=== PATIENT | female | born 1960 | race Caucasian/White ===

== ENCOUNTER 2021-04-27 09:30 | Outpatient (REF) | payer OTHER, SELFPAY ==
--- NOTE | ~2021-04-27 | CT_ITS ---
EXAMINATION: CT HEAD WITHOUT CONTRAST CLINICAL INFORMATION: Memory loss and confusion COMPARISON: None TECHNIQUE: Contiguous axial imaging was performed from the skull base to vertex without intravenous administration of contrast. This CT examination was performed using dose optimization techniques as appropriate, variously including the following: *Automated exposure control *Adjustment of mA and/or kV according to patient size (this includes techniques or standardized protocols for targeted exams where dose is matched to indication/reason for exam; i.e. extremities or head) *Use of iterative reconstruction technique DLP: 877 mGy-cm FINDINGS: There is no evidence of an extra-axial collection. There is no evidence of intra-axial or extra-axial hemorrhage. The ventricles and extra-axial CSF spaces are appropriate. There is mild nonspecific periventricular white matter disease. There is a left basal ganglia lacunar infarct. No mass or mass effect is seen. Review of bone windows is normal. Visualized paranasal sinuses, mastoid air cells and middle ears are clear. CT/CT head/brain wo con IMPRESSION: Mild periventricular white matter disease and left basal ganglia lacunar infarct.
== END 2021-04-27 09:31 | disposition home or self-care (01) ==
LOC: HO.CT 09:30
PROVIDERS: Visit Provider Psychiatry & Neurology Neurology
DX: G31.84 Mild cognitive impairment of uncertain or unknown etiology (principal)
CPT/HCPCS: 70450

== ENCOUNTER → 2021-05-06 08:14 | Outpatient (BNVA) | payer OTHER, SELFPAY | PROVIDERS: Visit Provider Physician Assistant | DX: Z01.818 Encounter for other preprocedural examination (principal); E66.01 Morbid (severe) obesity due to excess calories; E11.69 Type 2 diabetes mellitus with other specified complication; G47.30 Sleep apnea, unspecified; E78.5 Hyperlipidemia, unspecified; K21.9 Gastro-esophageal reflux disease without esophagitis; I10 Essential (primary) hypertension; Z98.890 Other specified postprocedural states | CPT/HCPCS: 99202 ==

== ENCOUNTER 2021-05-26 08:35 | Outpatient (REF) | payer OTHER, SELFPAY ==
--- NOTE | ~2021-05-26 | FL_ITS ---
EXAMINATION: XR FLUOROSCOPY UPPER GI WITH AIR CLINICAL INFORMATION: Morbid/severe obesity due to excess calories. COMPARISON: None. TECHNIQUE: Routine upper GI air-contrast study was performed. FINDINGS: Following oral administration of thick barium and effervescent granules, there is normal propagation of bolus from the oral cavity through the pharynx and esophagus and into the stomach without any evidence of obstruction, narrowing or stricture. On placing patient supine, the caliber of the stomach appears small, suspicious from previous gastric intervention. Otherwise, the rest the course, caliber and peristalsis of the stomach and the duodenal bulb and the sweep are normal. There is a small hiatal hernia with mild gastroesophageal reflux. FLUOROSCOPY TIME: 1.5 minutes DOSE AREA PRODUCT: 37.778 Gy-cm2 FL/FL upper GI w air IMPRESSION: Small paraesophageal hiatal hernia with moderate gastroesophageal reflux. Slightly small caliber stomach than usual, suspicious from previous intervention even though no ford are visualized. Correlate with clinical history.
== END 2021-05-26 08:36 | disposition home or self-care (01) ==
LOC: HO.XRAY 08:35
PROVIDERS: Visit Provider Physician Assistant
DX: Z01.818 Encounter for other preprocedural examination (principal); K21.9 Gastro-esophageal reflux disease without esophagitis; E66.01 Morbid (severe) obesity due to excess calories; Z98.890 Other specified postprocedural states
CPT/HCPCS: 74246

== ENCOUNTER → 2021-05-27 08:12 | Outpatient (BNVA) | payer OTHER, SELFPAY | PROVIDERS: Visit Provider Physician Assistant | DX: Z13.89 Encounter for screening for other disorder (principal) ==

== ENCOUNTER → 2021-05-29 08:11 | Outpatient (BNVA) | payer OTHER, SELFPAY | PROVIDERS: Visit Provider Physician Assistant | DX: E66.01 Morbid (severe) obesity due to excess calories (principal); Z98.890 Other specified postprocedural states | CPT/HCPCS: Q3014 ==

== ENCOUNTER → 2021-08-13 07:58 | Outpatient (BNVA) | payer OTHER, SELFPAY | PROVIDERS: Visit Provider Psychiatry & Neurology Neurology | DX: G24.01 Drug induced subacute dyskinesia (principal); G47.00 Insomnia, unspecified; H53.8 Other visual disturbances | CPT/HCPCS: 99212 ==

== ENCOUNTER 2021-09-02 15:45 | Outpatient (REF) | payer OTHER, SELFPAY ==
--- NOTE | ~2021-09-02 | MR_ITS ---
EXAMINATION: MR BRAIN WITHOUT CONTRAST CLINICAL INFORMATION: 61-year-old with drug-induced subacute dyskinesia. COMPARISON: None TECHNIQUE: Multiplanar multisequence MR imaging of the brain was done. The study was very limited due to excessive gross patient motion artifact throughout the exam due to involuntary movements. LIMITED FINDINGS: Brain Volume: Grossly within normal limits within the limitations of the exam. Structural: Suboptimally assessed due to motion. Brain and Meninges: DWI sequence was limited due to motion. Within these limitations, no definite restricted diffusion is identified to suggest acute or subacute cerebral ischemia. Scattered small patchy and punctate zones of FLAIR/T2 hyperintensity in the white matter of both cerebral hemispheres which are nonspecific findings but likely reflect foci of chronic ischemic microangiopathy. Mildly prominent perivascular space noted in the inferolateral basal ganglia on the left. No extra-axial fluid collections, significant space-occupying process or mass effect. Gradient refocused imaging is very limited but there is no gross evidence for hemorrhage. Ventricles and Subarachnoid Spaces: The ventricular system and subarachnoid spaces are within normal limits without hydrocephalus. Orbital Structures: Grossly unremarkable. Vascular: Signal voids are noted in the visualized major intracranial vessels. Limited assessment. Osseous Structures, Sinuses/Mastoids, Extracranial Soft Tissues: Mild mucosal thickening in the ethmoid complex bilaterally with nasal septal deviation to the left. Bone marrow signal intensity appears grossly within normal limits. Visualized extracranial soft tissue structures appear within normal limits. MR/MR head/brain wo con IMPRESSION: 1. Limited exam due to excessive motion artifact throughout the entire study. 2. No definite acute intracranial process. No acute infarct, hemorrhage, space-occupying process, mass effect or hydrocephalus. 3. Scattered chronic ischemic microangiopathy in the white matter of both cerebral hemispheres.
== END 2021-09-02 15:46 | disposition home or self-care (01) ==
LOC: HO.MRI 15:45
PROVIDERS: Visit Provider Psychiatry & Neurology Neurology
DX: G24.01 Drug induced subacute dyskinesia (principal); H53.8 Other visual disturbances
CPT/HCPCS: 70551

== ENCOUNTER → 2021-09-23 09:52 | Outpatient (BNVA) | payer OTHER, SELFPAY | PROVIDERS: Visit Provider Nurse Practitioner Family | DX: H53.8 Other visual disturbances (principal); G47.00 Insomnia, unspecified; G24.01 Drug induced subacute dyskinesia; T50.905A Adverse effect of unspecified drugs, medicaments and biological substances, initial encounter | CPT/HCPCS: 99212 ==

== ENCOUNTER 2023-09-28 19:35 | Inpatient (IN) | payer OTHER, SELFPAY ==
--- NOTE | ~2023-09-28 | XR_ITS ---
EXAMINATION: XR ABDOMEN COMPLETE CLINICAL INDICATION: Reason for Exam abdominal discomfort, upper, upper right COMPARISON: Upper GI 05/26/2021 TECHNIQUE: AP view of the abdomen. FINDINGS: Lines or devices: Upper abdominal surgical clips. Suture chain material in the region of the cecum. Nonobstructive bowel gas pattern. Moderate colonic stool burden. No extraluminal subdiaphragmatic air. Calcified phleboliths in the pelvis. XR/XR abdomen min 2V IMPRESSION: 1. Nonobstructive bowel gas pattern. Moderate colonic stool burden.
--- OUTSIDE RECORDS SUMMARY | 2023-09-28 19:40 | XMS_ITS | Continuity of Care Document ---
Author Organization [facility] ter Address [address] [place] [id number]- Care Team Providers Care Cleaning Custodian Name Role Phone Kat Sofia DO Primary Care Physician Encounter [facility] Date(s): 04/04/19 - 04/06/[address] [address]- [facility] Encounter Diagnosis Chest pain(Final) - 04/06/19 Discharge Disposition: A-D/C Home Attending Physician: Sarmad Garcia MD Admitting Physician: Cyndy Guevara DO Referring Physician: Not on Staff, Referring MD Allergies, Adverse Reactions, Alerts Substance Reaction Severity Status penicillin O/E - allergic rash Active fentanyl 1 Rash Itch Active Latex Active 1erythematous swollen itchy skin in area where patch was applied Immunizations Given and Recorded Vaccine Date Status Refusal Reason influenza virus vaccine, inactivated 12/23/17 Give n influenza virus vaccine, inactivated 03/01/16 Give n influenza virus vaccine, inactivated 1 02/03/15 Gi sean influenza virus vaccine, inactivated 2 03/04/14 Gi sean influenza virus vaccine, inactivated 01/17/13 Give n influenza virus vaccine, inactivated 3 12/29/11 Gi sean influenza virus vaccine, inactivated 02/03/07 Give n pneumococcal 23-valent vaccine 03/01/16 Given pneumococcal 23-valent vaccine 4 01/27/11 Given pneumococcal 13-valent vaccine 5 12/11/14 Given pneumococcal 13-valent vaccine 12/09/14 Given hepatitis B adult vaccine 6 01/17/13 Given hepatitis B adult vaccine 7 09/15/09 Given hepatitis B adult vaccine 8 02/03/07 Given Hepatitis A Adult Vaccine 9 09/15/09 Given Hepatitis A Adult Vaccine 10 02/03/07 Given tetanus/diphtheria/pertussis, acel(Tdap) 11 09/15/09 Given 1Result Comment: [02/03/2015] ORDERED BY DR. CAMACHO 2Result Comment: [03/04/2014] Ordered by Nikita 3Atico Note: VIS 10/20/10 GIVEN 4Admin Note: VIS 12/31/08 GIVEN 5Result Comment: [12/11/2014 Uncharted] Error 6Result Comment: [01/17/2013] ORDERED BY DR. CAMACHO 7Admin Note: VIS 10/12/06 GIVEN 8Admin Note: VIS 10/05/00 9Admin Note: VIS 06/15/05 GIVEN 10Admin Note: VIS 06/15/05 11Admin Note: ADACEL PT BROUGHT VIS 02/13/08 GIVEN Medications albuterol 0.083% inhalation solution 3 mL = 2.5 mg, Inhalation, Every 6 hours, PRN for wheezing, # 60 each, 5 Refills, Maintenance, 05/31/16 14:19:21, Solution Start Date: 05/31/16 Status: Ordered albuterol-ipratropium 3 mg-0.5 mg/3 ml inhalation solution 3 mL, Neb, Every 6 hours, PRN Wheezing/Shortness of Breath, Maintenance, 12/21/18 13:38:18 EDT Start Date: 12/21/18 Status: Ordered amLODIPine 5 mg oral tablet 5 mg, 1, tablet, By Mouth, Daily, # 30 tablet, Refills 0, Maintenance, 02/25/17 21:50:34 Start Date: 02/25/17 Status: Ordered atorvastatin 40 mg oral tablet = 40 mg, By Mouth, Daily at bedtime, # 30 tablet, 11 Refills, Maintenance, Tablet, Route to Pharmacy Electronically, [id number], [facility]/pharmacy #[id number] Start Date: 03/10/16 Status: Ordered benztropine 1 mg oral tablet 1 mg, 1, tablet, By Mouth, 2 times a day, Maintenance, 12/21/18 13:18:14 EDT Start Date: 12/21/18 Status: Ordered Breo Ellipta 200 mcg-25 mcg/inh inhalation powder 1 puffs, Inhalation, Daily, 0 Refills, Maintenance, 12/21/17 19:14:01 EDT, Powder Start Date: 12/21/17 Status: Ordered bumetanide 0.5 mg oral tablet 0.5 mg, 1, tablet, By Mouth, 2 times a day, # 30 tablet, Refills 0, Maintenance, 12/21/18 13:19:13 EDT Start Date: 12/21/18 Status: Ordered D3 SUPER STR CAP 2000UNIT D3 SUPER STR CAP 2000UNIT, 0 Refills, Maintenance, 04/04/19 20:38:00 EST Start Date: 04/04/19 Status: Ordered diazepam 5 mg oral tablet TAKE 1/2 TABLET IN THE MORNING, 1 TABLET IN THE afternoon, AND 1 1/ 2 TABLETS AT BEDTIME Start Date: 04/04/19 Status: Ordered Doculase By Mouth, 2 times a day, 0 Refills, Maintenance, 02/25/17 21:51:25 Start Date: 02/25/17 Status: Ordered duloxetine 60 mg oral enteric coated capsule 1 capsule = 60 mg, By Mouth, 2 times a day, # 30 tablet, 0 Refills, Maintenance, 05/31/17 14:18:08 EST, Capsule Start Date: 05/31/17 Status: Ordered esomeprazole 40 mg oral enteric coated capsule 1 capsule = 40 mg, By Mouth, 2 times a day, Maintenance, 12/21/18 13:25:23 EDT, EC Capsule Start Date: 12/21/18 Status: Ordered gabapentin 300 mg oral capsule 300 mg, 1, capsule, By Mouth, Daily in AM, Refills 0, Maintenance, 09/03/16 11:16:58 Start Date: 09/03/16 Status: Ordered gabapentin 600 mg oral tablet 1 tablet = 600 mg, By Mouth, Daily at bedtime, # 90 tablet, 0 Refills, Maintenance, 02/26/17 15:08:46, Tablet Start Date: 02/26/17 Status: Ordered Lantus 100 u/ml subcutaneous solution = 64 units, Subcutaneous Injection, Daily at bedtime, Maintenance, 12/21/18 13:26:49 EDT, Solution Start Date: 12/21/18 Status: Ordered lidocaine 4% topical cream 1 application, Topically, 4 times a day, Maintenance, 12/21/18 13:27:50 EDT, Cream Start Date: 12/21/18 Status: Ordered lisinopril 40 mg oral tablet 1 tablet = 40 mg, By Mouth, Daily, # 30 tablet, 0 Refills, Maintenance, 12/21/17 19:12:03 EDT, Tablet Start Date: 12/21/17 Status: Ordered loperamide 2 mg oral capsule 2 mg, 1, capsule, By Mouth, Daily, PRN, Maintenance, for loose stool, 12/21/18 13:39:23 EDT Start Date: 12/21/18 Status: Ordered loratadine 10 mg oral tablet 10 mg, 1, tablet, By Mouth, Daily, PRN, For allergies, Refills 0, Maintenance, Other, 02/26/17 15:22:04 Start Date: 02/26/17 Status: Ordered metFORMIN 1000 mg oral tablet 1 tablet = 1,000 mg, By Mouth, 2 times a day, 0 Refills, Maintenance, 12/21/18 13:29:09 EDT Start Date: 12/21/18 Status: Ordered metoprolol succinate 50 mg oral capsule, extended release 1 capsule = 50 mg, By Mouth, Daily, 0 Refills, Maintenance, 12/21/18 13:30:07 EDT Start Date: 12/21/18 Status: Ordered NovoLOG 100 units/mL subcutaneous solution See Instructions, 8-24 3x daily per sliding scale, # 30 mL, 11 Refills, Maintenance, 07/25/15 17:42:00 Start Date: 07/25/15 Status: Ordered olanzapine 10 mg oral tablet 10 mg, By Mouth, Daily at bedtime, Refills 0, Maintenance, 12/29/17 12:32:06 EDT Start Date: 12/29/17 Status: Ordered olanzapine 5 mg oral tablet 5 mg, By Mouth, Daily, Refills 0, Maintenance, 12/29/17 12:32:12 EDT Start Date: 12/29/17 Status: Ordered senna - oral tablet 2 tablet, By Mouth, Daily at bedtime, PRN for constipation, Maintenance, 12/21/18 13:40:06 EDT, Tablet Start Date: 12/21/18 Status: Ordered Tylenol Extra Strength 500 mg oral tablet 2 tablet = 1,000 mg, By Mouth, Every 6 hours, PRN for pain, Maintenance, 12/21/18 13:37:16 EDT, Tablet Start Date: 12/21/18 Status: Ordered Ventolin 90 mcg Inhaler 2, puffs, Inhalation, Every 6 hours, PRN, Maintenance, 12/21/18 13:40:53 EDT, Inhaler Start Date: 12/21/18 Status: Ordered Voltaren 1% topical gel = 2 Gm, Topically, 3 times a day, PRN Pain , Mild, Maintenance, 12/21/18 13:41:32 EDT Start Date: 12/21/18 Status: Ordered Problem List Condition Effective Dates Status Health Status Inform ant Allergic rhinitis(Confirmed) Active Dry mouth(Confirmed) Active Atrophic vaginitis(Confirmed) 12/06/12 Active Bipolar disorder(Confirmed) Active Dilated cbd, acquired(Confirmed) 2008 Active Chronic respiratory failure with hypoxia(Confirmed) Active Closed fracture of tibial pl [place] with routine healing(Confirmed) 11/07/14 Active Oxygen dependent(Confirmed) Active Diabetes mellitus type 2(Confirmed) Active Diabetic neuropathy(Confirmed) Active Diabetic nephropathy(Confirmed) 11/10/03 Active Diastolic dysfunction(Confirmed) 2 12/25/15 Active GERD (gastroesophageal reflu x disease)(Confirmed) Active History of resection of smal l bowel(Confirmed) 3 Active Hypercholesterolemia(Confirmed) Active Hyperlipidemia(Confirmed) Active Hypertension(Confirmed) Active Iron deficiency anemia(Confirmed) Active Irritable bowel syndrome wit h constipation and diarrhea(Confirmed) Active Memory impairment(Confirmed) Active Morbid obesity(Confirmed) 4, 5, 6 Active DON on CPAP(Confirmed) 7 05/21/11 Active Osteoarthritis(Confirmed) Active Osteoarthritis of knee(Confirmed) 8, 9 Active Left leg pain(Confirmed) Active *[facility] [phone] CARE MANAG ER SUN [place](Confirmed) Active Peripheral venous insufficiency(Confirmed) Active Abdominal adhesions(Confirmed) 10 Active Physiological tremor(Confirmed) 11 06/17/10 Active Reflux esophagitis(Confirmed ) 12, 13, 14, 15 11/17/04 Active Urinary incontinence(Confirmed) Active 1dilatation of CBD since 2008 per GI letter- diagnosed by US 2Per ECHO Dec 25, 2015 Grade I, mild diastolic dysfunction 3confirmed by small bowel series done by GI jan 2014- partial small bowel resection 4PROCEDURE DATE: 01/04/2012 ATTENDING SURGEON: Woo Maxwell M.D. TALENT REP: Laz Schulz M.D. SECOND INVESTMENT BROKER: Monica Betancourt M.D. Procedure: partial resection of implanted Marlex gastric band. 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 PROCEDURE PERFORMED: Exploratory laparoscopy with extensive laparoscopic lysis of adhesions, neuro evaluation, Dr Ramandeep Diop: exaggerated physiological tremor with a probable contribution from the medications 12PROCEDURE DATE: 01/04/2012 ATTENDING SURGEON: Woo Maxwell M.D. ASSISTANTS: Laz Schulz M.D.; Monica Betancourt M.D. DIAGNOSES: Gastroesophageal reflux and dysphagia. PROCEDURE: Exploratory laparoscopy with extensive laparoscopic lysis of adhesions, repair of sliding hiatal hernia, esophagogastroduodenoscopy, and resection of implanted Marlex gastric band. EGD by Guzman Hernandez MD: Grade 1 esophagitis in the lower third of the esophagus compatible with reflux esophagitis. Short segment Ellington's esophagus. Small hiatal hernia. No H pylori. 14esophagitis was confirmed by endoscopy on 11/17/2004 15with GERD Results Radiology Reports * Exam Date Time Procedure Performing Provider Status 04/04/19 2:47 PM Chest 2 Views Frontal and Lat Merary Vargas; Auth (Verified) Notes: (Chest 2 Views Frontal and Lat) Reason For Exam: Shortness of Breath RESULT: Chest 2 Views Frontal and Lat Chest 2 Views Frontal and Lat Reason: Shortness of Breath; Clinical Question(s): Pneumonia; Hx of Present Illness: Pt reports shewent to PCP for appointment today and was dizzy and started to have jaw pain that radiated down to the midsternal chest. COMPARISON: 07/31/2018 FINDINGS: LINES AND TUBES: None. LUNGS AND PLEURA: Clear lungs. Normal pulmonary vascularity. No pleural effusion. No pneumothorax. HEART, MEDIASTINUM AND TRACE: Heart is normal in size. Aorta is mildly calcified. BONES AND SOFT TISSUES: No acute abnormality. Chronic posterior left rib fractures. IMPRESSION: No acute abnormality. WSN: [id number] Dictated By: Castro Riggs DO Dictated Date/Time: 04/04/19 2:49 pm Reviewed By: Castro Riggs DO Signed By: Castro Riggs DO Signed Date/Time: 04/04/19 2:49 pm Transcribed By: NICCI Transcribed Date/Time: 04/04/19 2:47 pm Vital Signs Most recent to oldest [Reference Range]: 1 2 3 Height 177 cm (04/06/19 11:47 AM) 177 cm (04/06/19 8:01 AM) 177 cm (04/06/19 3:42 AM) Weight 133.5 kg (04/04/19 9:00 PM) Oxygen Saturation [94-100 %] 97 % (04/06/19 11:47 AM) 95 % (04/06/19 8:01 AM) 99 % (04/06/19 3:42 AM) Pulse Rate [55-90 bpm] 75 bpm (04/06/19 11:47 AM) 74 bpm (04/06/19 9:13 AM) 73 bpm (04/06/19 8:01 AM) Body Mass Index [18.5-24.99] 42.61 *>HHI* (04/04/19 9:00 PM) Blood Pressure [90-138/55-84 mm Hg] 127/89mm Hg (04/06/19 11:47 AM) 152/92mm Hg *H* (04/06/19 9:13 AM) 152/92mm Hg *H* (04/06/19 9:13 AM) Respiratory Rate [16-30 br/min] 18 br/min (04/06/19 11:47 AM) 16 br/min (04/06/19 10:13 AM) 16 br/min (04/06/19 10:13 AM) Temperature [96.8-100.4 DegF] 97.2 DegF (04/06/19 11:47 AM) 97.4 DegF (04/06/19 8:01 AM) 97.7 DegF (04/06/19 3:42 AM) Mode of Delivery (Oxygen) Room air (04/06/19 11:47 AM) Room air (04/06/19 8:01 AM) Room air (04/06/19 3:42 AM) Blood pressure sites Arm, left (04/06/19 11:47 AM) Arm, left (04/06/19 8:01 AM) Arm, right (04/06/19 3:42 AM) Temperature Route Oral (04/06/19 11:47 AM) Oral (04/06/19 8:01 AM) Oral (04/06/19 3:42 AM) Dry Weight 133.5 kg (04/04/19 9:00 PM) Social History Social History Type Response Smoking Status Never smoker; Tobacc o user in household: No entered on: 09/03/16 Sex
--- OUTSIDE RECORDS SUMMARY | 2023-09-28 19:40 | XMS_ITS | Continuity of Care Document ---
Author Organization [facility] As [facility] Address [address] [place] [address] [address] [place] [address]- Care Team Providers Care Company Manager Name Role Phone Evangelist LAO, Tamara Primary Care Physician [phone] Encounter [facility] Date(s): 11/27/21 - 12/04/[address] [place] [address]- Attending Physician: Woo Maxwlel MD Referring Physician: Tamara Blanca NP Allergies, Adverse Reactions, Alerts Substance Reaction Severity Status penicillin O/E - allergic rash Active fentanyl 1 Rash Itch Active Latex Skin Peels Active 1erythematous swollen itchy skin in area [...] CAMACHO 2Result Comment: [03/04/2014] Ordered by Nikita 3Admin Note: VIS 10/20/10 GIVEN 4Admin Note: VIS [...] albuterol-ipratropium 3 mg-0.5 mg/3 ml inhalation solution 0 Refills, Maintenance, 12/01/21 16:28:00 EDT, Partial fill upon patient request if the prescription is for a schedule II opioid drug. Start Date: 12/01/21 Status: Ordered aspirin 81 mg oral tablet 1 tablet = 81 mg, By Mouth, Daily, PRN Chest Pain, 0 Refills, Maintenance, 09/09/19 0:01:00 EDT Start Date: 09/09/19 Status: Ordered atorvastatin 40 mg oral tablet = 40 mg, By Mouth, Daily at bedtime, # 30 tablet, 11 Refills, Maintenance, Tablet, Route to Pharmacy Electronically, [id number], [facility]/pharmacy #[id number] Start Date: 03/10/16 Status: Ordered atorvastatin 40 mg oral tablet 1 tablet = 40 mg, By Mouth, Daily, # 90 tablet, 0 Refills, Maintenance, 12/01/21 16:29:00 EDT, Tablet, Partial fill upon patient request if the prescription is for a schedule II opioid drug. Start Date: 12/01/21 Status: Ordered benztropine 1 mg oral tablet [...] 13:19:13 EDT Start Date: 12/21/18 Status: Ordered clotrimazole 1% topical cream 0 Refills, Maintenance, 12/01/21 16:27:00 EDT, Partial fill upon patient request if the prescription is for a schedule II opioid drug. Start Date: 12/01/21 Status: Ordered CPAP Machine See Instructions, # 1 each, Maintenance, AutoCPAP 9-12 cm H20, use Daily when sleeping, 10/22/21 14:55:00 EDT, Supply Start Date: 10/22/21 Status: Ordered D3 SUPER STR CAP 2000UNIT D3 SUPER STR CAP 2000UNIT, 0 Refills, Maintenance, 04/04/19 20:38:00 EST Start Date: 04/04/19 Status: Ordered diazepam 2 mg oral tablet TAKE 2 TABLETS BY MOUTH ONCE DAILY NEEDED Start Date: 02/09/20 Status: Ordered diazepam 2 mg oral tablet Refills 0, Maintenance, 12/01/21 16:29:00 EDT, Partial fill upon patient request if the prescription is for a schedule II opioid drug. Start Date: 12/01/21 Status: Ordered Doculase By Mouth, 2 times a day, 0 Refills, Maintenance, 02/25/17 21:51:25 EST Start Date: 02/25/17 Status: Ordered duloxetine 60 [...] EC Capsule Start Date: 12/21/18 Status: Ordered esomeprazole 40 mg oral enteric coated capsule 1 capsule = 40 mg, By Mouth, 2 times a day, # 30 capsule, 0 Refills, Maintenance, 12/01/21 16:29:00EDT, EC Capsule, Partial fill upon patient request if the prescription is for a schedule II opioid drug. Start Date: 12/01/21 Status: Ordered gabapentin 400 mg oral capsule 400 mg, 1, capsule, By Mouth, 3 times a day, # 15 capsule, Refills 0, Maintenance, 12/01/21 16:59:00 EDT, Partial fill upon patient request if the prescription is for a schedule II opioid drug. Start Date: 12/01/21 Status: Ordered gabapentin 600 mg oral tablet 1 tablet = 600 mg, By Mouth, Daily at bedtime, # 90 tablet, 0 Refills, Maintenance, 02/26/17 15:08:46 EST, Tablet Start Date: 02/26/17 Status: Ordered Lantus 100 u/ml subcutaneous solution = 64 units, Subcutaneous Injection, Daily at bedtime, Maintenance, 12/21/18 13:26:49 EDT, Solution Start Date: 12/21/18 Status: Ordered Lantus Solostar Pen 100 units/mL subcutaneous solution 0 Refills, Maintenance, 12/01/21 16:29:00 EDT, Partial fill upon patient request if the prescription is for a schedule II opioid drug. Start Date: 12/01/21 Status: Ordered lidocaine 4% topical cream 1 application, Topically, 4 times a day, Maintenance, 12/21/18 13:27:50 EDT, Cream Start Date: 12/21/18 Status: Ordered lisinopril 10 mg oral tablet 10 mg, 1, tablet, By Mouth, Daily, # 30 tablet, Refills 0, Maintenance, 12/01/21 16:28:00 EDT, Partial fill upon patient request if the prescription is for a schedule II opioid drug. Start Date: 12/01/21 Status: Ordered lisinopril 40 mg oral tablet [...] 15:22:04 Start Date: 02/26/17 Status: Ordered metFORMIN 500 mg oral tablet 2 tablet = 1,000 mg, By Mouth, 2 times a day, with meals, # 30 tablet, 0 Refills, Maintenance, 05/06/20 10:14:00 EST, Tablet, Partial fill upon patient request if the prescription is for a schedule II opioid drug. Start Date: 05/06/20 Status: Ordered Metoprolol Succinate ER 25 mg oral tablet, extended release 1 tablet = 25 mg, By Mouth, Daily, # 30 tablet, 0 Refills, Maintenance, 02/09/20 11:00:00 EST, ER Tablet, Partial fill upon patient request Start Date: 02/09/20 Status: Ordered mirtazapine 30 mg oral tablet TAKE ONE TABLET BY MOUTH ONCE A DAY AT BEDTIME Start Date: 08/14/21 Status: Ordered mirtazapine 30 mg oral tablet 1 tablet = 30 mg, By Mouth, Daily at bedtime, # 30 tablet, 0 Refills, Maintenance, 12/01/21 16:29:00 EDT, Tablet, Partial fill upon patient request if the prescription is for a schedule II opioid drug. Start Date: 12/01/21 Status: Ordered NovoLOG 100 units/mL subcutaneous solution See Instructions, 8-24 3x daily per sliding scale, # 30 mL, 11 Refills, Maintenance, 07/25/15 17:42:00 Start Date: 07/25/15 Status: Ordered Nystop 956020 u/gm powder 0 Refills, Maintenance, 08/14/21 16:07:00 EDT, Partial fill upon patient request if the prescription is for a schedule II opioid drug. Start Date: 08/14/21 Status: Ordered Nystop 419668 u/gm powder 0 Refills, Maintenance, 12/01/21 16:27:00 EDT, Partial fill upon patient request if the prescription is for a schedule II opioid drug. Start Date: 12/01/21 Status: Ordered olanzapine 20 mg oral tablet 1 tablet = 20 mg, By Mouth, Daily at bedtime, # 30 tablet, 0 Refills, Maintenance, 02/09/20 11:02:00 EST, Tablet, Partial fill upon patient request Start Date: 02/09/20 Status: Ordered olanzapine 20 mg oral tablet 1 tablet = 20 mg, By Mouth, Daily, # 90 tablet, 0 Refills, Maintenance, 12/01/21 16:27:00 EDT, Tablet, Partial fill upon patient request if the prescription is for a schedule II opioid drug. Start Date: 12/01/21 Status: Ordered Ozempic (0.25 mg or 0.5 mg dose) 2 mg/1.5 mL subcutaneous solution = 0.5 mg, Subcutaneous Injection, Every week, # 1.5 mL, 0 Refills, Maintenance, 05/06/20 10:16:00 EST, Solution, Partial fill upon patient request if the prescription is for a schedule II opioid drug. Start Date: 05/06/20 Status: Ordered Ozempic (1 mg dose) 4 mg/3 mL subcutaneous solution 0 Refills, Maintenance, 12/01/21 16:28:00 EDT, Partial fill upon patient request if the prescription is for a schedule II opioid drug. Start Date: 12/01/21 Status: Ordered senna - oral tablet 2 tablet, By Mouth, Daily at bedtime, PRN for constipation, Maintenance, 12/21/18 13:40:06 EDT, Tablet Start Date: 12/21/18 Status: Ordered traMADol 50 mg oral tablet 1 tablet = 50 mg, By Mouth, Every 4 hours, PRN for pain, # 60 tablet, 0 Refills, Maintenance, 05/06/20 10:19:00 EST, Tablet, Partial fill upon patient request if the prescription is for a schedule IIopioid drug. Start Date: 05/06/20 Status: Ordered Tylenol Extra Strength 500 mg oral tablet 2 tablet = 1,000 mg, By Mouth, Every 6 hours, PRN for pain, Maintenance, 12/21/18 13:37:16 EDT, Tablet Start Date: 12/21/18 Status: Ordered Vitamin D3 1000 intl units oral capsule 1 capsule = 25 mcg, By Mouth, Daily, # 100 capsule, 0 Refills, Maintenance, 12/01/21 16:29:00 EDT, Capsule, Partial fill upon patient request if the prescription is for a schedule II opioid drug. Start Date: 12/01/21 Status: Ordered Vitamin D3 1000 intl units oral tablet 1 tablet = 25 mcg, By Mouth, Daily, 0 Refills, Maintenance, 08/14/21 16:07:00 EDT, Partial fill upon patient request if the prescription is for a schedule II opioid drug. Start Date: 08/14/21 Status: Ordered Voltaren 1% topical gel = [...] resection of smal l bowel(Confirmed) 3 Active Hyperlipidemia(Confirmed) Active Hypertension(Confirmed) Active Iron deficiency anemia(Confirmed) Active Irritable bowel syndrome wit h constipation and diarrhea(Confirmed) Active Memory impairment(Confirmed) Active Morbid obesity(Confirmed) 4, 5, 6 Active DON on CPAP(Confirmed) 7 05/21/11 Active Osteoarthritis(Confirmed) Active Osteoarthritis of knee(Confirmed) 8, 9 Active Left leg pain(Confirmed) Active *[facility] [phone] CARE MANAG ER SUN CEDILLO(Confirmed) Active Peripheral venous insufficiency(Confirmed) Active Abdominal adhesions(Confirmed) 10 Active Physiological tremor(Confirmed) 11 06/17/10 Active Reflux esophagitis(Confirmed ) 12, 13, 14, 15 11/17/04 Active Severe obesity(Confirmed) Active Syncope(Confirmed) Active Urinary incontinence(Confirmed) Active 1dilatation of CBD since 2008 per GI letter- diagnosed by US 2Per ECHO Dec 25, 2015 Grade I, mild diastolic dysfunction 3confirmed by small bowel series done by GI jan 2014- partial small bowel resection 4PROCEDURE DATE: 01/04/2012 ATTENDING SURGEON: Woo Maxwell M.D. TORQUE TESTER: Laz Schulz M.D. SECOND EMPLOYMENT APPEALS EXAMINER: Monica Betancourt M.D. Procedure: partial resection of implanted Marlex gastric band. 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 on 02/22/[address] Laz Katz At [address] [facility], [id number] [address]Right TKP by Dr Laz Katz 10PROCEDURE [...] confirmed by endoscopy on 11/17/2004 15with GERD Vital Signs Most recent to oldest [Reference Range]: 1 Height 170 cm (11/27/21 10:14 AM) Weight 121.7 kg (11/27/21 10:14 AM) Pulse Rate [55-90 bpm] 98 bpm *H* (11/27/21 10:14 AM) Body Mass Index [18.5-24.99] 42.11 *>HHI* (11/27/21 10:14 AM) Blood Pressure [90-138/55-84 mm Hg] 114/ 77mm Hg (11/27/21 10:14 AM) Respiratory Rate [16-30 br/min] 18 br/mi n (11/27/21 10:14 AM) Temperature [96.8-100.4 DegF] 97.5 DegF (11/27/21 10:14 AM) Blood pressure sites Arm, right (11/27/21 10:14 AM) Temperature Route Temporal (11/27/21 10:14 AM) Weight Obtained Via Standing scale (11/27/21 10:14 AM) Social History Social History Type Response Smoking Status Never smoker; Tobacc o user in household: No entered on: 09/03/16 Sex Female Care Team Personnel Name: Evangelist LAO, Tamara
--- OUTSIDE RECORDS SUMMARY | 2023-09-28 19:40 | XMS_ITS | Continuity of Care Document ---
Author Organization [facility] Address Unknown Care Team Providers Care Laboratory Animal Caretaker Name Role Phone Kat Sofia DO Primary Care Physician [place] [facility] [place]): 12/25/20 - 01/24/21 [facility] Allergies, Adverse Reactions, Alerts Substance Reaction Severity [...] 13:38:18 EDT Start Date: 12/21/18 Status: Ordered aspirin 81 mg oral tablet 1 tablet = 81 mg, By Mouth, Daily, PRN Chest Pain, 0 Refills, Maintenance, 09/09/19 0:01:00 EDT Start Date: 09/09/19 Status: Ordered atorvastatin 40 mg oral tablet = 40 mg, By Mouth, Daily at bedtime, # 30 tablet, 11 Refills, Maintenance, Tablet, Route to Pharmacy Electronically, [id number], [facility]/pharmacy #[id number] Start Date: 03/10/16 Status: Ordered benztropine [...] DAILY NEEDED Start Date: 02/09/20 Status: Ordered Doculase By Mouth, 2 times [...] Capsule Start Date: 12/21/18 Status: Ordered gabapentin 600 mg oral tablet [...] Status: Ordered metFORMIN 500 mg oral tablet 1 tablet = 500 mg, By Mouth, Daily, with meals, # 30 tablet, 0 Refills, [...] patient request Start Date: 02/09/20 Status: Ordered NovoLOG 100 units/mL subcutaneous solution See Instructions, 8-24 3x daily per sliding scale, # 30 mL, 11 Refills, Maintenance, 07/25/15 17:42:00 Start Date: 07/25/15 Status: Ordered olanzapine 20 mg oral tablet 1 tablet = 20 mg, By Mouth, Daily, # 30 tablet, 0 Refills, Maintenance, 02/09/20 11:02:00 EST, Tablet, Partial fill upon patient request Start Date: 02/09/20 Status: Ordered Ozempic (0.25 mg or 0.5 mg dose) 2 mg/1.5 mL subcutaneous solution = 0.5 mg, Subcutaneous Injection, Every week, # 1.5 mL, 0 Refills, Maintenance, 05/06/20 10:16:00 EST, Solution, Partial fill upon patient request if the prescription is for a schedule II opioid drug. Start Date: 05/06/20 Status: Ordered senna - oral tablet 2 [...] 8, 9 Active Left leg pain(Confirmed) Active *[facility] [phone] CARE MANAG ER SUN CEDILLO(Confirmed) Active Peripheral [...] DATE: 01/04/2012 ATTENDING SURGEON: Woo Maxwell M.D. CREDIT OFFICE MANAGER: Laz Schulz M.D. SECOND PC NETWORK TECHNICIAN: Monica Betancourt M.D. Procedure: partial resection of implanted Marlex gastric band. 5Gastric bypass by Dr Knott 03/29/03 6S/p gastric bypass 7by sleep s tudy 05/21/11- mild 8Left TKR after failed patellofemoral knee replacement on 02/22/[address] Laz Katz At [address] [facility], [address] [address]Right [address]KP by Dr Laz Katz 10PROCEDURE [...] confirmed by endoscopy on 11/17/2004 15with GERD Social History Social History Type Response Smoking Status Never smoker; Tobacc o user in household: No entered on: 09/03/16 Sex Female
--- OUTSIDE RECORDS SUMMARY | 2023-09-28 19:40 | XMS_ITS | Continuity of Care Document ---
Author Organization [facility] Address [address] [place] [address] [address] [place] [address]- Care Team Providers Care New Business Clerk Name Role Phone Kat Sofia DO Primary Care Physician Encounter [facility] Date(s): 02/29/20 - 03/07/[address] [place] [address]- Encounter Diagnosis Abdominal pain in female(Discharge Diagnosis) - 02/29/20 Attending Physician: Woo Maxwell MD Referring Physician: Kat Sofia DO Allergies, Adverse Reactions, Alerts Substance Reaction Severity [...] CAMACHO 2Result Comment: [03/04/2014] Ordered by Nikita 3Admjohnna Note: VIS 10/20/10 GIVEN 4Admin Note: VIS [...] Refills, Maintenance, Tablet, Route to Pharmacy Electronically, [id number], [facility]/pharmacy #[id number] Start Date: 03/10/16 Status: Ordered benztropine [...] 21:51:25 EST Start Date: 02/25/17 Status: Ordered docusate sodium 100 mg oral capsule 100 mg, 1, capsule, By Mouth, 2 times a day, # 28 capsule, Refills 0, Tot. Refills 0, Maintenance, 09/09/19 11:05:00 EDT, Route to Pharmacy Electronically, [facility], 170, cm, 09/08/2009:46:00 EDT, Height, 127.2, kg, 09/08/19 23:46:00... Start Date: 09/09/19 Stop Date: 09/23/19 Status: Ordered duloxetine 60 mg oral enteric [...] 13:29:09 EDT Start Date: 12/21/18 Status: Ordered Metoprolol Succinate ER 25 mg [...] patient request Start Date: 02/09/20 Status: Ordered Readi-Cat 2 oral suspension See Instructions, Dispense : 2 Bottles 450 ml each Dx: Hernia, # 900 mL, 0 Refills, Maintenance, 02/29/20 14:58:00 EST, [facility]/pharmacy #[id number], Partial fill upon patient request if the prescription is for a schedule II opioid drug., Dispense : 2 Bottles... Start Date: 02/29/20 Status: Ordered senna - oral tablet 2 [...] 8, 9 Active Left leg pain(Confirmed) Active *[facility] [phone] CARE MANAG ER SUN CEDILLO(Confirmed) Active Peripheral [...] DATE: 01/04/2012 ATTENDING SURGEON: Woo Maxwell M.D. DISABILITY SERVICES COORDINATOR: Laz Schulz M.D. SECOND JAVA ORACLE DEVELOPER: Monica Betancourt M.D. Procedure: partial resection of implanted Marlex gastric band. 5Gastric bypass by Dr Knott 03/29/03 6S/p gastric bypass 7by sleep s tudy 05/21/11- mild 8Left TKR after failed patellofemoral knee replacement on 02/22/[address] Laz Katz At [address] [place] [address], [id number] [address]Right TKP by Dr Laz Katz 10PROCEDURE [...] confirmed by endoscopy on 11/17/2004 15with GERD Diagnosis Diagnosis Type Effective Dates Health Status Cl inical Service Informant Abdominal pain in female Discharge Diagnosis 02/29/20 Vital Signs Most recent to oldest [Reference Range]: 1 Height 177.8 cm (02/29/20 2:39 PM) Weight 124 kg (02/29/20 2:39 PM) Pulse Rate [55-90 bpm] 91 bpm *H* (02/29/20 2:39 PM) Body Mass Index [18.5-24.99] 39.22 *>HHI* (02/29/20 2:39 PM) Blood Pressure [90-138/55-84 mm Hg] 121/ 88mm Hg (02/29/20 2:39 PM) Respiratory Rate [16-30 br/min] 16 br/mi n (02/29/20 2:39 PM) Temperature [96.8-100.4 DegF] 96.9 DegF (02/29/20 2:39 PM) Blood pressure sites Arm, right (02/29/20 2:39 PM) Temperature Route Temporal (02/29/20 2:39 PM) Weight Obtained Via Standing scale (02/29/20 2:39 PM) Social History Social History Type Response Smoking Status Never smoker; Tobacc o user in household: No entered on: 09/03/16 Sex Female
--- OUTSIDE RECORDS SUMMARY | 2023-09-28 19:40 | XMS_ITS | Continuity of Care Document ---
Author Organization [facility] Address [address] [place] [address]- Care Team Providers Care Rayon Coner Name Role Phone Evangelist LAO, Tamara Primary Care Physician [phone] Encounter [facility] [place] Date(s): 12/01/21 - 12/02/[address] [address] Encounter Diagnosis Unstable angina(Final) - 12/01/21 Discharge Disposition: A-D/C Home Attending Physician: Katlyn Rutledge MD Admitting Physician: Samantha Armendariz MD Referring Physician: Not on Staff, Referring MD [...] Refills, Maintenance, Tablet, Route to Pharmacy Electronically, [id number], [facility]/pharmacy #[id number] Start Date: 03/10/16 Status: Ordered atorvastatin [...] gabapentin 400 mg oral capsule 400 mg, Capsule, By Mouth, 12/02/21 9:00:00 EDT Start Date: 12/02/21 Stop Date: 12/02/21 Status: Completed gabapentin 600 mg oral tablet 1 tablet [...] drug. Start Date: 12/01/21 Status: Ordered lisinopril 10 mg oral tablet 10 mg, Tablet, By Mouth, 12/02/21 9:00:00 EDT Start Date: 12/02/21 Stop Date: 12/02/21 Status: Completed lisinopril 40 mg oral tablet 1 tablet [...] opioid drug. Start Date: 05/06/20 Status: Ordered metoprolol 25 mg oral tablet, extended release 25 mg, XL Tablet, By Mouth, 12/02/21 9:00:00 EDT Start Date: 12/02/21 Stop Date: 12/02/21 Status: Completed Metoprolol Succinate ER 25 mg oral tablet, [...] 17:42:00 Start Date: 07/25/15 Status: Ordered Nystop 409990 u/gm powder 0 Refills, Maintenance, 08/14/21 16:07:00 EDT, Partial fill upon patient request if the prescription is for a schedule II opioid drug. Start Date: 08/14/21 Status: Ordered Nystop 736704 u/gm powder 0 Refills, Maintenance, 12/01/21 16:27:00 [...] 8, 9 Active Left leg pain(Confirmed) Active *[facility] [phone] CARE MANAG ER SUN CEDILLO(Confirmed) Active Peripheral [...] DATE: 01/04/2012 ATTENDING SURGEON: Woo Maxwell M.D. JIRA ADMINISTRATOR: Laz Schulz M.D. SECOND ROLL CONTOUR GRINDER: Monica Betancourt M.D. Procedure: partial resection of implanted Marlex gastric band. 5Gastric bypass by Dr Knott 03/29/03 6S/p gastric bypass 7by sleep s tudy 05/21/11- mild 8Left TKR after failed patellofemoral knee replacement on 02/22/[address] Laz Katz At [address] [place] [address], [id number] [address]Right TKP by Dr Laz Katz 10PROCEDURE [...] Exam Date Time Procedure Performing Provider Status 12/01/21 10:52 AM Chest 2 Views Frontal and Lat Richard , Lay; Auth (Verified) Notes: (Chest 2 Views Frontal and Lat) Reason For Exam: Chest Pain;Other: RESULT: Chest 2 Views Frontal and Lat PA and lateral chest dated December 01, 2021. Comparison films are from February 08, 2020. HISTORY: Chest pain. FINDINGS: The cardiac silhouette is within normal limits for size. Mural calcifications are presentin the aorta and Airways. Some mild pulmonary vascular congestion is noted. No interstitial edema is appreciated. No airspace consolidation or pleural effusion is noted. Degenerative changes are noted in the spine. IMPRESSION: Findings are consistent with a volume overload/mild or early congestive heart failure pattern. Examination 06751. Thank you for allowing me to participate in the care of this patient. WSN: [id number] Ordering Physician: Kaitlynn Ryder Dictated By: Rogelio Ziegler MD Dictated Date/Time: 12/01/21 10:57 a Reviewed By: Rogelio Ziegler MD Signed By: Rogelio Ziegler MD Signed Date/Time: 12/01/21 10:57 am Transcribed By: NICCI Transcribed Date/Time: 12/01/21 10:57 am Vital Signs Most recent to oldest [Reference Range]: 1 2 3 Height 170 cm (12/02/21 12:50 PM) 170 cm (12/02/21 7:17 AM) 170 cm (12/02/21 4:39 AM) Weight 124 kg (12/01/21 4:42 PM) 120 kg (12/01/21 10:08 AM) Oxygen Saturation [94-100 %] 97 % (12/02/21 12:50 PM) 98 % (12/02/21 7:17 AM) 100 % (12/02/21 4:39 AM) Pulse Rate [55-90 bpm] 81 bpm (12/02/21 12:50 PM) 76 bpm (12/02/21 7:51 AM) 76 bpm (12/02/21 7:17 AM) Body Mass Index [18.5-24.99] 42.91 *>HHI* (12/01/21 4:42 PM) Blood Pressure [90-138/55-84 mm Hg] 118/75mm Hg (12/02/21 12:50 PM) 143/85mm Hg *H* (12/02/21 7:51 AM) 143/85mm Hg *H* (12/02/21 7:51 AM) Respiratory Rate [16-30 br/min] 16 br/min (12/02/21 12:50 PM) 18 br/min (12/02/21 7:51 AM) 20 br/min (12/02/21 7:17 AM) Temperature [96.8-100.4 DegF] 98 DegF (12/02/21 12:50 PM) 97.3 DegF (12/02/21 7:17 AM) 97.7 DegF (12/02/21 4:39 AM) Mode of Delivery (Oxygen) Room air (12/02/21 12:50 PM) Room air (12/02/21 7:17 AM) Room air (12/02/21 4:39 AM) Blood pressure sites Arm, right (12/02/21 7:17 AM) Arm, right (12/02/21 4:39 AM) Arm, right (12/01/21 11:49 PM) Temperature Route Oral (12/02/21 12:50 PM) Oral (12/02/21 7:17 AM) Oral (12/02/21 4:39 AM) Dry Weight 124 kg (12/01/21 4:42 PM) 120 kg (12/01/21 10:08 AM) Social History Social History Type Response Smoking Status Never smoker; Tobacc o user in household: No entered on: 09/03/16 Sex Female Note * [facility] , CIS S: TRANSCRIBE Rogelio Ziegler MD: VERIFY Event Display: Result: Authored Date: [id number] PA and lateral chest dated December 01, 2021. Comparison films are from February 08, 2020. HISTORY: Chest pain. FINDINGS: The cardiac silhouette is within normal limits for size. Mural calcifications are presentin the aorta and Airways. Some mild pulmonary vascular congestion is noted. No interstitial edema is appreciated. No airspace consolidation or pleural effusion is noted. Degenerative changes are noted in the spine. IMPRESSION: Findings are consistent with a volume overload/mild or early congestive heart failure pattern. Examination 18543. Thank you for allowing me to participate in the care of this patient. WSN: [id number] Ordering Physician: Kaitlynn Ryder Dictated By: Rogelio Ziegler MD Dictated Date/Time: 12/01/21 10:57 a Reviewed By: Rogelio Ziegler MD Signed By: Rogelio Ziegler MD Signed Date/Time: 12/01/21 10:57 am Transcribed By: NICCI Transcribed Date/Time: 12/01/21 10:57 am Care Team Personnel Name: Evangelist LAO, Tamara
--- OUTSIDE RECORDS SUMMARY | 2023-09-28 19:40 | XMS_ITS | Continuity of Care Document ---
Author Organization [facility] ter Address [address] [place] [address]- Care Team Providers Care Auto Electrician Name Role Phone OscartessaKat weaver DO Primary Care Physician Encounter [facility] Date(s): 10/01/19 - 10/02/[address] [address]- [facility] Encounter Diagnosis Chest pain(Final) - 10/01/19 Hypotension(Final) - 10/01/19 Discharge Disposition: A-D/C Home Attending Physician: Mary Horne MD Admitting Physician: Yovani Jose MD Referring Physician: Not on Staff, Referring [...] 30 tablet, Refills 0, Maintenance, 02/25/17 21:50:34 EST Start Date: 02/25/17 Status: Ordered aspirin 81 mg oral tablet 1 tablet = 81 mg, By Mouth, Daily, PRN Chest Pain, 0 Refills, Maintenance, 09/09/19 0:01:00 EDT Start Date: 09/09/19 Status: Ordered atorvastatin 40 mg oral tablet = 40 mg, By Mouth, Daily at bedtime, # 30 tablet, 11 Refills, Maintenance, Tablet, Route to Pharmacy Electronically, [id number], [facility]/pharmacy #[id number] Start Date: 03/10/16 Status: [...] 09/09/19 11:05:00 EDT, Route to Pharmacy Electronically, [facility], 170, cm, 09/08/2009:46:00 EDT, Height, 127.2, [...] in AM, Refills 0, Maintenance, 09/03/16 11:16:58 EDT Start Date: 09/03/16 Status: Ordered gabapentin 600 [...] 8, 9 Active Left leg pain(Confirmed) Active *[facility] [phone] CARE MANAG ER SUN CEDILLO(Confirmed) Active Peripheral [...] DATE: 01/04/2012 ATTENDING SURGEON: Woo Maxwell M.D. TECHNICAL SERVICE REP: Laz Schulz M.D. SECOND MARKETING AREA MANAGER: Monica Betancourt M.D. Procedure: partial resection of implanted Marlex gastric band. 5Gastric bypass by Dr Knott 03/29/03 6S/p gastric bypass 7by sleep s tudy 05/21/11- mild 8Left TKR after failed patellofemoral knee replacement on 02/22/[address] Laz Katz At [address] [place] [address], [id number] [address]Right TKP by Dr Laz Katz 10PROCEDURE [...] Exam Date Time Procedure Performing Provider Status 10/01/19 3:47 PM Chest Portable Merary Vargas; Auth (V erified) Notes: (Chest Portable) Reason For Exam: Angina RESULT: Chest Portable AP upright portable chest dated October 01, 2019 at 1520 hours. Comparison films are from April 04, 2019. HISTORY: Angina. FINDINGS: The cardiac silhouette is within normal limits for size. Mural calcifications are noted in the aorta and Airways. Some mild pulmonary vascular congestion and interstitial thickening are noted. No airspace consolidation or pleural effusion is seen. IMPRESSION: Mild interstitial edema pattern. This could be on the cardiac bases is also may be the result of a viral or atypical pneumonia. Examination 41380. Thank you for allowing me to participate in the care of this patient. WSN: [id number] Ordering Physician: Deanna Medina Dictated By: Rogelio Ziegler MD Dictated Date/Time: 10/01/19 3:49 pm Reviewed By: Rogelio Ziegler MD Signed By: Rogelio Ziegler MD Signed Date/Time: 10/01/19 3:49 pm Transcribed By: NICCI Transcribed Date/Time: 10/01/19 3:49 pm Vital Signs Most recent to oldest [Reference Range]: 1 2 3 Height 177.8 cm (10/02/19 10:45 AM) 177.8 cm (10/02/19 7:26 AM) 177.8 cm (10/02/19 5:23 AM) Weight 127.27 kg (10/01/19 11:59 PM) Oxygen Saturation [94-100 %] 98 % (10/02/19 10:45 AM) 96 % (10/02/19 7:26 AM) 97 % (10/02/19 5:23 AM) Pulse Rate [55-90 bpm] 92 bpm *H* (10/02/19 10:45 AM) 84 bpm (10/02/19 7:26 AM) 92 bpm *H* (10/02/19 5:23 AM) Body Mass Index [18.5-24.99] 40.26 *>HHI* (10/01/19 11:59 PM) Blood Pressure [90-138/55-84 mm Hg] 149/89mm Hg *H* (10/02/19 10:45 AM) 98/57mm Hg (10/02/19 7:26 AM) 125/40mm Hg (10/02/19 5:23 AM) Respiratory Rate [16-30 br/min] 18 br/min (10/02/19 12:33 PM) 20 br/min (10/02/19 10:45 AM) 18 br/min (10/02/19 9:17 AM) Temperature [96.8-100.4 DegF] 97.2 DegF (10/02/19 10:45 AM) 98.0 DegF (10/02/19 7:26 AM) 97.4 DegF (10/02/19 5:23 AM) Mode of Delivery (Oxygen) Room air (10/02/19 10:45 AM) Room air (10/02/19 7:26 AM) CPAP (10/02/19 5:23 AM) Blood pressure sites Arm, right (10/02/19 10:45 AM) Arm, left (10/02/19 7:26 AM) Arm, left (10/02/19 5:23 AM) Temperature Route Oral (10/02/19 10:45 AM) Oral (10/02/19 7:26 AM) Oral (10/02/19 5:23 AM) Dry Weight 127.27 kg (10/01/19 11:59 PM) 126.2 kg (10/01/19 6:52 PM) 126.2 kg (10/01/19 4:17 PM) Social History Social History Type Response Smoking Status Never smoker; Tobacc o user in household: No entered on: 09/03/16 Sex
--- OUTSIDE RECORDS SUMMARY | 2023-09-28 19:40 | XMS_ITS | Continuity of Care Document ---
Author Organization [facility] ter Address [address] [place] [address]- Care Team Providers Care Curb Worker Name Role Phone Kat Sofia DO Primary Care Physician Encounter [facility] Date(s): 11/27/19 - 11/27/[address] [address]- [facility] Encounter Diagnosis Acute right flank pain(Final) - 11/27/19 Discharge Disposition: A-D/C Home Attending Physician: Sadie Aguirre DO Admitting Physician: Sadie Aguirre DO Referring Physician: Not on Staff, Referring [...] Refills, Maintenance, Tablet, Route to Pharmacy Electronically, [id number], [facility]/pharmacy #[id number] Start Date: 03/10/16 Status: Ordered [...] 09/09/19 11:05:00 EDT, Route to Pharmacy Electronically, [facility] 3, 170, cm, 09/08/2009:46:00 EDT, Height, 127.2, [...] 9 Active Left leg pain(Confirmed) Active *[facility] [phone] CARE MANAG ER SUN CEDILLO(Confirmed) Active Peripheral [...] DATE: 01/04/2012 ATTENDING SURGEON: Woo Maxwell M.D. SUPERVISOR ELECTRIC MOTOR TESTING: Laz Schulz M.D. SECOND CLOTH TESTER QUALITY: Monica Betancourt M.D. Procedure: partial resection of implanted Marlex gastric band. 5Gastric bypass by Dr Knott 03/29/03 6S/p gastric bypass 7by sleep s tudy 05/21/11- mild 8Left TKR after failed patellofemoral knee replacement on 02/22/[address] Laz Katz At [address] [place] [address], [id number] 9Right TKP by Dr Laz Katz 10PROCEDURE [...] Exam Date Time Procedure Performing Provider Status 11/27/19 8:08 PM Chest 2 Views Frontal and Lat Reba Briones; Rinku (Verified) Notes: (Chest 2 Views Frontal and Lat) Reason For Exam: Shortness of Breath, Fever;Other: RESULT: Chest 2 Views Frontal and Lat Chest 2 Views Frontal and Lat Hx of Present Illness: Pt to ED with c o R flank lateral rib pain with inspiration, also c o cough x 2 days; Reason: Other:; Shortness of Breath, Fever; Clinical Question(s): Pneumonia COMPARISON: 10/01/2019 and 04/04/2019 FINDINGS: LINES AND TUBES: None. LUNGS AND PLEURA: Right lung is clear. Minimal opacity left lower lobe. No pleural effusion. No pneumothorax. HEART, MEDIASTINUM AND TRACE: Heart is normal in size. Aorta is mildly calcified. BONES AND SOFT TISSUES: No acute abnormality. IMPRESSION: Minimal left lower lobe opacity may represent atelectasis, however recommend correlation for possibility of developing infection. WSN: [id number] Ordering Physician: Sadie Aguirre Dictated By: Castro Riggs DO Dictated Date/Time: 11/27/19 8:21 pm Reviewed By: Castro Riggs DO Signed By: Castro Riggs DO Signed Date/Time: 11/27/19 8:21 pm Transcribed By: NICCI Transcribed Date/Time: 11/27/19 8:15 pm Vital Signs Most recent to oldest [Reference Range]: 1 2 Oxygen Saturation [94-100 %] 96 % (11/27/19 10:07 PM) 95 % (11/27/19 3:46 PM) Pulse Rate [55-90 bpm] 99 bpm *H* (11/27/19 10:07 PM) 91 bpm *H* (11/27/19 3:46 PM) Blood Pressure [90-138/55-84 mm Hg] 126/ 106mm Hg (11/27/19 10:07 PM) 112/62mm Hg (11/27/19 3:46 PM) Respiratory Rate [16-30 br/min] 16 br/mi n (11/27/19 10:07 PM) 20 br/min (11/27/19 3:46 PM) Temperature [96.8-100.4 DegF] 98.6 DegF (11/27/19 10:07 PM) 98.1 DegF (11/27/19 3:46 PM) Mode of Delivery (Oxygen) Room air (11/27/19 10:07 PM) Room air (11/27/19 3:46 PM) Blood pressure sites Arm, left (11/27/19 10:07 PM) Arm, right (11/27/19 3:46 PM) Temperature Route Oral (11/27/19 10:07 PM) Oral (11/27/19 3:46 PM) Social History Social History Type Response Smoking Status Never smoker; Tobacc o user in household: No entered on: 09/03/16 Sex
--- OUTSIDE RECORDS SUMMARY | 2023-09-28 19:40 | XMS_ITS | Continuity of Care Document ---
Author Organization [facility] Address [address] [place] [address] [address] [place] [address]- Care Team Providers Care Ball Warper Tender Name Role Phone Kat Sofia DO Primary Care Physician Encounter [facility] Date(s): 03/14/20 - 04/13/[address] [place], [place] [address] Attending Physician: Pia Newton Admitting Physician: AdmPia medel Referring Physician: Admtr ArTalha Allergies, Adverse Reactions, Alerts Substance Reaction Severity [...] Refills, Maintenance, Tablet, Route to Pharmacy Electronically, [id number], [facility]/pharmacy #[id number] Start Date: 03/10/16 Status: [...] 09/09/19 11:05:00 EDT, Route to Pharmacy Electronically, [facility], 170, cm, 09/08/2009:46:00 EDT, [...] mL, 0 Refills, Maintenance, 02/29/20 14:58:00 EST, [facility]/pharmacy #[id number], Partial fill upon patient request if the [...] 8, 9 Active Left leg pain(Confirmed) Active *[facility] [phone] CARE MANAG ER SUN CEDILLO(Confirmed) Active Peripheral [...] DATE: 01/04/2012 ATTENDING SURGEON: Woo Maxwell M.D. BEHAVIORAL HEALTH PROFESSIONAL: Laz Schulz M.D. SECOND HEALTH OCCUPATIONS TEACHER: Monica Betancourt M.D. Procedure: partial resection of implanted Marlex gastric band. 5Gastric bypass by Dr Knott 03/29/03 6S/p gastric bypass 7by sleep s tudy 05/21/11- mild 8Left TKR after failed patellofemoral knee replacement on 02/22/[address] Laz Katz At [address] [place] [address], [id number] 9Right TKP by Dr Laz Katz 10PROCEDURE [...]
--- OUTSIDE RECORDS SUMMARY | 2023-09-28 19:40 | XMS_ITS | Continuity of Care Document ---
Author Organization [facility] Address Unknown Care Team Providers Care Radiographer Angiogram Name Role Phone Tamara Blanca NP Primary Care Physician [phone] [place] [facility] Date(s): 08/28/21 - 09/04/21 [facility] Attending Physician: Woo Maxwell MD Referring Physician: Tamara Blanca NP Allergies, [...] Refills, Maintenance, Tablet, Route to Pharmacy Electronically, [id number], [facility]/pharmacy #[id number] Start Date: 03/10/16 Status: [...] AT BEDTIME Start Date: 08/14/21 Status: Ordered NovoLOG 100 units/mL subcutaneous solution See Instructions, 8-24 3x daily per sliding scale, # 30 mL, 11 Refills, Maintenance, 07/25/15 17:42:00 Start Date: 07/25/15 Status: Ordered Nystop 884730 u/gm powder 0 Refills, Maintenance, 08/14/21 16:07:00 EDT, Partial fill upon patient request if the prescription is for a schedule II opioid drug. Start Date: 08/14/21 Status: Ordered olanzapine 20 mg oral tablet [...] EDT, Inhaler Start Date: 12/21/18 Status: Ordered Vitamin D3 [...] 8, 9 Active Left leg pain(Confirmed) Active *[facility] [phone] CARE MANAG ER SUN CEDILLO(Confirmed) Active Peripheral [...] DATE: 01/04/2012 ATTENDING SURGEON: Woo Maxwell M.D. FIBREGLASS LAY UP WORKER: Laz Schulz M.D. SECOND ANIMAL PARK CODE ENFORCEMENT OFFICER: Monica Betancourt M.D. Procedure: partial resection of implanted Marlex gastric band. 5Gastric bypass by Dr Knott 03/29/03 6S/p gastric bypass 7by sleep s tudy 05/21/11- mild 8Left TKR after failed patellofemoral knee replacement on 02/22/[address] Laz Katz At [address] [facility], [address] [address]KP by Dr Laz Katz 10PROCEDURE [...] recent to oldest [Reference Range]: 1 Height 152.4 cm (08/28/21 8:40 AM) Weight 122.1 kg (08/28/21 8:40 AM) Pulse Rate [55-90 bpm] 85 bpm (08/28/21 8:40 AM) Body Mass Index [18.5-24.99] 52.57 *>HHI* (08/28/21 8:40 AM) Blood Pressure [90-138/55-84 mm Hg] 142/ 99mm Hg *H* (08/28/21 8:40 AM) Respiratory Rate [16-30 br/min] 16 br/mi n (08/28/21 8:40 AM) Temperature [96.8-100.4 DegF] 98.9 DegF (08/28/21 8:40 AM) Blood pressure sites Arm, right (08/28/21 8:40 AM) Temperature Route Temporal (08/28/21 8:40 AM) Weight Obtained Via Standing scale (08/28/21 8:40 AM) Social History Social History Type Response Smoking Status Never smoker; Tobacc o user in household: No entered on: 09/03/16 Sex Female
--- OUTSIDE RECORDS SUMMARY | 2023-09-28 19:40 | XMS_ITS | Continuity of Care Document ---
Author Organization [facility] Address [address] [place] [address] [address] [place] [address]- Care Team Providers Care Data Migration Consultant Name Role Phone Kat Sofia DO Primary Care Physician Encounter [facility] Date(s): 03/20/20 - 04/19/[address] [place] [address]- Allergies, Adverse Reactions, Alerts Substance Reaction Severity [...] Refills, Maintenance, Tablet, Route to Pharmacy Electronically, [id number], [facility]/pharmacy #[id number] Start Date: 03/10/16 Status: [...] 09/09/19 11:05:00 EDT, Route to Pharmacy Electronically, [facility], 170, cm, 09/08/2009:46:00 EDT, [...] mL, 0 Refills, Maintenance, 02/29/20 14:58:00 EST, [facility]/pharmacy #[id number], Partial fill upon patient request if [...] 8, 9 Active Left leg pain(Confirmed) Active *[facility] [phone] CARE MANAG ER SUN CEDILLO(Confirmed) Active Peripheral [...] DATE: 01/04/2012 ATTENDING SURGEON: Woo Maxwell M.D. QUALITY INSPECTOR: Laz Schulz M.D. SECOND RADARMAN: Monica Betancourt M.D. Procedure: partial resection of implanted Marlex gastric band. 5Gastric bypass by Dr Knott 03/29/03 6S/p gastric bypass 7by sleep s tudy 05/21/11- mild 8Left TKR after failed patellofemoral knee replacement on 02/22/[address] Laz Katz At [address] [facility], [address] [address]Right TKP by Dr Laz Katz 10PROCEDURE [...]
--- OUTSIDE RECORDS SUMMARY | 2023-09-28 19:40 | XMS_ITS | Continuity of Care Document ---
Author Organization [facility] Address [address] [place] [address]- Care Team Providers Care Bus Company Manager Name Role Phone Evangelist LAO, Tamara Primary Care Physician [phone] [place] [facility] [place] 07/23/21 [facility] [address] [place] [address]- [place] Allergies, Adverse Reactions, Alerts Substance Reaction Severity [...] Refills, Maintenance, Tablet, Route to Pharmacy Electronically, [id number], [facility]/pharmacy #[id number] Start Date: 03/10/16 Status: Ordered benztropine [...] Active Left leg pain(Confirmed) Active *[facility] [phone] CARE MANAG ER SUN CEDILLO(Confirmed) Active Peripheral venous insufficiency(Confirmed) Active Abdominal adhesions(Confirmed) 10 Active Physiological tremor(Confirmed) 11 06/17/10 Active Reflux esophagitis(Confirmed ) 12, 13, 14, 15 11/17/04 Active Severe obesity(Confirmed) Active Urinary incontinence(Confirmed) Active 1dilatation of CBD since 2008 per GI letter- diagnosed by US 2Per ECHO Dec 25, 2015 Grade I, mild diastolic dysfunction 3confirmed by small bowel series done by GI jan 2014- partial small bowel resection 4PROCEDURE DATE: 01/04/2012 ATTENDING SURGEON: Woo Maxwell M.D. INSIDE SALES ADVERTISING EXECUTIVE: Laz Schulz M.D. SECOND TELEGRAPH INSTALLER: Monica Betancourt M.D. Procedure: partial resection of implanted Marlex gastric band. 5Gastric bypass by Dr Knott 03/29/03 6S/p gastric bypass 7by sleep s tudy 05/21/11- mild 8Left TKR after failed patellofemoral knee replacement on 02/22/[address] Laz Katz At [address] [facility], [address] [address]Right TKP by Dr Laz Katz 10PROCEDURE [...]
--- OUTSIDE RECORDS SUMMARY | 2023-09-28 19:41 | XMS_ITS | Continuity of Care Document ---
Author Organization [facility] Address [address] [place] [address] [address] [place] [address]- Care Team Providers Care Galley Worker Name Role Phone Evangelist LAO, Tamara Primary Care Physician Encounter [facility] Date(s): 11/27/21 - 12/27/[address] [place] [address]- Attending Physician: Pia Newton Admitting Physician: AdmtrPia Referring Physician: Admtr Ar8 Allergies, Adverse Reactions, Alerts Substance Reaction Severity [...] Error 6Result Comment: [01/17/2013] ORDERED BY DR. CAMAHCO 7Admin Note: VIS 10/12/06 GIVEN 8Admin Note: [...] Refills, Maintenance, Tablet, Route to Pharmacy Electronically, [id number], [facility]/pharmacy #[id number] Start Date: 03/10/16 Status: Ordered atorvastatin [...] opioid drug. Start Date: 12/01/21 Status: Ordered Lantus 100 u/ml subcutaneous solution [...] EDT, Tablet Start Date: 12/21/17 Status: Ordered metFORMIN 500 mg oral tablet [...] 17:42:00 Start Date: 07/25/15 Status: Ordered Nystop 697614 u/gm powder 0 Refills, Maintenance, 08/14/21 16:07:00 EDT, Partial fill upon patient request if the prescription is for a schedule II opioid drug. Start Date: 08/14/21 Status: Ordered Nystop 692187 u/gm powder 0 Refills, Maintenance, 12/01/21 16:27:00 [...] opioid drug. Start Date: 12/01/21 Status: Ordered Tylenol Extra Strength 500 mg [...] Date: 12/21/18 Status: Ordered Problem List Condition Confirmation Course Effective Dates Status H ealth Status Informant Allergic rhinitis Confirmed Active Dry mouth Confirmed Active Atrophic vaginitis Confirmed 12/06/12 Active Bipolar disorder Confirmed Active Dilated cbd, acquired 1 Confirmed 2008 Active Chronic respiratory failure with hypoxia Confirmed Active Closed fracture of tibial plateau with routine healing Confirmed 11/07/14 Active Oxygen dependent Confirmed Active Diabetes mellitus type 2 Confirmed Active Diabetic neuropathy Confirmed Active Diabetic nephropathy Confirmed 11/10/03 Active Diastolic dysfunction 2 Confirmed 12/25/15 Active GERD (gastroesophageal reflux disease) Confirmed Active History of resection of small bowel 3 Confirmed Active Hyperlipidemia Confirmed Active Hypertension Confirmed Active Iron deficiency anemia Confirmed Active Irritable bowel syndrome with constipation and diarrhea Confirmed Active Memory impairment Confirmed Active Morbid obesity 4, 5, 6 Confirmed Active DON on CPAP 7 Confirmed 05/21/11 Active Osteoarthritis Confirmed Active Osteoarthritis of knee 8, 9 Confirmed Active Left leg pain Confirmed Active *[facility] [phone] DRAFTER STRUCTURAL SUN CEDILLO Confirmed Active Peripheral venous insufficiency Confirmed Active Abdominal adhesions 10 Confirmed Active Physiological tremor 11 Confirmed 06/17/10 Active Reflux esophagitis 12, 13, 14, 15 Confirmed 11/17/04 Active Severe obesity Confirmed Active Syncope Confirmed Active Urinary incontinence Confirmed Active 1dilatation of CBD since 2008 per GI letter- diagnosed by US 2Per ECHO Dec 25, 2015 Grade I, mild diastolic dysfunction 3confirmed by small bowel series done by GI jan 2014- partial small bowel resection 4PROCEDURE DATE: 01/04/2012 ATTENDING SURGEON: Woo Maxwell M.D. CASE MANAGER: Laz Schulz M.D. SECOND PURIFICATION SUPERVISOR: Monica Betancourt M.D. Procedure: partial resection of implanted Marlex gastric band. 5Gastric bypass by Dr Knott 03/29/03 6S/p gastric bypass 7by sleep s tudy 05/21/11- mild 8Left TKR after failed patellofemoral knee replacement on 02/22/[address] Laz Katz At [address] [place] [address], [address] 9Right TKP by Dr Laz Katz 10PROCEDURE DATE: 01/04/2012 ATTENDING SURGEON: Woo Maxwell M.D. PROCEDURE PERFORMED: Exploratory laparoscopy with extensive laparoscopic lysis of adhesions, neuro evaluation, Dr Ramandeep Diop: exaggerated physiological tremor with a probable contribution from the medications 12PROCEDURE DATE: 01/04/2012 ATTENDING SURGEON: Woo Maxwell M.D. ASSISTANTS: aLz Schulz M.D.; Monica Betancourt M.D. DIAGNOSES: Gastroesophageal [...] household: No entered on: 09/03/16 Sex Female Patient Care team information Personnel Name: Evangelist LAO, Tamara
--- OUTSIDE RECORDS SUMMARY | 2023-09-28 19:41 | XMS_ITS | Continuity of Care Document ---
Author Organization [facility] Address Unknown Care Team Providers Care Admin Dir Name Role Phone Evangelist LAO, Tamara Primary Care Physician Encounter [facility] Date(s): 06/26/21 - 07/03/21 [facility] Attending Physician: Woo Maxwell MD [...] Refills, Maintenance, Tablet, Route to Pharmacy Electronically, [id number], [facility]/pharmacy #[id number] Start Date: 03/10/16 Status: Ordered benztropine [...] 8, 9 Active Left leg pain(Confirmed) Active *[facility] [phone] CARE MANAG ER SUN CEDILLO(Confirmed) Active Peripheral [...] DATE: 01/04/2012 ATTENDING SURGEON: Woo Maxwell M.D. CLOTH SPONGER: Laz Schulz M.D. SECOND CHILD DAY CARE PROVIDER: Monica Betancourt M.D. Procedure: partial resection of implanted Marlex gastric band. 5Gastric bypass by Dr Knott 03/29/03 6S/p gastric bypass 7by sleep s sandra 05/21/11- mild 8Left TKR after failed patellofemoral knee replacement on 02/22/[address] Laz Katz At [address] [place] [address], [address] 9Right TKP by Dr Laz Katz 10PROCEDURE [...] oldest [Reference Range]: 1 Height 152.4 cm (06/26/21 8:42 AM) Weight 123.3 kg (06/26/21 8:42 AM) Pulse Rate [55-90 bpm] 94 bpm *H* (06/26/21 8:42 AM) Body Mass Index [18.5-24.99] 53.09 *>HHI* (06/26/21 8:42 AM) Blood Pressure [90-138/55-84 mm Hg] 142/ 82mm Hg *H* (06/26/21 8:42 AM) Respiratory Rate [16-30 br/min] 16 br/mi n (06/26/21 8:42 AM) Temperature [96.8-100.4 DegF] 97.0 DegF (06/26/21 8:42 AM) Temperature Route Temporal (06/26/21 8:42 AM) Weight Obtained Via Standing scale (06/26/21 8:42 AM) Social History Social History Type Response Smoking Status Never smoker; Tobacc o user in household: No entered on: 09/03/16 Sex Female
--- OUTSIDE RECORDS SUMMARY | 2023-09-28 19:41 | XMS_ITS | Continuity of Care Document ---
Author Organization [facility] ter Address [address] [place] [address]- Care Team Providers Care Meat Specialist Name Role Phone Evangelist LAO, Tamara Primary Care Physician [place] [facility] [place] 10/26/21 - 12/05/[address] [address] Attending Physician: Blanca Hernández MD Admitting Physician: Blanca Hernández MD Referring Physician: Blanca Hernández MD Allergies, Adverse Reactions, Alerts Substance Reaction [...] Refills, Maintenance, Tablet, Route to Pharmacy Electronically, [id number], [facility]/pharmacy #[id number] Start Date: 03/10/16 Status: Ordered atorvastatin [...] 17:42:00 Start Date: 07/25/15 Status: Ordered Nystop 204878 u/gm powder 0 Refills, Maintenance, 08/14/21 16:07:00 EDT, Partial fill upon patient request if the prescription is for a schedule II opioid drug. Start Date: 08/14/21 Status: Ordered Nystop 092737 u/gm powder 0 Refills, Maintenance, 12/01/21 16:27:00 [...] a schedule II opioid drug. Start Date: 9/6/22 Status: Ordered Vitamin D3 1000 intl units [...] 8, 9 Active Left leg pain(Confirmed) Active *[facility] [phone] CARE MANAG ER SUN CEDILLO(Confirmed) Active Peripheral [...] DATE: 01/04/2012 ATTENDING SURGEON: Woo Maxwell M.D. MASTER OCEAN YACHT: Laz Schulz M.D. SECOND LIVESTOCK HAULIER: Monica Betancourt M.D. Procedure: partial resection of implanted Marlex gastric band. 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 on 02/22/[address] Laz Katz At [address] [facility], [address] [address]Right TKP by Dr Laz Katz 10PROCEDURE [...]
--- OUTSIDE RECORDS SUMMARY | 2023-09-28 19:41 | XMS_ITS | Continuity of Care Document ---
Author Organization [facility] Address [address] [place] [address] [address] [place] [address]- Care Team Providers Care Apron Trimmer Name Role Phone Kat Sofia DO Primary Care Physician Encounter [facility] Date(s): 03/14/20 - 03/21/[address] [place], [place] [address] Encounter Diagnosis GERD (gastroesophageal reflux disease)(Discharge Diagnosis) - 03/14/20 Attending Physician: Woo Maxwell MD Referring Physician: [...] Refills, Maintenance, Tablet, Route to Pharmacy Electronically, [id number], [facility]/pharmacy #[id number] Start Date: 03/10/16 Status: Ordered [...] 09/09/19 11:05:00 EDT, Route to Pharmacy Electronically, [facility] 3, 170, cm, 09/08/2009:46:00 EDT, Height, 127.2, [...] mL, 0 Refills, Maintenance, 02/29/20 14:58:00 EST, [facility]/pharmacy #[id number], Partial fill upon patient request [...] Active Left leg pain(Confirmed) Active *[facility] [phone] CARE MANAG ER SUN CEDILLO(Confirmed) Active Peripheral [...] 01/04/2012 ATTENDING SURGEON: Woo Maxwell M.D. SUPERVISOR ASSEMBLING: Laz Schulz M.D. SECOND BALANCE AND HAIRSPRING ASSEMBLER: Monica Betancourt M.D. Procedure: partial resection of implanted Marlex gastric band. 5Gastric bypass by Dr Knott 03/29/03 6S/p gastric bypass 7by sleep s tudy 05/21/11- mild 8Left TKR after failed patellofemoral knee replacement on 02/22/[address] Laz Katz At [address] [place] [address], [id number] 9Right TKP by Dr Laz Katz 10PROCEDURE [...] Dates Health Status Cl inical Service Informant GERD (gastroesophagea l reflux disease) Discharge Diagnosis 03/14/20 Vital Signs Most recent to oldest [Reference Range]: 1 Height 177.8 cm (03/14/20 9:17 AM) Weight 124 kg (03/14/20 9:17 AM) Pulse Rate [55-90 bpm] 125 bpm *H* (03/14/20 9:17 AM) Body Mass Index [18.5-24.99] 39.22 *>HHI* (03/14/20 9:17 AM) Blood Pressure [90-138/55-84 mm Hg] 179/ 140mm Hg *H* (03/14/20 9:17 AM) Respiratory Rate [16-30 br/min] 16 br/mi n (03/14/20 9:17 AM) Temperature [96.8-100.4 DegF] 97.2 DegF (03/14/20 9:17 AM) Blood pressure sites Arm, right (03/14/20 9:17 AM) Temperature Route Temporal (03/14/20 9:17 AM) Weight Obtained Via Standing scale (03/14/20 9:17 AM) Social History Social History Type Response Smoking Status Never smoker; Tobacc o user in household: No entered on: 09/03/16 Sex Female
--- OUTSIDE RECORDS SUMMARY | 2023-09-28 19:41 | XMS_ITS | Continuity of Care Document ---
Author Organization [facility] Address Unknown Care Team Providers Care Cath Lab Radiological Technologist Name Role Phone Evangelist LAO, Tamara Primary Care Physician [phone] Encounter [facility] Date(s): 08/28/21 - 09/27/21 [facility] Attending Physician: Pia Newton Admitting Physician: Pia Newton Referring Physician: Pia Newton Allergies, Adverse Reactions, Alerts Substance Reaction Severity [...] Refills, Maintenance, Tablet, Route to Pharmacy Electronically, [id number], [facility]/pharmacy #[id number] Start Date: 03/10/16 Status: Ordered [...] 17:42:00 Start Date: 07/25/15 Status: Ordered Nystop [id number] u/gm powder 0 Refills, Maintenance, 08/14/21 16:07:00 [...] 8, 9 Active Left leg pain(Confirmed) Active *[facility] [phone] CARE MANAG ER SUN CEDILLO(Confirmed) Active Peripheral [...] DATE: 01/04/2012 ATTENDING SURGEON: Woo Maxwell M.D. FLIGHT CONTROL MANAGER: Laz Schulz M.D. SECOND MILK ROUTE DELIVERER: Monica Betancourt M.D. Procedure: partial resection of implanted Marlex gastric band. 5Gastric bypass by Dr Knott 03/29/03 6S/p gastric bypass 7by sleep s tudy 05/21/11- mild 8Left TKR after failed patellofemoral knee replacement on 02/22/[address] Laz Katz At [address] [facility], [id number] [address] Dr Laz Katz 10PROCEDURE [...]
--- OUTSIDE RECORDS SUMMARY | 2023-09-28 19:41 | XMS_ITS | Continuity of Care Document ---
Author Organization [facility] ter Address [address] [place] [address]- Care Team Providers Care Academic Assistant Name Role Phone Kat Sofia DO Primary Care Physician Encounter [facility] Date(s): 09/08/19 - 09/10/[address] [address]- [facility] Encounter Diagnosis AP (abdominal pain)(Final) - 09/08/19 Discharge Disposition: A-D/C Home Attending Physician: Keith Peterson MD Admitting Physician: Keith Peterson MD Referring Physician: Not on Staff, Referring [...] Refills, Maintenance, Tablet, Route to Pharmacy Electronically, [id number], [facility]/pharmacy #[id number] Start Date: 03/10/16 Status: Ordered benztropine [...] 09/09/19 11:05:00 EDT, Route to Pharmacy Electronically, [facility] 3, 170, cm, 09/08/2009:46:00 EDT, [...] leg pain(Confirmed) Active *[facility] [phone] CARE MANAG ER SUN CEDILLO(Confirmed) Active Peripheral [...] DATE: 01/04/2012 ATTENDING SURGEON: Woo Maxwell M.D. TITLE DEPARTMENT MANAGER: Laz Schulz M.D. SECOND ELECTRO MECHANIC: Monica Betancourt M.D. Procedure: partial resection of implanted Marlex gastric band. 5Gastric bypass by Dr Knott 03/29/03 6S/p gastric bypass 7by sleep s tudy 05/21/11- mild 8Left TKR after failed patellofemoral knee replacement on 02/22/[address] Laz Katz At [address] [place] [address], [id number] [address]Right TKP by Dr Laz Katz 10PROCEDURE [...] by endoscopy on 11/17/2004 15with GERD Results Orders for Microbiology Reports Name Date Urine Culture (URINE CULTURE) 09/08/19 Microbiology Reports TEST:Urine Culture STATUS:Auth (Verified) BODY SITE: SOURCE:URINE COLLECTED DATE/TIME:09/08/19 2:00 PM Urine Culture SPECIMEN DESCRIPTION : URINE SPECIAL REQUESTS : NONE CULTURE : NO GROWTH REPORT STATUS : FINAL 09/09/2019 Vital Signs Most recent to oldest [Reference Range]: 1 2 3 4 Height 170 cm (09/10/19 11:44 AM) 170 cm (09/10/19 8:08 AM) 170 cm (09/10/19 5:26 AM) Weight 129.6 kg (09/08/19 11:43 PM) Oxygen Saturation [94-100 %] 96 % (09/10/19 11:44 AM) 94 % (09/10/19 8:08 AM) 100 % (09/10/19 5:26 AM) Pulse Rate [55-90 bpm] 82 bpm (09/10/19 11:44 AM) 82 bpm (09/10/19 9:31 AM) 84 bpm (09/10/19 8:08 AM) Body Mass Index [18.5-24.99] 44.84 *>HHI* (09/08/19 11:43 PM) Blood Pressure [90-138/55-84 mm Hg] 106/75mm Hg (09/10/19 11:44 AM) 120/63mm Hg (09/10/19 9:31 AM) 120/63mm Hg (09/10/19 9:31 AM) 120/63mm Hg (09/10/19 9:31 AM) Respiratory Rate [16-30 br/min] 18 br/min (09/10/19 11:44 AM) 19 br/min (09/10/19 11:22 AM) 18 br/min (09/10/19 10:07 AM) Temperature [96.8-100.4 DegF] 97.8 DegF (09/10/19 11:44 AM) 97.7 DegF (09/10/19 8:08 AM) 97.7 DegF (09/10/19 5:26 AM) Mode of Delivery (Oxygen) Room air (09/10/19 11:44 AM) Room air (09/10/19 8:08 AM) Room air (09/10/19 5:26 AM) Blood pressure sites Arm, right (09/10/19 11:44 AM) Arm, right (09/10/19 8:08 AM) Arm, left (09/10/19 5:26 AM) Temperature Route Oral (09/10/19 11:44 AM) Oral (09/10/19 8:08 AM) Oral (09/10/19 5:26 AM) Dry Weight 127.2 kg (09/08/19 11:43 PM) Weight Obtained Via Bed scale (09/08/19 11:43 PM) Dry Weight Obtained Via Patient/family stated (09/08/19 11:43 PM) Social History Social History Type Response Smoking Status Never smoker; Tobacc o user in household: No entered on: 09/03/16 Sex
[2023-09-28 20:00] VITALS: BP 170/99; PULSE 126; RESP 18; TEMP 36.4; O2SAT 96
[2023-09-28 22:22] LABS: Glucose, Whole Blood 117 mg/dL (60-115)
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
[2023-09-29 03:55] VITALS: BMI 36.0
[2023-09-29 08:00] VITALS: BP 125/64; PULSE 86; RESP 18; TEMP 36.4; O2SAT 98
[2023-09-29 09:18] LABS: Glucose, Whole Blood 130 mg/dL (60-115)
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
[2023-09-29 11:50] LABS: Estimated Average Glucose 134 mg/dL; Hemoglobin A1c % 6.3 % (<6.0)
[2023-09-29 12:09] LABS: Cholesterol 122 mg/dL (<200); HDL Cholesterol 43 mg/dL (>40); LDL Cholesterol Calculated 61 mg/dL (<100); Magnesium 2.5 mg/dL (1.6-2.6); Triglycerides 93 mg/dL (<150)
[2023-09-29 12:23] LABS: Free T4 (Free Thyroxine) 0.99 ng/dL (0.71-1.85); Thyroid Stimulating Hormone 0.75 uIU/mL (0.32-4.0)
[2023-09-29 12:38] LABS: Folate 14.2 ng/mL (> or = 4.0); Vitamin B12 504 pg/mL (200-900)
[2023-09-29 17:55] VITALS: BP 166/60; PULSE 90
[2023-09-29] MEDS: Acetaminophen 325 MG TABLET 650 MG PO (18:05)
[2023-09-29] MEDS: DULoxetine HCl 20 MG CAPSULE.DR 40 MG PO (18:05)
[2023-09-29] MEDS: Metoprolol Succinate ER 50 MG TAB.ER.24H PO (18:05)
[2023-09-29] MEDS: Omeprazole 20 MG CAPSULE.DR PO (18:06)
[2023-09-29] MEDS: Bumetanide 1 MG TABLET 0.5 MG PO (18:06)
[2023-09-29 20:00] VITALS: PULSE 102; TEMP 36.4; O2SAT 93
[2023-09-29] MEDS: Benztropine Mesylate 1 MG TABLET PO (21:33)
[2023-09-29] MEDS: Gabapentin 400 MG CAPSULE PO (21:33)
[2023-09-29] MEDS: Atorvastatin Calcium 40 MG TABLET PO (21:33)
[2023-09-29] MEDS: Mirtazapine 30 MG TABLET PO (21:33)
[2023-09-29] MEDS: traZODone HCL 50 MG TABLET PO (21:42)
[2023-09-29 21:46] LABS: Glucose, Whole Blood 106 mg/dL (60-115)
[2023-09-30] MEDS: Omeprazole 20 MG CAPSULE.DR PO ×2 (06:27→15:37)
[2023-09-30 07:57] VITALS: BP 125/60; PULSE 70; RESP 18; TEMP 36.5; O2SAT 97
[2023-09-30 08:26] LABS: Glucose, Whole Blood 134 mg/dL (60-115)
[2023-09-30 08:42] LABS: Creatinine Clr Calc Pharmacy 71.2; Estimated Glomerular Filt Rate > 60
[2023-09-30] MEDS: Benztropine Mesylate 1 MG TABLET PO ×2 (08:55→21:32)
[2023-09-30] MEDS: Multivitamin TABLET 1 TAB PO (08:55)
[2023-09-30] MEDS: Gabapentin 400 MG CAPSULE PO ×3 (08:55→21:32)
[2023-09-30] MEDS: DULoxetine HCl 20 MG CAPSULE.DR 40 MG PO (08:55)
[2023-09-30] MEDS: Bumetanide 1 MG TABLET 0.5 MG PO ×2 (08:55→18:27)
[2023-09-30] MEDS: Aspirin 81 MG TAB.CHEW PO (08:55)
[2023-09-30] MEDS: lisinopriL 40 MG TABLET PO (08:55)
[2023-09-30] MEDS: Cholecalciferol (Vitamin D3) 25 MCG TABLET PO (08:55)
[2023-09-30] MEDS: Metoprolol Succinate ER 50 MG TAB.ER.24H PO (08:55)
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
[2023-09-30 18:34] VITALS: BP 108/58; PULSE 76; RESP 18
[2023-09-30 20:00] VITALS: BP 110/58; PULSE 76; RESP 18; TEMP 36.3; O2SAT 96
[2023-09-30 20:45] LABS: Glucose, Whole Blood 133 mg/dL (60-115)
[2023-09-30] MEDS: Mirtazapine 30 MG TABLET PO (21:32)
[2023-09-30] MEDS: traZODone HCL 50 MG TABLET PO ×2 (21:32→22:49)
[2023-09-30] MEDS: Atorvastatin Calcium 40 MG TABLET PO (21:32)
[2023-09-30] MEDS: Acetaminophen 325 MG TABLET 650 MG PO (21:32)
[2023-10-01] MEDS: Omeprazole 20 MG CAPSULE.DR PO ×2 (06:29→15:58)
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
[2023-10-01 08:24] VITALS: BP 134/74; PULSE 74; RESP 17; TEMP 36.4; O2SAT 97
[2023-10-01] MEDS: DULoxetine HCl 20 MG CAPSULE.DR 40 MG PO (08:26)
[2023-10-01] MEDS: Benztropine Mesylate 1 MG TABLET PO ×2 (08:26→21:47)
[2023-10-01] MEDS: Metoprolol Succinate ER 50 MG TAB.ER.24H PO (08:27)
[2023-10-01] MEDS: Gabapentin 400 MG CAPSULE PO ×3 (08:28→21:47)
[2023-10-01] MEDS: Cholecalciferol (Vitamin D3) 25 MCG TABLET PO (08:28)
[2023-10-01] MEDS: Multivitamin TABLET 1 TAB PO (08:28)
[2023-10-01] MEDS: Bumetanide 1 MG TABLET 0.5 MG PO (08:29)
[2023-10-01] MEDS: Aspirin 81 MG TAB.CHEW PO (08:29)
[2023-10-01] MEDS: lisinopriL 40 MG TABLET PO (08:32)
[2023-10-01 10:12] LABS: Glucose, Whole Blood 140 mg/dL (60-115)
[2023-10-01 12:28] LABS: Glucose, Whole Blood 117 mg/dL (60-115)
--- NOTE | 2023-10-01 15:19 | PC.NURSE ---
Pt showered this afternoon and attended to ADL's. Required minimal assistance with gatherings toilegrace hospitale
[2023-10-01 16:40] VITALS: BP 80/60
[2023-10-01 16:42] VITALS: BP 80/50; PULSE 76; O2SAT 97
--- NOTE | 2023-10-01 16:54 | PC.NURSE ---
1700 dose of Bumex held as BP manually was 80/50. Pt had been sitting up in chair and let TW know she felt dizzy and was seeing black and white all over . She was able to walk to bed. Once in supine position, stated she started to feel better. BP taken and unable to obtain with automatic so manually taken. HR 78 and o2 saturation 97%. Mucous membranes dry and pt given pitcher of water to drink and reinforced importance of adequate fluid intake while on diuretics. Dr Pringle notified.
[2023-10-01 20:00] VITALS: BP 128/72; PULSE 83; RESP 18; TEMP 36.9; O2SAT 93
[2023-10-01 21:07] LABS: Glucose, Whole Blood 116 mg/dL (60-115)
[2023-10-01] MEDS: Mirtazapine 30 MG TABLET PO (21:47)
[2023-10-01] MEDS: QUEtiapine Fumarate 50 MG TABLET PO (21:47)
[2023-10-01] MEDS: Atorvastatin Calcium 40 MG TABLET PO (21:47)
[2023-10-02] MEDS: Omeprazole 20 MG CAPSULE.DR PO ×2 (06:13→17:11)
[2023-10-02 08:39] LABS: Glucose, Whole Blood 125 mg/dL (60-115)
[2023-10-02 09:01] VITALS: BP 106/58; PULSE 78; RESP 20; TEMP 36.8; O2SAT 98
[2023-10-02] MEDS: DULoxetine HCl 20 MG CAPSULE.DR 40 MG PO (09:01)
[2023-10-02] MEDS: Aspirin 81 MG TAB.CHEW PO (09:02)
[2023-10-02] MEDS: Cholecalciferol (Vitamin D3) 25 MCG TABLET PO (09:02)
[2023-10-02] MEDS: Multivitamin TABLET 1 TAB PO (09:02)
[2023-10-02] MEDS: Gabapentin 400 MG CAPSULE PO ×3 (09:03→20:16)
[2023-10-02] MEDS: Benztropine Mesylate 1 MG TABLET PO ×2 (09:03→20:16)
[2023-10-02 09:16] VITALS: BP 88/50
[2023-10-02 09:17] VITALS: BP 88/50; PULSE 78
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
[2023-10-02] MEDS: Milk of Magnesia 30 ML ORAL.SUSP PO (12:41)
[2023-10-02] MEDS: Ibuprofen 600 MG TABLET PO (12:58)
--- NOTE | 2023-10-02 13:07 | PC.NURSE ---
Dr. Pringle informed of Pt C/O pain to RUQ and epigastric area. XR ordered and medicated with Motrin per MAR for discomfort. Also given MOM for reported constipation and will monitor for effectiveness.
[2023-10-02] MEDS: Docusate Sodium 100 MG CAPSULE PO ×2 (14:22→20:15)
[2023-10-02 18:10] VITALS: BP 86/50
--- NOTE | 2023-10-02 18:18 | PC.NURSE ---
Blood pressure medications held this evening due to BP 86/50 (manual cuff). Pt encouraged to drink more water and mucous membranes less dry. No complaints of dizziness this shift. Will continue to monitor.
[2023-10-02 20:00] VITALS: BP 96/54; PULSE 103; RESP 17; TEMP 36.1; O2SAT 98
[2023-10-02] MEDS: Bumetanide 1 MG TABLET 0.5 MG PO (20:14)
[2023-10-02] MEDS: Mirtazapine 30 MG TABLET PO (20:15)
[2023-10-02] MEDS: QUEtiapine Fumarate 50 MG TABLET PO (20:15)
[2023-10-02] MEDS: Atorvastatin Calcium 40 MG TABLET PO (20:16)
[2023-10-02] MEDS: traZODone HCL 50 MG TABLET PO (20:35)
[2023-10-02 23:20] LABS: Glucose, Whole Blood 112 mg/dL (60-115)
--- NOTE | 2023-10-03 | ECG_ITS ---
Test Reason : Chest pain Blood Pressure : / mmHG Vent. Rate : 132 BPM Atrial Rate : 131 BPM P-R Int : 134 ms QRS Dur : 098 ms QT Int : 354 ms P-R-T Axes : 073 032 099 degrees QTc Int : 524 ms Poor data quality Undetermined rhythm When compared with ECG of 20-JAN-2017 15:23, Poor data quality in current ECG precludes serial comparison Please repeat the ECG Referred By: Akbar Shelton Electronically Signed By:Zack Dunn
[2023-10-03] MEDS: Omeprazole 20 MG CAPSULE.DR PO ×2 (06:07→17:38)
[2023-10-03 08:00] VITALS: BP 100/62; PULSE 88; RESP 16; TEMP 36.4; O2SAT 92
[2023-10-03] MEDS: Gabapentin 400 MG CAPSULE PO ×2 (08:15→14:06)
[2023-10-03] MEDS: Cholecalciferol (Vitamin D3) 25 MCG TABLET PO (08:15)
[2023-10-03] MEDS: Docusate Sodium 100 MG CAPSULE PO ×2 (08:16→14:06)
[2023-10-03] MEDS: Aspirin 81 MG TAB.CHEW PO (08:16)
[2023-10-03] MEDS: Benztropine Mesylate 1 MG TABLET PO (08:17)
[2023-10-03] MEDS: Multivitamin TABLET 1 TAB PO (08:17)
[2023-10-03 08:18] VITALS: BP 100/62
[2023-10-03] MEDS: Bumetanide 1 MG TABLET 0.5 MG PO ×2 (08:18→17:39)
[2023-10-03 08:34] LABS: Glucose, Whole Blood 120 mg/dL (60-115)
[2023-10-03] MEDS: DULoxetine HCl 20 MG CAPSULE.DR 40 MG PO (11:16)
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
[2023-10-03 17:28] LABS: Glucose, Whole Blood 147 mg/dL (60-115)
[2023-10-03 17:33] VITALS: BP 134/64
[2023-10-03 18:37] VITALS: BP 120/70; PULSE 100
[2023-10-03] MEDS: LORazepam 0.5 MG TABLET PO (18:41)
--- NOTE | 2023-10-03 20:01 | PM.EVENT ---
Event Note Date of Service: 10/03/23 Event Note: pt developed sudden onset chest pain, diaphoretic; Rapid Response called and pt transferred to medical floor Time Spent With Patient Time: Total time managing care of this patient today ____ minutes.
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
[2023-10-03] MEDS: LORazepam 2 MG/ML VIAL IM (20:23)
[2023-10-03 20:30] VITALS: BP 128/78; PULSE 136
[2023-10-03] MEDS: Nitroglycerin 0.4 MG TAB.SUBL SUBLINGUAL (20:30)
[2023-10-03 21:35] LABS: Glucose, Whole Blood 131 mg/dL (60-115)
--- NOTE | 2023-10-03 21:35 | PC.NURSE ---
At approximately 20:00 patient was in the kitchen where she had been for the previous several hours. Pt had been reporting high levels of anxiety and was displaying pronounced spastic movements which she said that she has on a regular basis do to Parkinsons DX, however she stated that movements were not usually this pronounced or extreme. Patient began to report discomfort in her upper L quadrant over her L breast. Rapid response was called. Patient was brought to group room A on a stretcher where she was evaluated by response team. Pulse was elevated and she was diaphoretic. 2mg ativan IM was ordered and given along with 0.4mg Nitro while on floor. IV line was started on L shoulder. Patient was transferred to [facility].
== END 2023-10-03 20:06 | disposition other institution (70) | DRG 885 ==
PROVIDERS: Admitting Provider Psychiatry & Neurology Psychiatry; Visit Provider Clinical Nurse Specialist Psychiatric/Mental Health, Adult
DX: F33.3 Major depressive disorder, recurrent, severe with psychotic symptoms (principal); R45.851 Suicidal ideations; I50.32 Chronic diastolic (congestive) heart failure; F43.10 Post-traumatic stress disorder, unspecified; E11.42 Type 2 diabetes mellitus with diabetic polyneuropathy; G20.A1 Parkinson's disease without dyskinesia, without mention of fluctuations; E78.5 Hyperlipidemia, unspecified; E11.9 Type 2 diabetes mellitus without complications; I11.0 Hypertensive heart disease with heart failure; G47.33 Obstructive sleep apnea (adult) (pediatric); E11.69 Type 2 diabetes mellitus with other specified complication; R07.9 Chest pain, unspecified; E66.9 Obesity, unspecified; Z68.36 Body mass index [BMI] 36.0-36.9, adult; Z91.199 Patient's noncompliance with other medical treatment and regimen due to unspecified reason; Z98.84 Bariatric surgery status; Z91.040 Latex allergy status; Z88.0 Allergy status to penicillin; Z79.82 Long term (current) use of aspirin; Z79.84 Long term (current) use of oral hypoglycemic drugs; Z79.899 Other long term (current) drug therapy
CPT/HCPCS: 36415; 74019; 80061; 82565; 82607; 82746; 82947; 83036; 83735; 84439; 84443; 92950; 93005; J2060

== ENCOUNTER → 2023-09-28 19:35 | Outpatient (BNV) | payer OTHER, SELFPAY | PROVIDERS: Admitting Provider Psychiatry & Neurology Psychiatry; Visit Provider Student in an Organized Health Care Education/Training Program | DX: Z02.2 Encounter for examination for admission to residential institution (principal) | CPT/HCPCS: 99429 ==

== ENCOUNTER → 2023-09-28 19:35 | Outpatient (BNV) | payer OTHER, SELFPAY | PROVIDERS: Admitting Provider Psychiatry & Neurology Psychiatry; Visit Provider Psychiatry & Neurology Psychiatry | DX: F33.3 Major depressive disorder, recurrent, severe with psychotic symptoms (principal); F43.10 Post-traumatic stress disorder, unspecified; G20.A1 Parkinson's disease without dyskinesia, without mention of fluctuations; G24.9 Dystonia, unspecified; E11.69 Type 2 diabetes mellitus with other specified complication; E66.9 Obesity, unspecified; I10 Essential (primary) hypertension; G47.30 Sleep apnea, unspecified | CPT/HCPCS: 90792; 99231; 99232; 99238 ==

== ENCOUNTER 2023-10-03 20:33 | Inpatient (IN) | payer OTHER, SELFPAY ==
--- NOTE | 2023-10-03 | ECG_ITS ---
Test Reason : Chest pain Blood Pressure : / mmHG Vent. Rate : 103 BPM Atrial Rate : 103 BPM P-R Int : 160 ms QRS Dur : 104 ms QT Int : 370 ms P-R-T Axes : 037 024 056 degrees QTc Int : 484 ms Sinus tachycardia Nonspecific T wave abnormality Abnormal ECG When compared with ECG of 03-OCT-2023 20:26, Poor data quality in previous ECG Referred By: Akbar Shelton Electronically Signed By:Zack Dunn
--- NOTE | ~2023-10-03 | XR_ITS ---
EXAMINATION: XR CHEST CLINICAL INFORMATION: Chest pain COMPARISON: Chest x-ray on 01/20/2017 TECHNIQUE: Frontal view of the chest was obtained. FINDINGS: The cardiac silhouette is normal. There is mild diffuse bronchial wall thickening. There are no areas of consolidation. There are no pleural effusions or pneumothoraces. The bones and soft tissues are unremarkable for the patient's age. XR/XR chest 1V IMPRESSION: Bronchial wall thickening may be infectious and/or inflammatory in etiology.
--- OUTSIDE RECORDS SUMMARY | 2023-10-03 20:37 | XMS_ITS | Continuity of Care Document ---
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 Name Role Phone Tamara Blanca NP Primary Care Physician [place] [facility] [place]): [place] 09/28/[address] [id number]- Encounter Diagnosis Abdominal pain(Final) - 09/27/23 Suicidal ideation(Final) - 09/27/23 Discharge Disposition: Transfer to [facility] Facility Attending Physician: Ever Liu MD Admitting Physician: Ever Liu MD Referring Physician: Not on Staff, Referring MD Allergies, Adverse Reactions, Alerts Substance Reaction Severity Status penicillin O/E - allergic rash Active fentanyl 1 Rash Itch Active Latex Skin Peels Active 1erythematous swollen itchy skin in area where patch was applied Immunizations Given and Recorded Vaccine Date Status Refusal Reason influenza virus vaccine, inactivated 12/29/22 Give n influenza virus vaccine, inactivated 12/23/17 Give n [...] vaccine 4 01/27/11 Given pneumococcal 13-valent vaccine 12/09/14 Given hepatitis B adult vaccine 5 01/17/13 Given hepatitis B adult vaccine 6 09/15/09 Given hepatitis B adult vaccine 7 02/03/07 Given Hepatitis A Adult Vaccine 8 09/15/09 Given Hepatitis A Adult Vaccine 9 02/03/07 Given tetanus/diphtheria/pertussis, acel(Tdap) 10 09/15/09 Given 1Result Comment: [02/03/2015] ORDERED BY DR. CAMACHO 2Result Comment: [03/04/2014] Ordered by Nikita 3Atico Note: VIS 10/20/10 GIVEN 4Admin Note: VIS 12/31/08 GIVEN 5Result Comment: [01/17/2013] ORDERED BY DR. CAMACHO 6Admin Note: VIS 10/12/06 GIVEN 7Admin Note: VIS 10/05/00 8Admin Note: VIS 06/15/05 GIVEN 9Admin Note: VIS 06/15/05 10Admin Note: ADACEL PT BROUGHT VIS 02/13/08 GIVEN [...] Refills, Maintenance, Tablet, Route to Pharmacy Electronically, [id number], [facility]/pharmacy #[id number] Start Date: 03/10/16 Status: Ordered benztropine 1 mg oral tablet 1 mg, 1, tablet, By Mouth, 2 times a day, Maintenance, 12/21/18 13:18:14 EDT Start Date: 12/21/18 Status: Ordered bumetanide 0.5 mg oral tablet 0.5 mg, 1, tablet, By Mouth, 2 times a day, # 30 tablet, Refills 0, Maintenance, 12/21/18 13:19:13 EDT Start Date: 12/21/18 Status: Ordered clonazePAM 1 mg oral tablet 1 tablet = 1 mg, By Mouth, 2 times a day, # 60 tablet, 0 Refills, Maintenance, 12/30/22 11:18:00 EDT, Tablet, [facility], Partial fill upon patient request if the prescription is for a schedule II opioid drug., 178, cm, 12/30/22 7:53:00... Start Date: 12/30/22 Stop Date: 01/29/23 Status: Ordered CPAP Machine See Instructions, # 1 each, Maintenance, AutoCPAP 9-12 cm H20, use Daily when sleeping, 10/22/21 14:55:00 EDT, Supply Start Date: 10/22/21 Status: Ordered duloxetine 30 mg oral enteric coated capsule 1 capsule = 30 mg, By Mouth, Daily, do not crush or chew, 0 Refills, Maintenance, 11/09/22 23:56:00EDT, CR Capsule, Partial fill upon patient request if the prescription is for a schedule II opioid drug. Start Date: 11/09/22 Status: Ordered esomeprazole 40 mg oral enteric coated capsule 1 capsule = 40 mg, By Mouth, 2 times a day, # 30 capsule, 0 Refills, Maintenance, 11/09/22 23:56:00EDT, CR Capsule, Partial fill upon patient request if the prescription is for a schedule II opioid drug. Start Date: 11/09/22 Status: Ordered gabapentin 400 mg oral capsule 400 mg, Capsule, By Mouth, 09/28/23 15:00:00 EDT Start Date: 09/28/23 Stop Date: 09/28/23 Status: Completed gabapentin 400 mg oral capsule 400 mg, 1, capsule, By Mouth, 3 times a day, # 15 capsule, Refills 0, Maintenance, 12/01/21 16:59:00 EDT, Partial fill upon patient request if the prescription is for a schedule II opioid drug. Start Date: 12/01/21 Status: Ordered lisinopril 20 mg oral tablet 20 mg, 1, tablet, By Mouth, Daily, # 30 tablet, Refills 0, Maintenance, 11/09/22 23:58:00 EDT, Partial fill upon patient request if the prescription is for a schedule II opioid drug. Start Date: 11/09/22 Status: Ordered metFORMIN 500 mg oral tablet [...] Daily, # 30 tablet, 0 Refills, Maintenance, 11/09/22 23:59:00 EDT, ER Tablet, Partial fill upon patient request if the prescription is for a schedule II opioid drug. Start Date: 11/09/22 Status: Ordered mirtazapine 30 mg oral tablet 1 tablet = 30 mg, By Mouth, Daily at bedtime, # 30 tablet, 0 Refills, Maintenance, 12/01/21 16:29:00 EDT, Tablet, Partial fill upon patient request if the prescription is for a schedule II opioid drug. Start Date: 12/01/21 Status: Ordered pantoprazole 40 mg oral delayed release tablet 1 tablet = 40 mg, By Mouth, Daily, # 90 tablet, 10 Refills, Maintenance, 05/17/23 14:10:00 EST, EC Tablet, 169, cm, 05/17/23 13:56:00 EST, Height, 100, kg, 02/15/23 11:29:00 EST, Dry Weight Start Date: 05/17/23 Status: Ordered Tylenol Extra Strength 500 mg [...] opioid drug. Start Date: 08/14/21 Status: Ordered Problem List Condition Confirmation Course [...] Morbid obesity 4, 5, 6 Confirmed Active Obese class I Confirmed Active DON on CPAP 7 Confirmed 05/21/11 Active Osteoarthritis Confirmed Active Osteoarthritis of knee 8, 9 Confirmed Active Left leg pain Confirmed Active *[facility] [phone] INCIDENT RESPONSE ANALYST SUN CEDILLO Confirmed Active Peripheral venous insufficiency Confirmed Active Abdominal adhesions 10 Confirmed Active Physiological tremor 11 Confirmed 06/17/10 Active Reflux esophagitis 12, 13, 14, 15 Confirmed 11/17/04 Active Syncope Confirmed Active Urinary incontinence Confirmed Active 1dilatation of CBD since 2008 per GI letter- diagnosed by US 2Per ECHO Dec 25, 2015 Grade I, mild diastolic dysfunction 3confirmed by small bowel series done by GI jan 2014- partial small bowel resection 4PROCEDURE DATE: 01/04/2012 ATTENDING SURGEON: Woo Maxwell M.D. SEAFOOD PROCESSOR: Laz Schulz M.D. SECOND BANK VAULT CLERK: Monica Betancourt M.D. Procedure: partial resection of implanted Marlex gastric band. 5Gastric bypass by Dr Knott 03/29/03 6S/p gastric bypass 7by sleep s sandra 05/21/11- mild 8Left TKR after failed patellofemoral knee replacement on 02/22/[address] Laz Katz At [address] [place] [address], [id number] 9Right TKP by Dr Laz Katz 10PROCEDURE [...] Exam Date Time Procedure Performing Provider Status 09/26/23 6:[address] Abd/Pelvis W/ IV Contrast Only Heidy Lema; Rinku (Verified) Notes: (CT Abd/Pelvis W/ IV Contrast Only) Reason For Exam: LLQ abdominal pain;Other: RESULT: CT Abd/Pelvis W/ IV Contrast Only CT Abd/Pelvis W/ IV Contrast Only Hx of Present Illness: Pt having upper abdominal pain that radiates into chest unable to to eat or drink since Tuesday, took ozempic on Tuesday. Pt restless, pale, dry mucosa. Pt has hx dm. Pt deniesfever. Pt admits to increased sob; Reason: Other:; LLQ abdominal pain; Clinical Question(s): Other:; Order Comment: TECHNIQUE: Spiral CT through the abdomen and pelvis with IV contrast formatted in 3 planes. 100 cc of Omnipaque 300 was administered intravenously. This study was performed without oral contrast. Weight-based protocol using automatic tube modulation was used to optimize exposure parameters. CTDIvol Body: 17.75 mGy, DLP Body: 1432 mGy*cm. COMPARISON: None. FINDINGS: This examination is limited due to significant respiratory motion. Delivery Recruiter View Findings, Lines and Tubes: None. Visualized Chest: Lung bases are clear. No pleural effusion. The heart is normal in size. No pericardial effusion. There is a small hiatal hernia with fluid within the distal esophagus indicative of gastroesophageal reflux or dysmotility. Diaphragm: Normal. Liver: Normal. Gallbladder: Absent consistent with prior cholecystectomy. Bile ducts: No biliary ductal dilation. Spleen: Normal. Pancreas: Normal. Adrenal glands: Normal. Kidneys and ureters: No hydronephrosis, stones, or suspicious masses. Bladder: Normal. Reproductive organs: Uterus is surgically absent. Stomach, small bowel, and large bowel: There is fluid filled loops of small or large bowel extending into the descending colon. Appendix: Normal. Peritoneum and retroperitoneum: No ascites or pneumoperitoneum. No omental or mesenteric lesions. Lymph nodes: No enlarged lymph nodes. Blood vessels: Normal. No aneurysm. No evidence of venous thrombosis. Abdominal and pelvic wall: Unremarkable. Bones: No acute abnormality. IMPRESSION: Small hiatal hernia with gastroesophageal reflux and dysmotility Diarrheal disease in the right clinical setting. WSN: [id number] Ordering Physician: Nika Bellamy Dictated By: Filomena Mcleod MD Dictated Date/Time: 09/26/23 7:05 pm Reviewed By: Filomena Mcleod MD Signed By: Filomena Mcleod MD Signed Date/Time: 09/26/23 7:05 pm Transcribed By: NICCI Transcribed Date/Time: 09/26/23 6:49 pm * Exam Date Time Procedure Performing Provider Status 09/26/23 3:51 PM Chest 2 Views Frontal and Lat Tiarra Gallagher; Rinku (Verified) Notes: (Chest 2 Views Frontal and Lat) Reason For Exam: ? hiatal hernia;Other: RESULT: Chest 2 Views Frontal and Lat Chest 2 Views Frontal and Lat Hx of Present Illness: Pt having upper abdominal pain that radiates into chest unable to to eat or drink since tuesday, took ozempic on tuesday. Pt restless, pale, dry mucosa. Pt has hx dm. Pt deniesfever. Pt admits to increased sob; Reason: Other:; ? hiatal hernia; Clinical Question(s): Other: COMPARISON: Multiple prior chest radiographs with the most recent dated 12/28/2022. FINDINGS: LINES AND TUBES: None. LUNGS AND PLEURA: Clear lungs. Normal pulmonary vascularity. No pleural effusion. No pneumothorax. HEART, MEDIASTINUM AND TRACE: Heart is normal in size. Normal mediastinal and hilar contour. BONES AND SOFT TISSUES: No acute abnormality. Known small hiatal hernia. IMPRESSION: No acute abnormality. WSN: [id number] Ordering Physician: Nika Bellamy Dictated By: Tye De Santiago MD, V Dictated Date/Time: 09/26/23 4:07 pm Reviewed By: Tye De Santiago MD, V Signed By: Tye De Santiago MD, V Signed Date/Time: 09/26/23 4:07 pm Transcribed By: NICCI Transcribed Date/Time: 09/26/23 4:04 pm Vital Signs Most recent to oldest [Reference Range]: 1 2 3 Height 178 cm (09/27/23 8:59 AM) 178 cm (09/27/23 4:52 AM) 178 cm (09/26/23 1:56 PM) Oxygen Saturation [94-100 %] 98 % (09/28/23 6:22 PM) 98 % (09/28/23 3:38 PM) 95 % (09/28/23 8:00 AM) Pulse Rate [55-90 bpm] 80 bpm (09/28/23 6:22 PM) 79 bpm (09/28/23 3:38 PM) 76 bpm (09/28/23 8:00 AM) Blood Pressure [90-138/55-84 mm Hg] 124/80mm Hg (09/28/23 6:22 PM) 124/86mm Hg (09/28/23 3:38 PM) 106/84mm Hg (09/28/23 8:00 AM) Respiratory Rate [16-30 br/min] 18 br/min (09/28/23 6:22 PM) 18 br/min (09/28/23 4:33 PM) 18 br/min (09/28/23 3:38 PM) Temperature [96.8-100.4 DegF] 97.9 DegF (09/28/23 6:22 PM) 97.8 DegF (09/28/23 3:38 PM) 97.7 DegF (09/28/23 8:00 AM) Mode of Delivery (Oxygen) Room air (09/28/23 6:22 PM) Room air (09/28/23 3:38 PM) Room air (09/28/23 8:00 AM) Blood pressure sites Arm, right (09/27/23 9:09 AM) Arm, right (09/27/23 8:59 AM) Arm, left (09/26/23 11:58 PM) Temperature Route Oral (09/28/23 6:22 PM) Oral (09/28/23 3:38 PM) Oral (09/28/23 8:00 AM) Dry Weight 91 kg (09/27/23 8:59 AM) 91 kg (09/27/23 4:52 AM) 91 kg (09/26/23 1:56 PM) Dry Weight Obtained Via Patient/family s tated (09/26/23 1:36 PM) Social History Social History Type Response Smoking Status Never smoker; Tobacc o user in household: No entered on: 09/03/16 Sex Female EKG study * Event Display: ECG 12-Lead Authored Date: Please click on pdf link to open report * Event Display: ECG 12-Lead Authored Date: Ventricular Rate: 97 BPM Atrial Rate: 97 BPM P-R Interval: 132 ms QRS Duration: 84 ms Q-T Interval: 364 ms QTC Calculation(Bazett): 462 ms P [place]: 33 degrees R [place]: 12 degrees T [place]: 47 degrees Normal sinus rhythm Anterior infarct (cited on or before 18-DEC-2018) Abnormal ECG When compared with ECG of 09-NOV-2022 13:14, No significant change was found Confirmed by BUZZ ROSAS MD ([id number]) on 09/26/2023 2:49:13 PM [place]: BUZZ ROSAS MD Patient Care team information Care Team Personnel Name: Catherine Lamb RN Position: [facility] RN Member Role: Primary Care Nurse Name: Troy Cruz RN Position: [facility] ED RN W/OE and Tasks Member Role: Primary Care Nurse Name: Reba Alcantar RN Position: [facility] RN Member Role: Primary Care Nurse Name: Soraida Avitia Position: [facility] RN Member Role: Primary Care Nurse Name: Leeann Bryan RN Position: [facility] RN Member Role: Primary Care Nurse Name: Dipak Wilson LPN Position: [facility] RN Member Role: Primary Care Nurse Name: Mallory Adhikari RN Position: [facility] SN RN Member Role: Primary Care Nurse Name: Tamara Blanca NP Position: [facility] PCO w/OE and EZ Script Member Role: PCP Name: Daxa Lee LPN Position: [facility] RN Member Role: Primary Care Nurse Name: Mauro Baptiste RN Position: [facility] RN Member Role: Primary Care Nurse Name: Fred Xavier III, RN Position: [facility] RN Member Role: Primary Care Nurse Name: Roseann Cortés RN Position: [facility] RN Member Role: Primary Care Nurse Name: Luara Farrar RN Position: [facility] RN Member Role: Primary Care Nurse Name: Reba Ontiveros RN Position: [facility] RN Member Role: Primary Care Nurse Name: Omari Norton RN Position: S RN Member Role: Primary Care Nurse Name: Jolene Muniz RN Position: S RN Member Role: Primary Care Nurse Care Team Related Persons Name: ERICA DHILLON Address: home [address] [place] [address] Name: DHILLONSTEVEN MATTHEWS Address: home [address] [place] [address] Name: WILIAN CHE Address: home [address] [id number] Name: OLGA CHE Address: home [address] [place] [id number] Name: LAITH SOLIMAN Address: [place] [address] Name: SOPHIA NOVA Address: home [address] [place] [address]
[2023-10-03] MEDS: Morphine Sulfate 2 MG/ML CARTRIDGE IVPUSH (20:40)
[2023-10-03 20:45] VITALS: BP 128/70; PULSE 128; RESP 20; TEMP 35.9; O2SAT 95
[2023-10-03] MEDS: Nitroglycerin 0.4 MG TAB.SUBL SUBLINGUAL ×2 (21:05→21:22)
[2023-10-03] MEDS: Aspirin 325 MG TABLET PO (21:05)
[2023-10-03 21:12] LABS: MANUAL DIFF FLAG NO
[2023-10-03 21:20] LABS: Eosinophils Percent Auto 0.3 % (0-4); Hemoglobin 13.4 g/dl (12.0-16.0); Imm Gran Abs Auto 0.02 X10*3/uL (0.00-0.03); Imm Gran Pct Auto 0.3 % (0.0-0.4); Lymphocytes Absolute Auto 2.6 X10*3/uL (1.2-4.9); Lymphocytes Percent Auto 34.1 % (20-40); Mean Corpuscular HGB Conc 32.7 g/dl (31.0-35.0); Mean Corpuscular Hemoglobin 25.9 pg (27.0-33.0); Mean Corpuscular Volume 79.3 fL (80.0-98.0); Mean Platelet Volume 11.3 fL (9.4-12.3); Monocytes Absolute Auto 0.6 X10*3/uL (0.1-1.2); Monocytes Percent Auto 7.9 % (2-11); Neutrophils Absolute Auto 4.3 x10*3/uL (2.0-8.3); Neutrophils Percent Auto 57.4 % (45-73); Platelet Count 210 X10*3/uL (160-400); Red Blood Count 5.17 X10*6/uL (4.20-5.50); Red Cell Distribution Width 13.5 % (11.0-16.0); White Blood Count 7.5 X10*3/uL (4.8-10.8)
[2023-10-03 21:22] VITALS: BP 100/70
[2023-10-03 21:47] VITALS: BP 100/64
[2023-10-03 21:48] VITALS: BP 100/64; O2SAT 96
[2023-10-03 21:50] LABS: Alanine Aminotransferase 20 U/L (0-31); Albumin Level 4.3 g/dL (3.5-5.0); Alkaline Phosphatase 138 U/L (39-117); Anion Gap 17 (12-20); Aspartate Amino Transferase 23 U/L (5-31); Bilirubin Total 1.2 mg/dL (0.0-1.0); Blood Urea Nitrogen 20 mg/dL (9-16); Calcium 9.7 mg/dL (8.4-10.2); Carbon Dioxide 25 mmol/L (22-29); Chloride 101 mmol/L (96-108); Estimated Glomerular Filt Rate 56; Glucose Random 121 mg/dL (60-115); Potassium 4.7 mmol/L (3.3-5.1); Sodium 138 mmol/L (135-145); Total Protein 7.5 g/dL (6.5-8.0)
[2023-10-03 21:56] LABS: Troponin-I High Sensitivity < 2.7 ng/L (<3.5-17.0)
--- NOTE | 2023-10-03 22:12 | PHA.MEDREC ---
Addendum entered by Liyah Sanchez [facility] 10/04/23 10:11: I believe med rec was completed incorrect on M5. Med Rec was completed based on pharmacy claims. Patient states she does not take Ozempic or Austedo anymore. Original Note: Pharmacy Consult ? Medication Reconciliation Pharmacy has completed the medication reconciliation. Utilized claims and discharge packet to confirm med list. Patient was discharged from to the ER today 10-03-23
[2023-10-03] MEDS: LORazepam 2 MG/ML VIAL 1 MG IVPUSH (22:16)
[2023-10-03 22:31] VITALS: BP 104/66
[2023-10-04] VITALS (8 sets, daily range): BP systolic 108–145; BP diastolic 55–82; PULSE 74–115; RESP 18–20; TEMP 36.1–36.8; O2SAT 92–100
--- NOTE | 2023-10-04 01:26 | P.HPHOSP_ITS ---
History of Present Illness Date of Service: 10/03/23 Attending physician on admission: Akbar Shelton Chief Complaint: Chest pain Evaluation was conducted in Gabonese which is patient's nikolai language. Vale Nieto is a 63 years old woman with past medical history significant for major depressive disorder, PTSD, Parkinson's disease, DON (noncompliant with CPAP), bariatric surgery, type 2 diabetes on metformin, HFpEF, hypertension and GERD was transferred from psychiatric unit after a rapid response was activated because the patient started to complain of 10/10 left-sided chest pain associated with sweating. Evaluation was quite difficult as the patient will not stop moving as she has been experiencing dyskinesia over the last month. Psychiatric on-call confirmed that this moment are not new. Patient did not report any other symptoms such as shortness on breath or palpitations. She was admitted to the psychiatric unit the for of September due to suicide attempt. Stat vital signs were difficult to obtain accurately due to her marked dyskinesia. Review of Systems 2 Review of Systems: Yes Unobtainable due to mental condition and Unobtainable due to mental status [facility] [place] Medical History (Updated 10/04/23 @ 01:54 by Akbar Shelton MD) Parkinsons disease PTSD (post-traumatic stress disorder) MDD (major depressive disorder), recurrent, severe, with psychosis Insomnia Dyskinesia, drug-induced Dissociative identity disorder Bipolar 1 disorder Anxiety Depression Colon cancer Family History Mother Diabetes Hypertension Father No problems noted. Sister No problems noted. Brother No problems noted. Surgical History History of carpal tunnel surgery Hx of bariatric surgery Hx of hysterectomy History of partial colectomy Hx of cholecystectomy Hx of appendectomy Hx of knee surgery Social History Household Members: Spouse Housing: Apartment Do you presently have visiting nurse or other home services: Yes (Visiting RN and CALL OR CONTACT CENTRE MANAGER) Alcohol intake: never Patient Tobacco Use Status: Never used Tobacco Substance Use Type: Marijuana Advance Directives: No Advance Directives Information Provided: No service: No Sexual orientation: Straight/Heterosexual Meds Allergies Allergy/AdvReac Type Severity Reaction Status Date / Time adhesive tape [TAPE,ADHESIVE] Allergy Severe ANAPHYLAXIS Verified 09/23/21 09:54 latex [LATEX] Allergy Severe ANAPHYLAXIS Verified 09/23/21 09:54 Penicillins [PCN] Allergy Severe ANAPHYLAXIS Verified 09/23/21 09:54 Active Medications: Current Medications Acetaminophen (Acetaminophen 325 Mg Tablet) 650 mg PO Q6H PRN PRN Reason: Pain, Mild (Pain Scale 1-3), fever or headache Calcium Carbonate (Calcium Carbonate 750 Mg Tab.Chew) 750 mg PO Q4H PRN PRN Reason: Heartburn Glucose (Glucose Gel 15 Gm Gel..Gram.) 15 gm PO Q15M PRN; Protocol PRN Reason: per Hypoglycemia Standing Ord. Dextrose (D10) 250 mls @ 750 mls/hr IV Q15M PRN; Protocol PRN Reason: per Hypoglycemia Standing Ord. Insulin Human Lispro (Insulin Lispro 100 Unit/Ml 3 Ml Vial) [facility] Last Admin: 10/03/23 22:33 Dose: Not Given Magnesium Hydroxide (Milk Of Magnesia 30 Ml Oral.Susp) 30 ml PO DAILY PRN PRN Reason: Constipation Melatonin (Melatonin 3 Mg Tablet) 6 mg PO BEDTIME PRN PRN Reason: Insomnia Nitroglycerin (Nitroglycerin 0.4 Mg Tab.Subl) 0.4 mg SUBLINGUAL Q5MX3 PRN PRN Reason: Chest Pain Last Admin: 10/03/23 21:22 Dose: 0.4 tab Sodium Chloride (0.9 % Sodium Chloride Flush 3 Ml Syringe) 3 ml IVFLUSH [facility] Home Medications ?Medication ?Instructions ?Recorded ?Confirmed ?Last Taken ?Type benztropine 1 mg tablet 1 mg PO BID 05/06/21 10/03/23 Unknown History blood sugar diagnostic (FreeStyle #10 ea 05/06/21 09/23/21 Unknown History Lite Strips) bumetanide 0.5 mg tablet 0.5 mg PO 2XD 05/06/21 10/03/23 Unknown History cholecalciferol (vitamin D3) 25 25 mcg PO DAILY 05/06/21 10/03/23 Unknown History mcg (1,000 unit) capsule esomeprazole magnesium 40 mg 40 mg PO BID 05/06/21 10/03/23 Unknown History capsule,delayed release metformin 1,000 mg tablet 1,000 mg PO BID 05/06/21 10/03/23 Unknown History albuterol sulfate 90 mcg/actuation 2 puff inhalation Q4H 09/29/23 10/03/23 Unknown History aerosol inhaler (Ventolin HFA) aspirin 81 mg chewable tablet 1 tab PO DAILY 09/29/23 10/03/23 Unknown History clonazepam 1 mg tablet 1 mg PO BID 09/29/23 10/03/23 Unknown History duloxetine 20 mg capsule,delayed 40 mg PO DAILY 09/29/23 10/03/23 Unknown History release gabapentin 400 mg capsule 400 mg PO TID 09/29/23 10/03/23 Unknown History ipratropium 0.5 mg-albuterol 3 mg 3 ml inhalation Q4H PRN Shortness 09/29/23 10/03/23 Unknown History (2.5 mg base)/3 mL nebulization Of Breath soln metoprolol succinate 50 mg 50 mg PO DAILY 09/29/23 10/03/23 Unknown History tablet,extended release 24 hr mirtazapine 30 mg tablet 30 mg PO BEDTIME 09/29/23 10/03/23 Unknown History multivitamin with folic acid 400 1 tab PO DAILY 09/29/23 10/03/23 Unknown History mcg tablet (Tab-A-Alanis) semaglutide 2 mg/dose (8 mg/3 mL) mg subcut 09/29/23 Unknown History subcutaneous pen injector (Ozempic) diclofenac sodium 1 % topical gel 1 ea topical QID PRN Pain (Scale 10/03/23 10/03/23 Unknown History Score 1-3) lisinopril 20 mg tablet 20 mg PO DAILY 10/03/23 10/03/23 Unknown History quetiapine 50 mg tablet 50 mg PO BEDTIME 10/03/23 10/03/23 Unknown History rosuvastatin 40 mg tablet 40 mg PO DAILY 10/03/23 10/03/23 Unknown History Physical Exam 2 Vital Signs and Narrative: Vital Signs: Last Vital Signs Temp 97.6 F 10/04/23 00:00 Pulse 115 H 10/04/23 00:00 Resp 20 10/04/23 00:00 BP 114/68 10/04/23 00:41 Pulse Ox 93 10/04/23 00:00 O2 Del Method Nasal Cannula 10/04/23 00:00 O2 Flow Rate 2 10/03/23 21:48 Constitutional - Awake and Alert. In acute distress due to chest pain. Restless. Sweating. HEENT - PERRLA, EOMI Heart - Tachycardic. Lungs - Normal lung expansion, Normal respiratory effort, No respiratory distress, CTA bilaterally Abdomen - NT / ND; +BS; No rebound or guarding Extremities - no calf tenderness bilaterally, no swelling Musculoskeletal - Normal inspection, normal ROM Skin - Warm/Dry Neurological - Alert & oriented x3. Repetitive movements of all extremities and facial muscles noted. Normal speech. Psychological - Depressed affect Results Labs 10/03/23 21:06 10/03/23 21:06 Labs: Laboratory Results - last 24 hr 10/03/23 21:06 MCV 79.3 L MCH 25.9 L MCHC 32.7 RDW 13.5 Plt Count 210 MPV 11.3 Immature Gran % (Auto) 0.3 Neut % (Auto) 57.4 Lymph % (Auto) 34.1 [place] % (Auto) 7.9 Eos % (Auto) 0.3 Baso % (Auto) 0.0 Lymph # (Auto) 2.6 [place] # (Auto) 0.6 Eos # (Auto) 0.0 Baso # (Auto) 0.0 Abs Immat Gran (auto) 0.02 Absolute Neuts (auto) 4.3 Absolute Nucleated RBC 0.000 Nucleated RBC % (auto) 0.0 Anion Gap 17 Estim Creat Clear Calc TNP Estimated GFR 56 Random Glucose 121 H Calcium 9.7 Total Bilirubin 1.2 H AST 23 ALT 20 Alkaline Phosphatase 138 H Total Creatine Kinase 174 H Troponin I High Sens < 2.7 Total Protein 7.5 Albumin 4.3 Assessment and Plan (1) Dyskinesia: Status: Acute (2) Chest pain: Qualifiers: Chest pain type: unspecified Qualified Code(s): R07.9 - Chest pain, unspecified Status: Acute Plan Vale Nieto is a 63 y/o woman admitted with: * Chest pain. Old LBBB noted on previous ECGs. Admit to telemetry. Check troponin. Aspirin 325 mg p.o. now then 81 mg p.o. daily. Nitroglycerin 0.4 mg sublingual Q 5 minutes x3. Morphine IV. Continue statin and beta blockers. Check CXR. Check TTE. Cardiology consult. * Acute anxiety. Ativan IM and IV given. * ? Parkinson disease. Patient does not seem to be of medications for this. * Dyskinesia. To avoid medications that could exacerbate this. Neurology consult. * HFpEF. Stable. Continue Bumex. Check TTE. * Type 2 diabetes mellitus. Blood glucose monitoring before meals at bedtime. Insulin sliding scale. We will hold metformin for now. * Essential hypertension. Continue metoprolol and lisinopril. * Hyperlipidemia. Continue statin. * GERD. Continue PPI. * Obstructive sleep apnea. Noncompliant with CPAP. * Mood disorder/PTSD/depression. Treatment per Psychiatry. DVT prophylaxis: Heparin Code status: Full Patient will need hospitalization for at least 2 midnight for chest pain and dyskinesia evaluation and treatment; continue cardiac monitoring, serial troponin and further imaging. Quality Stroke Does the patient have a stroke diagnosis?: No VTE Prior VTE?: No VTE Risk Level:: Medical - moderate - high VTE Device Contraindication: Treatment Not Indicated VTE Drug Contraindication: Treatment Not Indicated
[2023-10-04 02:00] LABS: Troponin-I High Sensitivity 4.3 ng/L (<3.5-17.0)
[2023-10-04] MEDS: 0.9 % Sodium Chloride 1,000 ML 999 ML IV (04:06)
[2023-10-04] MEDS: 0.9 % Sodium Chloride 1,000 ML 100 ML IVCONT ×2 (05:22→16:21)
[2023-10-04] MEDS: Omeprazole 20 MG CAPSULE.DR PO ×2 (05:25→16:16)
[2023-10-04] MEDS: Heparin Sodium,Porcine 5,000 UNIT/ML VIAL 5000 UNIT SUBCUT ×3 (05:25→21:01)
[2023-10-04 06:11] LABS: Glucose, Whole Blood 113 mg/dL (60-115)
[2023-10-04 06:13] LABS: Glucose, Whole Blood 131 mg/dL (60-115)
--- NOTE | 2023-10-04 07:00 | CA_ITS ---
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 There is normal left ventricular wall thickness. The left ventricular systolic function is low normal. The visually estimated ejection fraction is between 50-55%. There is no evidence of regional wall motion abnormalities. Diastolic function is normal for age. - Normal right ventricular cavity size. There is low normal right ventricular systolic function. Findings Left Ventricle Normal left ventricular cavity size. There is normal left ventricular wall thickness. The left ventricular systolic function is low normal. The visually estimated ejection fraction is between 50-55%. There is no evidence of regional wall motion abnormalities. Diastolic function is normal for age. Right Ventricle Normal right ventricular cavity size. There is low normal right ventricular systolic function. Atria The left atrium is normal in size. Aortic Valve Normal aortic valve structure and function. There is no aortic valve stenosis. There is no aortic valve regurgitation. Mitral Valve The mitral valve appears normal. There is no mitral valve regurgitation. There is no mitral valve stenosis. Pulmonic Valve The pulmonic valve is likely normal. Tricuspid Valve Normal tricuspid valve structure. There is no tricuspid valve regurgitation. Normal right atrial pressure. There is no evidence of pulmonary hypertension. Great Vessels All visible segments of the aorta are normal in size. The visualized portions of the pulmonary artery and branches are normal. Venous The inferior vena cava is normal in size and collapses greater than 50% with inspiration. Pericardium/Pleural There is no evidence of pericardial effusion. Measurements 2D Linear Measurements IVSd: 0.71 0.6-0.9/0.6-1.0 cm LVIDd: 3.60 3.9-5.3/4.2-5.9 cm LVIDd Index: 1.73 2.4-3.2/2.2-3.1 cm/m2 LVIDs: 2.87 2.0-3.6 cm LVPWd: 0.73 0.7-1.1 cm Ao Root: 3.10 2.1-3.5 cm LA Diam: 3.00 2.7-3.8/3.0-4.0 cm LAIDs Index: 1.44 1.5-2.3 cm/m2 LV Mass: 84.07 67-162/88-224 g LV Mass Index: 40.42 43-95/49-115 g/m2 LVOT Diam: 2.00 3.0+(-)1.3 cm 2D Systolic Function EF 4C: 46.10 >55% EF 2C: 56.10 >55% EF BiP: 51.90 >55% Mitral Valve MV Pk E: 0.58 MV PK A: 0.67 MV Decel Time: 167.00 E/A: 0.90 E'Lateral: 9.90 E'Medial: 6.20 E/E' Med: 9.40 E/E' Lat: 5.90 PHT: 49.00 MVA PHT: 4.49 Decel Dooly: 3.50 Aortic Valve AoV Pk Jonathan: 1.65 AoV Mn Jonathan: 1.10 AoV VTI: 0.34 AoV Pk Grad: 11.00 Aov Mn Grad: 6.00 CHIDI Cont.VTI: 2.54 LVOT LVOT Pk Jonathan: 1.44 LVOT Mn Jonathan: 0.97 LVOT VTI: 0.28 LVOT Pk Grad: 8.00 LVOT Mn Grad: 4.00 LVOT Diam: 2.00 LVOT Area: 3.14 Diastolic Function MV Pk E: 0.58 MV Pk A: 0.67 E/A: 0.90 E'Medial: 6.20 E/E' Med: 9.40 E' Laterial: 9.90 E/E' Lat: 5.90 Right Ventricle TAPSE (mm): 15.00 TVS' Jonathan: 10.00 Tricuspid Valve TR Pk Jonathan: 2.52 TR Pk Grad: 25.00 RA Press: 3.00 RVSP: 28.00 Great Vessels Aorta Ao Root-2D: 3.10 2.0-3.7 cm Ao Asc: 2.80 2.1-3.4 cm Ao Arch: 3.00 Pulmonary Valve PV Pk Jonathan: 0.95 Peak PV Grad: 4.00 Updated in Other Vendor System with Status of Final Zack Dunn MD electronically signed on 10/04/2023 12:18:14 PM with status of Final
[2023-10-04 07:21] LABS: Glucose, Whole Blood 106 mg/dL (60-115)
[2023-10-04] MEDS: 0.9 % Sodium Chloride Flush 3 ML SYRINGE IVFLUSH ×2 (08:46→21:01)
[2023-10-04] MEDS: Atorvastatin Calcium 80 MG TABLET PO (08:47)
[2023-10-04] MEDS: Bumetanide 1 MG TABLET 0.5 MG PO ×2 (08:47→16:16)
[2023-10-04] MEDS: lisinopriL 20 MG TABLET PO (08:47)
[2023-10-04] MEDS: Metoprolol Succinate ER 50 MG TAB.ER.24H PO (08:48)
[2023-10-04] MEDS: Aspirin 81 MG TAB.CHEW PO (08:48)
[2023-10-04] MEDS: Acetaminophen 325 MG TABLET 650 MG PO (08:54)
--- NOTE | 2023-10-04 10:36 | PM.NEUROCN ---
History of Present Illness Data of Consult Service Date: 10/04/23 Primary Care Provider: Unknown Physician HPI Reason for consult: Abnormal movement 63 years old woman with complex psychiatric history who was admitted in hospital after a suicidal attempt. While on psychiatric floor she had acute chest pain and she was brought to medical floor. I was asked to see her for abnormal movements. Apparently, dyskinetic? type of movements have been noted before. Review of Systems Review of Systems: Recent suicidal attempt PMFSH Past Medical History Medical History (Updated 10/04/23 @ 10:38 by Sarmad Bran MD) Parkinsons disease PTSD (post-traumatic stress disorder) MDD (major depressive disorder), recurrent, severe, with psychosis Insomnia Dyskinesia, drug-induced Dissociative identity disorder Bipolar 1 disorder Anxiety Depression Colon cancer Family History Family History Mother Diabetes Hypertension Father No problems noted. Sister No problems noted. Brother No problems noted. 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) Alcohol intake: never Patient Tobacco Use Status: Never used Tobacco Substance Use Type: Marijuana Advance Directives: No Advance Directives Information Provided: No service: No Sexual orientation: Straight/Heterosexual Meds Allergies Allergy/AdvReac Type Severity Reaction Status Date / Time adhesive tape [TAPE,ADHESIVE] Allergy Severe ANAPHYLAXIS Verified 09/23/21 09:54 latex [LATEX] Allergy Severe ANAPHYLAXIS Verified 09/23/21 09:54 Penicillins [PCN] Allergy Severe ANAPHYLAXIS Verified 09/23/21 09:54 Active Medications: Current Medications Acetaminophen (Acetaminophen 325 Mg Tablet) 650 mg PO Q6H PRN PRN Reason: Pain, Mild (Pain Scale 1-3), fever or headache Last Admin: 10/04/23 08:54 Dose: 650 mg Aspirin (Aspirin 81 Mg Tab.Chew) 81 mg PO DAILY [facility] Last Admin: 10/04/23 08:48 Dose: 81 mg Atorvastatin Calcium (Atorvastatin Calcium 80 Mg Tablet) 80 mg PO DAILY [facility] Last Admin: 10/04/23 08:47 Dose: 80 mg Bumetanide (Bumetanide 1 Mg Tablet) 0.5 mg PO BID@0800,1700 [facility]; Protocol Last Admin: 10/04/23 08:47 Dose: 0.5 mg Calcium Carbonate (Calcium Carbonate 750 Mg Tab.Chew) 750 mg PO Q4H PRN PRN Reason: Heartburn Glucose (Glucose Gel 15 Gm Gel..Gram.) 15 gm PO Q15M PRN; Protocol PRN Reason: per Hypoglycemia Standing Ord. Heparin Sodium (Porcine) (Heparin Sodium,Porcine 5,000 Unit/Ml Vial) 5,000 unit SUBCUT Q8H [facility] Last Admin: 10/04/23 05:25 Dose: 5,000 unit Dextrose (D10) 250 mls @ 750 mls/hr IV Q15M PRN; Protocol PRN Reason: per Hypoglycemia Standing Ord. Sodium Chloride (Ns) 1,000 mls @ 100 mls/hr IVCONT .Q10H [facility] Last Admin: 10/04/23 05:22 Dose: 100 mls/hr Insulin Human Lispro (Insulin Lispro 100 Unit/Ml 3 Ml Vial) 0 unit SUBCUT QIDACHS [facility]; Protocol Last Admin: 10/04/23 07:34 Dose: Not Given Lisinopril (Lisinopril 20 Mg Tablet) 20 mg PO DAILY [facility]; Protocol Last Admin: 10/04/23 08:47 Dose: 20 mg Magnesium Hydroxide (Milk Of Magnesia 30 Ml Oral.Susp) 30 ml PO DAILY PRN PRN Reason: Constipation Melatonin (Melatonin 3 Mg Tablet) 6 mg PO BEDTIME PRN PRN Reason: Insomnia Metoprolol Succinate (Metoprolol Succinate Er 50 Mg Tab.Er.24h) 50 mg PO DAILY [facility]; Protocol Last Admin: 10/04/23 08:48 Dose: 50 mg Nitroglycerin (Nitroglycerin 0.4 Mg Tab.Subl) 0.4 mg SUBLINGUAL Q5MX3 PRN PRN Reason: Chest Pain Last Admin: 10/03/23 21:22 Dose: 0.4 tab Omeprazole (Omeprazole 20 Mg Capsule.Dr) 20 mg PO BID@0630,1630 [facility] Last Admin: 10/04/23 05:25 Dose: 20 mg Sodium Chloride (0.9 % Sodium Chloride Flush 3 Ml Syringe) 3 ml IVFLUSH QSHIFT [facility] Last Admin: 10/04/23 08:46 Dose: 3 ml Home Medications ?Medication ?Instructions ?Recorded ?Confirmed ?Last Taken ?Type benztropine 1 mg tablet 1 mg PO DAILY 05/06/21 10/04/23 Unknown History blood sugar diagnostic (FreeStyle #10 ea 05/06/21 09/23/21 Unknown History Lite Strips) bumetanide 0.5 mg tablet 0.5 mg PO 2XD 05/06/21 10/03/23 Unknown History cholecalciferol (vitamin D3) 25 25 mcg PO DAILY 05/06/21 10/03/23 Unknown History mcg (1,000 unit) capsule esomeprazole magnesium 40 mg 40 mg PO BID 05/06/21 10/03/23 Unknown History capsule,delayed release metformin 1,000 mg tablet 1,000 mg PO BID 05/06/21 10/03/23 Unknown History albuterol sulfate 90 mcg/actuation 2 puff inhalation Q4H 09/29/23 10/03/23 Unknown History aerosol inhaler (Ventolin HFA) aspirin 81 mg chewable tablet 1 tab PO DAILY 09/29/23 10/03/23 Unknown History clonazepam 1 mg tablet 1 mg PO BID 09/29/23 10/03/23 Unknown History duloxetine 20 mg capsule,delayed 40 mg PO DAILY 09/29/23 10/03/23 Unknown History release gabapentin 400 mg capsule 400 mg PO BID 09/29/23 10/04/23 Unknown History ipratropium 0.5 mg-albuterol 3 mg 3 ml inhalation Q4H PRN Shortness 09/29/23 10/03/23 Unknown History (2.5 mg base)/3 mL nebulization Of Breath soln metoprolol succinate 50 mg 50 mg PO DAILY 09/29/23 10/03/23 Unknown History tablet,extended release 24 hr mirtazapine 30 mg tablet 30 mg PO BEDTIME 09/29/23 10/03/23 Unknown History multivitamin with folic acid 400 1 tab PO DAILY 09/29/23 10/03/23 Unknown History mcg tablet (Tab-A-Alanis) diclofenac sodium 1 % topical gel 1 ea topical QID PRN Pain (Scale 10/03/23 10/03/23 Unknown History Score 1-3) lisinopril 20 mg tablet 20 mg PO DAILY 10/03/23 10/03/23 Unknown History quetiapine 50 mg tablet 50 mg PO BEDTIME 10/03/23 10/03/23 Unknown History rosuvastatin 40 mg tablet 40 mg PO DAILY 10/03/23 10/03/23 Unknown History Physical Exam Vital Signs: Vital Signs: Last Vital Signs Temp 97.5 F 10/04/23 07:24 Pulse 82 10/04/23 07:24 Resp 19 10/04/23 07:24 BP 134/77 10/04/23 07:24 Pulse Ox 100 10/04/23 07:24 O2 Del Method Room Air 10/04/23 07:24 O2 Flow Rate 2 10/03/23 21:48 BMI result Body Mass Index 30.0 Neuro: Other: She is alert and awake with normal spontaneity of speech fluency comprehension and affect. I did not notice any facial arm or leg abnormal movements or significant tremor. There was no speech tremor. Deep tendon reflexes were trace to 1+ with flexor plantars. Face was symmetrical. Visual mosley are full. Results Labs 10/03/23 21:06 10/03/23 21:06 Labs: Short CBC 10/03/23 Range/Units 21:06 WBC 7.5 (4.8-10.8) X10*3/uL Hgb 13.4 (12.0-16.0) g/dl Hct 41.0 (37.0-47.0) % Plt Count 210 (160-400) X10*3/uL BMP 10/03/23 21:06 Sodium 138 Potassium 4.7 Chloride 101 Carbon Dioxide 25 BUN 20 H Creatinine 1.00 Calcium 9.7 Cardiac Enzymes 10/03/23 Range/Units 21:06 Total Creatine Kinase 174 H (26-140) U/L Liver Function 10/03/23 Range/Units 21:06 Total Bilirubin 1.2 H (0.0-1.0) mg/dL AST 23 (5-31) U/L ALT 20 (0-31) U/L Alkaline Phosphatase 138 H (39-117) U/L Albumin 4.3 (3.5-5.0) g/dL Noncontrast head CT did not reveal any significant abnormality. MRI of brain revealed minor nonspecific white matter signal abnormalities. Assessment and Plan (1) Dyskinesia: Status: Acute (2) Movement disorder: Status: Acute 63 years old woman admitted in hospital after a suicidal attempt. I was asked to see for abnormal movements but on my examination I did not notice any significant problem. In any case, issue of movement disorder his better address when she is better and as an outpatient. Procedures Date of Service Date of Service: 10/04/23
--- NOTE | 2023-10-04 11:07 | PM.CNCAR ---
History of Present Illness History of Present Illness Date of Service: 10/04/23 Requesting physician: Analia Garcia Chief complaint: Chest pain Narrative: [age] year female who we have been asked to see for chest pain. She has background of Parkinson disease, PTSD, major depression and suicidal ideation and was currently in inpatient psych unit where she complained of chest pain. She is saying that she was watching television when she suddenly developed severe left-sided chest pain which felt like as if lightening has struck her. This lasted for few minutes and improved. She has not had any further chest pain since then. Currently comfortable and denying any symptoms. EKGs and labs reviewed. Echocardiography has shown low normal left ventricular ejection fraction. Right ventricular function also low normal. No wall motion abnormalities noticed. No pericardial effusion. [facility] Past Medical History Medical History (Updated 10/04/23 @ 10:38 by Sarmad Bran MD) Parkinsons disease PTSD (post-traumatic stress disorder) MDD (major depressive disorder), recurrent, severe, with psychosis Insomnia Dyskinesia, drug-induced Dissociative identity disorder Bipolar 1 disorder Anxiety Depression Colon cancer Family History Family History Mother Diabetes Hypertension Father No problems noted. Sister No problems noted. Brother No problems noted. 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) Alcohol intake: never Patient Tobacco Use Status: Never used Tobacco Substance Use Type: Marijuana Advance Directives: No Advance Directives Information Provided: No service: No Sexual orientation: Straight/Heterosexual Meds Allergies Allergy/AdvReac Type Severity Reaction Status Date / Time adhesive tape [TAPE,ADHESIVE] Allergy Severe ANAPHYLAXIS Verified 09/23/21 09:54 latex [LATEX] Allergy Severe ANAPHYLAXIS Verified 09/23/21 09:54 Penicillins [PCN] Allergy Severe ANAPHYLAXIS Verified 09/23/21 09:54 Active Medications: Current Medications Acetaminophen (Acetaminophen 325 Mg Tablet) 650 mg PO Q6H PRN PRN Reason: Pain, Mild (Pain Scale 1-3), fever or headache Last Admin: 10/04/23 08:54 Dose: 650 mg Aspirin (Aspirin 81 Mg Tab.Chew) 81 mg PO DAILY [facility] Last Admin: 10/04/23 08:48 Dose: 81 mg Atorvastatin Calcium (Atorvastatin Calcium 80 Mg Tablet) 80 mg PO DAILY [facility] Last Admin: 10/04/23 08:47 Dose: 80 mg Bumetanide (Bumetanide 1 Mg Tablet) 0.5 mg PO BID@0800,1700 [facility]; Protocol Last Admin: 10/04/23 08:47 Dose: 0.5 mg Calcium Carbonate (Calcium Carbonate 750 Mg Tab.Chew) 750 mg PO Q4H PRN PRN Reason: Heartburn Glucose (Glucose Gel 15 Gm Gel..Gram.) 15 gm PO Q15M PRN; Protocol PRN Reason: per Hypoglycemia Standing Ord. Heparin Sodium (Porcine) (Heparin Sodium,Porcine 5,000 Unit/Ml Vial) 5,000 unit SUBCUT Q8H [facility] Last Admin: 10/04/23 05:25 Dose: 5,000 unit Dextrose (D10) 250 mls @ 750 mls/hr IV Q15M PRN; Protocol PRN Reason: per Hypoglycemia Standing Ord. Sodium Chloride (Ns) 1,000 mls @ 100 mls/hr IVCONT .Q10H [facility] Last Admin: 10/04/23 05:22 Dose: 100 mls/hr Insulin Human Lispro (Insulin Lispro 100 Unit/Ml 3 Ml Vial) 0 unit SUBCUT QIDACHS [facility]; Protocol Last Admin: 10/04/23 07:34 Dose: Not Given Lisinopril (Lisinopril 20 Mg Tablet) 20 mg PO DAILY [facility]; Protocol Last Admin: 10/04/23 08:47 Dose: 20 mg Magnesium Hydroxide (Milk Of Magnesia 30 Ml Oral.Susp) 30 ml PO DAILY PRN PRN Reason: Constipation Melatonin (Melatonin 3 Mg Tablet) 6 mg PO BEDTIME PRN PRN Reason: Insomnia Metoprolol Succinate (Metoprolol Succinate Er 50 Mg Tab.Er.24h) 50 mg PO DAILY [facility]; Protocol Last Admin: 10/04/23 08:48 Dose: 50 mg Nitroglycerin (Nitroglycerin 0.4 Mg Tab.Subl) 0.4 mg SUBLINGUAL Q5MX3 PRN PRN Reason: Chest Pain Last Admin: 10/03/23 21:22 Dose: 0.4 tab Omeprazole (Omeprazole 20 Mg Capsule.) 20 mg PO BID@0630,1630 [facility] Last Admin: 10/04/23 05:25 Dose: 20 mg Sodium Chloride (0.9 % Sodium Chloride Flush 3 Ml Syringe) 3 ml IVFLUSH QSHIFT [facility] Last Admin: 10/04/23 08:46 Dose: 3 ml Home Medications ?Medication ?Instructions ?Recorded ?Confirmed ?Last Taken ?Type benztropine 1 mg tablet 1 mg PO DAILY 05/06/21 10/04/23 Unknown History blood sugar diagnostic (FreeStyle #10 ea 05/06/21 09/23/21 Unknown History Lite Strips) bumetanide 0.5 mg tablet 0.5 mg PO 2XD 05/06/21 10/03/23 Unknown History cholecalciferol (vitamin D3) 25 25 mcg PO DAILY 05/06/21 10/03/23 Unknown History mcg (1,000 unit) capsule esomeprazole magnesium 40 mg 40 mg PO BID 05/06/21 10/03/23 Unknown History capsule,delayed release metformin 1,000 mg tablet 1,000 mg PO BID 05/06/21 10/03/23 Unknown History albuterol sulfate 90 mcg/actuation 2 puff inhalation Q4H 09/29/23 10/03/23 Unknown History aerosol inhaler (Ventolin HFA) aspirin 81 mg chewable tablet 1 tab PO DAILY 09/29/23 10/03/23 Unknown History clonazepam 1 mg tablet 1 mg PO BID 09/29/23 10/03/23 Unknown History duloxetine 20 mg capsule,delayed 40 mg PO DAILY 09/29/23 10/03/23 Unknown History release gabapentin 400 mg capsule 400 mg PO BID 09/29/23 10/04/23 Unknown History ipratropium 0.5 mg-albuterol 3 mg 3 ml inhalation Q4H PRN Shortness 09/29/23 10/03/23 Unknown History (2.5 mg base)/3 mL nebulization Of Breath soln metoprolol succinate 50 mg 50 mg PO DAILY 09/29/23 10/03/23 Unknown History tablet,extended release 24 hr mirtazapine 30 mg tablet 30 mg PO BEDTIME 09/29/23 10/03/23 Unknown History multivitamin with folic acid 400 1 tab PO DAILY 09/29/23 10/03/23 Unknown History mcg tablet (Tab-A-Alanis) diclofenac sodium 1 % topical gel 1 ea topical QID PRN Pain (Scale 10/03/23 10/03/23 Unknown History Score 1-3) lisinopril 20 mg tablet 20 mg PO DAILY 10/03/23 10/03/23 Unknown History quetiapine 50 mg tablet 50 mg PO BEDTIME 10/03/23 10/03/23 Unknown History rosuvastatin 40 mg tablet 40 mg PO DAILY 10/03/23 10/03/23 Unknown History Physical Exam Vital Signs: Vital Signs: Last Vital Signs Temp 97.5 F 10/04/23 07:24 Pulse 82 10/04/23 07:24 Resp 19 10/04/23 07:24 BP 134/77 10/04/23 07:24 Pulse Ox 100 10/04/23 07:24 O2 Del Method Room Air 10/04/23 07:24 O2 Flow Rate 2 10/03/23 21:48 BMI result Body Mass Index 30.0 GENERAL APPEARANCE: in no acute distress, pleasant. NECK: no carotid bruit, no jugular venous distention. SKIN: no suspicious lesions, warm and dry. HEART: no murmurs, regular rate and rhythm. LUNGS: clear to auscultation bilaterally. ABDOMEN: soft, nontender. EXTREMITIES: no edema. PERIPHERAL PULSES: equal. NEUROLOGIC: No gross deficits, AAO X 3 Objective Labs and Meds 10/03/23 21:06 10/03/23 21:06 Lab results: Laboratory Results - last 24 hr 10/03/23 10/03/23 10/03/23 20:41 21:06 22:23 WBC 7.5 RBC 5.17 Hgb 13.4 Hct 41.0 MCV 79.3 L MCH 25.9 L MCHC 32.7 RDW 13.5 Plt Count 210 MPV 11.3 Immature Gran % (Auto) 0.3 Neut % (Auto) 57.4 Lymph % (Auto) 34.1 Morrill % (Auto) 7.9 Eos % (Auto) 0.3 Baso % (Auto) 0.0 Lymph # (Auto) 2.6 Morrill # (Auto) 0.6 Eos # (Auto) 0.0 Baso # (Auto) 0.0 Abs Immat Gran (auto) 0.02 Absolute Neuts (auto) 4.3 Absolute Nucleated RBC 0.000 Nucleated RBC % (auto) 0.0 Sodium 138 Potassium 4.7 Chloride 101 Carbon Dioxide 25 Anion Gap 17 BUN 20 H Creatinine 1.00 Estim Creat Clear Calc TNP Estimated GFR 56 POC Glucose 131 H 113 Random Glucose 121 H Calcium 9.7 Total Bilirubin 1.2 H AST 23 ALT 20 Alkaline Phosphatase 138 H Total Creatine Kinase 174 H Troponin I High Sens < 2.7 Total Protein 7.5 Albumin 4.3 10/04/23 10/04/23 01:12 07:18 WBC RBC Hgb Hct MCV MCH MCHC RDW Plt Count MPV Immature Gran % (Auto) Neut % (Auto) Lymph % (Auto) Morrill % (Auto) Eos % (Auto) Baso % (Auto) Lymph # (Auto) Morrill # (Auto) Eos # (Auto) Baso # (Auto) Abs Immat Gran (auto) Absolute Neuts (auto) Absolute Nucleated RBC Nucleated RBC % (auto) Sodium Potassium Chloride Carbon Dioxide Anion Gap BUN Creatinine Estim Creat Clear Calc Estimated GFR POC Glucose 106 Random Glucose Calcium Total Bilirubin AST ALT Alkaline Phosphatase Total Creatine Kinase Troponin I High Sens 4.3 D Total Protein Albumin Assessment and Plan (1) Chest pain: Qualifiers: Chest pain type: unspecified Qualified Code(s): R07.9 - Chest pain, unspecified Status: Acute Plan [age] year female who has major depression and suicidal ideation and was currently inpatient in the psych unit where she developed chest pain. Character of chest pain is unusual for acute coronary syndrome. She has no dynamic EKG changes or biomarker rise. She has not had any further chest pains. ECHO has shown low normal biventricular function and no wall motion abnormalities. No pericardial effusion is noted. I would favor supportive treatment of chest pain currently. As she recovers from her psychiatric issues-we can arrange stress testing for her as outpatient. Thank you for allowing me to participate in the care of your patient. Please feel free to contact me if you have any questions. Procedures Date of Service Date of Service: 10/04/23
[2023-10-04 11:16] LABS: Glucose, Whole Blood 101 mg/dL (60-115)
--- NOTE | 2023-10-04 13:27 | HO.PM.IMPN ---
Subjective Subjective Date of Service: 10/04/23 Review of Systems Follow up chest pain feeling better Physical Exam Vital Signs: Vital Signs: Last Vital Signs Temp 96.9 F 10/04/23 11:18 Pulse 74 10/04/23 11:18 Resp 18 10/04/23 11:18 BP 119/66 10/04/23 11:18 Pulse Ox 94 10/04/23 11:18 O2 Del Method Room Air 10/04/23 11:18 O2 Flow Rate 2 10/03/23 21:48 BMI result Body Mass Index 30.0 Appearing in no acute distress lung sounds are clear to auscultation heart regular rate rhythm, clear S1, S2 positive bowel sounds, abdomen is soft, nontender neuro patient is alert x3, no focal deficits Objective Data Active Medications Acetaminophen (Acetaminophen 325 Mg Tablet) 650 mg PO Q6H PRN PRN Reason: Pain, Mild (Pain Scale 1-3), fever or headache Last Admin: 10/04/23 08:54 Dose: 650 mg Documented By: CITLALY Aspirin (Aspirin 81 Mg Tab.Chew) 81 mg PO DAILY [facility] Last Admin: 10/04/23 08:48 Dose: 81 mg Documented By: CITLALY Atorvastatin Calcium (Atorvastatin Calcium 80 Mg Tablet) 80 mg PO DAILY [facility] Last Admin: 10/04/23 08:47 Dose: 80 mg Documented By: CITLALY Bumetanide (Bumetanide 1 Mg Tablet) 0.5 mg PO BID@0800,1700 [facility]; Protocol Last Admin: 10/04/23 08:47 Dose: 0.5 mg Documented By: CITLALY Calcium Carbonate (Calcium Carbonate 750 Mg Tab.Chew) 750 mg PO Q4H PRN PRN Reason: Heartburn Glucose (Glucose Gel 15 Gm Gel..Gram.) 15 gm PO Q15M PRN; Protocol PRN Reason: per Hypoglycemia Standing Ord. Heparin Sodium (Porcine) (Heparin Sodium,Porcine 5,000 Unit/Ml Vial) 5,000 unit SUBCUT Q8H [facility] Last Admin: 10/04/23 05:25 Dose: 5,000 unit Documented By: NICOLAS Dextrose (D10) 250 mls @ 750 mls/hr IV Q15M PRN; Protocol PRN Reason: per Hypoglycemia Standing Ord. Sodium Chloride (Ns) 1,000 mls @ 100 mls/hr IVCONT .Q10H [facility] Last Admin: 10/04/23 05:22 Dose: 100 mls/hr Documented By: NICOLAS Insulin Human Lispro (Insulin Lispro 100 Unit/Ml 3 Ml Vial) 0 unit SUBCUT QIDACHS [facility]; Protocol Last Admin: 10/04/23 11:53 Dose: Not Given Documented By: CITLALY Non-Admin Reason: No Insulin Coverage Lisinopril (Lisinopril 20 Mg Tablet) 20 mg PO DAILY [facility]; Protocol Last Admin: 10/04/23 08:47 Dose: 20 mg Documented By: CITLALY Magnesium Hydroxide (Milk Of Magnesia 30 Ml Oral.Susp) 30 ml PO DAILY PRN PRN Reason: Constipation Melatonin (Melatonin 3 Mg Tablet) 6 mg PO BEDTIME PRN PRN Reason: Insomnia Metoprolol Succinate (Metoprolol Succinate Er 50 Mg Tab.Er.24h) 50 mg PO DAILY [facility]; Protocol Last Admin: 10/04/23 08:48 Dose: 50 mg Documented By: CITLALY Nitroglycerin (Nitroglycerin 0.4 Mg Tab.Subl) 0.4 mg SUBLINGUAL Q5MX3 PRN PRN Reason: Chest Pain Last Admin: 10/03/23 21:22 Dose: 0.4 tab Documented By: NICOLAS Omeprazole (Omeprazole 20 Mg Capsule.Dr) 20 mg PO BID@0630,1630 [facility] Last Admin: 10/04/23 05:25 Dose: 20 mg Documented By: NICOLAS Sodium Chloride (0.9 % Sodium Chloride Flush 3 Ml Syringe) 3 ml IVFLUSH QSHIFT [facility] Last Admin: 10/04/23 08:46 Dose: 3 ml Documented By: CITLALY Labs 10/03/23 21:06 10/03/23 21:06 Labs: Laboratory Results - last 24 hr 10/03/23 10/03/23 10/03/23 20:41 21:06 22:23 MCV 79.3 L MCH 25.9 L MCHC 32.7 RDW 13.5 Plt Count 210 MPV 11.3 Immature Gran % (Auto) 0.3 Neut % (Auto) 57.4 Lymph % (Auto) 34.1 Wright % (Auto) 7.9 Eos % (Auto) 0.3 Baso % (Auto) 0.0 Lymph # (Auto) 2.6 Wright # (Auto) 0.6 Eos # (Auto) 0.0 Baso # (Auto) 0.0 Abs Immat Gran (auto) 0.02 Absolute Neuts (auto) 4.3 Absolute Nucleated RBC 0.000 Nucleated RBC % (auto) 0.0 Anion Gap 17 Estim Creat Clear Calc TNP Estimated GFR 56 POC Glucose 131 H 113 Random Glucose 121 H Calcium 9.7 Total Bilirubin 1.2 H AST 23 ALT 20 Alkaline Phosphatase 138 H Total Creatine Kinase 174 H Troponin I High Sens < 2.7 Total Protein 7.5 Albumin 4.3 10/04/23 10/04/23 10/04/23 01:12 07:18 11:12 MCV MCH MCHC RDW Plt Count MPV Immature Gran % (Auto) Neut % (Auto) Lymph % (Auto) Wright % (Auto) Eos % (Auto) Baso % (Auto) Lymph # (Auto) Wright # (Auto) Eos # (Auto) Baso # (Auto) Abs Immat Gran (auto) Absolute Neuts (auto) Absolute Nucleated RBC Nucleated RBC % (auto) Anion Gap Estim Creat Clear Calc Estimated GFR POC Glucose 106 101 Random Glucose Calcium Total Bilirubin AST ALT Alkaline Phosphatase Total Creatine Kinase Troponin I High Sens 4.3 D Total Protein Albumin Assessment and Plan (1) Chest pain: Status: Acute Plan Vale Nieto is a 63 y/o woman admitted with: Chest pain. Old LBBB noted on previous ECGs. asa 81 mg p.o. daily, statin and bb Nitroglycerin 0.4 mg sublingual Q 5 minutes x3. Morphine IV. Continue statin and beta blockers. Echo normal EF Cardiology consult>no CAD noted, can arrange o/p stress test if warranted after tx for psychiatric issues Mood disorder/PTSD/depression. continue home medications Plan for tx back to psych as per care team, bed search in progress constipation miralax daily colace BID ? Parkinson disease. Patient does not seem to be of medications for this. Dyskinesia. avoid medications that could exacerbate this. Neurology consult> nothing noted during examination, can follow o/p if symptoms develop HFpEF. Stable. no exacerbation Continue Bumex. Type 2 diabetes mellitus. Blood glucose monitoring before meals at bedtime. Insulin sliding scale. Essential hypertension. Continue metoprolol and lisinopril. Hyperlipidemia. Continue statin. GERD. Continue PPI. Obstructive sleep apnea. Noncompliant with CPAP. DVT prophylaxis: Heparin attending Dr. Price Code status: Full continue hospital stay for chest pain and dyskinesia evaluation and treatment; continue cardiac monitoring, serial troponin and further imaging. Quality Stroke Does the patient have a stroke diagnosis?: No VTE Prior VTE?: No VTE Risk Level:: Medical - moderate - high VTE Device Contraindication: Treatment Not Indicated VTE Drug Contraindication: Treatment Not Indicated
--- NOTE | 2023-10-04 14:23 | MHC.CM.PN ---
Addendum entered by Jesi Gagnon 10/04/23 16:13: Per CARE Team assessment, pt remains appropriate for inpatient psych LOC, bed search in progress. Original Note: IMM 10/03. This CM met with pt with the assistance of a continuous miner operator helper. Per pt she lives at home with her . Pt [facility], SN [facility], and uses a cane, walker, and a wheelchair. Pt will need assistance with transportation home at discharge. Pt states she has a HCP, copy requested. PCP: Dr. Flory Rizzo
[2023-10-04 16:12] LABS: Glucose, Whole Blood 78 mg/dL (60-115)
[2023-10-04] MEDS: polyethylene glycoL 3350 17 GM POWD.PACK PO (16:16)
[2023-10-04] MEDS: Benztropine Mesylate 1 MG TABLET PO (16:17)
[2023-10-04] MEDS: DULoxetine HCl 20 MG CAPSULE.DR 40 MG PO (16:17)
[2023-10-04] MEDS: Albuterol Sulfate 90 MCG 8 GM INHALER 2 PUFF INHALE (19:37)
[2023-10-04 20:52] LABS: Glucose, Whole Blood 100 mg/dL (60-115)
[2023-10-04] MEDS: Mirtazapine 30 MG TABLET PO (21:01)
[2023-10-04] MEDS: QUEtiapine Fumarate 50 MG TABLET PO (21:01)
[2023-10-04] MEDS: clonazePAM 1 MG TABLET PO (21:01)
[2023-10-04] MEDS: Docusate Sodium 100 MG CAPSULE PO (21:01)
[2023-10-04] MEDS: Gabapentin 400 MG CAPSULE PO (21:01)
[2023-10-05] VITALS: BP 108/57; PULSE 79; RESP 20; TEMP 36.3; O2SAT 93
[2023-10-05 04:00] VITALS: BP 113/69; PULSE 71; RESP 16; TEMP 36.2; O2SAT 97
[2023-10-05] MEDS: Omeprazole 20 MG CAPSULE.DR PO (06:34)
[2023-10-05] MEDS: Heparin Sodium,Porcine 5,000 UNIT/ML VIAL 5000 UNIT SUBCUT (06:34)
[2023-10-05] MEDS: 0.9 % Sodium Chloride 1,000 ML 100 ML IVCONT (07:18)
[2023-10-05 07:27] LABS: Glucose, Whole Blood 77 mg/dL (60-115)
[2023-10-05 07:33] VITALS: BP 113/71; PULSE 69; RESP 20; TEMP 36.3; O2SAT 97
[2023-10-05] MEDS: Albuterol Sulfate 90 MCG 8 GM INHALER 2 PUFF INHALE ×2 (07:55→11:20)
[2023-10-05 07:58] VITALS: PULSE 70; RESP 18; O2SAT 96
[2023-10-05 08:40] LABS: Glucose, Whole Blood 110 mg/dL (60-115)
[2023-10-05] MEDS: 0.9 % Sodium Chloride Flush 3 ML SYRINGE IVFLUSH (08:42)
[2023-10-05] MEDS: Cholecalciferol (Vitamin D3) 25 MCG TABLET PO (08:43)
[2023-10-05] MEDS: Multivitamin TABLET 1 TAB PO (08:43)
[2023-10-05] MEDS: Gabapentin 400 MG CAPSULE PO (08:43)
[2023-10-05] MEDS: Bumetanide 1 MG TABLET 0.5 MG PO (08:44)
[2023-10-05] MEDS: clonazePAM 1 MG TABLET PO (08:45)
[2023-10-05] MEDS: lisinopriL 20 MG TABLET PO (08:45)
[2023-10-05] MEDS: Metoprolol Succinate ER 50 MG TAB.ER.24H PO (08:45)
[2023-10-05] MEDS: Aspirin 81 MG TAB.CHEW PO (08:46)
[2023-10-05] MEDS: Benztropine Mesylate 1 MG TABLET PO (08:46)
[2023-10-05] MEDS: Atorvastatin Calcium 80 MG TABLET PO (08:46)
[2023-10-05] MEDS: DULoxetine HCl 20 MG CAPSULE.DR 40 MG PO (08:46)
[2023-10-05] MEDS: Acetaminophen 325 MG TABLET 650 MG PO (08:57)
--- NOTE | 2023-10-05 10:59 | P.DS_ITS ---
DS: Providers Provider Date of Service: 10/05/23 Date of admission: 10/03/23 20:33 Primary care physician: Unknown Physician Consults: 10/04/23 01:38 Consult to Neurology Routine Consulting Provider: [facility] Reason for consultation: Repetitive movements of all extremities and facial muscles Has provider been notified: No 10/04/23 01:41 Consult to Cardiology Routine Consulting Provider: [facility] Reason for consultation: Chest pain Has provider been notified: Yes 10/04/23 12:40 Consult to Care Team Routine Comment: Reason for consultation: medically clear DS: Diagnosis Discharge Diagnosis (1) Chest pain: Status: Acute DS: Summary Hospital Course Hospital Course: Vale Nieto is a 63 years old woman with past medical history significant for major depressive disorder, PTSD, Parkinson's disease, DON (noncompliant with CPAP), bariatric surgery, type 2 diabetes on metformin, HFpEF, hypertension and GERD was transferred from psychiatric unit after a rapid response was activated because the patient started to complain of 10/10 left-sided chest pain associated with sweating. Evaluation was quite difficult as the patient will not stop moving as she has been experiencing dyskinesia over the last month. Psychiatric on-call confirmed that this moment are not new. Patient did not report any other symptoms such as shortness on breath or palpitations. She was admitted to the psychiatric unit the for of September due to suicide attempt. Stat vital signs were difficult to obtain accurately due to her marked dyskinesia. 63-year-old woman transferred to the medical floor from psychiatric floor for complaints of chest pain. Initial EKG showed sinus tachycardia with nonspecific T-wave abnormalities, flat troponin, echocardiogram with normal left ventricular wall thickness, systolic function low normal, EF of 50-55% with no evidence of regional wall motion abnormalities. Chest x-ray negative for consolidation or effusion. Seen and evaluated by Cardiology who did not feel like symptoms were related to ACS. Patient was monitored on telemetry and which showed no evidence of arrhythmia or abnormal heart rhythm. Plan is to transfer patient back to [facility] for continuation of psychiatric care. Mood disorder/PTSD/depression. Plan as per psychiatric team Parkinson's disease. Outpatient follow-up with Neurology Heart failure with preserved ejection fraction. No exacerbation. Continue Bumex Diabetes mellitus type 2 sliding scale Hypertension. Continue metoprolol and lisinopril Hyperlipidemia. Continue statin GERD. Continue PPI History of obstructive sleep apnea but noncompliant with CPAP Obese. BMI 30.1. Discussed importance of weight management as this may be contributing to worsening of other comorbidities Time Attestation Discharge Coordination Time (in mins): 30 Quality: Safe Use of Opioids Does Pt have an Active Cancer Diagnosis on the Problem List?: No Quality: Stroke Does the patient have a stroke diagnosis?: No Physical Exam Vital Signs: Vital Signs: Last Vital Signs Temp 97.3 F 10/05/23 07:33 Pulse 70 10/05/23 07:58 Resp 18 10/05/23 07:58 BP 113/71 10/05/23 07:33 Pulse Ox 97 10/05/23 07:33 O2 Del Method Room Air 10/05/23 07:33 O2 Flow Rate 2 10/03/23 21:48 BMI result Body Mass Index 30.0 Appearing in no acute distress head is normocephalic atraumatic eyes pupils are PERRLA sclera is anicteric mouth throat mucous membranes are intact and moist neck is supple no lymphadenopathy, no JVD noted lung sounds are clear to auscultation heart regular rate rhythm, clear S1, S2 positive bowel sounds, abdomen is soft, nontender neuro patient is alert x3, no focal deficits mild dyskinetic movements DS: Data Data Completed and Pending Labs on day of discharge: Laboratory Results - last 24 hr 10/04/23 10/04/23 10/04/23 11:12 16:05 20:47 POC Glucose 101 78 100 10/05/23 10/05/23 07:23 08:36 POC Glucose 77 110 Discharge Plan Discharge Anticipated Discharge Date/Time: 10/05/23 10:55 Patient Disposition: Xfer Psychiatric Hosp Discharge Diagnosis: Chest pain, ACS ruled out Dyskinesia Discharge Medications: Continued aspirin 81 mg tablet,chewable 1 tab PO DAILY mirtazapine 30 mg tablet 30 mg PO BEDTIME ipratropium-albuterol 0.5 mg-3 mg(2.5 mg base)/3 mL solution for nebulization 3 ml inhalation Q4H PRN (Reason: Shortness Of Breath) gabapentin 400 mg capsule 400 mg PO BID clonazepam 1 mg tablet 1 mg PO BID duloxetine 20 mg capsule,delayed release(DR/EC) 40 mg PO DAILY metoprolol succinate 50 mg tablet extended release 24 hr 50 mg PO DAILY albuterol sulfate [Ventolin HFA] 90 mcg/actuation HFA aerosol inhaler 2 puff inhalation Q4H multivitamin with folic acid [Tab-A-Alanis] 400 mcg tablet 1 tab PO DAILY lisinopril 20 mg tablet 20 mg PO DAILY rosuvastatin 40 mg tablet 40 mg PO DAILY diclofenac sodium 1 % gel 1 ea topical QID PRN (Reason: Pain (Scale Score 1-3)) quetiapine 50 mg Tablet 50 mg PO BEDTIME benztropine 1 mg tablet 1 mg PO DAILY bumetanide 0.5 mg tablet 0.5 mg PO 2XD esomeprazole magnesium 40 mg capsule,delayed release(DR/EC) 40 mg PO BID metformin 1,000 mg tablet 1,000 mg PO BID cholecalciferol (vitamin D3) 25 mcg (1,000 unit) capsule 25 mcg PO DAILY (DME) FreeStyle Lite Strips Strip See Rx Instructions Not Applicable .MEDSUPPLY Qty: 10 Rx Instructions: As directed Discharge Orders: Discharge Order (Routine); Ordered 10/05/23 Ordered By: Analia Garcia Diet: Advance to usual diet Activity on Discharge: As tolerated Stand Alone Forms: Patient Portal Discharge page Print Language: Latvian Health Concerns: Chest pain, ACS ruled out Dyskinesia Plan of Treatment: Plan to transfer patient back to [facility] for continuation of psychiatric care Assessment: Discharge summary
--- NOTE | 2023-10-05 11:16 | PM.PNCARD ---
Subjective Subjective Date of Service: 10/05/23 Interval history: Seen and examined at bedside. Pain free. Physical Exam Vital Signs: Last Vital Signs Temp 97.3 F 10/05/23 07:33 Pulse 70 10/05/23 07:58 Resp 18 10/05/23 07:58 BP 113/71 10/05/23 07:33 Pulse Ox 97 10/05/23 07:33 O2 Del Method Room Air 10/05/23 07:33 O2 Flow Rate 2 10/03/23 21:48 BMI result Body Mass Index 30.0 GENERAL APPEARANCE: in no acute distress, pleasant. NECK: no carotid bruit, no jugular venous distention. SKIN: no suspicious lesions, warm and dry. HEART: no murmurs, regular rate and rhythm. LUNGS: clear to auscultation bilaterally. ABDOMEN: soft, nontender. EXTREMITIES: no edema. PERIPHERAL PULSES: equal. NEUROLOGIC: No gross deficits, AAO X 3 Objective Labs and Meds 10/03/23 21:06 10/03/23 21:06 Lab results: Laboratory Results - last 24 hr 10/04/23 10/04/23 10/04/23 11:12 16:05 20:47 POC Glucose 101 78 100 10/05/23 10/05/23 07:23 08:36 POC Glucose 77 110 Imaging Radiologist's impression: Impressions Chest X-Ray 10/04/23 07:50 IMPRESSION: Bronchial wall thickening may be infectious and/or inflammatory in etiology. Progress Note: A&P Assessment and plan (1) Chest pain: Status: Acute Plan 63-year-old female with noncardiac chest pain. No dynamic ECG changes. Troponin normal. Echo did not show any RWMA. No further work up required inpatient. Time Spent With Patient Time: Total time managing care of this patient today ____ minutes. Progress Note: Quality Stroke Does the patient have a stroke diagnosis?: No Procedures Date of Service Date of Service: 10/05/23
[2023-10-05 11:22] VITALS: PULSE 75; RESP 20; O2SAT 95
[2023-10-05 11:22] LABS: Glucose, Whole Blood 82 mg/dL (60-115)
[2023-10-05 11:49] VITALS: BP 137/76; PULSE 84; RESP 20; TEMP 36.2; O2SAT 95
--- NOTE | 2023-10-05 12:28 | MHC.CM.PN ---
Pt is medically cleared for discharge and will transfer to for inpatient psych LOC.
== END 2023-10-05 13:49 | DRG 313 ==
PROVIDERS: Admitting Provider Internal Medicine; PCP Internal Medicine; Visit Provider Nurse Practitioner Acute Care
DX: R07.9 Chest pain, unspecified (principal); I50.32 Chronic diastolic (congestive) heart failure; G20.A1 Parkinson's disease without dyskinesia, without mention of fluctuations; I11.0 Hypertensive heart disease with heart failure; E78.5 Hyperlipidemia, unspecified; K21.9 Gastro-esophageal reflux disease without esophagitis; G24.9 Dystonia, unspecified; G47.33 Obstructive sleep apnea (adult) (pediatric); F43.10 Post-traumatic stress disorder, unspecified; K59.00 Constipation, unspecified; E66.9 Obesity, unspecified; Z68.30 Body mass index [BMI] 30.0-30.9, adult; Z98.84 Bariatric surgery status; Z79.82 Long term (current) use of aspirin; Z79.84 Long term (current) use of oral hypoglycemic drugs; Z79.899 Other long term (current) drug therapy
CPT/HCPCS: 36415; 71045; 80053; 82550; 82947; 84484; 85025; 93005; 93306; 94640; 94799; 99222; J1644; J2060; J2270; Q9957; S9485

== ENCOUNTER 2023-10-03 20:33 | Outpatient (BNV) | payer OTHER, SELFPAY | END 2023-10-04 07:00 | PROVIDERS: Admitting Provider Internal Medicine; Visit Provider Internal Medicine Cardiovascular Disease | DX: R07.9 Chest pain, unspecified (principal) | CPT/HCPCS: 93306 ==

== ENCOUNTER → 2023-10-03 20:33 | Outpatient (BNV) | payer OTHER, SELFPAY | PROVIDERS: Admitting Provider Internal Medicine; Visit Provider Psychiatry & Neurology Neurology | DX: G25.9 Extrapyramidal and movement disorder, unspecified (principal) | CPT/HCPCS: 99222 ==

== ENCOUNTER → 2023-10-03 20:33 | Outpatient (BNV) | payer OTHER, SELFPAY | PROVIDERS: Admitting Provider Internal Medicine; Visit Provider Internal Medicine Cardiovascular Disease | DX: R07.9 Chest pain, unspecified (principal) | CPT/HCPCS: 93010; 99223; 99232 ==

== ENCOUNTER → 2023-10-03 20:33 | Outpatient (BNV) | payer OTHER, SELFPAY | PROVIDERS: Admitting Provider Internal Medicine; Visit Provider Internal Medicine | DX: R07.9 Chest pain, unspecified (principal) | CPT/HCPCS: 99222; 99238; 99499 ==

== ENCOUNTER 2023-10-05 13:56 | Inpatient (IN) | payer OTHER, SELFPAY ==
--- NOTE | ~2023-10-05 | XR_ITS ---
EXAMINATION: XR ANKLE, LEFT CLINICAL INFORMATION: Edema, pain, question injury. COMPARISON: None available. TECHNIQUE: AP, lateral, and mortise views of the left ankle. FINDINGS: Diffuse soft tissue swelling joint effusion ankle. Small plantar and dorsal calcaneal spurs. Mild asymmetric widening along the medial aspect of the tibiotalar joint with mild medial hypertrophic change. Bony irregularity along the inferior aspect of the malleoli. XR/XR ankle LT min 3V IMPRESSION: Mild asymmetric widening along the medial aspect of the tibiotalar space suggestive of ligamentous/soft tissue injury, although subtle underlying fracture cannot be excluded. This study was presented to me October 12, 2023 for interpretation. PSA staff will provide results to referring provider at this time.
--- NOTE | ~2023-10-05 | US_ITS ---
EXAMINATION: US ABDOMEN LIMITED CLINICAL INFORMATION: Right upper quadrant pain Question cholecystitis. COMPARISON: None available. TECHNIQUE: Real-time imaging of the gallbladder fossa and common bile duct was performed. FINDINGS: GALLBLADDER: The gallbladder is surgically absent. COMMON BILE DUCT: Normal in caliber measuring 0.6 cm in diameter. US/US abdomen limited IMPRESSION: The gallbladder is surgically absent. The common bile duct is normal in caliber.
--- NOTE | ~2023-10-05 | CT_ITS ---
EXAMINATION: CT ABDOMEN AND PELVIS WITHOUT CONTRAST CLINICAL INFORMATION: abd pain, n/v. COMPARISON: No pertinent prior studies are available for comparison. TECHNIQUE: Multidetector volumetric imaging was performed from the superior aspect of the liver through the pubic symphysis without contrast per renal stone protocol. Sagittal and coronal reformatted images were obtained on the technologist workstation. This CT examination was performed using dose optimization techniques as appropriate, variously including the following: *Automated exposure control *Adjustment of mA and/or kV according to patient size (this includes techniques or standardized protocols for targeted exams where dose is matched to indication/reason for exam; i.e. extremities or head) *Use of iterative reconstruction technique DLP: 214 mGy-cm. FINDINGS: LUNG BASES: The visualized lung bases are unremarkable. Prominent coronary artery calcification. Small hiatal hernia. LIVER, GALLBLADDER, BILIARY TREE: The non-contrast liver is normal in size, shape, and attenuation. No focal hepatic lesion or biliary ductal dilatation is present. Gallbladder surgically absent PANCREAS: Unremarkable. SPLEEN: Unremarkable. ADRENAL GLANDS: Unremarkable. KIDNEYS AND URETERS: The kidneys are normal in size, shape, and attenuation. No hydronephrosis, hydroureter, or perinephric stranding. Tiny nonobstructing 4 mm calcification in the lower pole collecting system of the left kidney. BLADDER: Unremarkable. GASTROINTESTINAL TRACT: Scattered colonic diverticula but no colonic wall thickening or pericolonic inflammatory change. Appendix is not visualized and possibly surgically absent. Small bowel anastomotic staple line in the right lower quadrant. Surgical staple line seen within the stomach which is difficult to assess further without oral contrast. Clinical correlation with patient's surgical history recommended. ABDOMINAL WALL: No significant hernia is appreciated. LYMPHOVASCULAR STRUCTURES: Vascular calculation within the aorta iliac system. No bulky adenopathy. PELVIC VISCERA: Presumably surgically absent OSSEUS STRUCTURES: Unremarkable. CT/CT abdomen pelvis wo IV con IMPRESSION: Chronic appearing and postoperative changes as described.
[2023-10-05 16:20] VITALS: BMI 29.9
[2023-10-05 16:21] VITALS: BP 124/82; PULSE 67; RESP 18; TEMP 36.3; O2SAT 97
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
[2023-10-05 17:48] VITALS: BP 120/80
[2023-10-05] MEDS: Omeprazole 20 MG CAPSULE.DR PO (18:06)
[2023-10-05] MEDS: Bumetanide 1 MG TABLET 0.5 MG PO (18:07)
[2023-10-05] MEDS: QUEtiapine Fumarate 50 MG TABLET PO (19:56)
[2023-10-05] MEDS: Mirtazapine 30 MG TABLET PO (19:57)
[2023-10-05] MEDS: hydrOXYzine HCL 25 MG TABLET PO (19:57)
[2023-10-05] MEDS: clonazePAM 1 MG TABLET PO (19:57)
[2023-10-05] MEDS: Gabapentin 400 MG CAPSULE PO (19:57)
[2023-10-05 20:00] VITALS: BP 128/79; PULSE 86; RESP 16; TEMP 36.4; O2SAT 96
[2023-10-06 07:00] VITALS: BMI 29.9
[2023-10-06] MEDS: Omeprazole 20 MG CAPSULE.DR PO ×2 (07:05→17:45)
[2023-10-06 08:00] VITALS: BP 119/73; PULSE 70; RESP 16; TEMP 36.6; O2SAT 100
[2023-10-06] MEDS: Atorvastatin Calcium 80 MG TABLET PO (10:09)
[2023-10-06 10:10] VITALS: BP 119/75; PULSE 70
[2023-10-06] MEDS: Benztropine Mesylate 1 MG TABLET PO (10:10)
[2023-10-06] MEDS: Gabapentin 400 MG CAPSULE PO ×2 (10:10→20:55)
[2023-10-06] MEDS: Metoprolol Succinate ER 50 MG TAB.ER.24H PO (10:10)
[2023-10-06] MEDS: DULoxetine HCl 20 MG CAPSULE.DR 40 MG PO (10:10)
[2023-10-06] MEDS: Folic Acid 1 MG TABLET PO (10:10)
[2023-10-06 10:11] VITALS: BP 119/73
[2023-10-06] MEDS: Cholecalciferol (Vitamin D3) 25 MCG TABLET PO (10:11)
[2023-10-06] MEDS: clonazePAM 1 MG TABLET PO ×2 (10:11→20:55)
[2023-10-06] MEDS: Bumetanide 1 MG TABLET 0.5 MG PO ×2 (10:11→17:45)
[2023-10-06 10:12] VITALS: BP 119/73
[2023-10-06] MEDS: Aspirin 81 MG TAB.CHEW PO (10:12)
[2023-10-06] MEDS: lisinopriL 20 MG TABLET PO (10:12)
[2023-10-06 10:13] LABS: Cholesterol 133 mg/dL (<200); HDL Cholesterol 58 mg/dL (>40); LDL Cholesterol Calculated 54 mg/dL (<100); Triglycerides 108 mg/dL (<150)
[2023-10-06] MEDS: hydrOXYzine HCL 25 MG TABLET PO (15:13)
[2023-10-06 17:45] VITALS: BP 122/78
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
[2023-10-06 20:00] VITALS: PULSE 78; RESP 16; TEMP 36.4; O2SAT 99
[2023-10-06] MEDS: Mirtazapine 30 MG TABLET PO (20:56)
[2023-10-06] MEDS: QUEtiapine Fumarate 50 MG TABLET PO (20:56)
[2023-10-07] MEDS: Omeprazole 20 MG CAPSULE.DR PO ×2 (06:47→15:38)
[2023-10-07 08:40] VITALS: BP 118/65; PULSE 65; RESP 20; TEMP 36.6; O2SAT 97
[2023-10-07] MEDS: DULoxetine HCl 20 MG CAPSULE.DR 40 MG PO (09:04)
[2023-10-07] MEDS: Aspirin 81 MG TAB.CHEW PO (09:05)
[2023-10-07] MEDS: Cholecalciferol (Vitamin D3) 25 MCG TABLET PO (09:05)
[2023-10-07] MEDS: Gabapentin 400 MG CAPSULE PO ×2 (09:05→22:09)
[2023-10-07 09:06] VITALS: BP 118/65
[2023-10-07] MEDS: Atorvastatin Calcium 80 MG TABLET PO (09:06)
[2023-10-07] MEDS: Multivitamin TABLET 1 TAB PO (09:06)
[2023-10-07] MEDS: Benztropine Mesylate 1 MG TABLET PO (09:06)
[2023-10-07] MEDS: clonazePAM 1 MG TABLET PO ×2 (09:06→22:08)
[2023-10-07] MEDS: lisinopriL 20 MG TABLET PO (09:06)
[2023-10-07 09:07] VITALS: BP 118/65; PULSE 65
[2023-10-07] MEDS: Metoprolol Succinate ER 50 MG TAB.ER.24H PO (09:07)
[2023-10-07 09:08] VITALS: BP 118/65
[2023-10-07] MEDS: Bumetanide 1 MG TABLET 0.5 MG PO (09:08)
[2023-10-07] MEDS: Folic Acid 1 MG TABLET PO (09:08)
[2023-10-07] MEDS: hydrOXYzine HCL 25 MG TABLET PO ×2 (15:41→22:08)
[2023-10-07 16:57] VITALS: BP 89/50; PULSE 72; RESP 17; TEMP 36.5; O2SAT 95
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
[2023-10-07] MEDS: QUEtiapine Fumarate 50 MG TABLET PO (22:09)
[2023-10-07] MEDS: Mirtazapine 30 MG TABLET PO (22:09)
[2023-10-08] VITALS (7 sets, daily range): BP systolic 96–129; BP diastolic 53–73; PULSE 70–80; RESP 16–18; TEMP 36.3–36.8; O2SAT 95–99
[2023-10-08] MEDS: Omeprazole 20 MG CAPSULE.DR PO ×2 (06:39→17:54)
[2023-10-08] MEDS: DULoxetine HCl 20 MG CAPSULE.DR 40 MG PO (08:54)
[2023-10-08] MEDS: Benztropine Mesylate 1 MG TABLET PO (08:55)
[2023-10-08] MEDS: Folic Acid 1 MG TABLET PO (08:55)
[2023-10-08] MEDS: QUEtiapine Fumarate 25 MG TABLET PO ×2 (08:56→14:58)
[2023-10-08] MEDS: Multivitamin TABLET 1 TAB PO (08:56)
[2023-10-08] MEDS: Gabapentin 400 MG CAPSULE PO (08:56)
[2023-10-08] MEDS: Atorvastatin Calcium 80 MG TABLET PO (08:57)
[2023-10-08] MEDS: clonazePAM 1 MG TABLET PO (08:57)
[2023-10-08] MEDS: Cholecalciferol (Vitamin D3) 25 MCG TABLET PO (08:57)
[2023-10-08 09:39] LABS: Creatinine Clr Calc Pharmacy 85.2; Estimated Glomerular Filt Rate > 60
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
[2023-10-08] MEDS: Aspirin 81 MG TAB.CHEW PO (10:08)
[2023-10-08] MEDS: Albuterol Sulfate 90 MCG 8 GM INHALER 2 PUFF INHALE (13:17)
[2023-10-08] MEDS: hydrOXYzine HCL 25 MG TABLET PO (13:32)
[2023-10-08 18:11] LABS: Glucose, Whole Blood 101 mg/dL (60-115)
[2023-10-08] MEDS: Bumetanide 1 MG TABLET 0.5 MG PO (18:20)
[2023-10-09] MEDS: clonazePAM 1 MG TABLET PO ×3 (01:27→21:30)
[2023-10-09] MEDS: Gabapentin 400 MG CAPSULE PO ×3 (01:27→21:31)
[2023-10-09] MEDS: Mirtazapine 30 MG TABLET PO ×2 (01:27→21:30)
[2023-10-09 01:35] LABS: Glucose, Whole Blood 91 mg/dL (60-115)
[2023-10-09] MEDS: Omeprazole 20 MG CAPSULE.DR PO ×2 (06:27→16:18)
[2023-10-09 08:10] LABS: Glucose, Whole Blood 86 mg/dL (60-115)
[2023-10-09 08:19] VITALS: BP 95/56; PULSE 66; RESP 18; TEMP 36.8; O2SAT 100
[2023-10-09] MEDS: Bumetanide 1 MG TABLET 0.5 MG PO ×2 (08:30→18:04)
[2023-10-09] MEDS: QUEtiapine Fumarate 50 MG TABLET PO ×2 (09:05→15:41)
[2023-10-09] MEDS: Cholecalciferol (Vitamin D3) 25 MCG TABLET PO (09:05)
[2023-10-09] MEDS: Atorvastatin Calcium 80 MG TABLET PO (09:05)
[2023-10-09] MEDS: Multivitamin TABLET 1 TAB PO (09:05)
[2023-10-09] MEDS: Aspirin 81 MG TAB.CHEW PO (09:05)
[2023-10-09] MEDS: DULoxetine HCl 20 MG CAPSULE.DR 40 MG PO (09:07)
[2023-10-09] MEDS: Folic Acid 1 MG TABLET PO (09:07)
[2023-10-09] MEDS: Benztropine Mesylate 1 MG TABLET PO (09:07)
--- NOTE | 2023-10-09 09:07 | P.PNPSI_ITS ---
Subjective Subjective Date of Service: 10/09/23 Reason For Visit: Recurrent major depression Interim History: Patient reports she is feeling better today. Tolerating the increase in Seroquel. Not sedated. She is pleasant. Not as anxious as yesterday. Less preoccupied with hallucinations. No SI. Spends time in the TV room. Pleasant and polite. Review of Systems Review of Systems Difficulty with ambulation, stiffness, concentration she reports Yes all other systems are reviewed and are negative Mental Status Exam Mental Status Exam Patient Appearance: Fatigued and Appropriate Patient Orientation: Person, Place and Situation Level of Consciousness: Alert Patient Behavior: Talkative and Good Eye Contact Mood Description: Depressed, Fearful and Apprehensive Affect Description: Apprehensive Patient Cognition Impaired: No Ability to Follow Directions: Good Speech Pattern: Spontaneous Speech Memory Description: Intact Diagnostics Vital Signs (24Hr): Vital Signs - 24 hr 10/08/23 09:13 10/08/23 13:15 10/08/23 13:25 Temperature 97.4 F Pulse Rate 80 74 Respiratory Rate 16 Blood Pressure 100/53 L 129/73 Pulse Oximetry 98 98 Oxygen Delivery Method Room Air Room Air 10/08/23 18:20 10/08/23 20:00 10/09/23 08:19 Temperature 97.3 F 98.2 F Pulse Rate 70 66 Respiratory Rate 18 18 Blood Pressure 129/72 96/57 L 95/56 L Pulse Oximetry 95 100 Oxygen Delivery Method Room Air Room Air BMI result Body Mass Index 29.9 Labs 10/08/23 08:44 Labs: Laboratory Results - last 48 hr 10/08/23 10/08/23 10/09/23 08:44 18:07 01:31 Creatinine 0.83 Estim Creat Clear Calc 85.2 Estimated GFR > 60 POC Glucose 101 91 10/09/23 08:04 Creatinine Estim Creat Clear Calc Estimated GFR POC Glucose 86 Medications Medications Current Medications Al Hydroxide/Mg Hydroxide (Magnesium Hydrox/Alum Hydrox 30 Ml Oral.Susp) 30 ml PO Q6H PRN PRN Reason: Heartburn/Nausea Albuterol Sulfate (Albuterol Sulfate 90 Mcg 8 Gm Inhaler) 2 puff INHALE RQ4H PRN PRN Reason: Wheezing Last Admin: 10/08/23 13:17 Dose: 2 puff Aspirin (Aspirin 81 Mg Tab.Chew) 81 mg PO DAILY [facility] Last Admin: 10/08/23 10:08 Dose: 81 mg Atorvastatin Calcium (Atorvastatin Calcium 80 Mg Tablet) 80 mg PO DAILY [facility] Last Admin: 10/08/23 08:57 Dose: 80 mg Benztropine Mesylate (Benztropine Mesylate 1 Mg Tablet) 1 mg PO DAILY [facility] Last Admin: 10/08/23 08:55 Dose: 1 mg Bumetanide (Bumetanide 1 Mg Tablet) 0.5 mg PO BID@0800,1700 [facility]; Protocol Last Admin: 10/08/23 18:20 Dose: 0.5 mg Clonazepam (Clonazepam 1 Mg Tablet) 1 mg PO BID [facility] Last Admin: 10/09/23 01:27 Dose: 1 mg Duloxetine HCl (Duloxetine Hcl 20 Mg Capsule.Dr) 40 mg PO DAILY [facility] Last Admin: 10/08/23 08:54 Dose: 40 mg Folic Acid (Folic Acid 1 Mg Tablet) 1 mg PO DAILY [facility] Last Admin: 10/08/23 08:55 Dose: 1 mg Gabapentin (Gabapentin 400 Mg Capsule) 400 mg PO BID [facility] Last Admin: 10/09/23 01:27 Dose: 400 mg Hydroxyzine HCl (Hydroxyzine Hcl 25 Mg Tablet) 25 mg PO Q6H PRN PRN Reason: Anxiety Last Admin: 10/08/23 13:32 Dose: 25 mg Lidocaine (Lidocaine 5 % Ointment 35 Gm) 1 appl TOPICAL Q6H PRN; Protocol PRN Reason: back pain Lisinopril (Lisinopril 20 Mg Tablet) 20 mg PO DAILY [facility]; Protocol Last Admin: 10/08/23 09:13 Dose: Not Given Magnesium Hydroxide (Milk Of Magnesia 30 Ml Oral.Susp) 30 ml PO DAILY PRN PRN Reason: Constipation Metformin HCl (Metformin Hcl Er 500 Mg Tab.Er.24h) 1,000 mg PO BID [facility] Last Admin: 10/09/23 01:33 Dose: Not Given Metoprolol Succinate (Metoprolol Succinate Er 50 Mg Tab.Er.24h) 50 mg PO DAILY [facility]; Protocol Last Admin: 10/08/23 08:35 Dose: Not Given Mirtazapine (Mirtazapine 30 Mg Tablet) 30 mg PO BEDTIME [facility] Last Admin: 10/09/23 01:27 Dose: 30 mg Multivitamins/Vitamin C (Multivitamin Tablet) 1 tab PO DAILY [facility] Last Admin: 07/13/24 08:56 Dose: 1 tab Omeprazole (Omeprazole 20 Mg Capsule.Dr) 20 mg PO BID@0630,1630 [facility] Last Admin: 10/09/23 06:27 Dose: 20 mg Quetiapine Fumarate (Quetiapine Fumarate 50 Mg Tablet) 50 mg PO BID@0900,1500 [facility] Quetiapine Fumarate (Quetiapine Fumarate 100 Mg Tablet) 100 mg PO BEDTIME [facility] Trazodone HCl (Trazodone Hcl 50 Mg Tablet) 50 mg PO BEDTIME MRX1 PRN PRN Reason: Insomnia Vitamin D (Cholecalciferol (Vitamin D3) 25 Mcg Tablet) 25 mcg PO DAILY [facility] Last Admin: 10/08/23 08:57 Dose: 25 mcg Allergies Allergies Allergy/AdvReac Type Severity Reaction Status Date / Time adhesive tape [TAPE,ADHESIVE] Allergy Severe ANAPHYLAXIS Verified 09/23/21 09:54 latex [LATEX] Allergy Severe ANAPHYLAXIS Verified 09/23/21 09:54 Penicillins [PCN] Allergy Severe ANAPHYLAXIS Verified 09/23/21 09:54 Assessment & Plan Assessment & Plan (1) Movement disorder: Status: Acute Code(s): G25.9 - Extrapyramidal and movement disorder, unspecified (2) Dyskinesia: Status: Acute Code(s): G24.9 - Dystonia, unspecified (3) Parkinsons disease: Status: Acute Code(s): G20.A1 - Parkinson's disease without dyskinesia, without mention of fluctuations (4) PTSD (post-traumatic stress disorder): Status: Acute Code(s): F43.10 - Post-traumatic stress disorder, unspecified (5) MDD (major depressive disorder), recurrent, severe, with psychosis: Status: Acute Code(s): F33.3 - Major depressive disorder, recurrent, severe with psychotic symptoms Plan 63 yo female, returns to psychiatry from medicine to address depression, PTSD, Parkinsonian sx. Today, pt is reporting anxiety due to milieu stress occurring last evening with peer conflict. Plan: Collateral contact to OP neurology. Encouarge milieu Ongoing medication review. Aftercare planning. 10/06: Seroquel 25 mg 0900, 1500. Continue HS Seroquel 10/07: Increase Seroquel. 50 mg BID and HS Seroquel to 100 mg. Otherwise continue current management and treatment plan. 10/08: continue current management and treatment plan. Reason for continued inpatient stay Substantial Risk for: harm to self, inability to function, rapid decompensation and med/psych decompensation Time Spent With Patient Time: Total time managing care of this patient today ____ minutes.
[2023-10-09] MEDS: Acetaminophen 325 MG TABLET 650 MG PO (16:18)
[2023-10-09 16:59] LABS: Glucose, Whole Blood 94 mg/dL (60-115)
[2023-10-09 18:04] VITALS: BP 108/61
[2023-10-09] MEDS: QUEtiapine Fumarate 100 MG TABLET PO (21:30)
[2023-10-10] MEDS: Omeprazole 20 MG CAPSULE.DR PO ×2 (06:36→17:12)
[2023-10-10 08:39] LABS: Glucose, Whole Blood 94 mg/dL (60-115)
[2023-10-10 09:10] VITALS: BP 112/67; PULSE 73; RESP 18; TEMP 36.3; O2SAT 95
[2023-10-10] MEDS: Gabapentin 400 MG CAPSULE PO ×2 (09:10→21:17)
[2023-10-10] MEDS: lisinopriL 20 MG TABLET PO (09:10)
[2023-10-10] MEDS: Folic Acid 1 MG TABLET PO (09:10)
[2023-10-10] MEDS: Atorvastatin Calcium 80 MG TABLET PO (09:10)
[2023-10-10] MEDS: Benztropine Mesylate 1 MG TABLET PO (09:10)
[2023-10-10 09:11] VITALS: BP 112/67; PULSE 73
[2023-10-10] MEDS: Metoprolol Succinate ER 50 MG TAB.ER.24H PO (09:11)
[2023-10-10] MEDS: DULoxetine HCl 20 MG CAPSULE.DR 40 MG PO (09:11)
[2023-10-10] MEDS: Aspirin 81 MG TAB.CHEW PO (09:11)
[2023-10-10 09:12] VITALS: BP 112/67
[2023-10-10] MEDS: Cholecalciferol (Vitamin D3) 25 MCG TABLET PO (09:12)
[2023-10-10] MEDS: Bumetanide 1 MG TABLET 0.5 MG PO (09:12)
[2023-10-10] MEDS: QUEtiapine Fumarate 50 MG TABLET PO ×2 (09:12→14:33)
[2023-10-10] MEDS: Multivitamin TABLET 1 TAB PO (09:12)
[2023-10-10] MEDS: clonazePAM 1 MG TABLET PO ×2 (09:12→21:16)
--- NOTE | 2023-10-10 10:39 | P.PNPSI_ITS ---
Subjective Subjective Date of Service: 10/10/23 Reason For Visit: Recurrent major depression Subjective Notes: Conditional Voluntary Healthcare Proxy: No Guardianship: No Medical Problems Affecting Mental Status: No Interim History: Reports pain, edema L ankle. Radiology results are pending. Reports she hurt this last week. Also reports pain RUQ side under breast area. Hospitalist met with pt. Abdominal US negative. Tolerating Seroquel increases. Reports she is finding that effective. Discussed missing her and home. Medication Compliance: Yes Side effects from medications: No Attending Groups: Intermittent Review of Systems Acute medical concerns: No Medical Review of Systems: unchanged Review of Systems Review of Systems R ankle pain RUQ abd pain Mental Status Exam Mental Status Exam Patient Appearance: Appropriate Patient Orientation: Person, Place and Situation Level of Consciousness: Alert Patient Behavior: Talkative and Good Eye Contact Mood Description: Depressed Affect Description: Flat Patient Cognition Impaired: No Ability to Follow Directions: Good Speech Pattern: Spontaneous Speech Memory Description: Intact Hallucinations: Auditory and Visual Delusions: Paranoid Ideation and Present Thought Process: Distracted Thought Content: positive for Intact and positive for Suicidal Ideation (denies) Depressive Symptoms: Increased Anxiety Judgement: Fair Diagnostics Vital Signs (24Hr): Vital Signs - 24 hr 10/09/23 18:04 10/10/23 09:10 10/10/23 09:10 Temperature 97.4 F Pulse Rate 73 Respiratory Rate 18 Blood Pressure 108/61 112/67 112/67 Pulse Oximetry 95 Oxygen Delivery Method Room Air 10/10/23 09:11 10/10/23 09:12 Temperature Pulse Rate 73 Respiratory Rate Blood Pressure 112/67 112/67 Pulse Oximetry Oxygen Delivery Method BMI result Body Mass Index 29.9 Labs 10/10/23 15:54 Labs: Laboratory Results - last 48 hr 10/08/23 10/09/23 10/09/23 18:07 01:31 08:04 POC Glucose 101 91 86 10/09/23 10/10/23 16:54 08:33 POC Glucose 94 94 Medications Medications Current Medications Acetaminophen (Acetaminophen 325 Mg Tablet) 650 mg PO Q6H PRN PRN Reason: Pain, Mild (Pain Scale 1-3) Last Admin: 10/09/23 16:18 Dose: 650 mg Al Hydroxide/Mg Hydroxide (Magnesium Hydrox/Alum Hydrox 30 Ml Oral.Susp) 30 ml PO Q6H PRN PRN Reason: Heartburn/Nausea Albuterol Sulfate (Albuterol Sulfate 90 Mcg 8 Gm Inhaler) 2 puff INHALE RQ4H PRN PRN Reason: Wheezing Last Admin: 10/08/23 13:17 Dose: 2 puff Aspirin (Aspirin 81 Mg Tab.Chew) 81 mg PO DAILY [facility] Last Admin: 10/10/23 09:11 Dose: 81 mg Atorvastatin Calcium (Atorvastatin Calcium 80 Mg Tablet) 80 mg PO DAILY [facility] Last Admin: 10/10/23 09:10 Dose: 80 mg Benztropine Mesylate (Benztropine Mesylate 1 Mg Tablet) 1 mg PO DAILY [facility] Last Admin: 10/10/23 09:10 Dose: 1 mg Bumetanide (Bumetanide 1 Mg Tablet) 0.5 mg PO BID@0800,1700 [facility]; Protocol Last Admin: 10/10/23 09:12 Dose: 0.5 mg Clonazepam (Clonazepam 1 Mg Tablet) 1 mg PO BID [facility] Last Admin: 10/10/23 09:12 Dose: 1 mg Duloxetine HCl (Duloxetine Hcl 20 Mg Capsule.Dr) 40 mg PO DAILY [facility] Last Admin: 10/10/23 09:11 Dose: 40 mg Folic Acid (Folic Acid 1 Mg Tablet) 1 mg PO DAILY [facility] Last Admin: 10/10/23 09:10 Dose: 1 mg Gabapentin (Gabapentin 400 Mg Capsule) 400 mg PO BID [facility] Last Admin: 10/10/23 09:10 Dose: 400 mg Hydroxyzine HCl (Hydroxyzine Hcl 25 Mg Tablet) 25 mg PO Q6H PRN PRN Reason: Anxiety Last Admin: 10/08/23 13:32 Dose: 25 mg Lidocaine (Lidocaine 5 % Ointment 35 Gm) 1 appl TOPICAL Q6H PRN; Protocol PRN Reason: back pain Lisinopril (Lisinopril 20 Mg Tablet) 20 mg PO DAILY [facility]; Protocol Last Admin: 10/10/23 09:10 Dose: 20 mg Magnesium Hydroxide (Milk Of Magnesia 30 Ml Oral.Susp) 30 ml PO DAILY PRN PRN Reason: Constipation Metoprolol Succinate (Metoprolol Succinate Er 50 Mg Tab.Er.24h) 50 mg PO DAILY [facility]; Protocol Last Admin: 10/10/23 09:11 Dose: 50 mg Mirtazapine (Mirtazapine 30 Mg Tablet) 30 mg PO BEDTIME [facility] Last Admin: 10/09/23 21:30 Dose: 30 mg Multivitamins/Vitamin C (Multivitamin Tablet) 1 tab PO DAILY [facility] Last Admin: 10/10/23 09:12 Dose: 1 tab Omeprazole (Omeprazole 20 Mg Capsule.Dr) 20 mg PO BID@0630,1630 [facility] Last Admin: 10/10/23 06:36 Dose: 20 mg Quetiapine Fumarate (Quetiapine Fumarate 50 Mg Tablet) 50 mg PO BID@0900,1500 [facility] Last Admin: 10/10/23 09:12 Dose: 50 mg Quetiapine Fumarate (Quetiapine Fumarate 100 Mg Tablet) 100 mg PO BEDTIME [facility] Last Admin: 10/09/23 21:30 Dose: 100 mg Trazodone HCl (Trazodone Hcl 50 Mg Tablet) 50 mg PO BEDTIME MRX1 PRN PRN Reason: Insomnia Vitamin D (Cholecalciferol (Vitamin D3) 25 Mcg Tablet) 25 mcg PO DAILY [facility] Last Admin: 10/10/23 09:12 Dose: 25 mcg Allergies Allergies Allergy/AdvReac Type Severity Reaction Status Date / Time adhesive tape [TAPE,ADHESIVE] Allergy Severe ANAPHYLAXIS Verified 09/23/21 09:54 latex [LATEX] Allergy Severe ANAPHYLAXIS Verified 09/23/21 09:54 Penicillins [PCN] Allergy Severe ANAPHYLAXIS Verified 09/23/21 09:54 Assessment & Plan Assessment & Plan (1) Movement disorder: Status: Acute Code(s): G25.9 - Extrapyramidal and movement disorder, unspecified (2) Dyskinesia: Status: Acute Code(s): G24.9 - Dystonia, unspecified (3) Parkinsons disease: Status: Acute Code(s): G20.A1 - Parkinson's disease without dyskinesia, without mention of fluctuations (4) PTSD (post-traumatic stress disorder): Status: Acute Code(s): F43.10 - Post-traumatic stress disorder, unspecified (5) MDD (major depressive disorder), recurrent, severe, with psychosis: Status: Acute Code(s): F33.3 - Major depressive disorder, recurrent, severe with psychotic symptoms Plan 63 yo female, returns to psychiatry from medicine to address depression, PTSD, Parkinsonian sx. Today, pt is reporting anxiety due to milieu stress occurring last evening with peer conflict. Plan: Collateral contact to OP neurology. Encouarge milieu Ongoing medication review. Aftercare planning. 10/06: Seroquel 25 mg 0900, 1500. Continue HS Seroquel 10/07: Increase Seroquel. 50 mg BID and HS Seroquel to 100 mg. Otherwise continue current management and treatment plan. 10/08: continue current management and treatment plan. 10/09: Continue tx Reason for continued inpatient stay Substantial Risk for: rapid decompensation and med/psych decompensation Time Spent With Patient Time: Total time managing care of this patient today ____ minutes.
[2023-10-10 16:22] LABS: Creatinine Clr Calc Pharmacy 82.2; Estimated Glomerular Filt Rate > 60
--- NOTE | 2023-10-10 16:31 | PM.EVENT ---
Event Note Date of Service: 10/10/23 Event Note: Patient is a 63-year-old female with a PMH significant for HTN, HLD, asthma, [id number] type 2 diabetes, chronic respiratory failure, DON noncompliant with CPAP, HFpEF, fibromyalgia, chronic drug-induced subacute dyskinesia, anxiety/depression, panic disorder with agoraphobia, bipolar disorder, and multiple previous psychiatric hospitalizations who was admitted to [facility] psychiatric unit worsening depression with SI. Medical consult for RUQ pain. Patient is seen and evaluated in her room where she is noted to be resting comfortably in bed. Pt reports has been experiencing upper abdominal pain for many months now, worsening the past few weeks. It is unclear if pain is currently acutely worse than it was a few weeks ago. States has a history of Crohn's disease and has chronic diarrhea which is currently at baseline. No nausea, vomiting. No melena or hematochezia. No fever or chills. Denies lightheadedness or dizziness. No chest pain/pressure, palpitations. Of note, patient was previously brought to the medical floor on 10/03-10/04 for acute onset chest pain where workup was negative. Upon physical examination patient was diffusely tender on right abdomen, more pronounced in RUQ. Question of positive Reese's sign. Will get ultrasound of RUQ to evaluate for possible cholecystitis. Patient's vital signs have been stable with no fever, tachycardia, or tachypnea. Time Spent With Patient Time: Total time managing care of this patient today ____ minutes.
[2023-10-10 17:01] LABS: Glucose, Whole Blood 92 mg/dL (60-115)
[2023-10-10] MEDS: Lidocaine 5 % Ointment 35 GM 1 APPL TOPICAL (17:16)
[2023-10-10 17:25] VITALS: BP 91/55
[2023-10-10 20:00] VITALS: BP 118/64; PULSE 85; RESP 18; TEMP 36; O2SAT 97
[2023-10-10 20:32] LABS: Glucose, Whole Blood 124 mg/dL (60-115)
[2023-10-10] MEDS: Mirtazapine 30 MG TABLET PO (21:16)
[2023-10-10] MEDS: QUEtiapine Fumarate 100 MG TABLET PO (21:17)
[2023-10-10] MEDS: hydrOXYzine HCL 25 MG TABLET PO (21:17)
[2023-10-11] MEDS: Omeprazole 20 MG CAPSULE.DR PO ×2 (06:44→16:21)
[2023-10-11 08:21] LABS: Glucose, Whole Blood 98 mg/dL (60-115)
[2023-10-11 09:00] VITALS: BP 106/60; PULSE 69; RESP 16; TEMP 36.4; O2SAT 97
[2023-10-11] MEDS: Bumetanide 1 MG TABLET 0.5 MG PO ×2 (09:27→16:40)
[2023-10-11] MEDS: Cholecalciferol (Vitamin D3) 25 MCG TABLET PO (09:27)
[2023-10-11] MEDS: Atorvastatin Calcium 80 MG TABLET PO (09:27)
[2023-10-11] MEDS: Benztropine Mesylate 1 MG TABLET PO (09:28)
[2023-10-11] MEDS: clonazePAM 1 MG TABLET PO ×2 (09:28→21:21)
[2023-10-11] MEDS: DULoxetine HCl 20 MG CAPSULE.DR 40 MG PO (09:28)
[2023-10-11] MEDS: Metoprolol Succinate ER 50 MG TAB.ER.24H PO (09:28)
[2023-10-11] MEDS: Gabapentin 400 MG CAPSULE PO ×2 (09:28→21:21)
[2023-10-11] MEDS: Multivitamin TABLET 1 TAB PO (09:29)
[2023-10-11] MEDS: Folic Acid 1 MG TABLET PO (09:29)
[2023-10-11] MEDS: Aspirin 81 MG TAB.CHEW PO (09:29)
[2023-10-11] MEDS: lisinopriL 20 MG TABLET PO (09:29)
[2023-10-11] MEDS: QUEtiapine Fumarate 50 MG TABLET PO ×2 (09:29→15:10)
--- NOTE | 2023-10-11 10:16 | PC.NURSE ---
Vale signed a 3 day notice, which will be up Friday 10/13
--- NOTE | 2023-10-11 15:58 | P.PNPSI_ITS ---
Subjective Subjective Date of Service: 10/11/23 Reason For Visit: Recurrent major depression Subjective Notes: Conditional Voluntary Healthcare Proxy: No Guardianship: No Medical Problems Affecting Mental Status: No Interim History: Pt continues to report abdominal discomfort, reports her legs feel heavy. Possibly some UTI sx. Will obtain culture. States she is ready to increase Seroquel, will begin with HS dosing. Plans to sign a three day notice as I miss my and he is unable to visit me-I wish we could live here. Medication Compliance: Yes Side effects from medications: No Attending Groups: Yes Review of Systems Acute medical concerns: No Medical Review of Systems: unchanged Review of Systems Review of Systems R ankle pain RMQ pain-will obtain urine culture as pt reports UTI sx. Mental Status Exam Mental Status Exam Patient Appearance: Appropriate Patient Orientation: Person, Place and Situation Level of Consciousness: Alert Patient Behavior: Talkative and Good Eye Contact Mood Description: Depressed Affect Description: Flat Patient Cognition Impaired: No Ability to Follow Directions: Good Speech Pattern: Spontaneous Speech Memory Description: Intact Hallucinations: Auditory and Visual Delusions: Paranoid Ideation and Present Thought Process: Distracted Thought Content: positive for Intact and positive for Suicidal Ideation (denies) Depressive Symptoms: Increased Anxiety Judgement: Fair Diagnostics Vital Signs (24Hr): Vital Signs - 24 hr 10/10/23 17:25 10/10/23 20:00 10/11/23 09:00 Temperature 96.8 F 97.5 F Pulse Rate 85 69 Respiratory Rate 18 16 Blood Pressure 91/55 L 118/64 106/60 Pulse Oximetry 97 97 Oxygen Delivery Method Room Air Room Air BMI result Body Mass Index 29.9 Labs 10/10/23 15:54 Labs: Laboratory Results - last 48 hr 10/09/23 10/10/23 10/10/23 16:54 08:33 15:54 Creatinine 0.86 Estim Creat Clear Calc 82.2 Estimated GFR > 60 POC Glucose 94 94 10/10/23 10/10/23 10/11/23 16:49 20:23 08:14 Creatinine Estim Creat Clear Calc Estimated GFR POC Glucose 92 124 H 98 Imaging Radiology Impressions: ITS Impressions Abdomen Ultrasound 10/10/23 17:47 IMPRESSION: The gallbladder is surgically absent. The common bile duct is normal in caliber. Medications Medications Current Medications Acetaminophen (Acetaminophen 325 Mg Tablet) 650 mg PO Q6H PRN PRN Reason: Pain, Mild (Pain Scale 1-3) Last Admin: 10/09/23 16:18 Dose: 650 mg Al Hydroxide/Mg Hydroxide (Magnesium Hydrox/Alum Hydrox 30 Ml Oral.Susp) 30 ml PO Q6H PRN PRN Reason: Heartburn/Nausea Albuterol Sulfate (Albuterol Sulfate 90 Mcg 8 Gm Inhaler) 2 puff INHALE RQ4H PRN PRN Reason: Wheezing Last Admin: 10/08/23 13:17 Dose: 2 puff Aspirin (Aspirin 81 Mg Tab.Chew) 81 mg PO DAILY [facility] Last Admin: 10/11/23 09:29 Dose: 81 mg Atorvastatin Calcium (Atorvastatin Calcium 80 Mg Tablet) 80 mg PO DAILY [facility] Last Admin: 10/11/23 09:27 Dose: 80 mg Benztropine Mesylate (Benztropine Mesylate 1 Mg Tablet) 1 mg PO DAILY [facility] Last Admin: 10/11/23 09:28 Dose: 1 mg Bumetanide (Bumetanide 1 Mg Tablet) 0.5 mg PO BID@0800,1700 [facility]; Protocol Last Admin: 10/11/23 09:27 Dose: 0.5 mg Clonazepam (Clonazepam 1 Mg Tablet) 1 mg PO BID [facility] Last Admin: 10/11/23 09:28 Dose: 1 mg Duloxetine HCl (Duloxetine Hcl 20 Mg Capsule.Dr) 40 mg PO DAILY [facility] Last Admin: 10/11/23 09:28 Dose: 40 mg Folic Acid (Folic Acid 1 Mg Tablet) 1 mg PO DAILY [facility] Last Admin: 10/11/23 09:29 Dose: 1 mg Gabapentin (Gabapentin 400 Mg Capsule) 400 mg PO BID [facility] Last Admin: 10/11/23 09:28 Dose: 400 mg Hydroxyzine HCl (Hydroxyzine Hcl 25 Mg Tablet) 25 mg PO Q6H PRN PRN Reason: Anxiety Last Admin: 10/10/23 21:17 Dose: 25 mg Lidocaine (Lidocaine 5 % Ointment 35 Gm) 1 appl TOPICAL Q6H PRN; Protocol PRN Reason: back pain Last Admin: 10/10/23 17:16 Dose: 1 appl Lisinopril (Lisinopril 20 Mg Tablet) 20 mg PO DAILY [facility]; Protocol Last Admin: 10/11/23 09:29 Dose: 20 mg Magnesium Hydroxide (Milk Of Magnesia 30 Ml Oral.Susp) 30 ml PO DAILY PRN PRN Reason: Constipation Metoprolol Succinate (Metoprolol Succinate Er 50 Mg Tab.Er.24h) 50 mg PO DAILY [facility]; Protocol Last Admin: 10/11/23 09:28 Dose: 50 mg Mirtazapine (Mirtazapine 30 Mg Tablet) 30 mg PO BEDTIME [facility] Last Admin: 10/10/23 21:16 Dose: 30 mg Multivitamins/Vitamin C (Multivitamin Tablet) 1 tab PO DAILY [facility] Last Admin: 10/11/23 09:29 Dose: 1 tab Omeprazole (Omeprazole 20 Mg Capsule.Dr) 20 mg PO BID@0630,1630 [facility] Last Admin: 10/11/23 06:44 Dose: 20 mg Ondansetron HCl (Ondansetron Odt 4 Mg Tab.Rapdis) 4 mg TRANSLINGU Q8H PRN PRN Reason: Nausea and Vomiting Quetiapine Fumarate (Quetiapine Fumarate 50 Mg Tablet) 50 mg PO BID@0900,1500 [facility] Last Admin: 10/11/23 15:10 Dose: 50 mg Quetiapine Fumarate (Quetiapine Fumarate 100 Mg Tablet) 100 mg PO BEDTIME [facility] Last Admin: 10/10/23 21:17 Dose: 100 mg Simethicone (Simethicone 80 Mg Tab.Chew) 80 mg PO QIDWMHS PRN PRN Reason: Gas Trazodone HCl (Trazodone Hcl 50 Mg Tablet) 50 mg PO BEDTIME MRX1 PRN PRN Reason: Insomnia Vitamin D (Cholecalciferol (Vitamin D3) 25 Mcg Tablet) 25 mcg PO DAILY [facility] Last Admin: 10/11/23 09:27 Dose: 25 mcg Allergies Allergies Allergy/AdvReac Type Severity Reaction Status Date / Time adhesive tape [TAPE,ADHESIVE] Allergy Severe ANAPHYLAXIS Verified 09/23/21 09:54 latex [LATEX] Allergy Severe ANAPHYLAXIS Verified 09/23/21 09:54 Penicillins [PCN] Allergy Severe ANAPHYLAXIS Verified 09/23/21 09:54 Assessment & Plan Assessment & Plan (1) Movement disorder: Status: Acute Code(s): G25.9 - Extrapyramidal and movement disorder, unspecified (2) Dyskinesia: Status: Acute Code(s): G24.9 - Dystonia, unspecified (3) Parkinsons disease: Status: Acute Code(s): G20.A1 - Parkinson's disease without dyskinesia, without mention of fluctuations (4) PTSD (post-traumatic stress disorder): Status: Acute Code(s): F43.10 - Post-traumatic stress disorder, unspecified (5) MDD (major depressive disorder), recurrent, severe, with psychosis: Status: Acute Code(s): F33.3 - Major depressive disorder, recurrent, severe with psychotic symptoms Plan 63 yo female, returns to psychiatry from medicine to address depression, PTSD, Parkinsonian sx. Today, pt is reporting anxiety due to milieu stress occurring last evening with peer conflict. Plan: Collateral contact to OP neurology. Encouarge milieu Ongoing medication review. Aftercare planning. 10/06: Seroquel 25 mg 0900, 1500. Continue HS Seroquel 10/07: Increase Seroquel. 50 mg BID and HS Seroquel to 100 mg. Otherwise continue current management and treatment plan. 10/08: continue current management and treatment plan. 10/10: Message left again for [facility] to review care [phone]. Urine culture Increase HS Seroquel to 150 mg Reason for continued inpatient stay Substantial Risk for: rapid decompensation Time Spent With Patient Time: Total time managing care of this patient today ____ minutes.
[2023-10-11 16:40] VITALS: BP 109/62
[2023-10-11 17:19] LABS: Glucose, Whole Blood 106 mg/dL (60-115)
[2023-10-11 20:00] VITALS: BP 110/64; PULSE 74; RESP 16; TEMP 36.4; O2SAT 97
[2023-10-11] MEDS: Mirtazapine 30 MG TABLET PO (21:21)
[2023-10-11] MEDS: QUEtiapine Fumarate 50 MG TABLET 150 MG PO (21:21)
[2023-10-11 21:30] LABS: Glucose, Whole Blood 118 mg/dL (60-115)
--- NOTE | 2023-10-12 02:02 | PC.NURSE ---
During change of shift, it was reported that immediately prior to the beginning of report, this patient had a blood pressure of 179/132 on her left arm whilst seated and 162/120 on the right arm whilst seated. Approximately 15 minutes later, the blood pressure was down to 110/64 on her left arm whilst seated. The patient had a slight headache at the time. No other s/sx were noted.
[2023-10-12] MEDS: Omeprazole 20 MG CAPSULE.DR PO ×2 (06:53→16:05)
[2023-10-12 08:42] VITALS: BP 117/63; PULSE 72; TEMP 36.3; O2SAT 100
[2023-10-12] MEDS: DULoxetine HCl 20 MG CAPSULE.DR 40 MG PO (08:48)
[2023-10-12] MEDS: Multivitamin TABLET 1 TAB PO (08:49)
[2023-10-12] MEDS: Bumetanide 1 MG TABLET 0.5 MG PO ×2 (08:49→21:23)
[2023-10-12] MEDS: Gabapentin 400 MG CAPSULE PO ×2 (08:50→21:23)
[2023-10-12] MEDS: Benztropine Mesylate 1 MG TABLET PO (08:50)
[2023-10-12] MEDS: Aspirin 81 MG TAB.CHEW PO (08:50)
[2023-10-12] MEDS: lisinopriL 20 MG TABLET PO (08:50)
[2023-10-12] MEDS: clonazePAM 1 MG TABLET PO ×2 (08:51→21:23)
[2023-10-12] MEDS: Folic Acid 1 MG TABLET PO (08:51)
[2023-10-12] MEDS: Atorvastatin Calcium 80 MG TABLET PO (08:51)
[2023-10-12] MEDS: Cholecalciferol (Vitamin D3) 25 MCG TABLET PO (08:51)
[2023-10-12] MEDS: Metoprolol Succinate ER 50 MG TAB.ER.24H PO (08:52)
[2023-10-12] MEDS: QUEtiapine Fumarate 50 MG TABLET PO ×2 (08:52→16:05)
[2023-10-12 09:26] LABS: Glucose, Whole Blood 102 mg/dL (60-115)
--- NOTE | 2023-10-12 13:18 | HO.PSYCHPN ---
Subjective Subjective Date of Service: 10/12/23 Reason For Visit: Recurrent major depression Subjective Notes: Conditional Voluntary and 3 Day Healthcare Proxy: No Guardianship: No Medical Problems Affecting Mental Status: No Interim History: Reports increase in RMQ pain with sudden onset vomiting this afternoon. Hospitalist consult ordered. XRay L Ankle results returned with ligamentous/soft tissue injury and question of underlying fracture. Ortho consult ordered. Pt resting in bed, reporting nausea. Slept well last night she reports. TDN to 10/13. Medication Compliance: Yes Side effects from medications: No Attending Groups: Intermittent Review of Systems Acute medical concerns: No Medical Review of Systems: unchanged Review of Systems Review of Systems L ankle pain-?soft tissue,?ligament, ?fx RMQ pain with new onset vomiting this afternoon. Mental Status Exam Mental Status Exam Patient Appearance: Appropriate Patient Orientation: Person, Place and Situation Level of Consciousness: Alert Patient Behavior: Talkative and Good Eye Contact Mood Description: Depressed Affect Description: Flat Patient Cognition Impaired: No Ability to Follow Directions: Good Speech Pattern: Spontaneous Speech Memory Description: Intact Hallucinations: Auditory and Visual Delusions: Paranoid Ideation and Present Thought Process: Distracted Thought Content: positive for Intact and positive for Suicidal Ideation (denies) Depressive Symptoms: Increased Anxiety Judgement: Fair Diagnostics Vital Signs (24Hr): Vital Signs - 24 hr 10/11/23 16:40 10/11/23 20:00 10/12/23 08:42 Temperature 97.5 F 97.4 F Pulse Rate 74 72 Respiratory Rate 16 Blood Pressure 109/62 110/64 117/63 Pulse Oximetry 97 100 Oxygen Delivery Method Room Air Room Air BMI result Body Mass Index 29.9 Labs 10/12/23 17:38 10/12/23 17:38 Labs: Laboratory Results - last 48 hr 10/10/23 10/10/23 10/10/23 15:54 16:49 20:23 Creatinine 0.86 Estim Creat Clear Calc 82.2 Estimated GFR > 60 POC Glucose 92 124 H 10/11/23 10/11/23 10/11/23 08:14 17:11 21:19 Creatinine Estim Creat Clear Calc Estimated GFR POC Glucose 98 106 118 H 10/12/23 09:22 Creatinine Estim Creat Clear Calc Estimated GFR POC Glucose 102 Imaging Radiology Impressions: ITS Impressions Abdomen Ultrasound 10/10/23 17:47 IMPRESSION: The gallbladder is surgically absent. The common bile duct is normal in caliber. Medications Medications Current Medications Acetaminophen (Acetaminophen 325 Mg Tablet) 650 mg PO Q6H PRN PRN Reason: Pain, Mild (Pain Scale 1-3) Last Admin: 10/09/23 16:18 Dose: 650 mg Al Hydroxide/Mg Hydroxide (Magnesium Hydrox/Alum Hydrox 30 Ml Oral.Susp) 30 ml PO Q6H PRN PRN Reason: Heartburn/Nausea Albuterol Sulfate (Albuterol Sulfate 90 Mcg 8 Gm Inhaler) 2 puff INHALE RQ4H PRN PRN Reason: Wheezing Last Admin: 10/08/23 13:17 Dose: 2 puff Aspirin (Aspirin 81 Mg Tab.Chew) 81 mg PO DAILY [facility] Last Admin: 10/12/23 08:50 Dose: 81 mg Atorvastatin Calcium (Atorvastatin Calcium 80 Mg Tablet) 80 mg PO DAILY [facility] Last Admin: 10/12/23 08:51 Dose: 80 mg Benztropine Mesylate (Benztropine Mesylate 1 Mg Tablet) 1 mg PO DAILY [facility] Last Admin: 10/12/23 08:50 Dose: 1 mg Bumetanide (Bumetanide 1 Mg Tablet) 0.5 mg PO BID@0800,1700 [facility]; Protocol Last Admin: 10/12/23 08:49 Dose: 0.5 mg Clonazepam (Clonazepam 1 Mg Tablet) 1 mg PO BID [facility] Last Admin: 10/12/23 08:51 Dose: 1 mg Duloxetine HCl (Duloxetine Hcl 20 Mg Capsule.Dr) 40 mg PO DAILY [facility] Last Admin: 10/12/23 08:48 Dose: 40 mg Folic Acid (Folic Acid 1 Mg Tablet) 1 mg PO DAILY [facility] Last Admin: 10/12/23 08:51 Dose: 1 mg Gabapentin (Gabapentin 400 Mg Capsule) 400 mg PO BID [facility] Last Admin: 10/12/23 08:50 Dose: 400 mg Hydroxyzine HCl (Hydroxyzine Hcl 25 Mg Tablet) 25 mg PO Q6H PRN PRN Reason: Anxiety Last Admin: 10/10/23 21:17 Dose: 25 mg Lidocaine (Lidocaine 5 % Ointment 35 Gm) 1 appl TOPICAL Q6H PRN; Protocol PRN Reason: back pain Last Admin: 10/10/23 17:16 Dose: 1 appl Lisinopril (Lisinopril 20 Mg Tablet) 20 mg PO DAILY [facility]; Protocol Last Admin: 10/12/23 08:50 Dose: 20 mg Magnesium Hydroxide (Milk Of Magnesia 30 Ml Oral.Susp) 30 ml PO DAILY PRN PRN Reason: Constipation Metoprolol Succinate (Metoprolol Succinate Er 50 Mg Tab.Er.24h) 50 mg PO DAILY [facility]; Protocol Last Admin: 10/12/23 08:52 Dose: 50 mg Mirtazapine (Mirtazapine 30 Mg Tablet) 30 mg PO BEDTIME [facility] Last Admin: 10/11/23 21:21 Dose: 30 mg Multivitamins/Vitamin C (Multivitamin Tablet) 1 tab PO DAILY [facility] Last Admin: 10/12/23 08:49 Dose: 1 tab Omeprazole (Omeprazole 20 Mg Capsule.Dr) 20 mg PO BID@0630,1630 [facility] Last Admin: 10/12/23 06:53 Dose: 20 mg Ondansetron HCl (Ondansetron Odt 4 Mg Tab.Rapdis) 4 mg TRANSLINGU Q8H PRN PRN Reason: Nausea and Vomiting Quetiapine Fumarate (Quetiapine Fumarate 50 Mg Tablet) 50 mg PO BID@0900,1500 [facility] Last Admin: 10/12/23 08:52 Dose: 50 mg Quetiapine Fumarate (Quetiapine Fumarate 50 Mg Tablet) 150 mg PO BEDTIME [facility] Last Admin: 10/11/23 21:21 Dose: 150 mg Simethicone (Simethicone 80 Mg Tab.Chew) 80 mg PO QIDWMHS PRN PRN Reason: Gas Trazodone HCl (Trazodone Hcl 50 Mg Tablet) 50 mg PO BEDTIME MRX1 PRN PRN Reason: Insomnia Vitamin D (Cholecalciferol (Vitamin D3) 25 Mcg Tablet) 25 mcg PO DAILY [facility] Last Admin: 10/12/23 08:51 Dose: 25 mcg Allergies Allergies Allergy/AdvReac Type Severity Reaction Status Date / Time adhesive tape [TAPE,ADHESIVE] Allergy Severe ANAPHYLAXIS Verified 09/23/21 09:54 latex [LATEX] Allergy Severe ANAPHYLAXIS Verified 09/23/21 09:54 Penicillins [PCN] Allergy Severe ANAPHYLAXIS Verified 09/23/21 09:54 Assessment & Plan Assessment & Plan (1) Movement disorder: Status: Acute Code(s): G25.9 - Extrapyramidal and movement disorder, unspecified (2) Dyskinesia: Status: Acute Code(s): G24.9 - Dystonia, unspecified (3) Parkinsons disease: Status: Acute Code(s): G20.A1 - Parkinson's disease without dyskinesia, without mention of fluctuations (4) PTSD (post-traumatic stress disorder): Status: Acute Code(s): F43.10 - Post-traumatic stress disorder, unspecified (5) MDD (major depressive disorder), recurrent, severe, with psychosis: Status: Acute Code(s): F33.3 - Major depressive disorder, recurrent, severe with psychotic symptoms Plan 63 yo female, returns to psychiatry from medicine to address depression, PTSD, Parkinsonian sx. Today, pt is reporting anxiety due to milieu stress occurring last evening with peer conflict. Plan: Collateral contact to OP neurology. Encouarge milieu Ongoing medication review. Aftercare planning. 10/06: Seroquel 25 mg 0900, 1500. Continue HS Seroquel 10/07: Increase Seroquel. 50 mg BID and HS Seroquel to 100 mg. Otherwise continue current management and treatment plan. 10/08: continue current management and treatment plan. 10/10: Message left again for [facility] to review care [phone]. Urine culture Increase HS Seroquel to 150 mg 10/11: Hospitalist consult RMQ pain with vomiting Orthopedic consult, L Ankle via xray results Reason for continued inpatient stay Substantial Risk for: rapid decompensation and med/psych decompensation Time Spent With Patient Time: Total time managing care of this patient today ____ minutes.
--- NOTE | 2023-10-12 17:08 | PM.EVENT ---
Event Note Date of Service: 10/12/23 Event Note: ongoing right sided abd pain, now with n/v. will order labs, ct abd Time Spent With Patient Time: Total time managing care of this patient today ____ minutes.
[2023-10-12 17:47] LABS: Hematocrit 40.1 % (37.0-47.0); Hemoglobin 13.1 g/dl (12.0-16.0); Mean Corpuscular HGB Conc 32.7 g/dl (31.0-35.0); Mean Corpuscular Hemoglobin 26.6 pg (27.0-33.0); Mean Corpuscular Volume 81.3 fL (80.0-98.0); Mean Platelet Volume 11.3 fL (9.4-12.3); Platelet Count 183 X10*3/uL (160-400); Red Blood Count 4.93 X10*6/uL (4.20-5.50); Red Cell Distribution Width 14.1 % (11.0-16.0); White Blood Count 6.5 X10*3/uL (4.8-10.8)
[2023-10-12 18:03] LABS: Lactic Acid 0.8 mmol/L (0.5-2.0)
[2023-10-12 18:08] LABS: Alanine Aminotransferase 17 U/L (0-31); Albumin Level 4.1 g/dL (3.5-5.0); Alkaline Phosphatase 141 U/L (39-117); Anion Gap 13 (12-20); Aspartate Amino Transferase 17 U/L (5-31); Bilirubin Direct 0.3 mg/dL (0.0-0.5); Bilirubin Total 0.9 mg/dL (0.0-1.0); Blood Urea Nitrogen 14 mg/dL (9-16); Calcium 9.9 mg/dL (8.4-10.2); Carbon Dioxide 29 mmol/L (22-29); Chloride 102 mmol/L (96-108); Creatinine Clr Calc Pharmacy 84.2; Estimated Glomerular Filt Rate > 60; Glucose Random 95 mg/dL (60-115); Potassium 4.3 mmol/L (3.3-5.1); Sodium 140 mmol/L (135-145); Total Protein 6.9 g/dL (6.5-8.0)
--- NOTE | 2023-10-12 19:00 | PC.NURSE ---
Late entry At 1600 pt was complaining of RLQ pain, nausea and a headache. BP: 79/40, rechecked: 104/54, T 98.7 O2 96% HR 70. Pt then began vomiting several times which was witnessed by staff. [place] Notified. Hospitalist Dr. Patiño notified. Abdominal CT scan ordered.
[2023-10-12 20:00] VITALS: BP 114/57; PULSE 75; RESP 18; TEMP 36.6; O2SAT 96
[2023-10-12] MEDS: Mirtazapine 30 MG TABLET PO (21:23)
[2023-10-12] MEDS: QUEtiapine Fumarate 50 MG TABLET 150 MG PO (21:24)
[2023-10-12] MEDS: traZODone HCL 50 MG TABLET PO (21:25)
[2023-10-12] MEDS: Ondansetron ODT 4 MG TAB.RAPDIS TRANSLINGU (21:26)
[2023-10-12] MEDS: Sucralfate 1 GM TABLET PO (21:26)
[2023-10-12 22:08] LABS: Glucose, Whole Blood 126 mg/dL (60-115)
[2023-10-13] MEDS: Omeprazole 20 MG CAPSULE.DR PO ×2 (06:30→16:33)
[2023-10-13 07:34] LABS: Glucose, Whole Blood 105 mg/dL (60-115)
[2023-10-13 08:16] VITALS: BP 126/72; PULSE 78; RESP 18; TEMP 36.5; O2SAT 95
[2023-10-13] MEDS: Metoprolol Succinate ER 50 MG TAB.ER.24H PO (08:52)
[2023-10-13] MEDS: QUEtiapine Fumarate 50 MG TABLET PO ×2 (08:52→15:26)
[2023-10-13] MEDS: Atorvastatin Calcium 80 MG TABLET PO (08:53)
[2023-10-13] MEDS: Cholecalciferol (Vitamin D3) 25 MCG TABLET PO (08:53)
[2023-10-13] MEDS: Folic Acid 1 MG TABLET PO (08:53)
[2023-10-13] MEDS: Multivitamin TABLET 1 TAB PO (08:53)
[2023-10-13] MEDS: lisinopriL 20 MG TABLET PO (08:53)
[2023-10-13] MEDS: Gabapentin 400 MG CAPSULE PO ×2 (08:53→21:26)
[2023-10-13] MEDS: Aspirin 81 MG TAB.CHEW PO (08:53)
[2023-10-13] MEDS: Benztropine Mesylate 1 MG TABLET PO (08:53)
[2023-10-13] MEDS: clonazePAM 1 MG TABLET PO ×2 (08:53→21:26)
[2023-10-13] MEDS: Bumetanide 1 MG TABLET 0.5 MG PO ×2 (08:55→18:06)
[2023-10-13] MEDS: DULoxetine HCl 20 MG CAPSULE.DR 40 MG PO (08:56)
[2023-10-13] MEDS: Simethicone 80 MG TAB.CHEW PO (13:12)
[2023-10-13] MEDS: traMADoL HCL 50 MG TABLET 25 MG PO ×2 (13:17→21:26)
[2023-10-13 15:12] VITALS: BMI 29.2
--- NOTE | 2023-10-13 15:15 | P.PNPSI_ITS ---
Subjective Subjective Date of Service: 10/13/23 Reason For Visit: Recurrent major depression Subjective Notes: 3 Day Healthcare Proxy: No Guardianship: No Medical Problems Affecting Mental Status: No Interim History: Planning discharge for 10/14/23 on a three day notice. Continues with RMQ pain-seen by hospitalist team who encouraged carafate. R Ankle edema evaluated by ortho team along with xray. They encourage rest, elevation, NSAIDS. They report no further ortho follow up or further scans are required. Pt reports she is pleased to leave on 10/13 as she misses her and dog. She reports improved sx. Denies SI/HI/AH/VH. Tolerating Seroquel increase well. No response from [facility] regarding pt's care as yet. Medication Compliance: Yes Side effects from medications: No Attending Groups: Yes Review of Systems Acute medical concerns: No Medical Review of Systems: unchanged Review of Systems Review of Systems ankle pain RMQ pain Mental Status Exam Mental Status Exam Patient Appearance: Appropriate Patient Orientation: Person, Place and Situation Level of Consciousness: Alert Patient Behavior: Talkative and Good Eye Contact Mood Description: Anxious and Apprehensive Affect Description: Apprehensive Patient Cognition Impaired: No Ability to Follow Directions: Good Speech Pattern: Spontaneous Speech Memory Description: Intact Hallucinations: None (denies) Thought Process: Distracted Thought Content: positive for Intact and positive for Suicidal Ideation (denies) Depressive Symptoms: Increased Anxiety Judgement: Fair Diagnostics Vital Signs (24Hr): Vital Signs - 24 hr 10/12/23 20:00 10/13/23 08:16 Temperature 97.8 F 97.7 F Pulse Rate 75 78 Respiratory Rate 18 18 Blood Pressure 114/57 L 126/72 Pulse Oximetry 96 95 Oxygen Delivery Method Room Air Room Air BMI result Body Mass Index 29.2 Labs 10/12/23 17:38 10/12/23 17:38 Labs: Laboratory Results - last 48 hr 10/11/23 10/11/23 10/12/23 17:11 21:19 09:22 WBC RBC Hgb Hct MCV MCH MCHC RDW Plt Count MPV Absolute Nucleated RBC Nucleated RBC % (auto) Sodium Potassium Chloride Carbon Dioxide Anion Gap BUN Creatinine Estim Creat Clear Calc Estimated GFR POC Glucose 106 118 H 102 Random Glucose Lactic Acid Calcium Total Bilirubin Direct Bilirubin AST ALT Alkaline Phosphatase Total Protein Albumin 10/12/23 10/12/23 10/13/23 17:38 21:35 07:26 WBC 6.5 RBC 4.93 Hgb 13.1 Hct 40.1 MCV 81.3 MCH 26.6 L MCHC 32.7 RDW 14.1 Plt Count 183 MPV 11.3 Absolute Nucleated RBC 0.000 Nucleated RBC % (auto) 0.0 Sodium 140 Potassium 4.3 Chloride 102 Carbon Dioxide 29 Anion Gap 13 BUN 14 Creatinine 0.84 Estim Creat Clear Calc 84.2 Estimated GFR > 60 POC Glucose 126 H 105 Random Glucose 95 Lactic Acid 0.8 Calcium 9.9 Total Bilirubin 0.9 Direct Bilirubin 0.3 AST 17 ALT 17 Alkaline Phosphatase 141 H Total Protein 6.9 Albumin 4.1 Imaging Radiology Impressions: ITS Impressions Ankle X-Ray 10/10/23 14:09 IMPRESSION: Mild asymmetric widening along the medial aspect of the tibiotalar space suggestive of ligamentous/soft tissue injury, although subtle underlying fracture cannot be excluded. This study was presented to md October 12, 2023 for interpretation. PSA staff will provide results to referring provider at this time. Abdomen Ultrasound 10/10/23 17:47 IMPRESSION: The gallbladder is surgically absent. The common bile duct is normal in caliber. Abdomen/Pelvis CT 10/12/23 19:02 IMPRESSION: Chronic appearing and postoperative changes as described. Medications Medications Current Medications Acetaminophen (Acetaminophen 325 Mg Tablet) 650 mg PO Q6H PRN PRN Reason: Pain, Mild (Pain Scale 1-3) Last Admin: 10/09/23 16:18 Dose: 650 mg Al Hydroxide/Mg Hydroxide (Magnesium Hydrox/Alum Hydrox 30 Ml Oral.Susp) 30 ml PO Q6H PRN PRN Reason: Heartburn/Nausea Albuterol Sulfate (Albuterol Sulfate 90 Mcg 8 Gm Inhaler) 2 puff INHALE RQ4H PRN PRN Reason: Wheezing Last Admin: 10/08/23 13:17 Dose: 2 puff Aspirin (Aspirin 81 Mg Tab.Chew) 81 mg PO DAILY [facility] Last Admin: 10/13/23 08:53 Dose: 81 mg Atorvastatin Calcium (Atorvastatin Calcium 80 Mg Tablet) 80 mg PO DAILY [facility] Last Admin: 10/13/23 08:53 Dose: 80 mg Benztropine Mesylate (Benztropine Mesylate 1 Mg Tablet) 1 mg PO DAILY [facility] Last Admin: 10/13/23 08:53 Dose: 1 mg Bumetanide (Bumetanide 1 Mg Tablet) 0.5 mg PO BID@0800,1700 [facility]; Protocol Last Admin: 10/13/23 08:55 Dose: 0.5 mg Clonazepam (Clonazepam 1 Mg Tablet) 1 mg PO BID [facility] Last Admin: 10/13/23 08:53 Dose: 1 mg Duloxetine HCl (Duloxetine Hcl 20 Mg Capsule.Dr) 40 mg PO DAILY [facility] Last Admin: 10/13/23 08:56 Dose: 40 mg Folic Acid (Folic Acid 1 Mg Tablet) 1 mg PO DAILY [facility] Last Admin: 10/13/23 08:53 Dose: 1 mg Gabapentin (Gabapentin 400 Mg Capsule) 400 mg PO BID [facility] Last Admin: 10/13/23 08:53 Dose: 400 mg Hydroxyzine HCl (Hydroxyzine Hcl 25 Mg Tablet) 25 mg PO Q6H PRN PRN Reason: Anxiety Last Admin: 10/10/23 21:17 Dose: 25 mg Lidocaine (Lidocaine 5 % Ointment 35 Gm) 1 appl TOPICAL Q6H PRN; Protocol PRN Reason: back pain Last Admin: 10/10/23 17:16 Dose: 1 appl Lisinopril (Lisinopril 20 Mg Tablet) 20 mg PO DAILY [facility]; Protocol Last Admin: 10/13/23 08:53 Dose: 20 mg Magnesium Hydroxide (Milk Of Magnesia 30 Ml Oral.Susp) 30 ml PO DAILY PRN PRN Reason: Constipation Metoprolol Succinate (Metoprolol Succinate Er 50 Mg Tab.Er.24h) 50 mg PO DAILY [facility]; Protocol Last Admin: 10/13/23 08:52 Dose: 50 mg Mirtazapine (Mirtazapine 30 Mg Tablet) 30 mg PO BEDTIME [facility] Last Admin: 10/12/23 21:23 Dose: 30 mg Multivitamins/Vitamin C (Multivitamin Tablet) 1 tab PO DAILY [facility] Last Admin: 10/13/23 08:53 Dose: 1 tab Omeprazole (Omeprazole 20 Mg Capsule.) 20 mg PO BID@0630,1630 [facility] Last Admin: 10/13/23 06:30 Dose: 20 mg Ondansetron HCl (Ondansetron Odt 4 Mg Tab.Rapdis) 4 mg TRANSLINGU Q8H PRN PRN Reason: Nausea and Vomiting Last Admin: 10/12/23 21:26 Dose: 4 mg Quetiapine Fumarate (Quetiapine Fumarate 50 Mg Tablet) 50 mg PO BID@0900,1500 [facility] Last Admin: 10/13/23 08:52 Dose: 50 mg Quetiapine Fumarate (Quetiapine Fumarate 50 Mg Tablet) 150 mg PO BEDTIME [facility] Last Admin: 10/12/23 21:24 Dose: 150 mg Simethicone (Simethicone 80 Mg Tab.Chew) 80 mg PO QIDWMHS PRN PRN Reason: Gas Last Admin: 10/13/23 13:12 Dose: 80 mg Sucralfate (Sucralfate 1 Gm Tablet) 1 gm PO QIDACHS PRN PRN Reason: Dyspepsia Last Admin: 10/12/23 21:26 Dose: 1 gm Tramadol HCl (Tramadol Hcl 50 Mg Tablet) 25 mg PO Q6H PRN PRN Reason: ankle pain Last Admin: 10/13/23 13:17 Dose: 25 mg Trazodone HCl (Trazodone Hcl 50 Mg Tablet) 50 mg PO BEDTIME MRX1 PRN PRN Reason: Insomnia Last Admin: 10/12/23 21:25 Dose: 50 mg Vitamin D (Cholecalciferol (Vitamin D3) 25 Mcg Tablet) 25 mcg PO DAILY [facility] Last Admin: 10/13/23 08:53 Dose: 25 mcg Allergies Allergies Allergy/AdvReac Type Severity Reaction Status Date / Time adhesive tape [TAPE,ADHESIVE] Allergy Severe ANAPHYLAXIS Verified 09/23/21 09:54 latex [LATEX] Allergy Severe ANAPHYLAXIS Verified 09/23/21 09:54 Penicillins [PCN] Allergy Severe ANAPHYLAXIS Verified 09/23/21 09:54 Assessment & Plan Assessment & Plan (1) Movement disorder: Status: Acute Code(s): G25.9 - Extrapyramidal and movement disorder, unspecified (2) Dyskinesia: Status: Acute Code(s): G24.9 - Dystonia, unspecified (3) Parkinsons disease: Status: Acute Code(s): G20.A1 - Parkinson's disease without dyskinesia, without mention of fluctuations (4) PTSD (post-traumatic stress disorder): Status: Acute Code(s): F43.10 - Post-traumatic stress disorder, unspecified (5) MDD (major depressive disorder), recurrent, severe, with psychosis: Status: Acute Code(s): F33.3 - Major depressive disorder, recurrent, severe with psychotic symptoms Plan 63 yo female, returns to psychiatry from medicine to address depression, PTSD, Parkinsonian sx. Today, pt is reporting anxiety due to milieu stress occurring last evening with peer conflict. Plan: Collateral contact to OP neurology. Encouarge milieu Ongoing medication review. Aftercare planning. 10/06: Seroquel 25 mg 0900, 1500. Continue HS Seroquel 10/07: Increase Seroquel. 50 mg BID and HS Seroquel to 100 mg. Otherwise continue current management and treatment plan. 10/08: continue current management and treatment plan. 10/10: Message left again for [facility] to review care [phone]. Urine culture Increase HS Seroquel to 150 mg 10/11: Hospitalist consult RMQ pain with vomiting Orthopedic consult, L Ankle via xray results 10/12: Discharge 10/13 Ortho consult indicates rest, elevation, NSAIDS will resolve issue Hospitalist consult for RMQ pain indicates Carafate will assist pt with sx mgt. Pt feeling prepared to discharge-misses her and dog. Reason for continued inpatient stay Substantial Risk for: rapid decompensation Time Spent With Patient Time: Total time managing care of this patient today ____ minutes.
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
[2023-10-13 18:06] VITALS: BP 113/61
[2023-10-13 20:42] LABS: Glucose, Whole Blood 116 mg/dL (60-115)
[2023-10-13 20:45] VITALS: BP 93/60; PULSE 70; RESP 16; TEMP 36.3; O2SAT 100
[2023-10-13] MEDS: traZODone HCL 50 MG TABLET PO (21:26)
[2023-10-13] MEDS: QUEtiapine Fumarate 50 MG TABLET 150 MG PO (21:27)
[2023-10-13] MEDS: Mirtazapine 30 MG TABLET PO (21:27)
[2023-10-14] MEDS: Omeprazole 20 MG CAPSULE.DR PO (06:59)
[2023-10-14 07:59] LABS: Glucose, Whole Blood 85 mg/dL (60-115)
[2023-10-14] MEDS: DULoxetine HCl 20 MG CAPSULE.DR 40 MG PO (08:57)
[2023-10-14] MEDS: Benztropine Mesylate 1 MG TABLET PO (08:57)
[2023-10-14] MEDS: Multivitamin TABLET 1 TAB PO (08:57)
[2023-10-14] MEDS: Aspirin 81 MG TAB.CHEW PO (08:58)
[2023-10-14] MEDS: Gabapentin 400 MG CAPSULE PO (08:59)
[2023-10-14] MEDS: QUEtiapine Fumarate 50 MG TABLET PO (08:59)
[2023-10-14] MEDS: clonazePAM 1 MG TABLET PO (08:59)
[2023-10-14] MEDS: Cholecalciferol (Vitamin D3) 25 MCG TABLET PO (08:59)
[2023-10-14 09:00] VITALS: BP 116/64; PULSE 75; RESP 16; TEMP 36.3; O2SAT 99
[2023-10-14] MEDS: Atorvastatin Calcium 80 MG TABLET PO (09:00)
[2023-10-14] MEDS: Folic Acid 1 MG TABLET PO (09:00)
[2023-10-14 09:01] VITALS: BP 116/64
[2023-10-14] MEDS: Bumetanide 1 MG TABLET 0.5 MG PO (09:01)
[2023-10-14 09:02] VITALS: BP 116/64; PULSE 75
[2023-10-14] MEDS: Metoprolol Succinate ER 50 MG TAB.ER.24H PO (09:02)
[2023-10-14] MEDS: lisinopriL 20 MG TABLET PO (09:02)
--- NOTE | 2023-10-14 10:14 | PM.PSYDC ---
DS: Providers Provider Date of Service: 10/14/23 Date of admission: 10/05/23 13:56 Date of discharge: 10/14/23 Primary care physician: Unknown Physician Admitting clinician: Maranda Martínez Attending physician on admission: Arvin Hooper Consults: 10/10/23 13:54 Consult to Hospitalist Routine Comment: Consulting Provider: Hospitalist Reason For Exam: RUQ pain 10/12/23 14:01 Consult to Hospitalist Routine Comment: Consulting Provider: Hospitalist Reason For Exam: ankle injury- xray ? fracture vs ligament injury 10/12/23 15:49 Consult to Orthopedics Routine Consulting Provider: [facility] Reason for consultation: L ankle, edema, pain, xray ?fracture Has provider been notified: No 10/12/23 16:35 Consult to Hospitalist Routine Comment: pt reports increased pain Consulting Provider: Hospitalist Reason For Exam: RMQ abdominal pain, sudden onset vomiting Attending physician on discharge: Arvin Hooper Discharging clinician: Maranda Martínez DS: Diagnosis Discharge Diagnosis (1) Contusion of left foot: Status: Acute DS: Medications Discharge Medications Home Medications: Home Medications ?Medication ?Instructions ?Recorded ?Confirmed blood sugar diagnostic (FreeStyle #10 ea 05/06/21 09/23/21 Lite Strips) bumetanide 0.5 mg tablet 0.5 mg PO 2XD 05/06/21 10/03/23 cholecalciferol (vitamin D3) 25 25 mcg PO DAILY 05/06/21 10/03/23 mcg (1,000 unit) capsule esomeprazole magnesium 40 mg 40 mg PO BID 05/06/21 10/03/23 capsule,delayed release metformin 1,000 mg tablet 1,000 mg PO BID 05/06/21 10/03/23 albuterol sulfate 90 mcg/actuation 2 puff inhalation Q4H 09/29/23 10/03/23 aerosol inhaler (Ventolin HFA) aspirin 81 mg chewable tablet 1 tab PO DAILY 09/29/23 10/03/23 ipratropium 0.5 mg-albuterol 3 mg 3 ml inhalation Q4H PRN Shortness 09/29/23 10/03/23 (2.5 mg base)/3 mL nebulization Of Breath soln metoprolol succinate 50 mg 50 mg PO DAILY 09/29/23 10/03/23 tablet,extended release 24 hr multivitamin with folic acid 400 1 tab PO DAILY 09/29/23 10/03/23 mcg tablet (Tab-A-Alanis) diclofenac sodium 1 % topical gel 1 ea topical QID PRN Pain (Scale 10/03/23 10/03/23 Score 1-3) lisinopril 20 mg tablet 20 mg PO DAILY 10/03/23 10/03/23 rosuvastatin 40 mg tablet 40 mg PO DAILY 10/03/23 10/03/23 Previous Rx's ?Medication ?Instructions ?Recorded benztropine 1 mg tablet 1 mg PO DAILY #30 tabs 10/13/23 clonazepam 1 mg tablet 1 mg PO BID #60 tabs 10/13/23 duloxetine 20 mg capsule,delayed 40 mg (2 x 20 mg) PO DAILY #60 caps 10/13/23 release gabapentin 400 mg capsule 400 mg PO BID #60 caps 10/13/23 mirtazapine 30 mg tablet 30 mg PO BEDTIME #30 tabs 10/13/23 quetiapine 50 mg tablet 50 mg PO BID@0900,1500 #60 tabs 10/13/23 quetiapine 50 mg tablet 150 mg (3 x 50 mg) PO BEDTIME #90 10/13/23 tabs simethicone 80 mg chewable tablet 80 mg PO QIDWMHS PRN Gas #120 tabs 10/13/23 (Gas Relief (simethicone)) sucralfate 1 gram tablet 1 g PO QIDACHS PRN Dyspepsia #120 10/13/23 tabs Mental Status Exam Mental Status Exam Patient Appearance: Appropriate Patient Orientation: Person, Place and Situation Level of Consciousness: Alert Patient Behavior: Talkative and Good Eye Contact Mood Description: Anxious and Apprehensive Affect Description: Apprehensive Patient Cognition Impaired: No Ability to Follow Directions: Good Speech Pattern: Spontaneous Speech Memory Description: Intact Hallucinations: None (denies) Thought Process: Distracted Thought Content: positive for Intact and positive for Suicidal Ideation (denies) Depressive Symptoms: Increased Anxiety Judgement: Fair Data Data Completed and Pending Completed studies during hospitalization [Text1]: 10/08/23 10/08/23 10/09/23 08:44 18:07 01:31 WBC RBC Hgb Hct MCV MCH MCHC RDW Plt Count MPV Absolute Nucleated RBC Nucleated RBC % (auto) Sodium Potassium Chloride Carbon Dioxide Anion Gap BUN Creatinine 0.83 Estim Creat Clear Calc 85.2 Estimated GFR > 60 POC Glucose 101 91 Random Glucose Lactic Acid Calcium Total Bilirubin Direct Bilirubin AST ALT Alkaline Phosphatase Total Protein Albumin 10/09/23 10/09/23 10/10/23 08:04 16:54 08:33 WBC RBC Hgb Hct MCV MCH MCHC RDW Plt Count MPV Absolute Nucleated RBC Nucleated RBC % (auto) Sodium Potassium Chloride Carbon Dioxide Anion Gap BUN Creatinine Estim Creat Clear Calc Estimated GFR POC Glucose 86 94 94 Random Glucose Lactic Acid Calcium Total Bilirubin Direct Bilirubin AST ALT Alkaline Phosphatase Total Protein Albumin 10/10/23 10/10/23 10/10/23 15:54 16:49 20:23 WBC RBC Hgb Hct MCV MCH MCHC RDW Plt Count MPV Absolute Nucleated RBC Nucleated RBC % (auto) Sodium Potassium Chloride Carbon Dioxide Anion Gap BUN Creatinine 0.86 Estim Creat Clear Calc 82.2 Estimated GFR > 60 POC Glucose 92 124 H Random Glucose Lactic Acid Calcium Total Bilirubin Direct Bilirubin AST ALT Alkaline Phosphatase Total Protein Albumin 10/11/23 10/11/23 10/11/23 08:14 17:11 21:19 WBC RBC Hgb Hct MCV MCH MCHC RDW Plt Count MPV Absolute Nucleated RBC Nucleated RBC % (auto) Sodium Potassium Chloride Carbon Dioxide Anion Gap BUN Creatinine Estim Creat Clear Calc Estimated GFR POC Glucose 98 106 118 H Random Glucose Lactic Acid Calcium Total Bilirubin Direct Bilirubin AST ALT Alkaline Phosphatase Total Protein Albumin 10/12/23 10/12/23 10/12/23 09:22 17:38 21:35 WBC 6.5 RBC 4.93 Hgb 13.1 Hct 40.1 MCV 81.3 MCH 26.6 L MCHC 32.7 RDW 14.1 Plt Count 183 MPV 11.3 Absolute Nucleated RBC 0.000 Nucleated RBC % (auto) 0.0 Sodium 140 Potassium 4.3 Chloride 102 Carbon Dioxide 29 Anion Gap 13 BUN 14 Creatinine 0.84 Estim Creat Clear Calc 84.2 Estimated GFR > 60 POC Glucose 102 126 H Random Glucose 95 Lactic Acid 0.8 Calcium 9.9 Total Bilirubin 0.9 Direct Bilirubin 0.3 AST 17 ALT 17 Alkaline Phosphatase 141 H Total Protein 6.9 Albumin 4.1 10/13/23 10/13/23 10/14/23 07:26 20:39 07:52 WBC RBC Hgb Hct MCV MCH MCHC RDW Plt Count MPV Absolute Nucleated RBC Nucleated RBC % (auto) Sodium Potassium Chloride Carbon Dioxide Anion Gap BUN Creatinine Estim Creat Clear Calc Estimated GFR POC Glucose 105 116 H 85 Random Glucose Lactic Acid Calcium Total Bilirubin Direct Bilirubin AST ALT Alkaline Phosphatase Total Protein Albumin 10/11/23 Unknown Urine clean catch Urine Culture - Final No growth. Imaging Diagnostic Imaging Impressions Ankle X-Ray 10/10/23 14:09 IMPRESSION: Mild asymmetric widening along the medial aspect of the tibiotalar space suggestive of ligamentous/soft tissue injury, although subtle underlying fracture cannot be excluded. This study was presented to [facility] October 12, 2023 for interpretation. PSA staff will provide results to referring provider at this time. Abdomen Ultrasound 10/10/23 17:47 IMPRESSION: The gallbladder is surgically absent. The common bile duct is normal in caliber. Abdomen/Pelvis CT 10/12/23 19:02 IMPRESSION: Chronic appearing and postoperative changes as described. DS: Summary Hospital Course Hospital Course: Admission to adult psychiatry for exacerbation of PTSD, Major Depression, Dyskinesia, most likely due to Parkinsons. Pt with multiple medical comorbidities including HTN, HLD, DON-declines CPAP, chronic respiratory failure, Asthma, GERD, Fibromyalgia, HFpEF NIDDM Pt admitted 09/28/23-10/03/23. On 10/03/23 she transferred to medicine due to chest pain, was medically cleared and returned on 10/05/23. Pt continued with medical consultation for abdominal pain and L ankle pain. Vale worked with the team with medications and engaged in milieu. She signed a three day notice of intent, citing missing her who is alone at home and her dog who is. She denies SI/HI/AH/VH. She has no current symptoms of psychosis/luis. She plans to follow up with PCP Troy who works with both medical and psychiatric medications. She has been referred to adult day care for ongoing regular follow up and [facility] will continue with her care at home. She is aware she may call or return at any time if needed. Status at Discharge Functional status at discharge: uses cane/walker Overall status at discharge: patient is progressing back to baseline Time Spent with Patient Time attestation: Total time managing care of this patient today ____ minutes. Time spent: Less than 30 minutes Discharge Plan Discharge Anticipated Discharge Date/Time: 10/14/23 12:00 Patient Disposition: Home, Self-Care Discharge Diagnosis: PTSD Recurrent Major Depression Dyskinesia, Movement Disorder ?Parkinson's Disease Referrals: Primary Care/Psyche Provider Appt clay Simmons NP [Other] - 11/02/23 3:00 pm Sasha CHAUDHRY [Other] (Will call you today) [facility] [Other] - 1 Week (Cada d?a en los [facility] est? lleno de actividades individuales y grupales adaptadas a las necesidades, intereses y habilidades de los participantes, seg?n lo determinado en catracho planes de atenci?n.) Physician,Unknown J [Primary Care Provider] - 1 Week Discharge Medications: New sucralfate 1 gram Tablet 1 g PO QIDACHS PRN (Reason: Dyspepsia) Qty: 120 0RF simethicone [Gas Relief (simethicone)] 80 mg Tablet,Chewable 80 mg PO QIDWMHS PRN (Reason: Gas) Qty: 120 0RF quetiapine 50 mg Tablet 50 mg PO BID@0900,1500 Qty: 60 0RF quetiapine 150 mg tablet 150 mg PO BEDTIME Qty: 30 0RF Continued aspirin 81 mg tablet,chewable 1 tab PO DAILY ipratropium-albuterol 0.5 mg-3 mg(2.5 mg base)/3 mL solution for nebulization 3 ml inhalation Q4H PRN (Reason: Shortness Of Breath) metoprolol succinate 50 mg tablet extended release 24 hr 50 mg PO DAILY albuterol sulfate [Ventolin HFA] 90 mcg/actuation HFA aerosol inhaler 2 puff inhalation Q4H multivitamin with folic acid [Tab-A-Alanis] 400 mcg tablet 1 tab PO DAILY lisinopril 20 mg tablet 20 mg PO DAILY rosuvastatin 40 mg tablet 40 mg PO DAILY diclofenac sodium 1 % gel 1 ea topical QID PRN (Reason: Pain (Scale Score 1-3)) gabapentin 400 mg capsule 400 mg PO BID Qty: 60 0RF clonazepam 1 mg tablet 1 mg PO BID Qty: 60 0RF mirtazapine 30 mg tablet 30 mg PO BEDTIME Qty: 30 0RF benztropine 1 mg tablet 1 mg PO DAILY Qty: 30 0RF duloxetine 20 mg capsule,delayed release(DR/EC) 40 mg PO DAILY Qty: 60 0RF bumetanide 0.5 mg tablet 0.5 mg PO 2XD esomeprazole magnesium 40 mg capsule,delayed release(DR/EC) 40 mg PO BID metformin 1,000 mg tablet 1,000 mg PO BID cholecalciferol (vitamin D3) 25 mcg (1,000 unit) capsule 25 mcg PO DAILY (DME) FreeStyle Lite Strips Strip See Rx Instructions Not Applicable .MEDSUPPLY Qty: 10 Rx Instructions: As directed Discontinued quetiapine 50 mg Tablet 50 mg PO BEDTIME Discharge Orders: Discharge Order (Routine); Ordered 10/14/23 Ordered By: Maranda Martínez Diet: Advance to usual diet Activity on Discharge: As tolerated Stand Alone Forms: Patient Portal Discharge page, Community Support Print Language: [place] Care Plan Goals: Mood and Behavioral Stabilization Health Concerns: Mood and Behavioral Stabilization Neurological Follow up Medical Follow up Plan of Treatment: Attend scheduled appointments Take medications as directed Call and or return as needed Assessment: Pt discharges on a three day notice of intent. Discharge Date/Time: 10/14/23 11:45
== END 2023-10-14 11:45 | disposition home or self-care (01) | DRG 885 ==
PROVIDERS: Internal Medicine; Admitting Provider Clinical Nurse Specialist Psychiatric/Mental Health, Adult; Visit Provider Clinical Nurse Specialist Psychiatric/Mental Health, Adult
DX: F33.3 Major depressive disorder, recurrent, severe with psychotic symptoms (principal); J96.10 Chronic respiratory failure, unspecified whether with hypoxia or hypercapnia; I50.32 Chronic diastolic (congestive) heart failure; I11.0 Hypertensive heart disease with heart failure; F43.10 Post-traumatic stress disorder, unspecified; J45.909 Unspecified asthma, uncomplicated; S90.32XA Contusion of left foot, initial encounter; W22.8XXA Striking against or struck by other objects, initial encounter; E78.5 Hyperlipidemia, unspecified; G24.9 Dystonia, unspecified; Z91.51 Personal history of suicidal behavior; G20.A1 Parkinson's disease without dyskinesia, without mention of fluctuations; Z98.84 Bariatric surgery status; Z79.82 Long term (current) use of aspirin; Z79.84 Long term (current) use of oral hypoglycemic drugs; Z79.899 Other long term (current) drug therapy
CPT/HCPCS: 36415; 73610; 74176; 76705; 80048; 80061; 80076; 82565; 82947; 83605; 85027; 87086

== ENCOUNTER → 2023-10-05 13:56 | Outpatient (BNV) | payer OTHER, SELFPAY | PROVIDERS: Admitting Provider Clinical Nurse Specialist Psychiatric/Mental Health, Adult | DX: S90.32XA Contusion of left foot, initial encounter (principal) | CPT/HCPCS: 99221 ==

== ENCOUNTER → 2023-10-05 13:56 | Outpatient (BNV) | payer OTHER, SELFPAY | PROVIDERS: Admitting Provider Clinical Nurse Specialist Psychiatric/Mental Health, Adult; Visit Provider Clinical Nurse Specialist Psychiatric/Mental Health, Adult | DX: F33.3 Major depressive disorder, recurrent, severe with psychotic symptoms (principal); F43.11 Post-traumatic stress disorder, acute; G20.A1 Parkinson's disease without dyskinesia, without mention of fluctuations; S90.32XA Contusion of left foot, initial encounter | CPT/HCPCS: 90792; 99231; 99232; 99238 ==

== ENCOUNTER 2023-11-24 13:52 | Inpatient (IN) | payer OTHER, SELFPAY ==
[2023-11-24 14:07] VITALS: PULSE 83; RESP 16; TEMP 36.4; O2SAT 96; BMI 31.6
[2023-11-24 14:11] VITALS: RESP 16
--- NOTE | 2023-11-24 14:13 | ED.GENADULT ---
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 Patient states that she has been having auditory and visual hallucinations of someone telling her to kill herself. Patient denies any dizziness, lightheadedness, abdominal pain, nausea, vomiting, fever, chills, blurry vision, double vision, loss of vision, chest pain, difficulty breathing, shortness of breath, back pain, night sweats, pain with urination, increased urinary frequency, increased urinary urgency, blood in her urine or stool, syncope or a near syncopal episode, recent trauma or falls, bowel incontinence, bladder incontinence, or any other complaints at this time. Relieving factors: none Exacerbating factors: none Associated symptoms: denies other symptoms Treatments prior to arrival: none Related Data Home Medications ?Medication ?Instructions ?Recorded ?Confirmed bumetanide 0.5 mg tablet 0.5 mg PO 2XD 05/06/21 11/24/23 esomeprazole magnesium 40 mg 40 mg PO BID 05/06/21 11/24/23 capsule,delayed release metformin 1,000 mg tablet 1,000 mg PO BID 05/06/21 11/24/23 albuterol sulfate 90 mcg/actuation 2 puff inhalation Q4H 09/29/23 11/24/23 aerosol inhaler (Ventolin HFA) aspirin 81 mg chewable tablet 1 tab PO DAILY 09/29/23 11/24/23 ipratropium 0.5 mg-albuterol 3 mg 3 ml inhalation Q4H PRN Shortness 09/29/23 11/24/23 (2.5 mg base)/3 mL nebulization Of Breath soln metoprolol succinate 50 mg 50 mg PO DAILY 09/29/23 11/24/23 tablet,extended release 24 hr multivitamin with folic acid 400 1 tab PO DAILY 09/29/23 11/24/23 mcg tablet (Tab-A-Alanis) diclofenac sodium 1 % topical gel 1 ea topical QID PRN Pain (Scale 10/03/23 11/24/23 Score 1-3) lisinopril 20 mg tablet 20 mg PO DAILY 10/03/23 11/24/23 rosuvastatin 40 mg tablet 40 mg PO DAILY 10/03/23 11/24/23 Previous Rx's ?Medication ?Instructions ?Recorded clonazepam 1 mg tablet 1 mg PO BID #60 tabs 10/13/23 duloxetine 20 mg capsule,delayed 40 mg (2 x 20 mg) PO DAILY #60 caps 10/13/23 release gabapentin 400 mg capsule 400 mg PO BID #60 caps 10/13/23 mirtazapine 30 mg tablet 30 mg PO BEDTIME #30 tabs 10/13/23 Allergies Allergy/AdvReac Type Severity Reaction Status Date / Time adhesive tape [TAPE,ADHESIVE] Allergy Severe ANAPHYLAXIS Verified 11/24/23 14:09 latex [LATEX] Allergy Severe ANAPHYLAXIS Verified 11/24/23 14:09 Penicillins [PCN] Allergy Severe ANAPHYLAXIS Verified 11/24/23 14:09 Review of Systems Constitutional: Constitutional: Reports no additional constitutional complaints, Denies chills, Denies fever(s) and Denies night sweats Eyes: Eyes: Reports no additional eye complaints, Denies blurry vision, Denies change in vision, Denies diplopia, Denies eye discharge, Denies loss of vision and Denies eye pain ENT: Denies dizziness Cardiovascular: Cardiovascular: Reports no additional cardiovascular complaints, Denies chest pain, Denies lightheadedness, Denies Loss of Consciousness and Denies dyspnea Respiratory: Respiratory: Reports no additional respiratory complaints and Denies dyspnea Gastrointestinal: Gastrointestinal: Reports no additional gastrointestinal complaints, Denies abdominal pain, Denies melena, Denies hematochezia, Denies change in bowel habits and Denies change in stool character Genitourinary: Genitourinary: Denies hematuria, Denies urinary frequency, Denies dysuria, Denies urinary incontinence, Denies urinary hesitancy and Denies urinary urgency Musculoskeletal: Musculoskeletal: Reports no additional musculoskeletal complaints, Denies numbness and Denies tingling Neurologic: Denies dizziness, Denies loss of vision, Denies numbness and Denies tingling Psychiatric: Psychiatric: Denies homicidal ideation and Reports suicidal ideation Endocrine: Endocrine: Reports no additional endocrine complaints Hematologic/Lymphatic: Hematologic/Lymphatic: Reports no additional hematologic/lymphatic complaints Allergic/Immunologic: Allergic/Immunologic: Reports no additional allergic/immunologic complaints PMFSH Past Medical History Attestation statement: The following information was validated with the patient. Source: old records reviewed and nursing notes reviewed Medical History Medical clearance for psychiatric admission Parkinsons disease PTSD (post-traumatic stress disorder) MDD (major depressive disorder), recurrent, severe, with psychosis Insomnia Dyskinesia, drug-induced Dissociative identity disorder Bipolar 1 disorder Anxiety Depression Colon cancer Surgical History History of carpal tunnel surgery Hx of bariatric surgery Hx of hysterectomy History of partial colectomy Hx of cholecystectomy Hx of appendectomy Hx of knee surgery Family History Family History Mother Diabetes Hypertension Father No problems noted. Sister No problems noted. Brother No problems noted. Social History Social History Household Members: Spouse Housing: Apartment Do you presently have visiting nurse or other home services: No Alcohol intake: never Patient Tobacco Use Status: Never used Tobacco Smoked in Last 30 Days: No e-Cigarette/Vaping Use: Never Used Second Hand Smoke Exposure: No Use of substances other than those prescribed or required for medical reasons: Yes Substance Use Type: Marijuana Substance Use Frequency: Daily Last Used Substance: Hours (ago) Any prior treatment program specific to substance use: No Advance Directives: No Advance Directives Information Provided: Yes Patient : No service: No Sexual orientation: Straight/Heterosexual Physical Exam ED Vital Signs: Vital Signs - 24 hr 11/24/23 14:07 11/24/23 14:11 Temperature 97.5 F Pulse Rate 83 Respiratory Rate 16 16 Pulse Oximetry 96 Oxygen Delivery Method Room Air BMI result Body Mass Index 31.6 Const General: cooperative, no acute distress, alert and awake Nutritional Appearance: well nourished Orientation/consciousness: patient oriented x3 Limitations: no limitations HENMT Head: Yes normal to inspection and Yes atraumatic Ears: hearing grossly normal bilaterally and external ears normal General nose exam: Normal external nose present, no nasal discharge noted and no epistaxis Face and sinus: Yes normal facial exam, No abrasion and No laceration Mouth: Normal oral and palatal mucosa present, no drooling and no muffled voice Eyes General: appearance normal, both eyes and all related structures Periorbital: periorbital findings normal Eyelids: Yes eyelids normal Conjunctivae: conjunctivae normal Pupils: Equal, round and reactive pupils present EOM: EOMs intact bilaterally Neck Neck: Yes normal visual inspection, Yes full ROM and Yes no lymphadenopathy Chest Chest palpation & inspection: normal inspection of the chest Resp Effort & Inspection: normal respiratory effort and able to speak in complete sentences GI Inspection: Yes normal to inspection Neuro General: patient oriented x3 and moves all extremities Cranial nerves: Yes Equal, round and reactive pupils present Cognition (Neuro): normal cognition Extrem Other: General: Yes full ROM and Yes capillary refill normal Psych Appearance: grossly normal Mental Status: mental status grossly normal Affect: Sad affect present Attitude: Guarded attititude/behavior present Thought content: Suicidality present Medications Administered Discontinued Medications Generic Name Dose Route Start Last Admin Trade Name Freq PRN Reason Stop Dose Admin Lorazepam 2 mg 11/24/23 14:16 11/24/23 14:23 Lorazepam 1 Mg Tablet PO 11/24/23 14:17 2 mg ONCE ONE Administration Medical Decision Making Medical Decision Making [facility] Narrative: Patient is a 63 year old assigned female at with a history of DM, HTN, anxiety, bipolar disorder, PTSD, MDD, and parkinsons disease presenting to the emergency department today with suicidal ideation, visual hallucinations, and auditory hallucinations. Patient's physical exam was as noted in the physical exam portion of this note. Patient's blood work was unremarkable. Patient's urine showed no acute process. Patient's EKG was unremarkable. I explained my physical exam findings as well as all test results to the patient. I answered all questions asked by the patient. Patient remains in physician observation pending CARE evaluation. Patient's disposition will be determined after CARE team eval. Differential Diagnosis Differential Diagnoses: The differential diagnosis associated with the presentation includes SI Hallucinations Admission/Observation Consideration of admission/observation: Escalation of care including admission/observation considered Patient's disposition will be determined after CARE evaluation. Lab Data [facility] Lab Attestation statement: I reviewed the patient's lab results. My interpretation of these results are in the MDM Rationale portion of this note. 11/24/23 14:19 11/24/23 14:19 Labs: Lab Results 11/24/23 11/24/23 Range/Units 14:19 14:21 WBC 5.8 (4.8-10.8) X10*3/uL RBC 5.06 (4.20-5.50) X10*6/uL Hgb 13.0 (12.0-16.0) g/dl Hct 40.5 (37.0-47.0) % MCV 80.0 (80.0-98.0) fL MCH 25.7 L (27.0-33.0) pg MCHC 32.1 (31.0-35.0) g/dl RDW 14.4 (11.0-16.0) % Plt Count 213 (160-400) X10*3/uL MPV 11.1 (9.4-12.3) fL Immature Gran % (Auto) 0.0 (0.0-0.4) % Neut % (Auto) 56.8 (45-73) % Lymph % (Auto) 36.2 (20-40) % [place] % (Auto) 6.6 (2-11) % Eos % (Auto) 0.2 (0-4) % Baso % (Auto) 0.2 (0-2) % Lymph # (Auto) 2.1 (1.2-4.9) X10*3/uL [place] # (Auto) 0.4 (0.1-1.2) X10*3/uL Eos # (Auto) 0.0 (0.0-0.4) X10*3/uL Baso # (Auto) 0.0 (0.0-0.2) X10*3/uL Abs Immat Gran (auto) 0.00 (0.00-0.03) X10*3/uL Absolute Neuts (auto) 3.3 (2.0-8.3) x10*3/uL Absolute Nucleated RBC 0.000 (0.0-0.012) X10*3/uL Nucleated RBC % (auto) 0.0 (0.0-0.2) /100WBC Sodium 139 (135-145) mmol/L Potassium 4.1 (3.3-5.1) mmol/L Chloride 105 (96-108) mmol/L Carbon Dioxide 25 (22-29) mmol/L Anion Gap 13 (12-20) BUN 16 (9-16) mg/dL Creatinine 0.87 (0.5-1.4) mg/dL Estim Creat Clear Calc 83.5 Estimated GFR > 60 Random Glucose 109 (60-115) mg/dL Calcium 9.7 (8.4-10.2) mg/dL Total Bilirubin 0.6 (0.0-1.0) mg/dL AST 20 (5-31) U/L ALT 14 (0-31) U/L Alkaline Phosphatase 164 H (39-117) U/L Total Protein 7.5 (6.5-8.0) g/dL Albumin 4.3 (3.5-5.0) g/dL Urine Color Yellow Urine Appearance Clear Urine pH 7.0 (5.0-9.0) Ur Specific [place] 1.010 (1.005-1.025) Urine Protein Negative (Neg-Trace) mg/dL Urine Glucose (UA) Negative (Negative) mg/dL Urine Ketones Negative (Negative) mg/dL Urine Blood Negative (Negative) Urine Nitrite Negative (Negative) Ur Leukocyte Esterase Small (1+) H (Negative) Urine RBC 0-2 (0-2) /HPF Urine WBC 0-5 (0-5) /HPF Ur Squamous Epith Cells 0-2 (0-2) /HPF Urine Bacteria None Seen (None Seen) Hyaline Casts 0-2 (0-2) /LPF Urine Opiates Screen Not Detected (Not Detect) Ur Buprenorphine Scrn Not Detected (Not Detect) ng/mL Ur Oxycodone Screen Not Detected (Not Detect) ng/mL Urine Methadone Screen Not Detected (Not Detect) ng/mL Urine Fentanyl Screen Not Detected (Not Detect) Ur Barbiturates Screen Not Detected (Not Detect) Ur Phencyclidine Scrn Not Detected (Not Detect) Ur Amphetamines Screen Not Detected (Not Detect) U Benzodiazepines Scrn Not Detected (Not Detect) Urine Cocaine Screen Not Detected (Not Detect) U Marijuana (THC) Screen POSITIVE H (Not Detect) Ethyl Alcohol < 10 mg/dL Independent Interpretation I performed an independent interpretation of an: Plain X-Ray Interpretation: My interpretation is in agreement with the radiologist's impression of this imaging study. Vent. Rate: 073 BPM Atrial Rate: 073 BPM P-R Int: 162 ms QRS Dur: 102 ms QT Int: 388 ms P-R-T Axes: -02 017 036 degrees QTc Int: 427 ms Normal sinus rhythm Anteroseptal infarct , age undetermined Abnormal ECG When compared with ECG of 04-OCT-2023 00:32, Anteroseptal infarct is now Present Nonspecific T wave abnormality no longer evident in Anterolateral leads QT has shortened DD/ 1423 Radiology Impression Discussion of test interpretation with radiology: I have reviewed the radiologist's reading. Independent Historian Clinical information obtained from an independent historian. History obtained from or confirmed by: EMS (EMS provided additional history and confirmed the history provided by the patient.) Discharge Plan Discharge Clinical Impression: Suicidal ideation Patient Disposition: Still a Patient Prescriptions: No Action aspirin 81 mg tablet,chewable 1 tab PO DAILY ipratropium-albuterol 0.5 mg-3 mg(2.5 mg base)/3 mL solution for nebulization 3 ml inhalation Q4H PRN (Reason: Shortness Of Breath) metoprolol succinate 50 mg tablet extended release 24 hr 50 mg PO DAILY albuterol sulfate [Ventolin HFA] 90 mcg/actuation HFA aerosol inhaler 2 puff inhalation Q4H multivitamin with folic acid [Tab-A-Alanis] 400 mcg tablet 1 tab PO DAILY lisinopril 20 mg tablet 20 mg PO DAILY rosuvastatin 40 mg tablet 40 mg PO DAILY diclofenac sodium 1 % gel 1 ea topical QID PRN (Reason: Pain (Scale Score 1-3)) gabapentin 400 mg capsule 400 mg PO BID Qty: 60 0RF clonazepam 1 mg tablet 1 mg PO BID Qty: 60 0RF mirtazapine 30 mg tablet 30 mg PO BEDTIME Qty: 30 0RF duloxetine 20 mg capsule,delayed release(DR/EC) 40 mg PO DAILY Qty: 60 0RF bumetanide 0.5 mg tablet 0.5 mg PO 2XD esomeprazole magnesium 40 mg capsule,delayed release(DR/EC) 40 mg PO BID metformin 1,000 mg tablet 1,000 mg PO BID Interventions: Worth-Suicide Risk Severity Scale Last Done: 11/24/23 14:12 Print Language: Armenian
--- NOTE | 2023-11-24 14:16 | ECG_ITS ---
Test Reason : rule out prolonged qtc Blood Pressure : / mmHG Vent. Rate : 073 BPM Atrial Rate : 073 BPM P-R Int : 162 ms QRS Dur : 102 ms QT Int : 388 ms P-R-T Axes : -02 017 036 degrees QTc Int : 427 ms Normal sinus rhythm Anteroseptal infarct , age undetermined Abnormal ECG When compared with ECG of 04-OCT-2023 00:32, Anteroseptal infarct is now Present Nonspecific T wave abnormality no longer evident in Anterolateral leads QT has shortened Referred By: Chaka Bill Electronically Signed By:JOSE DAVID RENE
[2023-11-24] MEDS: LORazepam 1 MG TABLET 2 MG PO (14:23)
[2023-11-24 14:35] LABS: MANUAL DIFF FLAG NO
[2023-11-24 14:37] LABS: Basophils Percent Auto 0.2 % (0-2); Eosinophils Percent Auto 0.2 % (0-4); Hematocrit 40.5 % (37.0-47.0); Lymphocytes Absolute Auto 2.1 X10*3/uL (1.2-4.9); Lymphocytes Percent Auto 36.2 % (20-40); Mean Corpuscular HGB Conc 32.1 g/dl (31.0-35.0); Mean Corpuscular Hemoglobin 25.7 pg (27.0-33.0); Mean Platelet Volume 11.1 fL (9.4-12.3); Monocytes Absolute Auto 0.4 X10*3/uL (0.1-1.2); Monocytes Percent Auto 6.6 % (2-11); Neutrophils Absolute Auto 3.3 x10*3/uL (2.0-8.3); Neutrophils Percent Auto 56.8 % (45-73); Platelet Count 213 X10*3/uL (160-400); Red Blood Count 5.06 X10*6/uL (4.20-5.50); Red Cell Distribution Width 14.4 % (11.0-16.0); White Blood Count 5.8 X10*3/uL (4.8-10.8)
[2023-11-24 14:38] LABS: Appearance Urine Clear; Color Urine Yellow; Glucose Urine UA Negative (Negative); Leukocyte Esterase Urine Small (1+) (Negative); Nitrite Urine Negative (Negative); UMIC TRIGGER UACC YES; Urine Blood Negative (Negative); Urine Ketones Negative (Negative); Urine Protein Negative (Neg-Trace)
--- NOTE | 2023-11-24 14:45 | PC.NURSE ---
Pt BIBA from home, very calm and cooperative, help seeking, reporting that she is having hallucinations (both auditory and visual) telling her to harm herself by cutting. She reports that she has been seeing this lady for quite some time and when she does she typically prays. She did cut herself on wrists bilaterally, no bleeding or infection process at this time. Pt was assessed by [facility] in the community and determined to be an inpatient bedsearch. pt aware of that at this time
[2023-11-24 14:49] LABS: Bacteria Urine None Seen (None Seen); Hyaline Casts Urine 0-2 /LPF (0-2); RBC Urine 0-2 /HPF (0-2); Squamous Epithelial Cell Urine 0-2 /HPF (0-2); UACC Culture Trigger YES; WBC Urine 0-5 /HPF (0-5)
[2023-11-24 14:54] LABS: Amphetamine Screen Urine Not Detected (Not Detect); Barbiturates, Urine Not Detected (Not Detect); Benzodiazepines Screen Urine Not Detected (Not Detect); Buprenorphine Scr Not Detected (Not Detect); Cannabinoid Screen Urine POSITIVE (Not Detect); Cocaine Screen Urine Not Detected (Not Detect); Fentanyl, urine Not Detected (Not Detect); Methadone Screen, Urine Not Detected (Not Detect); Opiate Screen Urine Not Detected (Not Detect); Phencyclidine Screen Urine Not Detected (Not Detect)
[2023-11-24 14:54] LABS: Alanine Aminotransferase 14 U/L (0-31); Albumin Level 4.3 g/dL (3.5-5.0); Alkaline Phosphatase 164 U/L (39-117); Anion Gap 13 (12-20); Aspartate Amino Transferase 20 U/L (5-31); Bilirubin Total 0.6 mg/dL (0.0-1.0); Blood Urea Nitrogen 16 mg/dL (9-16); Calcium 9.7 mg/dL (8.4-10.2); Carbon Dioxide 25 mmol/L (22-29); Chloride 105 mmol/L (96-108); Creatinine Clr Calc Pharmacy 83.5; Estimated Glomerular Filt Rate > 60; Ethanol < 10 mg/dL; Glucose Random 109 mg/dL (60-115); Potassium 4.1 mmol/L (3.3-5.1); Sodium 139 mmol/L (135-145); Total Protein 7.5 g/dL (6.5-8.0)
[2023-11-24 14:59] LABS: Oxycodone Screen Urine Not Detected (Not Detect)
[2023-11-24 16:50] VITALS: BP 117/69; PULSE 61; RESP 16; TEMP 36.1; O2SAT 100
[2023-11-24 17:56] VITALS: BP 133/88; PULSE 66; RESP 20; TEMP 36.5; O2SAT 98
[2023-11-24 17:59] VITALS: BMI 30.7
[2023-11-24] MEDS: Omeprazole 20 MG CAPSULE.DR PO (18:09)
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
[2023-11-24] MEDS: Albuterol Sulfate 90 MCG 8 GM INHALER 2 PUFF INHALE (21:39)
[2023-11-24] MEDS: Gabapentin 400 MG CAPSULE PO (21:39)
[2023-11-24] MEDS: metFORMIN HCl 1,000 MG TABLET 1000 MG PO (21:39)
[2023-11-24] MEDS: traZODone HCL 50 MG TABLET PO (21:39)
[2023-11-24] MEDS: clonazePAM 1 MG TABLET PO (21:39)
[2023-11-24] MEDS: Mirtazapine 30 MG TABLET PO (21:39)
--- NOTE | 2023-11-24 22:29 | PC.NURSE ---
Pt complaining of shooting pain in left leg from buttock area down leg. Passed along in report.
[2023-11-24 23:19] VITALS: RESP 18; O2SAT 94
--- NOTE | 2023-11-25 01:10 | PC.NURSE ---
Addendum entered by Soraida Man RN 11/25/23 06:07: Pt asleep for 0400 Ventolin, allowed her to sleep. Original Note: Pt not awake at 1200A for Ventolin, allowed her to sleep. Breathing is unlabored and comfortable.
[2023-11-25] MEDS: Omeprazole 20 MG CAPSULE.DR PO ×2 (06:27→16:18)
[2023-11-25 08:00] VITALS: BP 124/61; PULSE 71; RESP 20; TEMP 36.5; O2SAT 97
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
[2023-11-25] MEDS: Bumetanide 1 MG TABLET 0.5 MG PO (08:49)
[2023-11-25] MEDS: DULoxetine HCl 20 MG CAPSULE.DR 40 MG PO (08:49)
[2023-11-25] MEDS: Aspirin 81 MG TAB.CHEW PO (08:50)
[2023-11-25] MEDS: Gabapentin 400 MG CAPSULE PO ×2 (08:50→22:50)
[2023-11-25] MEDS: Multivitamin TABLET 1 TAB PO (08:50)
[2023-11-25] MEDS: metFORMIN HCl 1,000 MG TABLET 1000 MG PO ×2 (08:50→22:50)
[2023-11-25] MEDS: lisinopriL 20 MG TABLET PO (08:50)
[2023-11-25] MEDS: Metoprolol Succinate ER 50 MG TAB.ER.24H PO (08:50)
[2023-11-25] MEDS: Atorvastatin Calcium 80 MG TABLET PO (08:51)
[2023-11-25] MEDS: clonazePAM 1 MG TABLET PO ×2 (08:51→22:50)
[2023-11-25 10:36] LABS: Glucose, Whole Blood 142 mg/dL (60-115)
--- NOTE | 2023-11-25 13:12 | ECG_ITS ---
Test Reason : cp Blood Pressure : / mmHG Vent. Rate : 067 BPM Atrial Rate : 067 BPM P-R Int : 158 ms QRS Dur : 100 ms QT Int : 418 ms P-R-T Axes : -10 017 034 degrees QTc Int : 441 ms Normal sinus rhythm Normal ECG When compared with ECG of 24-NOV-2023 14:23, Criteria for Anteroseptal infarct are no longer Present Referred By: Chaka Bill Electronically Signed By:
[2023-11-25] MEDS: LORazepam 2 MG/ML VIAL IM (13:31)
--- NOTE | 2023-11-25 13:55 | PC.NURSE ---
Around [address] was reporting heavy chest pains with seating, left arm numbness travelling down to her fingers. She reports nausea and some vomiting. Her BP 118/84 pulse 92. Bambi Bill MD made aware. EKG ordered and sent to Bambi Bill MD. Troponin's ordered. Ativan IM given for anxiety.
[2023-11-25 15:17] LABS: Troponin-I High Sensitivity < 2.7 ng/L (<3.5-17.0)
[2023-11-25 20:06] VITALS: BP 117/60; PULSE 68; TEMP 36.5; O2SAT 95
[2023-11-25] MEDS: traZODone HCL 50 MG TABLET PO (22:50)
[2023-11-25] MEDS: Mirtazapine 30 MG TABLET PO (22:50)
[2023-11-26 00:01] VITALS: RESP 20
[2023-11-26] MEDS: Albuterol Sulfate 90 MCG 8 GM INHALER 2 PUFF INHALE (07:28)
[2023-11-26] MEDS: Omeprazole 20 MG CAPSULE.DR PO ×2 (07:28→16:52)
[2023-11-26 07:42] VITALS: BP 124/62; PULSE 70; RESP 14; TEMP 36.4; O2SAT 97
[2023-11-26 08:53] LABS: Glucose, Whole Blood 151 mg/dL (60-115)
--- NOTE | 2023-11-26 09:04 | P.PNPSI_ITS ---
Subjective Subjective Date of Service: 11/26/23 Reason For Visit: depressed/SI/psychosis Interim History: Patient seen. Reports ongoing depression and anxiety. Continues on 1:1 for safety and wheelchair. Had CP yesterday and work up was negative for cardiac cause. Engaged in conversation with 1:1. Visible on the unit. In wheelchair. I'm tired of being here . Depressed and anxious. SI. No plans. Reports AH. Review of Systems Constitutional: Reports no additional constitutional complaints, Denies chills, Denies fever(s) and Denies night sweats Eyes: Reports no additional eye complaints, Denies blurry vision, Denies change in vision, Denies diplopia, Denies eye discharge, Denies loss of vision and Denies eye pain Denies dizziness Cardiovascular: Reports no additional cardiovascular complaints, Denies chest pain, Denies lightheadedness, Denies Loss of Consciousness and Denies dyspnea Respiratory: Reports no additional respiratory complaints and Denies dyspnea Gastrointestinal: Reports no additional gastrointestinal complaints, Denies abdominal pain, Denies melena, Denies hematochezia, Denies change in bowel habits and Denies change in stool character Musculoskeletal: Reports no additional musculoskeletal complaints, Denies numbness and Denies tingling Denies dizziness, Denies loss of vision, Denies numbness and Denies tingling Psychiatric: Denies homicidal ideation and Reports suicidal ideation Endocrine: Reports no additional endocrine complaints Hematologic/Lymphatic: Reports no additional hematologic/lymphatic complaints Allergic/Immunologic: Reports no additional allergic/immunologic complaints Mental Status Exam Mental Status Exam Narrative: pt seen writhing on her bed, vomiting off the side of her bed. wearing personal clothes. cooperative. minimal speech, terse, whispered. thoughts apparenly linear and logical in brief interview. reporting AVH. no SI/HI reported. Diagnostics Vital Signs (24Hr): Vital Signs - 24 hr 11/25/23 20:06 11/26/23 00:01 11/26/23 07:42 Temperature 97.7 F 97.6 F Pulse Rate 68 70 Respiratory Rate 20 14 Blood Pressure 117/60 124/62 Pulse Oximetry 95 97 Oxygen Delivery Method Room Air Room Air BMI result Body Mass Index 30.7 Labs 11/24/23 14:19 11/24/23 14:19 Labs: Laboratory Results - last 48 hr 11/24/23 11/24/2324 14:19 14:21 10:33 WBC 5.8 RBC 5.06 Hgb 13.0 Hct 40.5 MCV 80.0 MCH 25.7 L MCHC 32.1 RDW 14.4 Plt Count 213 MPV 11.1 Immature Gran % (Auto) 0.0 Neut % (Auto) 56.8 Lymph % (Auto) 36.2 [place] % (Auto) 6.6 Eos % (Auto) 0.2 Baso % (Auto) 0.2 Lymph # (Auto) 2.1 [place] # (Auto) 0.4 Eos # (Auto) 0.0 Baso # (Auto) 0.0 Abs Immat Gran (auto) 0.00 Absolute Neuts (auto) 3.3 Absolute Nucleated RBC 0.000 Nucleated RBC % (auto) 0.0 Sodium 139 Potassium 4.1 Chloride 105 Carbon Dioxide 25 Anion Gap 13 BUN 16 Creatinine 0.87 Estim Creat Clear Calc 83.5 Estimated GFR > 60 POC Glucose 142 H Random Glucose 109 Calcium 9.7 Total Bilirubin 0.6 AST 20 ALT 14 Alkaline Phosphatase 164 H Troponin I High Sens Total Protein 7.5 Albumin 4.3 Urine Color Yellow Urine Appearance Clear Urine pH 7.0 Ur Specific [place] 1.010 Urine Protein Negative Urine Glucose (UA) Negative Urine Ketones Negative Urine Blood Negative Urine Nitrite Negative Ur Leukocyte Esterase Small (1+) H Urine RBC 0-2 Urine WBC 0-5 Ur Squamous Epith Cells 0-2 Urine Bacteria None Seen Hyaline Casts 0-2 Urine Opiates Screen Not Detected Ur Buprenorphine Scrn Not Detected Ur Oxycodone Screen Not Detected Urine Methadone Screen Not Detected Urine Fentanyl Screen Not Detected Ur Barbiturates Screen Not Detected Ur Phencyclidine Scrn Not Detected Ur Amphetamines Screen Not Detected U Benzodiazepines Scrn Not Detected Urine Cocaine Screen Not Detected U Marijuana (THC) Screen POSITIVE H Ethyl Alcohol < 10 11/25/23 11/26/23 14:42 08:34 WBC RBC Hgb Hct MCV MCH MCHC RDW Plt Count MPV Immature Gran % (Auto) Neut % (Auto) Lymph % (Auto) [place] % (Auto) Eos % (Auto) Baso % (Auto) Lymph # (Auto) [place] # (Auto) Eos # (Auto) Baso # (Auto) Abs Immat Gran (auto) Absolute Neuts (auto) Absolute Nucleated RBC Nucleated RBC % (auto) Sodium Potassium Chloride Carbon Dioxide Anion Gap BUN Creatinine Estim Creat Clear Calc Estimated GFR POC Glucose 151 H Random Glucose Calcium Total Bilirubin AST ALT Alkaline Phosphatase Troponin I High Sens < 2.7 Total Protein Albumin Urine Color Urine Appearance Urine pH Ur Specific [place] Urine Protein Urine Glucose (UA) Urine Ketones Urine Blood Urine Nitrite Ur Leukocyte Esterase Urine RBC Urine WBC Ur Squamous Epith Cells Urine Bacteria Hyaline Casts Urine Opiates Screen Ur Buprenorphine Scrn Ur Oxycodone Screen Urine Methadone Screen Urine Fentanyl Screen Ur Barbiturates Screen Ur Phencyclidine Scrn Ur Amphetamines Screen U Benzodiazepines Scrn Urine Cocaine Screen U Marijuana (THC) Screen Ethyl Alcohol Medications Medications Current Medications Acetaminophen (Acetaminophen 325 Mg Tablet) 650 mg PO Q6H PRN PRN Reason: Headache/Pain Mild Scale (1-3) Al Hydroxide/Mg Hydroxide (Magnesium Hydrox/Alum Hydrox 30 Ml Oral.Susp) 30 ml PO Q6H PRN PRN Reason: Heartburn/Nausea Albuterol Sulfate (Albuterol Sulfate 90 Mcg 8 Gm Inhaler) 2 puff INHALE RQ4H [facility] Last Admin: 11/26/23 07:28 Dose: 2 puff Albuterol/Ipratropium (Albuterol/Iprat 2.5/0.5mg 3 Ml Ampul.Neb) 3 ml INHALE Q4H PRN PRN Reason: Shortness Of Breath Aspirin (Aspirin 81 Mg Tab.Chew) 81 mg PO DAILY [facility] Last Admin: 11/25/23 08:50 Dose: 81 mg Atorvastatin Calcium (Atorvastatin Calcium 80 Mg Tablet) 80 mg PO DAILY [facility] Last Admin: 11/25/23 08:51 Dose: 80 mg Bumetanide (Bumetanide 1 Mg Tablet) 0.5 mg PO DAILY [facility]; Protocol Last Admin: 11/25/23 08:49 Dose: 0.5 mg Clonazepam (Clonazepam 1 Mg Tablet) 1 mg PO BID [facility] Last Admin: 11/25/23 22:50 Dose: 1 mg Duloxetine HCl (Duloxetine Hcl 20 Mg Capsule.Dr) 40 mg PO DAILY [facility] Last Admin: 11/25/23 08:49 Dose: 40 mg Gabapentin (Gabapentin 400 Mg Capsule) 400 mg PO BID [facility] Last Admin: 11/25/23 22:50 Dose: 400 mg Lisinopril (Lisinopril 20 Mg Tablet) 20 mg PO DAILY [facility]; Protocol Last Admin: 08/30/24 08:50 Dose: 20 mg Magnesium Hydroxide (Milk Of Magnesia 30 Ml Oral.Susp) 30 ml PO DAILY PRN PRN Reason: Constipation Metformin HCl (Metformin Hcl 1,000 Mg Tablet) 1,000 mg PO BID [facility] Last Admin: 11/25/23 22:50 Dose: 1,000 mg Metoprolol Succinate (Metoprolol Succinate Er 50 Mg Tab.Er.24h) 50 mg PO DAILY [facility]; Protocol Last Admin: 11/25/23 08:50 Dose: 50 mg Mirtazapine (Mirtazapine 30 Mg Tablet) 30 mg PO BEDTIME [facility] Last Admin: 11/25/23 22:50 Dose: 30 mg Multivitamins/Vitamin C (Multivitamin Tablet) 1 tab PO DAILY [facility] Last Admin: 11/25/23 08:50 Dose: 1 tab Nicotine Polacrilex (Nicotine Polacrilex 2 Mg Gum) 4 mg [place]CCAL Q2H PRN PRN Reason: Nicotine Cravings Olanzapine (Olanzapine 5 Mg Tablet) 5 mg PO TID PRN PRN Reason: agitation Omeprazole (Omeprazole 20 Mg Capsule.Dr) 20 mg PO BID@0630,1630 [facility] Last Admin: 11/26/23 07:28 Dose: 20 mg Trazodone HCl (Trazodone Hcl 50 Mg Tablet) 50 mg PO BEDTIME MRX1 PRN PRN Reason: Insomnia Last Admin: 11/25/23 22:50 Dose: 50 mg Allergies Allergies Allergy/AdvReac Type Severity Reaction Status Date / Time adhesive tape [TAPE,ADHESIVE] Allergy Severe ANAPHYLAXIS Verified 11/24/23 14:09 latex [LATEX] Allergy Severe ANAPHYLAXIS Verified 11/24/23 14:09 Penicillins [PCN] Allergy Severe ANAPHYLAXIS Verified 11/24/23 14:09 Assessment & Plan Assessment & Plan (1) PTSD (post-traumatic stress disorder): Status: Acute Code(s): F43.10 - Post-traumatic stress disorder, unspecified (2) Parkinsons disease: Status: Acute Code(s): G20.A1 - Parkinson's disease without dyskinesia, without mention of fluctuations (3) Diabetes mellitus type 2 in obese: Status: Acute Code(s): E11.69 - Type 2 diabetes mellitus with other specified complication; E66.9 - Obesity, unspecified (4) HTN (hypertension), benign: Status: Acute Code(s): I10 - Essential (primary) hypertension (5) GERD (gastroesophageal reflux disease): Status: Acute Code(s): K21.9 - Gastro-esophageal reflux disease without esophagitis (6) Hyperlipidemia: Status: Acute Code(s): E78.5 - Hyperlipidemia, unspecified (7) Sleep apnea: Status: Acute Code(s): G47.30 - Sleep apnea, unspecified (8) History of gastric surgery: Status: Acute Code(s): Z98.890 - Other specified postprocedural states Plan c/o crushing CP with c/o radiation to left arm and tingling in fingers of left hand - VSS, EKG reassuring, troponin NEG. given ativan 2 mg IM. calmed after 30-45 min. continue home medications for tonight, re-evaluate in the a.m. PRNs for agitation/psychosis. 11/25: Restart Seroquel which she responded to in the past admission. Seroquel 50 mg HS tonight. Reason for continued inpatient stay Substantial Risk for: harm to self, inability to function, rapid decompensation and med/psych decompensation Time Spent With Patient Time: Total time managing care of this patient today ____ minutes.
[2023-11-26] MEDS: Aspirin 81 MG TAB.CHEW PO (09:17)
[2023-11-26] MEDS: DULoxetine HCl 20 MG CAPSULE.DR 40 MG PO (09:17)
[2023-11-26] MEDS: Bumetanide 1 MG TABLET 0.5 MG PO (09:17)
[2023-11-26] MEDS: clonazePAM 1 MG TABLET PO ×2 (09:17→22:26)
[2023-11-26] MEDS: Metoprolol Succinate ER 50 MG TAB.ER.24H PO (09:17)
[2023-11-26] MEDS: metFORMIN HCl 1,000 MG TABLET 1000 MG PO ×2 (09:17→22:26)
[2023-11-26] MEDS: Multivitamin TABLET 1 TAB PO (09:17)
[2023-11-26] MEDS: lisinopriL 20 MG TABLET PO (09:17)
[2023-11-26] MEDS: Atorvastatin Calcium 80 MG TABLET PO (09:17)
[2023-11-26] MEDS: Gabapentin 400 MG CAPSULE PO ×2 (09:17→22:26)
[2023-11-26 18:40] VITALS: BP 117/57; PULSE 79; RESP 16; TEMP 36.6; O2SAT 96
[2023-11-26] MEDS: Mirtazapine 30 MG TABLET PO (22:26)
[2023-11-26] MEDS: traZODone HCL 50 MG TABLET PO (22:26)
[2023-11-26] MEDS: QUEtiapine Fumarate 50 MG TABLET PO (22:26)
[2023-11-26 23:17] VITALS: RESP 16
[2023-11-27] MEDS: Omeprazole 20 MG CAPSULE.DR PO ×2 (06:57→17:46)
[2023-11-27 07:52] VITALS: BP 108/55; PULSE 70; RESP 16; TEMP 36.4; O2SAT 94
[2023-11-27] MEDS: Gabapentin 400 MG CAPSULE PO ×2 (08:59→21:01)
[2023-11-27] MEDS: Bumetanide 1 MG TABLET 0.5 MG PO (08:59)
[2023-11-27] MEDS: Aspirin 81 MG TAB.CHEW PO (08:59)
[2023-11-27] MEDS: metFORMIN HCl 1,000 MG TABLET 1000 MG PO ×2 (09:00→21:01)
[2023-11-27] MEDS: clonazePAM 1 MG TABLET PO ×2 (09:00→21:01)
[2023-11-27] MEDS: Atorvastatin Calcium 80 MG TABLET PO (09:00)
[2023-11-27] MEDS: Multivitamin TABLET 1 TAB PO (09:00)
[2023-11-27] MEDS: Metoprolol Succinate ER 50 MG TAB.ER.24H PO (09:00)
[2023-11-27] MEDS: lisinopriL 20 MG TABLET PO (09:00)
[2023-11-27] MEDS: DULoxetine HCl 20 MG CAPSULE.DR 40 MG PO (09:00)
[2023-11-27 09:03] LABS: Glucose, Whole Blood 124 mg/dL (60-115)
--- NOTE | 2023-11-27 11:36 | HO.PSYCHPN ---
Subjective Subjective Date of Service: 11/27/23 Reason For Visit: depressed/SI/psychosis Interim History: Patient seen. Says she didn't continue with Seroquel because I didn't have any more . She didn't follow up after DC from last hostpital stay in September. Having some lower back pain. Discussed with nursing. PT saw patient. Patient able to ambulate. Could do OK with walker. Anxiety and depression continue. She denies AH today. No SI today. Review of Systems Constitutional: Reports no additional constitutional complaints, Denies chills, Denies fever(s) and Denies night sweats Eyes: Reports no additional eye complaints, Denies blurry vision, Denies change in vision, Denies diplopia, Denies eye discharge, Denies loss of vision and Denies eye pain Denies dizziness Cardiovascular: Reports no additional cardiovascular complaints, Denies chest pain, Denies lightheadedness, Denies Loss of Consciousness and Denies dyspnea Respiratory: Reports no additional respiratory complaints and Denies dyspnea Gastrointestinal: Reports no additional gastrointestinal complaints, Denies abdominal pain, Denies melena, Denies hematochezia, Denies change in bowel habits and Denies change in stool character Musculoskeletal: Reports no additional musculoskeletal complaints, Denies numbness and Denies tingling Denies dizziness, Denies loss of vision, Denies numbness and Denies tingling Psychiatric: Denies homicidal ideation and Reports suicidal ideation Endocrine: Reports no additional endocrine complaints Hematologic/Lymphatic: Reports no additional hematologic/lymphatic complaints Allergic/Immunologic: Reports no additional allergic/immunologic complaints Mental Status Exam Mental Status Exam Narrative: pt seen writhing on her bed, vomiting off the side of her bed. wearing personal clothes. cooperative. minimal speech, terse, whispered. thoughts apparenly linear and logical in brief interview. reporting AVH. no SI/HI reported. Diagnostics Vital Signs (24Hr): Vital Signs - 24 hr 11/26/23 18:40 11/26/23 23:17 11/27/23 07:52 Temperature 97.8 F 97.5 F Pulse Rate 79 70 Respiratory Rate 16 16 16 Blood Pressure 117/57 L 108/55 L Pulse Oximetry 96 94 Oxygen Delivery Method Room Air Room Air BMI result Body Mass Index 30.7 Labs 11/24/23 14:19 11/24/23 14:19 Labs: Laboratory Results - last 48 hr 11/25/23 11/26/23 11/27/23 14:42 08:34 08:57 POC Glucose 151 H 124 H Troponin I High Sens < 2.7 Medications Medications Current Medications Acetaminophen (Acetaminophen 325 Mg Tablet) 650 mg PO Q6H PRN PRN Reason: Headache/Pain Mild Scale (1-3) Al Hydroxide/Mg Hydroxide (Magnesium Hydrox/Alum Hydrox 30 Ml Oral.Susp) 30 ml PO Q6H PRN PRN Reason: Heartburn/Nausea Albuterol Sulfate (Albuterol Sulfate 90 Mcg 8 Gm Inhaler) 2 puff INHALE RQ4H [facility] Last Admin: 11/27/23 11:03 Dose: Not Given Albuterol/Ipratropium (Albuterol/Iprat 2.5/0.5mg 3 Ml Ampul.Neb) 3 ml INHALE Q4H PRN PRN Reason: Shortness Of Breath Aspirin (Aspirin 81 Mg Tab.Chew) 81 mg PO DAILY [facility] Last Admin: 11/27/23 08:59 Dose: 81 mg Atorvastatin Calcium (Atorvastatin Calcium 80 Mg Tablet) 80 mg PO DAILY [facility] Last Admin: 11/27/23 09:00 Dose: 80 mg Bumetanide (Bumetanide 1 Mg Tablet) 0.5 mg PO DAILY [facility]; Protocol Last Admin: 11/27/23 08:59 Dose: 0.5 mg Clonazepam (Clonazepam 1 Mg Tablet) 1 mg PO BID [facility] Last Admin: 11/27/23 09:00 Dose: 1 mg Duloxetine HCl (Duloxetine Hcl 20 Mg Capsule.) 40 mg PO DAILY [facility] Last Admin: 11/27/23 09:00 Dose: 40 mg Gabapentin (Gabapentin 400 Mg Capsule) 400 mg PO BID [facility] Last Admin: 11/27/23 08:59 Dose: 400 mg Gabapentin (Gabapentin 100 Mg Capsule) 200 mg PO DAILY [facility] Gabapentin (Gabapentin 100 Mg Capsule) 200 mg PO ONCE ONE Stop: 11/27/23 14:01 Lisinopril (Lisinopril 20 Mg Tablet) 20 mg PO DAILY [facility]; Protocol Last Admin: 11/27/23 09:00 Dose: 20 mg Magnesium Hydroxide (Milk Of Magnesia 30 Ml Oral.Susp) 30 ml PO DAILY PRN PRN Reason: Constipation Metformin HCl (Metformin Hcl 1,000 Mg Tablet) 1,000 mg PO BID [facility] Last Admin: 11/27/23 09:00 Dose: 1,000 mg Metoprolol Succinate (Metoprolol Succinate Er 50 Mg Tab.Er.24h) 50 mg PO DAILY [facility]; Protocol Last Admin: 11/27/23 09:00 Dose: 50 mg Mirtazapine (Mirtazapine 30 Mg Tablet) 30 mg PO BEDTIME [facility] Last Admin: 11/26/23 22:26 Dose: 30 mg Multivitamins/Vitamin C (Multivitamin Tablet) 1 tab PO DAILY [facility] Last Admin: 11/27/23 09:00 Dose: 1 tab Nicotine Polacrilex (Nicotine Polacrilex 2 Mg Gum) 4 mg BUCCAL Q2H PRN PRN Reason: Nicotine Cravings Olanzapine (Olanzapine 5 Mg Tablet) 5 mg PO TID PRN PRN Reason: agitation Omeprazole (Omeprazole 20 Mg Capsule.Dr) 20 mg PO BID@0630,1630 [facility] Last Admin: 11/27/23 06:57 Dose: 20 mg Quetiapine Fumarate (Quetiapine Fumarate 50 Mg Tablet) 50 mg PO BEDTIME [facility] Last Admin: 11/26/23 22:26 Dose: 50 mg Trazodone HCl (Trazodone Hcl 50 Mg Tablet) 50 mg PO BEDTIME MRX1 PRN PRN Reason: Insomnia Last Admin: 11/26/23 22:26 Dose: 50 mg Allergies Allergies Allergy/AdvReac Type Severity Reaction Status Date / Time adhesive tape [TAPE,ADHESIVE] Allergy Severe ANAPHYLAXIS Verified 11/24/23 14:09 latex [LATEX] Allergy Severe ANAPHYLAXIS Verified 11/24/23 14:09 Penicillins [PCN] Allergy Severe ANAPHYLAXIS Verified 11/24/23 14:09 Assessment & Plan Assessment & Plan (1) PTSD (post-traumatic stress disorder): Status: Acute Code(s): F43.10 - Post-traumatic stress disorder, unspecified (2) Parkinsons disease: Status: Acute Code(s): G20.A1 - Parkinson's disease without dyskinesia, without mention of fluctuations (3) Diabetes mellitus type 2 in obese: Status: Acute Code(s): E11.69 - Type 2 diabetes mellitus with other specified complication; E66.9 - Obesity, unspecified (4) HTN (hypertension), benign: Status: Acute Code(s): I10 - Essential (primary) hypertension (5) GERD (gastroesophageal reflux disease): Status: Acute Code(s): K21.9 - Gastro-esophageal reflux disease without esophagitis (6) Hyperlipidemia: Status: Acute Code(s): E78.5 - Hyperlipidemia, unspecified (7) Sleep apnea: Status: Acute Code(s): G47.30 - Sleep apnea, unspecified (8) History of gastric surgery: Status: Acute Code(s): Z98.890 - Other specified postprocedural states Plan c/o crushing CP with c/o radiation to left arm and tingling in fingers of left hand - VSS, EKG reassuring, troponin NEG. given ativan 2 mg IM. calmed after 30-45 min. continue home medications for tonight, re-evaluate in the a.m. PRNs for agitation/psychosis. 11/25: Restart Seroquel which she responded to in the past admission. Seroquel 50 mg HS tonight. 11/26: DC Wheelchair. Walker. 5 min checks. Add GBP dose midday. Reason for continued inpatient stay Substantial Risk for: harm to self, inability to function, rapid decompensation and med/psych decompensation Time Spent With Patient Time: Total time managing care of this patient today ____ minutes.
[2023-11-27] MEDS: Gabapentin 100 MG CAPSULE 200 MG PO (14:09)
[2023-11-27 20:00] VITALS: BP 132/61; PULSE 86; RESP 16; TEMP 36.2; O2SAT 99
[2023-11-27] MEDS: QUEtiapine Fumarate 50 MG TABLET PO (21:01)
[2023-11-27] MEDS: traZODone HCL 50 MG TABLET PO (21:01)
[2023-11-27] MEDS: Mirtazapine 30 MG TABLET PO (21:01)
[2023-11-27 23:25] VITALS: RESP 16
[2023-11-28] MEDS: Omeprazole 20 MG CAPSULE.DR PO ×2 (06:50→16:16)
[2023-11-28 08:37] VITALS: BP 127/70; PULSE 78; RESP 16; TEMP 36.3; O2SAT 99
[2023-11-28] MEDS: Atorvastatin Calcium 80 MG TABLET PO (08:52)
[2023-11-28] MEDS: Bumetanide 1 MG TABLET 0.5 MG PO (08:52)
[2023-11-28] MEDS: metFORMIN HCl 1,000 MG TABLET 1000 MG PO ×2 (08:52→20:48)
[2023-11-28] MEDS: Gabapentin 400 MG CAPSULE PO ×2 (08:53→20:48)
[2023-11-28] MEDS: DULoxetine HCl 20 MG CAPSULE.DR 40 MG PO (08:53)
[2023-11-28] MEDS: clonazePAM 1 MG TABLET PO ×2 (08:53→20:50)
[2023-11-28] MEDS: Metoprolol Succinate ER 50 MG TAB.ER.24H PO (08:53)
[2023-11-28] MEDS: Multivitamin TABLET 1 TAB PO (08:53)
[2023-11-28] MEDS: Aspirin 81 MG TAB.CHEW PO (08:54)
[2023-11-28] MEDS: lisinopriL 20 MG TABLET PO (08:54)
[2023-11-28 09:04] LABS: Glucose, Whole Blood 138 mg/dL (60-115)
--- NOTE | 2023-11-28 11:17 | P.PNPSI_ITS ---
Subjective Subjective Date of Service: 11/28/23 Reason For Visit: depressed/SI/psychosis Interim History: Patient seen. Tolerating restarting Seroquel well. Feels improved. Mood is better. Stable on walker. Says she wants to get a medical MJ card for mood and pain. She is visible on the unit. Appears brighter than on admission. Less labile. Less morbidly preoccupied. Denies hallucinations and SI today. SLept well last night. Review of Systems Constitutional: Reports no additional constitutional complaints, Denies chills, Denies fever(s) and Denies night sweats Eyes: Reports no additional eye complaints, Denies blurry vision, Denies change in vision, Denies diplopia, Denies eye discharge, Denies loss of vision and Denies eye pain Denies dizziness Cardiovascular: Reports no additional cardiovascular complaints, Denies chest pain, Denies lightheadedness, Denies Loss of Consciousness and Denies dyspnea Respiratory: Reports no additional respiratory complaints and Denies dyspnea Gastrointestinal: Reports no additional gastrointestinal complaints, Denies abdominal pain, Denies melena, Denies hematochezia, Denies change in bowel habits and Denies change in stool character Musculoskeletal: Reports no additional musculoskeletal complaints, Denies numbness and Denies tingling Denies dizziness, Denies loss of vision, Denies numbness and Denies tingling Psychiatric: Denies homicidal ideation and Reports suicidal ideation Endocrine: Reports no additional endocrine complaints Hematologic/Lymphatic: Reports no additional hematologic/lymphatic complaints Allergic/Immunologic: Reports no additional allergic/immunologic complaints Mental Status Exam Mental Status Exam Narrative: pt seen writhing on her bed, vomiting off the side of her bed. wearing personal clothes. cooperative. minimal speech, terse, whispered. thoughts apparenly linear and logical in brief interview. reporting AVH. no SI/HI reported. Diagnostics Vital Signs (24Hr): Vital Signs - 24 hr 11/27/23 20:00 11/27/23 23:25 11/28/23 08:37 Temperature 97.2 F 97.4 F Pulse Rate 86 78 Respiratory Rate 16 16 16 Blood Pressure 132/61 127/70 Pulse Oximetry 99 99 Oxygen Delivery Method Room Air Room Air BMI result Body Mass Index 30.7 Labs 11/24/23 14:19 11/24/23 14:19 Labs: Laboratory Results - last 48 hr 11/27/23 11/28/23 08:57 08:43 POC Glucose 124 H 138 H Medications Medications Current Medications Acetaminophen (Acetaminophen 325 Mg Tablet) 650 mg PO Q6H PRN PRN Reason: Headache/Pain Mild Scale (1-3) Al Hydroxide/Mg Hydroxide (Magnesium Hydrox/Alum Hydrox 30 Ml Oral.Susp) 30 ml PO Q6H PRN PRN Reason: Heartburn/Nausea Albuterol/Ipratropium (Albuterol/Iprat 2.5/0.5mg 3 Ml Ampul.Neb) 3 ml INHALE Q4H PRN PRN Reason: Shortness Of Breath Aspirin (Aspirin 81 Mg Tab.Chew) 81 mg PO DAILY [facility] Last Admin: 11/28/23 08:54 Dose: 81 mg Atorvastatin Calcium (Atorvastatin Calcium 80 Mg Tablet) 80 mg PO DAILY [facility] Last Admin: 11/28/23 08:52 Dose: 80 mg Bumetanide (Bumetanide 1 Mg Tablet) 0.5 mg PO DAILY [facility]; Protocol Last Admin: 11/28/23 08:52 Dose: 0.5 mg Clonazepam (Clonazepam 1 Mg Tablet) 1 mg PO BID [facility] Last Admin: 11/28/23 08:53 Dose: 1 mg Duloxetine HCl (Duloxetine Hcl 20 Mg Capsule.Dr) 40 mg PO DAILY [facility] Last Admin: 11/28/23 08:53 Dose: 40 mg Gabapentin (Gabapentin 400 Mg Capsule) 400 mg PO BID [facility] Last Admin: 11/28/23 08:53 Dose: 400 mg Gabapentin (Gabapentin 100 Mg Capsule) 200 mg PO DAILY [facility] Lisinopril (Lisinopril 20 Mg Tablet) 20 mg PO DAILY [facility]; Protocol Last Admin: 11/28/23 08:54 Dose: 20 mg Magnesium Hydroxide (Milk Of Magnesia 30 Ml Oral.Susp) 30 ml PO DAILY PRN PRN Reason: Constipation Metformin HCl (Metformin Hcl 1,000 Mg Tablet) 1,000 mg PO BID [facility] Last Admin: 11/28/23 08:52 Dose: 1,000 mg Metoprolol Succinate (Metoprolol Succinate Er 50 Mg Tab.Er.24h) 50 mg PO DAILY [facility]; Protocol Last Admin: 11/28/23 08:53 Dose: 50 mg Mirtazapine (Mirtazapine 30 Mg Tablet) 30 mg PO BEDTIME [facility] Last Admin: 11/27/23 21:01 Dose: 30 mg Multivitamins/Vitamin C (Multivitamin Tablet) 1 tab PO DAILY [facility] Last Admin: 11/28/23 08:53 Dose: 1 tab Nicotine Polacrilex (Nicotine Polacrilex 2 Mg Gum) 4 mg BUCCAL Q2H PRN PRN Reason: Nicotine Cravings Olanzapine (Olanzapine 5 Mg Tablet) 5 mg PO TID PRN PRN Reason: agitation Omeprazole (Omeprazole 20 Mg Capsule.Dr) 20 mg PO BID@0630,1630 [facility] Last Admin: 11/28/23 06:50 Dose: 20 mg Quetiapine Fumarate (Quetiapine Fumarate 50 Mg Tablet) 50 mg PO BEDTIME [facility] Last Admin: 11/27/23 21:01 Dose: 50 mg Trazodone HCl (Trazodone Hcl 50 Mg Tablet) 50 mg PO BEDTIME MRX1 PRN PRN Reason: Insomnia Last Admin: 11/27/23 21:01 Dose: 50 mg Allergies Allergies Allergy/AdvReac Type Severity Reaction Status Date / Time adhesive tape [TAPE,ADHESIVE] Allergy Severe ANAPHYLAXIS Verified 11/24/23 14:09 latex [LATEX] Allergy Severe ANAPHYLAXIS Verified 11/24/23 14:09 Penicillins [PCN] Allergy Severe ANAPHYLAXIS Verified 11/24/23 14:09 Assessment & Plan Assessment & Plan (1) PTSD (post-traumatic stress disorder): Status: Acute Code(s): F43.10 - Post-traumatic stress disorder, unspecified (2) Parkinsons disease: Status: Acute Code(s): G20.A1 - Parkinson's disease without dyskinesia, without mention of fluctuations (3) Diabetes mellitus type 2 in obese: Status: Acute Code(s): E11.69 - Type 2 diabetes mellitus with other specified complication; E66.9 - Obesity, unspecified (4) HTN (hypertension), benign: Status: Acute Code(s): I10 - Essential (primary) hypertension (5) GERD (gastroesophageal reflux disease): Status: Acute Code(s): K21.9 - Gastro-esophageal reflux disease without esophagitis (6) Hyperlipidemia: Status: Acute Code(s): E78.5 - Hyperlipidemia, unspecified (7) Sleep apnea: Status: Acute Code(s): G47.30 - Sleep apnea, unspecified (8) History of gastric surgery: Status: Acute Code(s): Z98.890 - Other specified postprocedural states Plan c/o crushing CP with c/o radiation to left arm and tingling in fingers of left hand - VSS, EKG reassuring, troponin NEG. given ativan 2 mg IM. calmed after 30-45 min. continue home medications for tonight, re-evaluate in the a.m. PRNs for agitation/psychosis. 11/25: Restart Seroquel which she responded to in the past admission. Seroquel 50 mg HS tonight. 11/26: DC Wheelchair. Walker. 5 min checks. Add GBP dose midday. 11/27: Continue current management and treatment plan. Reason for continued inpatient stay Substantial Risk for: harm to self, inability to function, rapid decompensation and med/psych decompensation Time Spent With Patient Time: Total time managing care of this patient today ____ minutes.
[2023-11-28] MEDS: Gabapentin 100 MG CAPSULE 200 MG PO (13:25)
[2023-11-28 20:00] VITALS: BP 112/63; PULSE 84; RESP 16; TEMP 36.4; O2SAT 96
[2023-11-28] MEDS: traZODone HCL 50 MG TABLET PO (20:48)
[2023-11-28] MEDS: QUEtiapine Fumarate 50 MG TABLET PO (20:49)
[2023-11-28] MEDS: Mirtazapine 30 MG TABLET PO (20:50)
[2023-11-28 23:40] VITALS: PULSE 70; RESP 15; O2SAT 94
[2023-11-29] MEDS: Omeprazole 20 MG CAPSULE.DR PO ×2 (06:55→16:37)
[2023-11-29 08:11] VITALS: BP 116/67; PULSE 70; RESP 16; TEMP 36.3; O2SAT 98
[2023-11-29] MEDS: Atorvastatin Calcium 80 MG TABLET PO (08:18)
[2023-11-29] MEDS: Bumetanide 1 MG TABLET 0.5 MG PO (08:18)
[2023-11-29] MEDS: metFORMIN HCl 1,000 MG TABLET 1000 MG PO ×2 (08:18→22:59)
[2023-11-29] MEDS: DULoxetine HCl 20 MG CAPSULE.DR 40 MG PO (08:19)
[2023-11-29] MEDS: Multivitamin TABLET 1 TAB PO (08:19)
[2023-11-29] MEDS: Gabapentin 400 MG CAPSULE PO ×3 (08:19→22:59)
[2023-11-29] MEDS: Metoprolol Succinate ER 50 MG TAB.ER.24H PO (08:19)
[2023-11-29] MEDS: Aspirin 81 MG TAB.CHEW PO (08:19)
[2023-11-29] MEDS: Gabapentin 100 MG CAPSULE 200 MG PO (08:20)
[2023-11-29] MEDS: clonazePAM 1 MG TABLET PO ×2 (08:20→22:59)
[2023-11-29] MEDS: lisinopriL 20 MG TABLET PO (08:20)
[2023-11-29 08:31] LABS: Glucose, Whole Blood 123 mg/dL (60-115)
--- NOTE | 2023-11-29 21:42 | HO.PSYCHPN ---
Subjective Subjective Date of Service: 11/29/23 Reason For Visit: depressed/SI/psychosis Interim History: c/o poor sleep 2/2 snoring roommate. slept about 3 hours. c/o anxiety. feels that if she were able to sleep well, however, she would be fine. denies SI/HI. endorses CAH to suicide. agreeable to increase gabapentin to 400 TID for anxiety/chronic pain. per staff, taking meds, appeared to have slept all night. 3-day notice up tuesday. Mental Status Exam Mental Status Exam Narrative: calm, cooperative, no PMA/PMR. wearing personal clothes, adequately dressed and groomed. cooperative. speech nml rate, incr amount, nml loudness, decr latency. thoughts linear and logical in. denies SI/HI but endorses CAH to suicide. Diagnostics Vital Signs (24Hr): Vital Signs - 24 hr 11/28/23 23:40 11/29/23 08:11 Temperature 97.4 F Pulse Rate 70 Respiratory Rate 15 16 Blood Pressure 116/67 Pulse Oximetry 98 Oxygen Delivery Method Room Air BMI result Body Mass Index 30.7 Labs 11/24/23 14:19 11/24/23 14:19 Labs: Laboratory Results - last 48 hr 11/28/23 11/29/23 08:43 08:11 POC Glucose 138 H 123 H Medications Medications Current Medications Acetaminophen (Acetaminophen 325 Mg Tablet) 650 mg PO Q6H PRN PRN Reason: Headache/Pain Mild Scale (1-3) Al Hydroxide/Mg Hydroxide (Magnesium Hydrox/Alum Hydrox 30 Ml Oral.Susp) 30 ml PO Q6H PRN PRN Reason: Heartburn/Nausea Albuterol/Ipratropium (Albuterol/Iprat 2.5/0.5mg 3 Ml Ampul.Neb) 3 ml INHALE Q4H PRN PRN Reason: Shortness Of Breath Aspirin (Aspirin 81 Mg Tab.Chew) 81 mg PO DAILY [facility] Last Admin: 11/29/23 08:19 Dose: 81 mg Atorvastatin Calcium (Atorvastatin Calcium 80 Mg Tablet) 80 mg PO DAILY [facility] Last Admin: 11/29/23 08:18 Dose: 80 mg Bumetanide (Bumetanide 1 Mg Tablet) 0.5 mg PO DAILY [facility]; Protocol Last Admin: 11/29/23 08:18 Dose: 0.5 mg Clonazepam (Clonazepam 1 Mg Tablet) 1 mg PO BID [facility] Last Admin: 11/29/23 08:20 Dose: 1 mg Duloxetine HCl (Duloxetine Hcl 20 Mg Capsule.) 40 mg PO DAILY [facility] Last Admin: 11/29/23 08:19 Dose: 40 mg Gabapentin (Gabapentin 400 Mg Capsule) 400 mg PO TID [facility] Last Admin: 11/29/23 14:58 Dose: 400 mg Lisinopril (Lisinopril 20 Mg Tablet) 20 mg PO DAILY [facility]; Protocol Last Admin: 11/29/23 08:20 Dose: 20 mg Magnesium Hydroxide (Milk Of Magnesia 30 Ml Oral.Susp) 30 ml PO DAILY PRN PRN Reason: Constipation Metformin HCl (Metformin Hcl 1,000 Mg Tablet) 1,000 mg PO BID [facility] Last Admin: 11/29/23 08:18 Dose: 1,000 mg Metoprolol Succinate (Metoprolol Succinate Er 50 Mg Tab.Er.24h) 50 mg PO DAILY [facility]; Protocol Last Admin: 11/29/23 08:19 Dose: 50 mg Mirtazapine (Mirtazapine 30 Mg Tablet) 30 mg PO BEDTIME [facility] Last Admin: 11/28/23 20:50 Dose: 30 mg Multivitamins/Vitamin C (Multivitamin Tablet) 1 tab PO DAILY [facility] Last Admin: 11/29/23 08:19 Dose: 1 tab Nicotine Polacrilex (Nicotine Polacrilex 2 Mg Gum) 4 mg BUCCAL Q2H PRN PRN Reason: Nicotine Cravings Olanzapine (Olanzapine 5 Mg Tablet) 5 mg PO TID PRN PRN Reason: agitation Omeprazole (Omeprazole 20 Mg Capsule.) 20 mg PO BID@0630,1630 [facility] Last Admin: 11/29/23 16:37 Dose: 20 mg Quetiapine Fumarate (Quetiapine Fumarate 50 Mg Tablet) 50 mg PO BEDTIME [facility] Last Admin: 11/28/23 20:49 Dose: 50 mg Trazodone HCl (Trazodone Hcl 50 Mg Tablet) 50 mg PO BEDTIME MRX1 PRN PRN Reason: Insomnia Last Admin: 11/28/23 20:48 Dose: 50 mg Allergies Allergies Allergy/AdvReac Type Severity Reaction Status Date / Time adhesive tape [TAPE,ADHESIVE] Allergy Severe ANAPHYLAXIS Verified 11/24/23 14:09 latex [LATEX] Allergy Severe ANAPHYLAXIS Verified 11/24/23 14:09 Penicillins [PCN] Allergy Severe ANAPHYLAXIS Verified 11/24/23 14:09 Assessment & Plan Assessment & Plan (1) PTSD (post-traumatic stress disorder): Status: Acute Code(s): F43.10 - Post-traumatic stress disorder, unspecified (2) Parkinsons disease: Status: Acute Code(s): G20.A1 - Parkinson's disease without dyskinesia, without mention of fluctuations (3) Diabetes mellitus type 2 in obese: Status: Acute Code(s): E11.69 - Type 2 diabetes mellitus with other specified complication; E66.9 - Obesity, unspecified (4) HTN (hypertension), benign: Status: Acute Code(s): I10 - Essential (primary) hypertension (5) GERD (gastroesophageal reflux disease): Status: Acute Code(s): K21.9 - Gastro-esophageal reflux disease without esophagitis (6) Hyperlipidemia: Status: Acute Code(s): E78.5 - Hyperlipidemia, unspecified (7) Sleep apnea: Status: Acute Code(s): G47.30 - Sleep apnea, unspecified (8) History of gastric surgery: Status: Acute Code(s): Z98.890 - Other specified postprocedural states Plan c/o crushing CP with c/o radiation to left arm and tingling in fingers of left hand - VSS, EKG reassuring, troponin NEG. given ativan 2 mg IM. calmed after 30-45 min. continue home medications for tonight, re-evaluate in the a.m. PRNs for agitation/psychosis. 11/25: Restart Seroquel which she responded to in the past admission. Seroquel 50 mg HS tonight. 11/26: DC Wheelchair. Walker. 5 min checks. Add GBP dose midday. 11/27: Continue current management and treatment plan. 11/28: increase gabapentin to 400 TID. otherwise continue current mgmt. Reason for continued inpatient stay Substantial Risk for: harm to self, inability to function and rapid decompensation Time Spent With Patient Time: Total time managing care of this patient today __25__ minutes.
[2023-11-29 22:30] VITALS: BP 133/71; PULSE 92; RESP 16; TEMP 36; O2SAT 95
[2023-11-29] MEDS: Mirtazapine 30 MG TABLET PO (22:59)
[2023-11-29] MEDS: QUEtiapine Fumarate 50 MG TABLET PO (22:59)
[2023-11-29 23:36] VITALS: PULSE 67; RESP 20; O2SAT 96
[2023-11-30] MEDS: Acetaminophen 325 MG TABLET 650 MG PO ×2 (01:54→23:01)
[2023-11-30] MEDS: traZODone HCL 50 MG TABLET PO ×2 (01:55→23:01)
[2023-11-30] MEDS: Omeprazole 20 MG CAPSULE.DR PO ×2 (06:44→16:58)
[2023-11-30 08:00] VITALS: BP 159/104; PULSE 81; RESP 18; TEMP 36.2; O2SAT 99
[2023-11-30] MEDS: metFORMIN HCl 1,000 MG TABLET 1000 MG PO ×2 (08:22→22:38)
[2023-11-30] MEDS: DULoxetine HCl 20 MG CAPSULE.DR 40 MG PO (08:22)
[2023-11-30] MEDS: Aspirin 81 MG TAB.CHEW PO (08:23)
[2023-11-30] MEDS: Gabapentin 400 MG CAPSULE PO (08:23)
[2023-11-30] MEDS: clonazePAM 1 MG TABLET PO ×2 (08:23→22:38)
[2023-11-30] MEDS: Multivitamin TABLET 1 TAB PO (08:23)
[2023-11-30] MEDS: Bumetanide 1 MG TABLET 0.5 MG PO (08:24)
[2023-11-30] MEDS: lisinopriL 20 MG TABLET PO (08:25)
[2023-11-30] MEDS: Atorvastatin Calcium 80 MG TABLET PO (08:25)
[2023-11-30] MEDS: Metoprolol Succinate ER 50 MG TAB.ER.24H PO (08:25)
[2023-11-30 08:31] LABS: Glucose, Whole Blood 134 mg/dL (60-115)
[2023-11-30] MEDS: Gabapentin 300 MG CAPSULE 600 MG PO ×2 (15:32→22:37)
--- NOTE | 2023-11-30 16:23 | HO.PSYCHPN ---
Subjective Subjective Date of Service: 11/30/23 Reason For Visit: depressed/SI/psychosis Interim History: denies SI/SIBI/AH. bright, pleasant. c/o sciatica pain. agrees to increase gabapentin to 600 TID. per staff, 3-day up tuesday. denies depression, some anxiety. showered. denies SI/SIBI/HI. Mental Status Exam Mental Status Exam Narrative: calm, cooperative, no PMA/PMR. wearing personal clothes, adequately dressed and groomed. cooperative. speech nml rate, incr amount, nml loudness, decr latency. thoughts linear and logical in. denies SI/HI but endorses CAH to suicide. Diagnostics Vital Signs (24Hr): Vital Signs - 24 hr 11/29/23 22:30 11/29/23 23:36 11/30/23 08:00 Temperature 96.8 F 97.2 F Pulse Rate 92 81 Respiratory Rate 16 20 18 Blood Pressure 133/71 159/104 H Pulse Oximetry 95 99 Oxygen Delivery Method Room Air Room Air BMI result Body Mass Index 30.7 Labs 11/24/23 14:19 11/24/23 14:19 Labs: Laboratory Results - last 48 hr 11/29/23 11/30/23 08:11 08:22 POC Glucose 123 H 134 H Medications Medications Current Medications Acetaminophen (Acetaminophen 325 Mg Tablet) 650 mg PO Q6H PRN PRN Reason: Headache/Pain Mild Scale (1-3) Last Admin: 11/30/23 01:54 Dose: 650 mg Al Hydroxide/Mg Hydroxide (Magnesium Hydrox/Alum Hydrox 30 Ml Oral.Susp) 30 ml PO Q6H PRN PRN Reason: Heartburn/Nausea Albuterol/Ipratropium (Albuterol/Iprat 2.5/0.5mg 3 Ml Ampul.Neb) 3 ml INHALE Q4H PRN PRN Reason: Shortness Of Breath Aspirin (Aspirin 81 Mg Tab.Chew) 81 mg PO DAILY [facility] Last Admin: 11/30/23 08:23 Dose: 81 mg Atorvastatin Calcium (Atorvastatin Calcium 80 Mg Tablet) 80 mg PO DAILY [facility] Last Admin: 11/30/23 08:25 Dose: 80 mg Bumetanide (Bumetanide 1 Mg Tablet) 0.5 mg PO DAILY [facility]; Protocol Last Admin: 11/30/23 08:24 Dose: 0.5 mg Clonazepam (Clonazepam 1 Mg Tablet) 1 mg PO BID [facility] Last Admin: 11/30/23 08:23 Dose: 1 mg Duloxetine HCl (Duloxetine Hcl 20 Mg Capsule.Dr) 40 mg PO DAILY [facility] Last Admin: 11/30/23 08:22 Dose: 40 mg Gabapentin (Gabapentin 300 Mg Capsule) 600 mg PO TID [facility] Last Admin: 11/30/23 15:32 Dose: 600 mg Lisinopril (Lisinopril 20 Mg Tablet) 20 mg PO DAILY [facility]; Protocol Last Admin: 11/30/23 08:25 Dose: 20 mg Magnesium Hydroxide (Milk Of Magnesia 30 Ml Oral.Susp) 30 ml PO DAILY PRN PRN Reason: Constipation Metformin HCl (Metformin Hcl 1,000 Mg Tablet) 1,000 mg PO BID [facility] Last Admin: 11/30/23 08:22 Dose: 1,000 mg Metoprolol Succinate (Metoprolol Succinate Er 50 Mg Tab.Er.24h) 50 mg PO DAILY [facility]; Protocol Last Admin: 11/30/23 08:25 Dose: 50 mg Mirtazapine (Mirtazapine 30 Mg Tablet) 30 mg PO BEDTIME [facility] Last Admin: 11/29/23 22:59 Dose: 30 mg Multivitamins/Vitamin C (Multivitamin Tablet) 1 tab PO DAILY [facility] Last Admin: 11/30/23 08:23 Dose: 1 tab Nicotine Polacrilex (Nicotine Polacrilex 2 Mg Gum) 4 mg BUCCAL Q2H PRN PRN Reason: Nicotine Cravings Olanzapine (Olanzapine 5 Mg Tablet) 5 mg PO TID PRN PRN Reason: agitation Omeprazole (Omeprazole 20 Mg Capsule.Dr) 20 mg PO BID@0630,1630 [facility] Last Admin: 11/30/23 06:44 Dose: 20 mg Quetiapine Fumarate (Quetiapine Fumarate 50 Mg Tablet) 50 mg PO BEDTIME [facility] Last Admin: 11/29/23 22:59 Dose: 50 mg Trazodone HCl (Trazodone Hcl 50 Mg Tablet) 50 mg PO BEDTIME MRX1 PRN PRN Reason: Insomnia Last Admin: 11/30/23 01:55 Dose: 50 mg Allergies Allergies Allergy/AdvReac Type Severity Reaction Status Date / Time adhesive tape [TAPE,ADHESIVE] Allergy Severe ANAPHYLAXIS Verified 11/24/23 14:09 latex [LATEX] Allergy Severe ANAPHYLAXIS Verified 11/24/23 14:09 Penicillins [PCN] Allergy Severe ANAPHYLAXIS Verified 11/24/23 14:09 Assessment & Plan Assessment & Plan (1) PTSD (post-traumatic stress disorder): Status: Acute Code(s): F43.10 - Post-traumatic stress disorder, unspecified (2) Parkinsons disease: Status: Acute Code(s): G20.A1 - Parkinson's disease without dyskinesia, without mention of fluctuations (3) Diabetes mellitus type 2 in obese: Status: Acute Code(s): E11.69 - Type 2 diabetes mellitus with other specified complication; E66.9 - Obesity, unspecified (4) HTN (hypertension), benign: Status: Acute Code(s): I10 - Essential (primary) hypertension (5) GERD (gastroesophageal reflux disease): Status: Acute Code(s): K21.9 - Gastro-esophageal reflux disease without esophagitis (6) Hyperlipidemia: Status: Acute Code(s): E78.5 - Hyperlipidemia, unspecified (7) Sleep apnea: Status: Acute Code(s): G47.30 - Sleep apnea, unspecified (8) History of gastric surgery: Status: Acute Code(s): Z98.890 - Other specified postprocedural states Plan c/o crushing CP with c/o radiation to left arm and tingling in fingers of left hand - VSS, EKG reassuring, troponin NEG. given ativan 2 mg IM. calmed after 30-45 min. continue home medications for tonight, re-evaluate in the a.m. PRNs for agitation/psychosis. 11/25: Restart Seroquel which she responded to in the past admission. Seroquel 50 mg HS tonight. 11/26: DC Wheelchair. Walker. 5 min checks. Add GBP dose midday. 11/27: Continue current management and treatment plan. 11/28: increase gabapentin to 400 TID. otherwise continue current mgmt. 11/29: increase gabapentin to 600 TID for sciatica pain. otherwise continue current mgmt. 3-day up 12/01. Reason for continued inpatient stay Substantial Risk for: inability to function and rapid decompensation Time Spent With Patient Time: Total time managing care of this patient today __25__ minutes.
[2023-11-30 20:00] VITALS: BP 127/76; PULSE 73; RESP 17; TEMP 36.4; O2SAT 98
[2023-11-30] MEDS: QUEtiapine Fumarate 50 MG TABLET PO (22:37)
[2023-11-30] MEDS: Mirtazapine 30 MG TABLET PO (22:38)
[2023-11-30 23:53] VITALS: RESP 17
[2023-12-01] MEDS: Omeprazole 20 MG CAPSULE.DR PO ×2 (06:49→15:26)
[2023-12-01 07:35] VITALS: BP 128/65; PULSE 62; RESP 14; TEMP 36.6; O2SAT 99
[2023-12-01 08:43] LABS: Glucose, Whole Blood 111 mg/dL (60-115)
[2023-12-01] MEDS: DULoxetine HCl 20 MG CAPSULE.DR 40 MG PO (08:56)
[2023-12-01] MEDS: clonazePAM 1 MG TABLET PO ×2 (08:56→21:49)
[2023-12-01 08:57] VITALS: BP 128/65; PULSE 95
[2023-12-01] MEDS: Gabapentin 300 MG CAPSULE 600 MG PO ×3 (08:57→21:49)
[2023-12-01] MEDS: metFORMIN HCl 1,000 MG TABLET 1000 MG PO ×2 (08:57→21:49)
[2023-12-01] MEDS: Metoprolol Succinate ER 50 MG TAB.ER.24H PO (08:57)
[2023-12-01 08:58] VITALS: BP 128/65
[2023-12-01] MEDS: Bumetanide 1 MG TABLET 0.5 MG PO (08:58)
[2023-12-01] MEDS: Atorvastatin Calcium 80 MG TABLET PO (08:58)
[2023-12-01] MEDS: lisinopriL 20 MG TABLET PO (08:58)
[2023-12-01] MEDS: Multivitamin TABLET 1 TAB PO (08:58)
[2023-12-01] MEDS: Aspirin 81 MG TAB.CHEW PO (08:59)
[2023-12-01 09:00] LABS: Creatinine Clr Calc Pharmacy 89.7; Estimated Glomerular Filt Rate > 60
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
[2023-12-01 20:00] VITALS: BP 109/57; PULSE 69; RESP 18; TEMP 36.4; O2SAT 96
[2023-12-01] MEDS: Mirtazapine 30 MG TABLET PO (21:49)
[2023-12-01] MEDS: QUEtiapine Fumarate 50 MG TABLET PO (21:49)
[2023-12-02] MEDS: Omeprazole 20 MG CAPSULE.DR PO (06:31)
[2023-12-02 08:00] VITALS: BP 134/64; PULSE 70; RESP 16; TEMP 36.4; O2SAT 99
[2023-12-02 08:38] LABS: Glucose, Whole Blood 118 mg/dL (60-115)
[2023-12-02] MEDS: Multivitamin TABLET 1 TAB PO (09:01)
[2023-12-02 09:02] VITALS: BP 134/64; PULSE 70
[2023-12-02] MEDS: Metoprolol Succinate ER 50 MG TAB.ER.24H PO (09:02)
[2023-12-02] MEDS: Atorvastatin Calcium 80 MG TABLET PO (09:02)
[2023-12-02] MEDS: Gabapentin 300 MG CAPSULE 600 MG PO (09:02)
[2023-12-02] MEDS: metFORMIN HCl 1,000 MG TABLET 1000 MG PO (09:02)
[2023-12-02] MEDS: DULoxetine HCl 20 MG CAPSULE.DR 40 MG PO (09:02)
[2023-12-02 09:03] VITALS: BP 134/64
[2023-12-02] MEDS: lisinopriL 20 MG TABLET PO (09:03)
[2023-12-02] MEDS: Bumetanide 1 MG TABLET 0.5 MG PO (09:03)
[2023-12-02] MEDS: clonazePAM 1 MG TABLET PO (09:03)
[2023-12-02] MEDS: Aspirin 81 MG TAB.CHEW PO (09:04)
== END 2023-12-02 10:57 | disposition home or self-care (01) | DRG 882 ==
LOC: HO.ED 15:47 → HO.PADLT16 16:45
PROVIDERS: Physician Assistant Medical; Admitting Provider Psychiatry & Neurology Psychiatry; Emergency Provider Emergency Medicine; Visit Provider Psychiatry & Neurology Psychiatry
DX: F43.12 Post-traumatic stress disorder, chronic (principal); R45.851 Suicidal ideations; G20.A1 Parkinson's disease without dyskinesia, without mention of fluctuations; K21.9 Gastro-esophageal reflux disease without esophagitis; G89.4 Chronic pain syndrome; E11.69 Type 2 diabetes mellitus with other specified complication; E66.9 Obesity, unspecified; Z68.30 Body mass index [BMI] 30.0-30.9, adult; E78.5 Hyperlipidemia, unspecified; G47.30 Sleep apnea, unspecified; Z91.52 Personal history of nonsuicidal self-harm; Z91.51 Personal history of suicidal behavior; Z91.410 Personal history of adult physical and sexual abuse; Z98.84 Bariatric surgery status; Z79.82 Long term (current) use of aspirin; Z79.84 Long term (current) use of oral hypoglycemic drugs; Z79.899 Other long term (current) drug therapy
CPT/HCPCS: 36415; 80053; 80307; 81001; 82565; 82947; 84484; 85025; 87086; 93005; 94660; 97161; 99285; J2060

== ENCOUNTER → 2023-11-24 16:36 | Outpatient (BNV) | payer OTHER, SELFPAY | PROVIDERS: Admitting Provider Psychiatry & Neurology Psychiatry; Emergency Provider Emergency Medicine; Visit Provider Psychiatry & Neurology Psychiatry | DX: F32.2 Major depressive disorder, single episode, severe without psychotic features (principal); F43.11 Post-traumatic stress disorder, acute; G20.A1 Parkinson's disease without dyskinesia, without mention of fluctuations; F41.1 Generalized anxiety disorder | CPT/HCPCS: 90792; 99231; 99232; 99239 ==

== ENCOUNTER 2024-02-20 18:30 | Emergency (ER) | payer OTHER, SELFPAY ==
--- NOTE | ~2024-02-20 | XR_ITS ---
EXAMINATION: XR CHEST CLINICAL INFORMATION: Shortness of breath COMPARISON: 10/04/2023 TECHNIQUE: Frontal view of the chest was obtained. FINDINGS: Heart is normal in size. Coarse interstitial markings seen in the bilateral perihilar regions. No focal airspace consolidations or pleural effusions. XR/XR chest 1V IMPRESSION: Coarse interstitial markings in the bilateral perihilar regions, possibly representing underlying bronchitis or reactive airway disease. Electronically signed by: Marcel Arellano MD 02/20/2024 09:38 PM EST
--- NOTE | ~2024-02-20 | CT_ITS ---
EXAMINATION: CT ABDOMEN AND PELVIS WITH CONTRAST CLINICAL INFORMATION: Abdominal pain. Chills. Diarrhea. COMPARISON: October 12, 2023 TECHNIQUE: Multidetector volumetric images were obtained from the superior aspect of the liver through the pubic symphysis following administration 100 mL of Omnipaque 350 intravenous contrast. Sagittal and coronal reformatted images were obtained on the technologist's workstation. Oral contrast: No This CT examination was performed using dose optimization techniques as appropriate, variously including the following: *Automated exposure control *Adjustment of mA and/or kV according to patient size (this includes techniques or standardized protocols for targeted exams where dose is matched to indication/reason for exam; i.e. extremities or head) *Use of iterative reconstruction technique DLP: 100 mGy-cm FINDINGS: LUNG BASES: The visualized lung bases are unremarkable. LIVER, GALLBLADDER, AND BILIARY TREE: The liver is normal in size, shape, and attenuation. No focal hepatic lesion or biliary ductal dilatation is present. There has been a prior cholecystectomy. PANCREAS: Unremarkable. SPLEEN: Unremarkable. ADRENAL GLANDS: Unremarkable. KIDNEYS AND URETERS: The kidneys are normal in size, shape, and attenuation. No hydronephrosis, hydroureter, or calculi seen. No perinephric stranding. BLADDER: Unremarkable. GASTROINTESTINAL TRACT: There is been prior gastric surgery. There is a small hiatal hernia. There are a few diverticula of the sigmoid colon without diverticulitis. There is an enteroenteric anastomosis with a few prominent distal fluid-filled small bowel loops measuring up to 2.5 cm. ABDOMINAL WALL: No significant hernia is appreciated. LYMPH NODES: Normal. VASCULAR: There is atherosclerotic plaque of the abdominal aorta and proximal branches. PELVIC VISCERA: Unremarkable. OSSEOUS STRUCTURES: Unremarkable. CT/CT abdomen pelvis w IV con IMPRESSION: There is an enteroenteric anastomosis with a few prominent distal fluid-filled small bowel loops measuring up to 2.5 cm. This is nonspecific and may be related to mild enteritis. Developing obstruction considered less likely. Clinical follow-up suggested. Small hiatal hernia. There are a few diverticula of the sigmoid colon without diverticulitis. Fleischner guidelines were followed. Electronically signed by: Donal Alejo MD 02/21/2024 12:06 AM [facility]
[2024-02-20 18:48] VITALS: BP 128/82; PULSE 68; O2SAT 97
[2024-02-20 19:17] VITALS: BP 136/77; PULSE 70; RESP 20; TEMP 36.6; O2SAT 100; BMI 34.1
--- NOTE | 2024-02-20 21:05 | ED.ABDPAIN ---
HPI - Abdominal Pain General Chief Complaint: Abdominal Pain Stated Complaint: epiastric pain x4 days, nausea,vomiting Time Seen by Provider: 02/20/24 21:02 Source: patient, EMS and old records reviewed Mode of arrival: EMS Limitations: no limitations History of Present Illness ED Provider: HAILEY HOWARD narrative: 63 yo female with PMH of PTSD, movement disorder, parkinsons ds, MDD, DM2, HTN, GERD, HLD, prior gastric surgery - she tells me for Crohns in the past here with c/o not feeling well for 3 days. Her had the flu. She notes n/v/d x 3 days, upper abdominal pain, she also notes last night she felt short of breath and chest tightness has no recent travel or procedures. She has no cough. She states she feels like she cannot take a deep breath. Had a team visit home - RN to the house - MARIA E and renzo ordered but it did not help. MD elicited complaint: abdominal pain Onset (ago): day(s) (3) Pain Consistency: constant Location: epigastric Severity: moderate Quality: aching Radiation: none Migration to: no migration Exacerbating factors: eating and movement Relieving factors: nothing Associated symptoms: nausea, vomiting, diarrhea, chills and other (dyspnea) Related Data Home Medications ?Medication ?Instructions ?Recorded ?Confirmed bumetanide 0.5 mg tablet 0.5 mg PO DAILY 05/06/21 11/24/23 esomeprazole magnesium 40 mg 40 mg PO BID 05/06/21 11/24/23 capsule,delayed release metformin 1,000 mg tablet 1,000 mg PO BID 05/06/21 11/24/23 albuterol sulfate 90 mcg/actuation 2 puff inhalation Q4H 09/29/23 11/24/23 aerosol inhaler (Ventolin HFA) aspirin 81 mg chewable tablet 1 tab PO DAILY 09/29/23 11/24/23 ipratropium 0.5 mg-albuterol 3 mg 3 ml inhalation Q4H PRN Shortness 09/29/23 11/24/23 (2.5 mg base)/3 mL nebulization Of Breath soln metoprolol succinate 50 mg 50 mg PO DAILY 09/29/23 11/24/23 tablet,extended release 24 hr multivitamin with folic acid 400 1 tab PO DAILY 09/29/23 11/24/23 mcg tablet (Tab-A-Alanis) diclofenac sodium 1 % topical gel 1 ea topical QID PRN Pain (Scale 10/03/23 11/24/23 Score 1-3) lisinopril 20 mg tablet 20 mg PO DAILY 10/03/23 11/24/23 rosuvastatin 40 mg tablet 40 mg PO DAILY 10/03/23 11/24/23 Previous Rx's ?Medication ?Instructions ?Recorded clonazepam 1 mg tablet 1 mg PO BID #60 tabs 10/13/23 duloxetine 20 mg capsule,delayed 40 mg (2 x 20 mg) PO DAILY #60 caps 10/13/23 release mirtazapine 30 mg tablet 30 mg PO BEDTIME #30 tabs 10/13/23 gabapentin 300 mg capsule 600 mg (2 x 300 mg) PO TID 30 days 12/01/23 #180 caps quetiapine 50 mg tablet 50 mg PO BEDTIME 30 days #30 tabs 12/01/23 trazodone 50 mg tablet 50 mg PO BEDTIME Insomnia 30 days 12/01/23 #30 tabs ondansetron 4 mg disintegrating 4 mg PO Q8H PRN nausea and 02/21/24 tablet vomiting #20 tabs Allergies Allergy/AdvReac Type Severity Reaction Status Date / Time adhesive tape [TAPE,ADHESIVE] Allergy Severe ANAPHYLAXIS Verified 02/20/24 19:22 latex [LATEX] Allergy Severe ANAPHYLAXIS Verified 02/20/24 19:22 Penicillins [PCN] Allergy Severe ANAPHYLAXIS Verified 02/20/24 19:22 Review of Systems Review of Systems Constitutional : No Weight loss, No Fever, pos Chills ENT/Mouth : No sore throat, No Rhinorrhea Eyes: No Swelling, No Redness Cardiovascular : pos Chest Pain, pos SOB, No edema Respiratory : No Cough, No Sputum, No Wheezing Gastrointestinal : Positive Nausea, Positive Vomiting, positive Diarrhea, positive abdominal Pain, No Hematochezia, No Melena Genitourinary : No Dysuria, No Urinary Frequency, No Hematuria, No Urgency Musculoskeletal : No joint pain, No Myalgias, No Joint Swelling Skin : No Skin Lesions, No rash Neuro : No Weakness, No Numbness, No Dizziness, No Headache Psych : No Anxiety/Panic, No Depression All other systems reviewed and are negative. [facility] Past Medical History Attestation statement: The following information was validated with the patient. Source: old records reviewed Medical History Medical clearance for psychiatric admission Parkinsons disease PTSD (post-traumatic stress disorder) MDD (major depressive disorder), recurrent, severe, with psychosis Insomnia Dyskinesia, drug-induced Dissociative identity disorder Bipolar 1 disorder Anxiety Depression Colon cancer Surgical History History of carpal tunnel surgery Hx of bariatric surgery Hx of hysterectomy History of partial colectomy Hx of cholecystectomy Hx of appendectomy Hx of knee surgery Family History Family History Mother Diabetes Hypertension Father No problems noted. Sister No problems noted. Brother No problems noted. Social History Social History Household Members: Spouse Housing: House Do you presently have visiting nurse or other home services: Yes (Home health aide and visiting nurse) Alcohol intake: never Patient Tobacco Use Status: Never used Tobacco Smoked in Last 30 Days: No e-Cigarette/Vaping Use: Never Used Second Hand Smoke Exposure: No Use of substances other than those prescribed or required for medical reasons: No Substance Use Type: Marijuana Advance Directives: No Advance Directives Information Provided: No service: No Sexual orientation: Straight/Heterosexual Physical Exam ED Vital Signs: Vital Signs - 24 hr 02/20/24 19:17 02/21/24 01:37 02/21/24 03:29 Temperature 97.8 F 97.9 F 97.9 F Pulse Rate 70 88 88 Respiratory Rate 20 16 16 Blood Pressure 136/77 115/70 115/70 Pulse Oximetry 100 97 97 Oxygen Delivery Method Nasal Cannula Room Air Room Air BMI result Body Mass Index 34.1 Appearance: Alert. Oriented X3. No acute distress. abnormal movements at times, she tries to take a deep breath then appears to stack. Has O2 on for comfort Eyes: Pupils equal, round and reactive to light. ENT: Pharynx normal. Neck: Normal inspection. Neck supple. CVS: Normal heart rate and rhythm. Pulses normal. Respiratory: No respiratory distress. Breath sounds normal. Abdomen: Soft and moderate epigastric ttp no rebound or guarding Skin: Skin warm and dry. Normal skin color. Normal skin turgor. Extremities: No lower extremity edema. No calf ttp Neuro: Oriented X 3. No motor deficit. No sensory deficit. Medical Decision Making Medical Decision Making [facility] Narrative: 63 yo female with PMH of PTSD, movement disorder, parkinsons ds, MDD, DM2, HTN, GERD, HLD, prior gastric surgery here with c/o upper abdominal pain n/v/d no fevers but has chills then also reports she has a hard time taking a deep breath and feels winded though 100% on RA and lungs are clear. At this time basic labs, EKG, CXR, ddimer and troponin x 1, CT scan of abdomen for ileus, SBO, colitis. IV morphine for pain. Differential Diagnosis Differential Diagnoses: The differential diagnosis associated with the presentation includes viral syndrome, SBO, VTE, atypical ACS, URI Admission/Observation Consideration of admission/observation: Escalation of care including admission/observation considered tolerating PO neg ddimer neg trop UA negative CT scan no SBO tolerating PO here feels much better mild bronchitis on CXR but suspect viral Lab Data [facility] Lab Attestation statement: I reviewed the patient's lab results. 02/20/24 21:46 02/20/24 21:46 Labs: Lab Results 02/20/24 02/20/24 Range/Units 21:46 23:49 WBC 5.6 (4.8-10.8) X10*3/uL RBC 4.83 (4.20-5.50) X10*6/uL Hgb 12.3 (12.0-16.0) g/dl Hct 37.3 (37.0-47.0) % MCV 77.2 L (80.0-98.0) fL MCH 25.5 L (27.0-33.0) pg MCHC 33.0 (31.0-35.0) g/dl RDW 13.9 (11.0-16.0) % Plt Count 176 (160-400) X10*3/uL MPV 10.9 (9.4-12.3) fL Immature Gran % (Auto) 0.2 (0.0-0.4) % Neut % (Auto) 56.3 (45-73) % Lymph % (Auto) 36.9 (20-40) % [place] % (Auto) 6.4 (2-11) % Eos % (Auto) 0.2 (0-4) % Baso % (Auto) 0.0 (0-2) % Lymph # (Auto) 2.1 (1.2-4.9) X10*3/uL [place] # (Auto) 0.4 (0.1-1.2) X10*3/uL Eos # (Auto) 0.0 (0.0-0.4) X10*3/uL Baso # (Auto) 0.0 (0.0-0.2) X10*3/uL Abs Immat Gran (auto) 0.01 (0.00-0.03) X10*3/uL Absolute Neuts (auto) 3.2 (2.0-8.3) x10*3/uL Absolute Nucleated RBC 0.000 (0.0-0.012) X10*3/uL Nucleated RBC % (auto) 0.0 (0.0-0.2) /100WBC D-Dimer High Sensitivty 172 NG/ML Sodium 135 (135-145) mmol/L Potassium 4.5 (3.3-5.1) mmol/L Chloride 102 (96-108) mmol/L Carbon Dioxide 26 (22-29) mmol/L Anion Gap 12 (12-20) BUN 17 H (9-16) mg/dL Creatinine 0.80 (0.5-1.4) mg/dL Estim Creat Clear Calc 94.4 Estimated GFR > 60 Random Glucose 103 (60-115) mg/dL Calcium 8.9 D (8.4-10.2) mg/dL Total Bilirubin 0.8 (0.0-1.0) mg/dL AST 21 (5-31) U/L ALT 14 (0-31) U/L Alkaline Phosphatase 121 H (39-117) U/L Troponin I High Sens < 2.7 (<3.5-17.0) ng/L Total Protein 6.5 (6.5-8.0) g/dL Albumin 3.8 (3.5-5.0) g/dL Lipase 60 (8-78) U/L Urine Color Yellow Urine Appearance Clear Urine pH 7.0 (5.0-9.0) Ur Specific [place] 1.025 (1.005-1.025) Urine Protein Negative (Neg-Trace) mg/dL Urine Glucose (UA) Negative (Negative) mg/dL Urine Ketones Trace (Negative) mg/dL Urine Blood Negative (Negative) Urine Nitrite Negative (Negative) Ur Leukocyte Esterase Small (1+) H (Negative) Urine RBC 0-2 (0-2) /HPF Urine WBC 0-5 (0-5) /HPF Ur Squamous Epith Cells 0-2 (0-2) /HPF Urine Bacteria None Seen (None Seen) Hyaline Casts 0-2 (0-2) /LPF COVID-19 (PALOMA) Negative (Negative) COVID-19 Clin Com See Note Influenza Type A (TAHIRA) Negative (Negative) Influenza Type B (TAHIRA) Negative (Negative) Influenza A & B Note See Note Independent Interpretation I performed an independent interpretation of an: EKG, Plain X-Ray (bronchitis) and CT Scan (no SBO) Interpretation: Rate: Rhythm: [place]: Normal P waves. Normal PENNY. Normal QRS complex. ST T wave : qTC: prior studies: The study has been interpreted contemporaneously by me. . Radiology Impression Discussion of test interpretation with radiology: I have reviewed the radiologist's reading. External Record Review External record reviewed: Outpatient record Prescription Management I considered prescription management with: Other Medications Administered Discontinued Medications Generic Name Dose Route Start Last Admin Trade Name Freq PRN Reason Stop Dose Admin Iohexol 100 ml 02/20/24 23:12 02/20/24 23:12 Iohexol 350 Mg/Ml 100 Ml Infus..Btl IV 02/20/24 23:13 100 ml ONCE ONE Administration Morphine Sulfate 4 mg 02/20/24 21:31 02/20/24 23:11 Morphine Sulfate 4 Mg/Ml Cartridge IVPUSH 02/20/24 21:32 4 mg ONCE ONE Administration Protocol Ondansetron HCl 4 mg 02/20/24 21:31 02/20/24 23:11 Ondansetron Hcl 4 Mg/2 Ml Vial IVPUSH 02/20/24 21:32 4 mg ONCE ONE Administration Critical Care Time Critical Care Time Critical Care Time: Yes Total Critical Care Time: 35 Attestation: review of records, improvement in pain with IV morphine, repeat assessment I attest to this time spent taking care of the patient Discharge Plan Discharge Clinical Impression: Acute viral syndrome, Enteritis Nausea & vomiting Qualifiers: Vomiting type: unspecified Qualified Code(s): R11.2 - Nausea with vomiting, unspecified Patient Disposition: Home, Self-Care Instructions: Acute Nausea and Vomiting (ED), Acute Abdominal Pain (ED), Viral Syndrome (ED), Enteritis (ED) Additional Instructions: labs and urine reassuring chest xray no pneumonia CT scan no obstruction, infection suspect viral infection bland diet for 24 hours return for any worsening symptoms or concerns - stay hydrated. things to look out for no bowel movement, distended abdomen, unable to eat or drink Prescriptions: New ondansetron 4 mg tablet,disintegrating 4 mg PO Q8H PRN (Reason: nausea and vomiting) Qty: 20 0RF No Action aspirin 81 mg tablet,chewable 1 tab PO DAILY ipratropium-albuterol 0.5 mg-3 mg(2.5 mg base)/3 mL solution for nebulization 3 ml inhalation Q4H PRN (Reason: Shortness Of Breath) metoprolol succinate 50 mg tablet extended release 24 hr 50 mg PO DAILY albuterol sulfate [Ventolin HFA] 90 mcg/actuation HFA aerosol inhaler 2 puff inhalation Q4H multivitamin with folic acid [Tab-A-Alanis] 400 mcg tablet 1 tab PO DAILY lisinopril 20 mg tablet 20 mg PO DAILY rosuvastatin 40 mg tablet 40 mg PO DAILY diclofenac sodium 1 % gel 1 ea topical QID PRN (Reason: Pain (Scale Score 1-3)) clonazepam 1 mg tablet 1 mg PO BID Qty: 60 0RF mirtazapine 30 mg tablet 30 mg PO BEDTIME Qty: 30 0RF duloxetine 20 mg capsule,delayed release(DR/EC) 40 mg PO DAILY Qty: 60 0RF trazodone 50 mg Tablet 50 mg PO BEDTIME 30 Days Qty: 30 0RF gabapentin 300 mg Capsule 600 mg PO TID 30 Days Qty: 180 0RF quetiapine 50 mg Tablet 50 mg PO BEDTIME 30 Days Qty: 30 0RF bumetanide 0.5 mg tablet 0.5 mg PO DAILY esomeprazole magnesium 40 mg capsule,delayed release(DR/EC) 40 mg PO BID metformin 1,000 mg tablet 1,000 mg PO BID Interventions: ED Discharge Assessment Last Done: 02/21/24 03:29 Discharge Date/Time: 02/21/24 03:30 Print Language: Macedonian
--- NOTE | 2024-02-20 21:30 | MHC.EDTECH ---
Patient states he is Jehovah witness and doesnt want his blood taken
[2024-02-20 21:54] LABS: MANUAL DIFF FLAG NO
--- NOTE | 2024-02-20 21:59 | ECG_ITS ---
Test Reason : ABD PAIN Blood Pressure : / mmHG Vent. Rate : 068 BPM Atrial Rate : 068 BPM P-R Int : 172 ms QRS Dur : 108 ms QT Int : 404 ms P-R-T Axes : -13 023 041 degrees QTc Int : 429 ms Normal sinus rhythm Cannot exculde old anteroseptal infarct Abnormal ECG When compared with ECG of 24-NOV-2023 14:23, No significant change was found Referred By: Doreen Navarro Electronically Signed By:DESHAWN ARCHER
[2024-02-20 22:06] LABS: D Dimer High Sensitivity 172 NG/ML
[2024-02-20 22:07] LABS: Alanine Aminotransferase 14 U/L (0-31); Albumin Level 3.8 g/dL (3.5-5.0); Alkaline Phosphatase 121 U/L (39-117); Anion Gap 12 (12-20); Aspartate Amino Transferase 21 U/L (5-31); Bilirubin Total 0.8 mg/dL (0.0-1.0); Blood Urea Nitrogen 17 mg/dL (9-16); Calcium 8.9 mg/dL (8.4-10.2); Carbon Dioxide 26 mmol/L (22-29); Chloride 102 mmol/L (96-108); Creatinine Clr Calc Pharmacy 94.4; Estimated Glomerular Filt Rate > 60; Glucose Random 103 mg/dL (60-115); Lipase 60 U/L (8-78); Potassium 4.5 mmol/L (3.3-5.1); Sodium 135 mmol/L (135-145); Total Protein 6.5 g/dL (6.5-8.0)
[2024-02-20 22:10] LABS: COVID-19 Test Negative (Negative); IDNOW Serial# 08D9AD1C
[2024-02-20 22:11] LABS: Eosinophils Percent Auto 0.2 % (0-4); Hematocrit 37.3 % (37.0-47.0); Hemoglobin 12.3 g/dl (12.0-16.0); Imm Gran Abs Auto 0.01 X10*3/uL (0.00-0.03); Imm Gran Pct Auto 0.2 % (0.0-0.4); Lymphocytes Absolute Auto 2.1 X10*3/uL (1.2-4.9); Lymphocytes Percent Auto 36.9 % (20-40); Mean Corpuscular Hemoglobin 25.5 pg (27.0-33.0); Mean Corpuscular Volume 77.2 fL (80.0-98.0); Mean Platelet Volume 10.9 fL (9.4-12.3); Monocytes Absolute Auto 0.4 X10*3/uL (0.1-1.2); Monocytes Percent Auto 6.4 % (2-11); Neutrophils Absolute Auto 3.2 x10*3/uL (2.0-8.3); Neutrophils Percent Auto 56.3 % (45-73); Platelet Count 176 X10*3/uL (160-400); Red Blood Count 4.83 X10*6/uL (4.20-5.50); Red Cell Distribution Width 13.9 % (11.0-16.0); White Blood Count 5.6 X10*3/uL (4.8-10.8)
[2024-02-20 22:12] LABS: IDNOW Serial# 152EDE1D; Influenza A Negative (Negative); Influenza B2 Negative (Negative)
[2024-02-20 22:16] LABS: Troponin-I High Sensitivity < 2.7 ng/L (<3.5-17.0)
[2024-02-20] MEDS: Morphine Sulfate 4 MG/ML CARTRIDGE IVPUSH (23:11)
[2024-02-20] MEDS: ondansetron HCL 4 MG/2 ML VIAL IVPUSH (23:11)
[2024-02-20] MEDS: iohexoL 350 MG/ML 100 ML INFUS..BTL IV (23:12)
[2024-02-20 23:58] LABS: Appearance Urine Clear; Color Urine Yellow; Glucose Urine UA Negative (Negative); Leukocyte Esterase Urine Small (1+) (Negative); Nitrite Urine Negative (Negative); Specific Gravity - Urine 1.025 (1.005-1.025); UMIC TRIGGER UACC YES; Urine Blood Negative (Negative); Urine Ketones Trace mg/dL (Negative); Urine Protein Negative (Neg-Trace)
[2024-02-21 00:07] LABS: Bacteria Urine None Seen (None Seen); Hyaline Casts Urine 0-2 /LPF (0-2); RBC Urine 0-2 /HPF (0-2); Squamous Epithelial Cell Urine 0-2 /HPF (0-2); UACC Culture Trigger YES; WBC Urine 0-5 /HPF (0-5)
[2024-02-21 01:37] VITALS: BP 115/70; PULSE 88; RESP 16; TEMP 36.6; O2SAT 97
--- NOTE | 2024-02-21 01:41 | MHC.EDTECH ---
This pct assumed care of Patient at 0100 ,Vitals taken Patient waiting for transportation to go home .ice chips given .
[2024-02-21 03:29] VITALS: BP 115/70; PULSE 88; RESP 16; TEMP 36.6; O2SAT 97
== END 2024-02-21 03:30 | disposition home or self-care (01) ==
PROVIDERS: Emergency Provider Emergency Medicine
DX: B34.9 Viral infection, unspecified (principal); K52.9 Noninfective gastroenteritis and colitis, unspecified; R06.02 Shortness of breath; R10.9 Unspecified abdominal pain; G20.A1 Parkinson's disease without dyskinesia, without mention of fluctuations; Z79.899 Other long term (current) drug therapy; Z03.818 Encounter for observation for suspected exposure to other biological agents ruled out
CPT/HCPCS: 36415; 71045; 74177; 80053; 81001; 81003; 83690; 84484; 85025; 85379; 87086; 87502; 87635; 93005; 96374; 96375; 99284; 99285; J2270; J2405; Q9967

== ENCOUNTER → 2024-02-20 21:59 | Outpatient (BNV) | payer OTHER, SELFPAY | PROVIDERS: Emergency Provider Emergency Medicine; Visit Provider Internal Medicine | DX: R94.31 Abnormal electrocardiogram [ECG] [EKG] (principal); R10.13 Epigastric pain | CPT/HCPCS: 93010 ==

== ENCOUNTER 2024-03-08 16:57 | Emergency (ER) | payer OTHER, SELFPAY ==
--- OUTSIDE RECORDS SUMMARY | 2024-03-08 17:00 | XMS_ITS | Continuity of Care Document ---
Author Organization [place] [employer] [place] - [facility] Address [address] [place] [phone] Care Team Providers Care Retail Event And Sales Assistant Name Role Phone ARTIEDARLENEAMEE Primary Care Provider HIM CCA OTHER Assessment Encounter Date Assessment Date Assessment LastModified by Organization Details LastModified Time 02/20/2024 02/20/2024 service called f or nausea/vomiting x4d found 63 mele with hx T2DM, MDD, [place], PTSD, Insomnia, HTN,GERD, Fibromyalgia CHF remote partial small bowel resection c/o 4d worsening nausea, vomiting, epigastric pain without radiation, watery diarrhea unable tolerate any PO intake ongoing nausea, vomiting at visit +very thirsty VSS reported exam: epigastrium very tender Na 136 K 4.1 Cl 103 BUN/Cr 21/0.8 Lac 1.02 EKG: sinus, no e/o ischemia COVID neg Flu neg #Nausea ddx viral gastroenteritis but also includes partial obstruction given surgical history repleted 1L NS Unable control with ondansetron IV -refer ED for imaging [email or web address] Not available 02/20/2024 18:04:46 Plan of Treatment Reminders Order Date Submit Date Provider Last Modified By Organization Details Last Modified Time Details Appointments None recorded. Lab BMP, serum or plasma 2023 [facility], [address] [place] [address], [phone], 20:00:12 Referral None recorded. Procedures None recorded. Surgeries None recorded. Imaging electrocard iogram 2023 [facility], [address] [place] [address], [phone], 16:14:50 Medication Orders ondansetron HCl (PF) 4 mg/2 mL injection solution 2023 024 [place], [place] - [id number], [address] [place], [address], 4 18:04:36 sodium chloride 0.9 % intravenous solution 2023 024 [place], [place] - [id number], [address] [place], [address], 18:04:36 Patient TargetsNo targets recorded. Patient InstructionsNo instructions recorded. Reason for Referral None Reported. Results Created Date Observation Date Name Description Value Unit Range Abnormal Flag Note LastModifiedBy Organization Detail LastModifiedTime 02/20/20 24 02/20/2024 radha fernandez am No observ ation record ed. [facility] [address], [phone], 02/20/2024 19:59:52 Result Notes None recorded. Procedures Surgical History None recorded. Imaging Results Imaging Date Name Status LastModified by Organization Details LastModified Time 02/20/2024 electrocardiogram completed [facility] - [address], [phone], 02/20/2024 19:59:52 Procedure Notes None recorded. Medical Equipment None Reported. Allergies Allergen ID Allergen Name Allergen Category Reaction Reaction Severity Criticality Documentation Date Start Date Code Code System Note Provider Name and Address Organization Details Recorded Time 36236 Reglan medicatio n Not available Not available Not available 02/20/2024 9230 RxNorm Not Available [facility] - [facility] 15:54:42 3933 Medicinal product containin g penicilli n and acting as antibacte rial agent (product) medicatio n Not available Not available Not available 02/24/2023 86070 05 SNOMED Not Available [facility] 03:33:03 3934 latex environme nt,medica tion Not available Not available Not available 02/24/2023 65142 91 RxNorm Not Available [facility] 4 03:33:03 3935 Iodinated contrast media (substanc e) medicatio n Not available Not available Not available 02/24/2023 29787 2003 SNOMED Dedra Davis MD [address] [facility],[address], [place], [phone], [facility] 3 13:27:42 Medications Name Sig Start Date Stop Date Status Note LastModified by Organization Details LastModified Time mm-neb/kit a7005 active Not Available Not Available Not Available multivitami n tablet active Not Available Not Available Not Available atorvastati n 40 mg tablet active Not Available Not Available Not Available gabapentin 600 mg tablet active Not Available Not Available Not Available ipratropium 0.5 mg-albutero l 3 mg (2.5 mg base)/3 mL nebulizatio n soln active Not Available Not Available Not Available fluconazole 150 mg tablet active Not Available Not Available Not Available metoprolol succinate ER 50 mg tablet,exte nded release 24 hr active Not Available Not Available Not Available Nystop 100,000 unit/gram topical powder active Not Available Not Available Not Available FreeStyle Lancets 28 gauge USE TO TEST FINGER STICK BLOOD SUGAR 3 TO 4 TIMES A DAY active Not Available Not Available No t Available lisinopril 20 mg tablet active Not Available Not Available Not Available Alcohol Pads USE 4 (FOUR) TIMES DAILY DIRECTED active Not Available Not Available No t Available gabapentin 400 mg capsule active Not Available Not Available Not Available clonazepam 1 mg tablet TAKE 1 TABLET BY MOUTH TWO TIMES A DAY active Not Available Not Available No t Available Zofran 4 mg tablet 1 tablet x 2-was still nauseated after first dose 2022 active Not Available Not Available Not Avai lable diazepam 2 mg tablet active Not Available Not Available No t Available mirtazapine 30 mg tablet TAKE 1 TABLET BY MOUTH ONCE DAILY AT BEDTIME active Not Available Not Available No t Available metformin 1,000 mg tablet active Not Available Not Available Not Available esomeprazol e magnesium 40 mg capsule,del ayed release TAKE 1 CAPSULE BY MOUTH two (2) times a day active Not Available Not Available No t Available bumetanide 0.5 mg tablet active Not Available Not Available Not Available lisinopril 10 mg tablet active Not Available Not Available Not Available benztropine 1 mg tablet active Not Available Not Available Not Available Ear Drops (carbamide peroxide) 6.5 % INSTILL 5 DROPS IN THE AFFECTED EAR two (2) times a day FOR 4 DAYS active Not Available Not Available No t Available aspirin 81 mg chewable tablet active Not Available Not Available Not Available sodium chloride 0.9 % intravenous solution Inject 1000 mL by intraveno us route. 2023 active Not Available Not Available Not Avai lable metoprolol succinate ER 25 mg tablet,exte nded release 24 hr active Not Available Not Available Not Available lisinopril 40 mg tablet active Not Available Not Available Not Available ondansetron 4 mg disintegrat ing tablet 1 to 2 tablets sublingua lly(ODT) every 8 hours as needed for nausea vomiting active Not Available Not Available No t Available olanzapine 20 mg tablet active Not Available Not Available Not Available Ventolin HFA 90 mcg/actuati on aerosol inhaler active Not Available Not Available Not Available cholecalcif marco a (vitamin D3) 25 mcg (1,000 unit) capsule active Not Available Not Available Not Available nitrofurant oin monohydrate /macrocryst als 100 mg capsule TAKE 1 CAPSULE BY MOUTH EVERY TWELVE HOURS FOR 5 DAYS active Not Available Not Available No t Available duloxetine 20 mg capsule,del ayed release active Not Available Not Available Not Available duloxetine 30 mg capsule,del ayed release active Not Available Not Available Not Available Antifungal (clotrimazo le) 1 % topical cream active Not Available Not Available Not Available ondansetron HCl (PF) 4 mg/2 mL injection solution Take 4 mg by injection route. 2023 active Not Available Not Available Not Avai lable FreeStyle Lite Strips USE TO TEST FINGER STICK BLOOD SUGAR UP TO 5 TIMES DAILY active Not Available Not Available No t Available Lantus Solostar U-100 Insulin 100 unit/mL (3 mL) subcutaneou s pen active Not Available Not Available Not Available diclofenac 1 % topical gel active Not Available Not Available Not Available Tab-A-Alanis 400 mcg tablet active Not Available Not Available Not Available Ozempic 1 mg/dose (4 mg/3 mL) subcutaneou s pen injector 02/19 completed Not Available Not Available Not Available Ozempic 2 mg/dose (8 mg/3 mL) subcutaneou s pen injector 02/19 completed Not Available Not Available Not Available Vitals Date Recorded Heart rate Respiratory rate Body temperature Oxygen saturation Oxygen saturation in Arterial blood by Pulse oximetry Systolic blood pressure Diastolic blood pressure Provider Name and Address Organization Details Last Updated DateTime 4 70 /min 18 /min 97.9 [degF] 97 % 97 % 110 mm[Hg] 69 mm[Hg] Not Available [facility] 17:01:13 Social History None recorded. Functional Status None recorded. Mental Status None recorded. Family History Nothing Reported. Medical History No medical history recorded. Gynecological HistoryNo gynecological history recorded. Obstetrics History GPAL:G 0 P 0 0 0 0 Past Encounters Encounter ID Performer Location Encounter Start Date Encounter Closed Date Diagnosis/Indication Diagnosis SNOMED-CT Code Diagnosis ICD10 Code [id number] Mayo Cortez MD [facility] [address] [place] [phone] 02/20/2024 17:00:58 02/20/2024 23:27:33 Nausea and vomiting 09969302 R11.2 Health Concerns Section Related Observation LastModified by Organization Detai ls LastModified Time None Recorded Concern Status LastModified by Organization Details LastModified Time None Recorded Payers Encounter Date Sequence Insurance Name Policy Number Policy Bustillo Covered Member ID Bustillo Member ID Guarantor Name 02/20/2024 1 [facility] - DOS ON OR AFTER 2022 - DUAL ELIGIBLE - HALFWAY OPTIONS AND ONE CARE (MEDICARE REPLACEMENT/AD VANTAGE - HMO) Vale Nieto [id number] Vale Nieto Notes Date Note Type Note Provider Name and Address Organization Details Recorded Time 02/20/2024 text/html HPI: 63 y/o femalePMH- T2DM, MDD, [place], PTSD, Insomnia, HTNGERD, FibroPatient called to PCP to report 4 days of worsening sore throat, fever, chills, SOB and cough. Patient denies CP at this time. Patient reports has been sick. Patient hoarse due to sore throat. ....................... ....................... ....................... ....................... ....................... ....................... ... [facility] Nurse Triage Notes (Bob Calero): Chief Complaints: Breathing problems, Common cold symptoms, Fever/chills, Sore throat PMH: Severe Persistent Mental Illness (SPMI), Hypertension, Congestive Heart Failure Comments: HPI reviewed by this RN, no further information needed to process visit -Matthew Calero RN Rehab Trainer Organization Information for [employer] Legal Name: [facility] Address: [address] [place] [address], [place] [address], Mechanical Equipment Test Engineer: Kemal Mcdaniel MD CLIA No.: [id number] Rehab Trainer POC Test Results from [employer] [facility] epoc (16:51:40) pH: 7.47 pH units pCO2: 35.9 mmHg pO2: 57.3 mmHg Na: 136 mmol/L K: 4.1 mmol/L iCa: 1.13 mmol/L Cl: 103 mmol/L TCO2: 25.9 mEq/L Hct: 45 % Hb: 15.3 g/dL Glu: 132 mg/dL Lac: 1.02 mmol/L Cr: 0.82 mg/dL BUN: 21 mg/dL A Rapid COVID antigen (16:59:42) COVID: - Rapid influenza antigen (16:59:43) Flu: - EKG (17:18:38) EKG test performed. Attachments uploaded as part of this test result can be found under Documents section. ....................... ....................... ....................... ....................... ....................... ....................... ... Rehab Trainer Note From Chaka Mendoza: This 63-year-old female with a history including but not limited to bipolar disorder, HLD, anxiety, depression, neuropathy, HTN, DM type II, asthma, intestinal cancer requested a visit today to address four days of nausea, vomiting, diarrhea, epigastric pain. Patient states she's having three to four episodes of watery diarrhea and at least five episodes of vomiting daily. Patient denies any known fevers, chest pain, shortness of breath. Patient states she sees a senior firmware engineer and he told her that ? my stomach doesn't digest food properly and I need an endoscopy.? The patient states she's also supposed to be tested for Ekalaka's disease soon.Patient presents awake and alert, in moderate distress. Her vital signs are reasonably stable and she is afebrile. Neurological exams at baseline. Normal gait. Lungs are clear throughout auscultation. Significant epigastric tenderness, abdomen otherwise benign. No lower extremity edema. EKG uploaded. [id number]-xl-[id number] labs uploaded. Rapid COVID and flu are both negative.I treated this patient with normal saline 1 L IV and ondansetron 4 mg IVP. She received no relief from Zofran or fluids. Because of the patient's concurrent medications our antiemetic treatments were limited. After a lengthy discussion with myself and the [facility] the patient agreed to ambulance transport to [facility] emergency department. 911 was initiated and a verbal SBAR was given to [facility] BLS crew. ....................... ....................... ....................... ....................... ....................... ....................... ... [facility] Consulted: Kudesia, Valmeek ....................... ....................... ....................... ....................... ....................... ....................... ... Disposition: Fulfilled Mayo Cortez MD [address] [facility], [place], [address], [employer] 02/20/2024 22:21:01 OBGyn Episode No OBEpisode recorded.
--- OUTSIDE RECORDS SUMMARY | 2024-03-08 17:00 | XMS_ITS | Data Portability ---
Author Organization [employer], Id in - [employer] Address [address] [place] [id number] Care Team Providers Care Automotive Service Management Teacher Name Role Phone AMEE BALDERAS Primary Care Provider HIM CCA OTHER Assessment Encounter Date Assessment Date Assessment LastModified by Organization Details LastModified Time 12/28/2022 12/28/2022 I have reviewed and agree with the Assessment and Plan as documented by the Data Processing Specialist. I provided real-time medical direction via phone for this encounter, and was available for additional phone based assistance as needed. Patient with reported extensive psychiatric history is seen for evaluation of dizziness and shortness of breath. On arrival she is found to have tachycardia vomiting diffuse muscle fasciculations and tremors. Bilateral lower extremity clonus elicited by oracle manufacturing consultant. Given concern for possible serotonin syndrome versus other hyper adrenergic state transported urgently to ED via EMS. pallfather Not available 12/28/2022 16:07:19 02/24/2023 02/24/2023 I provided real -time medical direction via phone for this encounter, and was available for additional phone based assistance as needed. I have reviewed and agree with the Assessment and Plan as documented by the Data Processing Specialist. Patient given the opportunity to ask questions. Advised to call our service if for some reason her boyfriend is unable to get her meds or if she is not improving by tomorrow; however if not feeling safe at home, if develops CP/severe SOB/turning blue/severe abdominal pain/uncontrolled n/v/d or black/bloody emesis or stool/ AMS/ syncope/ hi fever to call 911-she verbalized understanding of instructions to the medic [email or web address] Not available 02/24/2023 14:48:09 03/30/2023 03/30/2023 I have reviewed and agree with the Assessment and Plan as documented by the Data Processing Specialist. I provided real-time medical direction via phone for this encounter, and was available for additional phone based assistance as needed. Patient seen for report of URI sxs recently now improving. Requesting COVID swab. Home swab performed prior to visit was interpreted as negative by our oracle manufacturing consultant. Repeat swab also negative. Counseled on red flag symptoms and advised ongoing management of symptoms given she appears to be improving. Mild tachycardia however had recently used nebulizer solution, otherwise normotensive normoxic and afebrile, doubt acute life-threatening pathology. To follow-up with care team. pallfather Not available 03/30/2023 22:14:56 02/20/2024 02/20/2024 service called f or nausea/vomiting [...] Modified Time Details Appointments None recorded. Lab rapid flu (A+B) 2022 023 [email or web address] 0 [facility], [address] [place], [address], 3 13:32:27 rapid SARS CoV 2 Ag, QL IA, respiratory specimen 2022 023 [email or web address] 0 [facility], [address] [place], [address], 3 13:32:29 glucose, fingerstick , blood 2022 023 [email or web address] 0 [facility], [address] [place], [address], 3 13:32:25 BMP, serum or plasma 2022 023 [email or web address] 0 [facility], [address] [place] [address], [address], 3 14:57:50 BMP, serum or plasma 2022 023 gbaci [facility], [address] [place] [address], [address], 3 17:33:48 [facility] serum or [facility] [address] [place] [address], [address], 4 20:00:12 Referral None recorded. Procedures None recorded. Surgeries None recorded. Imaging electrocard iogram 2023 [facility], [address] [place] [address], [address], 4 16:14:50 Medication Orders Zofran 4 mg tablet 2022 023 [email or web address] 0 Not available 3 14:57:48 ondansetron 4 mg disintegrat ing tablet 2022 023 [place] - [id number], [address] [place], [address], 3 12:13:15 ondansetron HCl (PF) 4 mg/2 mL injection solution 2023 024 [place] [id number], [address] [place], [address], 4 18:04:36 sodium chloride 0.9 % intravenous solution 2023 024 [place] - [id number], [address] [place], [address], 18:04:36 Patient TargetsNo targets recorded. Patient InstructionsNo instructions recorded. Reason for Referral None Reported. Results Created Date Observation Date Name Description Value Unit Range Abnormal Flag Note LastModifiedBy Organization Detail LastModifiedTime 02/25/2002/24/2023 BMP, serum or plasm a BUN 12 Not Available [facility] - [facility] [address], [address], 02/24/2023 13:48:29 02/25/2002/24/2023 BMP, serum or plasm a Ca Ionize d-1.09 Not Available Main - [address], [address], 02/24/2023 13:48:29 02/25/2002/24/2023 BMP, serum or plasm a CI- 108 Not Available Main - [facility] [address], [address], 02/24/2023 13:48:29 02/25/2002/24/2023 BMP, serum or plasm a CRE 0.7 Not Available [facility] - [facility] [address], [address], 02/24/2023 13:48:29 02/25/20 23 02/24/2023 BMP, serum or plasm a GLU 139 Not Available Main - [facility] [address], [address], 02/24/2023 13:48:29 02/25/20 23 02/24/2023 BMP, serum or plasm a K+ 4.2 Not Available [facility] - [facility] [address], [address], 02/24/2023 13:48:29 02/25/20 23 02/24/2023 BMP, serum or plasm a Na+ 140 Not Available [facility] - [facility] [address], [address], 02/24/2023 13:48:29 02/25/20 23 02/24/2023 BMP, serum or plasm a tCO2 21.7 Not Available [facility] - [facility] [address], [address], 02/24/2023 13:48:29 02/25/20 23 02/24/2023 gluco se, finge rstic k, blood Blood Glucose: mg/dl 139 Not Available [facility] - [facility] [address] [place] [address], [address], 02/24/2023 13:31:46 02/25/20 23 02/24/2023 rapid SARS CoV 2 Ag, QL IA, respi rator y speci men rapid SARS CoV 2 Ag, QL IA, respiratory specimen negati ve Not Available [facility] [address] [place] [address], [address], 02/24/2023 13:31:36 02/25/20 23 02/24/2023 rapid flu (A+B) Flu negati ve Not Available [facility] - [facility] [address] [place] [address], [address], 02/24/2023 13:31:34 03/16/20 23 03/16/2023 BMP, serum or plasm a BUN 16 Not Available Main - [facility] [address], [address], 03/16/2023 17:32:21 03/16/20 23 03/16/2023 BMP, serum or plasm a Ca 0.91 Not Available Main - [facility] [address], [address], 03/16/2023 17:32:21 03/16/20 23 03/16/2023 BMP, serum or plasm a CI- 100 Not Available Main - [facility] [address], [address], 03/16/2023 17:32:21 03/16/20 23 03/16/2023 BMP, serum or plasm a CRE 0.66 Not Available [facility] - [facility] [address], [address], 03/16/2023 17:32:21 03/16/20 23 03/16/2023 BMP, serum or plasm a GLU 134 Not Available Main - [facility] [address], [address], 03/16/2023 17:32:21 03/16/20 23 03/16/2023 BMP, serum or plasm a K+ 4.3 Not Available [facility] - [facility] [address], [address], 03/16/2023 17:32:21 03/16/20 23 03/16/2023 BMP, serum or plasm a Na+ 138 Not Available [facility] - [facility] [address], [address], 03/16/2023 17:32:21 03/16/20 23 03/16/2023 BMP, serum or plasm a tCO2 24 Not Available [facility] - [facility] [address], [address], 03/16/2023 17:32:21 02/20/20 24 02/20/2024 radha fernandez am No observ ation record ed. [facility] [address] [place] [address], [address], 02/20/2024 19:59:52 Result Notes None recorded. Procedures Surgical History None recorded. Imaging Results Imaging Date Name Status LastModified by Organization Details LastModified Time 02/20/2024 electrocardiogram completed [facility] [address] [place] [address], [address], 02/20/2024 19:59:52 Procedure Notes None recorded. Medical Equipment None Reported. Allergies Allergen ID Allergen Name Allergen Category Reaction Reaction Severity Criticality Documentation Date Start Date Code Code System Note Provider Name and Address Organization Details Recorded Time 62717 Reglan medicatio n Not available Not available Not available 02/20/2024 9230 RxNorm Not Available [facility] - production 4 15:54:42 3933 Medicinal product containin g penicilli n and acting as antibacte rial agent (product) medicatio n Not available Not available Not available 02/24/2023 13191 05 SNOMED Not Available [facility] - production 4 03:33:03 3934 latex environme nt,medica tion Not available Not available Not available 02/24/2023 14204 91 RxNorm Not Available [facility] - production 4 03:33:03 3935 Iodinated contrast media (substanc e) medicatio n Not available Not available Not available 02/24/2023 95796 2004 SNOMED Dedra Davis MD [address] [facility],[address], [place], [address], [facility] [employer] 13:27:42 Medications Name Sig Start Date Stop [...] Not Available Not Available Vitals Date Recorded Body temperature Body weight Heart rate Body height Respiratory rate Oxygen saturation Oxygen saturation in Arterial blood by Pulse oximetry Systolic blood pressure Diastolic blood pressure Systolic blood pressure Diastolic blood pressure Provider Name and Address Organization Details Last Updated DateTime 3 97 [degF] 516747. 08 g 104 /min 177.8 cm 18 /min 97 % 97 % 128 mm[Hg] 92 mm[Hg] 132 mm[Hg] 72 mm[Hg] Not Available [facility] 3 16:05:15 Date Recorded Body temperature Body weight Oxygen saturation Oxygen saturation in Arterial blood by Pulse oximetry Respiratory rate Heart rate Systolic blood pressure Diastolic blood pressure Provider Name and Address Organization Details Last Updated DateTime 3 97.4 [degF] 37976.2 4 g 98 % 98 % 18 /min 92 /min 110 mm[Hg] 54 mm[Hg] Not Available [facility] 3 13:23:38 Date Recorded Body mass index (BMI) Body height Provider Name and Address Organization Details Last Updated DateTime 02/24/2023 31.6 kg/m2 177.8 cm Dedra Davis MD [address] [place] [address],[address] [place], [address], [place] - [employer] 02/24/2023 13:29:16 Date Recorded Body temperature Body weight Oxygen saturation Oxygen saturation in Arterial blood by Pulse oximetry Heart rate Respiratory rate Systolic blood pressure Diastolic blood pressure Provider Name and Address Organization Details Last Updated DateTime 3 98.3 [degF] 06794.3 2 g 98 % 98 % 94 /min 18 /min 168 mm[Hg] 53 mm[Hg] Not Available [facility] 3 17:15:24 Date Recorded Body mass index (BMI) Body height Provider Name and Address Organization Details Last Updated DateTime 03/16/2023 30.1 kg/m2 177.8 cm HARISH ALEX MD [address] [place] [address],[address], [place], [address], [place] - [employer] 03/16/2023 19:17:38 Date Recorded Respiratory rate Body temperature Oxygen saturation Oxygen saturation in Arterial blood by Pulse oximetry Body weight Heart rate Systolic blood pressure Diastolic blood pressure Provider Name and Address Organization Details Last Updated DateTime 4 18 /min 98.2 [degF] 99 % 99 % 10501.3 2 g 122 /min 142 mm[Hg] 80 mm[Hg] Not Available [facility] 4 14:23:45 Date Recorded Heart rate Respiratory rate Body temperature Oxygen saturation Oxygen saturation in Arterial blood by Pulse oximetry Systolic blood pressure Diastolic blood pressure Provider Name and Address Organization Details Last Updated DateTime 4 70 /min 18 /min 97.9 [degF] 97 % 97 % 110 mm[Hg] 69 mm[Hg] Not Available [facility] 4 17:01:13 Social History None recorded. Functional Status None recorded. Mental Status None recorded. Family History Nothing Reported. Medical History No medical history recorded. Gynecological HistoryNo gynecological history recorded. Obstetrics History GPAL:G 0 P 0 0 0 0 Past Encounters Encounter ID Performer Location Encounter Start Date Encounter Closed Date Diagnosis/Indication Diagnosis SNOMED-CT Code Diagnosis ICD10 Code [id number] Murphy Bishop MD [address] [address] 06/14/2022 10:54:26 06/16/2022 09:10:40 Acute abdominal pain 331882859 R10.9 [id number] Corby Ventura MD [address] [address] 07/13/2022 10:13:12 07/15/2022 09:59:54 Right upper quadrant pain 176184868 R10.11 [id number] Dread Agustin MD [address] [address] 08/27/2022 12:09:52 08/31/2022 13:13:46 Chest pain 22736222 R07.9 [id number] Mina Freed MD [facility] [address] [place], [place] [address] 0 11/08/2022 15:25:35 02/07/2023 14:49:13 Nausea and vomiting 35886073 R11.2 [id number] Helen Cortez MD [facility] [address] [place] [address] 0 11/24/2022 18:45:03 11/24/2022 23:49:04 Epigastric pain 55651439 R10.13 [id number] Mina Freed MD [facility] [address] [place] [address] 0 12/28/2022 16:05:13 12/28/2022 23:40:19 Tremor [id number] R25.1 [id number] Dedra Davis MD [facility] [address] [place] [address] 0 02/24/2023 13:23:32 02/26/2023 11:37:42 Nausea and vomiting 35817814 R11.2 [id number] HARISH ALEX MD [facility] [address] [place] [address] 0 03/16/2023 17:15:21 03/16/2023 22:50:57 Nausea and vomiting 61466085 R11.2 [id number] Mina Freed MD [facility] [address] [place] [address] 0 03/30/2023 14:23:43 03/31/2023 10:33:32 Upper respiratory infection [id number] J06.9 [id number] Mayo Cortez MD [facility] [address] [place] [address] 0 02/20/2024 17:00:58 02/20/2024 23:27:33 Nausea and vomiting 30155094 R11.2 Health Concerns Section Related Observation LastModified by Organization Detai ls LastModified Time None Recorded Concern Status LastModified by Organization Details LastModified Time None Recorded Advance Directives Directive None Recorded Payers Encounter Date Sequence Insurance Name Policy Number Policy Bustillo Covered Member ID Bustillo Member ID Guarantor Name 12/28/2022 1 [facility] - DOS ON OR AFTER 2022 - DUAL ELIGIBLE - [employer]CI OPTIONS AND ONE CARE (MEDICARE REPLACEMENT/AD VANTAGE - HMO) Vale Nieto [id number] Vale Y Emilia 02/24/2023 1 [facility] DOS ON OR AFTER 2022 - DUAL ELIGIBLE - [employer]CI OPTIONS AND ONE CARE (MEDICARE REPLACEMENT/AD VANTAGE - HMO) Vale Nieto [id number] Vale Nieto 03/16/2023 1 [facility] - DOS ON OR AFTER 2022 - DUAL ELIGIBLE - [employer]CI OPTIONS AND ONE CARE (MEDICARE REPLACEMENT/AD VANTAGE - HMO) Vale Nieto [id number] Avle [employer] Emilia 03/30/2023 1 [facility] - DOS ON OR AFTER 2022 - DUAL ELIGIBLE - [employer]CI OPTIONS AND ONE CARE (MEDICARE REPLACEMENT/AD VANTAGE - HMO) Vale Nieto [id number] Vale Y Emilia 02/20/2024 1 [facility] - DOS ON OR AFTER 2022 - DUAL ELIGIBLE - [employer] OPTIONS AND ONE CARE (MEDICARE REPLACEMENT/AD VANTAGE - HMO) Vale Nieto [id number] Vale Nieto Notes Date Note Type Note Provider Name and Address Organization Details Recorded Time 12/28/2022 text/html HPI: 62 y/o female V[facility] called PCP during visit to report patient is reporting worsening dizziness and SOB over the last 2 days. Patient endorses chills and poor appetite. Patient denies fever, chills, pain, or CP at this time. Patient self reported pulse this morning of 156. [facility]NA vitals were reported as 131/96. 82. Patient agreeable to [facility] visit for evaluation and EKG. ....................... ....................... ....................... ....................... ....................... ....................... ... CRC Nursing Assessment: Comments: No additional information needed to process visit. Ted uMnguia RN ....................... ....................... ....................... ....................... ....................... ....................... ... Data Processing Specialist Note From Chaka Mendoza: Pt reports three days of muscle fasciculations, poor appetite and rapid heart rate. Pt sts she vomited twice in the past three days after eating. Pt sts she? s never experienced anything like this in the past. Pt denies any CP, SOB, fevers. Pt is alert, NAD. Pulse is 112 and regular, VS otherwise stable. Afebrile. Lungs clear. Benign ABD exam. No LLE. Pt having full body fasciculations. Pt has bilateral clonus. [facility] contacted and pt sent to [facility] ED to r/o serotonin syndrome. Report given to [facility] and [facility] . ....................... ....................... ....................... ....................... ....................... ....................... ... Disposition: Fulfilled Mina Freed MD [address] [facility],[address], [place], [address], [employer] 12/28/2022 16:07:47 02/24/2023 text/html [facility] Nursing Asse ssment: Chief Complaints: Weakness/Lethargy, Abdominal Pain, Nausea/Vomiting, Dehydration PMH: Diabetes, Severe Persistent Mental Illness (SPMI), Hypertension, CHF Allergies: Latex, Penicillin Comments: Member reports N/V since last night - Feeling weak - Denies fever and chills - Denies abdominal pain and cough/congestion - Isa ZEE ....................... ....................... ....................... ....................... ....................... ....................... ... Data Processing Specialist Note From Demond Boles: Pt co weakness and nausea vomiting since last night. No blood in vomit ..pt sts it? s clear. Pt has upper left abdominal pain. Abdomen soft no rigidity. Denies cp sob diarrhea. Baseline vitals assessed. POC bloodwork unremarkable. [facility] contacted and 8 mg zofran given po and RX called in for zofran. Pt education on signs indicating the ER. Data Processing Specialist Allergies: Latex, Penicillin ....................... ....................... ....................... ....................... ....................... ....................... ... Disposition: Fulfilled SEGMD: As above. Patient denies any changes in bowels -she has Crohn's disease thus has chronic diarrhea she denies any melena or hematochezia. Patient reports she is status post exploratory laparotomy with intestinal resection, appendectomy and cholecystectomy. Patient reports she has had nothing to eat or drink we cannot take her pills. She has not had blood tests in at least 3 weeks she states she only takes it when her blood sugar is greater than 180. Her blood sugar was 116 this morning via the CGM. She last took her Ozempic 1 mg yesterday. Dedra Davis MD [address] [facility],[address], [place], [address], [employer] 02/25/2023 06:22:03 03/16/2023 text/html HPI: Home COVID test positive a few days ago. Patient with persistent vomiting, dizziness, reports urine brown in color. Concern for dehydration, electrolyte derrangement, not able to take any of her usual medications. ....................... ....................... ....................... ....................... ....................... ....................... ... CRC Nurse Triage Notes (Jennifer Alamo): Comments: CRC RN DID NOT NEED FURTHER INFO Baseline Information: Baseline Creatinine: 0.8 mg/dL ....................... ....................... ....................... ....................... ....................... ....................... ... Data Processing Specialist Note From Demond Boles: Pt co fatigue and chills with diarrhea and vomiting. Pt has chrones. Pt tested positive for Covid week and half an ago and hasn? t fully recovered. Cough has subsided but still feels tired. Baseline vitals assessed. Lungs clear. BS 168. C contacted and BMP/POC bloodwork unremarkable. Or advised to to stop ozentic and take zofran SL up to 6x per day as needed. Also hydrate recommended pedialite. Pt education on signs indicating the ER. Data Processing Specialist Allergies: Latex, Penicillin ....................... ....................... ....................... ....................... ....................... ....................... ... Disposition: Fulfilled HARISH ALEX MD [address] [place] [address],[address], [place], [address], [employer] 03/16/2023 19:19:59 03/30/2023 text/html HPI: 62 y/o female PMH DM, MDD, [place], PTSD, DON, HTN, HF, GERD called to PCP office with reports of +COVID test at home. Patient reports entering day 3 of symptoms. Patient admits to productive cough, nasal congestion, SOB and headache. patient denies fever/chills at this time. Patient has been using Tylenol with no effect on symptoms. Patient instructed to use nebulizer/solution as directed. Patient is agreeable to treatment. ....................... ....................... ....................... ....................... ....................... ....................... ... CRC Nurse Triage Notes (Bridgett Munguia): Comments: No further information needed to process visit. ....................... ....................... ....................... ....................... ....................... ....................... ... Data Processing Specialist Note From Demond Boles: Pt co runny nose and chills yesterday. Pt sts tried doing her own Covid test but wasn? t sure she was reading it correctly. Pt wanted retest. Baseline vital? s assessed. Pt afebrile. Clear lungs. Pt denies nausea vomiting diarrhea. Covid swab negative. [facility] contacted and pt education on self care and monitor symptoms. Data Processing Specialist Allergies: Latex, Penicillin ....................... ....................... ....................... ....................... ....................... ....................... ... Disposition: Fulfilled Mina Freed MD [address] [place],[address], [place], [address], [employer] 03/30/2023:15:07 02/20/2024 text/html HPI: 63 y/o femalePMH- T2DM, [...] needed to process visit -Matthew Calero RN Data Processing Specialist Organization Information for [email or web address] [facility] [address] Legal Name: [facility] Address: [address] [place] [address], Wastewater Supervisor: Kemal Mcdaniel MD CLIA No.: [id number] Data Processing Specialist POC Test Results from [facility] (16:51:40) pH: 7.47 pH units pCO2: 35.9 [...] ....................... ....................... ....................... ....................... ....................... ....................... ... Data Processing Specialist Note From Chaka Mendoza: This 63-year-old female [...] of breath. Patient states she sees a billing control clerk and he told her that ? my stomach doesn't digest food properly and I need an endoscopy.? The patient states she's also supposed to be tested for Bristow's disease soon.Patient presents awake and alert, in moderate distress. Her vital signs are reasonably stable and she is afebrile. Neurological exams at baseline. Normal gait. Lungs are clear throughout auscultation. Significant epigastric tenderness, abdomen otherwise benign. No lower extremity edema. EKG uploaded. [id number] labs uploaded. Rapid COVID and flu are both negative.I treated this patient with normal saline 1 L IV and ondansetron 4 mg IVP. She received no relief from Zofran or fluids. Because of the patient's concurrent medications our antiemetic treatments were limited. After a lengthy discussion with myself and the [facility] the patient agreed to ambulance transport to [facility] emergency department. 911 was initiated and a verbal SBAR was given to [facility] BLS crew. ....................... ....................... ....................... ....................... ....................... ....................... ... [facility] Consulted: Mayo Cortez ....................... ....................... ....................... ....................... ....................... ....................... ... Disposition: Fulfilled Mayo Cortez MD [address] [place] [address] [facility], [place], [address], [employer] 02/20/2024 22:21:01 OBGyn Episode No OBEpisode recorded.
[2024-03-08 17:04] VITALS: BP 150/80; BP 211/168; PULSE 110; PULSE 124; RESP 24; TEMP 36.4; O2SAT 95; O2SAT 97; BMI 30.1
[2024-03-08 17:22] VITALS: BP 233/189; PULSE 119; RESP 23; TEMP 36.7; O2SAT 96
--- NOTE | 2024-03-08 17:35 | ED.GENADULT ---
HPI - General Adult General Chief complaint: General Medical Stated complaint: Spasm Time Seen by Provider: 03/08/24 17:02 Source: patient and EMS Mode of arrival: EMS Limitations: no limitations History of Present Illness ED Provider: Dr. Jewell Kelly HPI narrative: Patient comes to the emergency room complaining increase in movements. Patient states that she has history of Parkinson's, dyskinesia. Patient states that she has a visiting nurse that was supposed to give her medications, patient has not been visited by her nurse in 3 days. Patient requesting to be given her morning medications. However, patient states that she does not know what medications she takes. Patient came in with a list of meds, however the list does not show which medication she takes throughout the day. Related Data Home Medications ?Medication ?Instructions ?Recorded ?Confirmed bumetanide 0.5 mg tablet 0.5 mg PO DAILY 05/06/21 11/24/23 esomeprazole magnesium 40 mg 40 mg PO BID 05/06/21 11/24/23 capsule,delayed release metformin 1,000 mg tablet 1,000 mg PO BID 05/06/21 11/24/23 albuterol sulfate 90 mcg/actuation 2 puff inhalation Q4H 09/29/23 11/24/23 aerosol inhaler (Ventolin HFA) aspirin 81 mg chewable tablet 1 tab PO DAILY 09/29/23 11/24/23 ipratropium 0.5 mg-albuterol 3 mg 3 ml inhalation Q4H PRN Shortness 09/29/23 11/24/23 (2.5 mg base)/3 mL nebulization Of Breath soln metoprolol succinate 50 mg 50 mg PO DAILY 09/29/23 11/24/23 tablet,extended release 24 hr multivitamin with folic acid 400 1 tab PO DAILY 09/29/23 11/24/23 mcg tablet (Tab-A-Alanis) diclofenac sodium 1 % topical gel 1 ea topical QID PRN Pain (Scale 10/03/23 11/24/23 Score 1-3) lisinopril 20 mg tablet 20 mg PO DAILY 10/03/23 11/24/23 rosuvastatin 40 mg tablet 40 mg PO DAILY 10/03/23 11/24/23 simethicone 80 mg chewable tablet 2 mg PO BID 03/08/24 sucralfate 1 gram tablet 1 g PO QID 03/08/24 Previous Rx's ?Medication ?Instructions ?Recorded clonazepam 1 mg tablet 1 mg PO BID #60 tabs 10/13/23 duloxetine 20 mg capsule,delayed 40 mg (2 x 20 mg) PO DAILY #60 caps 10/13/23 release mirtazapine 30 mg tablet 30 mg PO BEDTIME #30 tabs 10/13/23 gabapentin 300 mg capsule 600 mg (2 x 300 mg) PO TID 30 days 12/01/23 #180 caps quetiapine 50 mg tablet 50 mg PO BEDTIME 30 days #30 tabs 12/01/23 trazodone 50 mg tablet 50 mg PO BEDTIME Insomnia 30 days 12/01/23 #30 tabs ondansetron 4 mg disintegrating 4 mg PO Q8H PRN nausea and 02/21/24 tablet vomiting #20 tabs gabapentin 600 mg tablet 600 mg PO TID 20 days #60 tabs 03/08/24 Allergies Allergy/AdvReac Type Severity Reaction Status Date / Time adhesive tape [TAPE,ADHESIVE] Allergy Severe ANAPHYLAXIS Verified 03/08/24 17:06 latex [LATEX] Allergy Severe ANAPHYLAXIS Verified 03/08/24 17:06 Penicillins [PCN] Allergy Severe ANAPHYLAXIS Verified 03/08/24 17:06 Review of Systems Review of Systems: Constitutional : No Weight loss, No Fever, No Chills, No Night Sweats, No Fatigue, No Malaise ENT/Mouth : No Hearing loss, No Ear Pain, No Nasal Congestion, No Sinus Pain, No Hoarseness, No sore throat, No Rhinorrhea, No Swallowing Difficulty Eyes: No Eye Pain, No Swelling, No Redness, No Foreign Body, No Discharge, No Vision Changes Cardiovascular : No Chest Pain, No SOB, No Dyspnea on Exertion, No Orthopnea, No Edema, No Palpitations Respiratory : No Cough, No Sputum, No Wheezing, No Smoke Exposure, No Dyspnea Gastrointestinal : No Nausea, No Vomiting, No Diarrhea, No Constipation, No abdominal Pain, No Hematochezia, No Melena Genitourinary : no irregular bleeding, No Dysuria, No Urinary Frequency, No Hematuria, No Urinary Incontinence, No Urgency, No Flank Pain, No Urinary Flow Changes, No Hesitancy Musculoskeletal : No joint pain, No Myalgias, No Joint Swelling Skin : No Skin Lesions, No rash Neuro : No Weakness, No Numbness, No Paresthesias, No Loss of Consciousness, No Dizziness, No Headache, complaining of worsening spasms due to lack of her morning medication Psych : No Anxiety/Panic, No Depression, No SI/HI/AH/VH, No Social Issues, Heme/Lymph: No Bruising, No Bleeding,No Lymphadenopathy Endocrine : No Polyuria, No Polydipsia, No Temperature Intolerance PMF Past Medical History Medical History Medical clearance for psychiatric admission Parkinsons disease PTSD (post-traumatic stress disorder) MDD (major depressive disorder), recurrent, severe, with psychosis Insomnia Dyskinesia, drug-induced Dissociative identity disorder Bipolar 1 disorder Anxiety Depression Colon cancer Surgical History History of carpal tunnel surgery Hx of bariatric surgery Hx of hysterectomy History of partial colectomy Hx of cholecystectomy Hx of appendectomy Hx of knee surgery Family History Family History Mother Diabetes Hypertension Father No problems noted. Sister No problems noted. Brother No problems noted. Social History Social History Household Members: Spouse Housing: House Do you presently have visiting nurse or other home services: Yes (Home health aide and visiting nurse) Alcohol intake: never Patient Tobacco Use Status: Never used Tobacco e-Cigarette/Vaping Use: Never Used Second Hand Smoke Exposure: No Substance Use Type: Marijuana Advance Directives: No Advance Directives Information Provided: Yes Do you have a plan to hurt others: No Plan service: No Sexual orientation: Straight/Heterosexual Physical Exam ED Vital Signs: Vital Signs - 24 hr 03/08/24 17:04 03/08/24 17:22 Temperature 97.5 F 98.1 F Pulse Rate 124 H 119 H Respiratory Rate 24 H 23 H Blood Pressure 211/168 H 233/189 H Pulse Oximetry 95 96 Oxygen Delivery Method Room Air Room Air BMI result Body Mass Index 30.1 Const Other: Appearance: Alert. Oriented X3. No acute distress. Eyes: Pupils equal, round and reactive to light. ENT: Pharynx normal. Neck: Normal inspection. Neck supple. No lymph nodes noted. No crepitus CVS: Normal heart rate and rhythm. Pulses normal. Normal S1 and S2 Respiratory: No respiratory distress. Breath sounds normal. No Wheezing. No rales Abdomen: Soft and nontender. No rigidity. No distention. Skin: Skin warm and dry. Normal skin color. Normal skin turgor. Extremities: No lower extremity edema. No Lacerations. No Rash Neuro: Oriented X 3. No motor deficit. No sensory deficit. Patient's passively moving upper and lower extremities. No slurred speech. CN 2 through 12 grossly intact Psych: calm, cooperative, seems a bit anxious Course Course Course Narrative: All of patient's labs pending I discussed the patient with pharmacy, they will help us determine which medications patient takes in the morning -I discussed the patient with our embedded case manager, it is unclear why patient's nursing services were discontinued or interrupted -patient was given IM Benadryl and IM Ativan to help with the limb movement/dyskinesia. This is not Behavioral. In patient's chart it was noted patient has Parkinson's disease. However, I do not see on her medications any Parkinson's meds. 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 I also do not see any medications or records which verify this information. Medications Administered Discontinued Medications Generic Name Dose Route Start Last Admin Trade Name Freq PRN Reason Stop Dose Admin Diphenhydramine HCl 50 mg 03/08/24 17:21 03/08/24 18:02 Diphenhydramine Hcl 50 Mg/Ml Vial IM 03/08/24 17:22 50 mg ONCE ONE Administration Lorazepam 2 mg 03/08/24 17:21 03/08/24 18:02 Lorazepam 2 Mg/Ml Vial IM 03/08/24 17:22 2 mg STAT STA Administration Medical Decision Making Medical Decision Making [facility] Narrative: My interpretation of labs: Patient's hematology and chemistry at baseline, no obvious abnormality Patient received a dose of IM Benadryl and Ativan, overall patient has stopped having the muscle spasms/involuntary movements. Patient feels much better. Pharmacy did the medicine or consolidation, patient missed gabapentin 600 mg in the morning which was given to the patient. -overall patient feeling much better. -case management spoke with the patient's , both patient and her are poor historians. However, both seem to take care of each other. Patient feels comfortable returning home. Unclear why patient does not have gabapentin available to her, a script was sent to her pharmacy I reviewed patient's chart, I do not see any evidence of patient having Casper's disease or Parkinson's Lab Data MDM Lab Attestation statement: I reviewed the patient's lab results. 03/08/24 17:40 03/08/24 17:40 Labs: Lab Results 03/08/24 03/08/24 Range/Units 17:40 17:59 WBC 8.5 (4.8-10.8) X10*3/uL RBC 5.51 H (4.20-5.50) X10*6/uL Hgb 14.0 (12.0-16.0) g/dl Hct 41.8 (37.0-47.0) % MCV 75.9 L (80.0-98.0) fL MCH 25.4 L (27.0-33.0) pg MCHC 33.5 (31.0-35.0) g/dl RDW 14.4 (11.0-16.0) % Plt Count 251 D (160-400) X10*3/uL MPV 11.2 (9.4-12.3) fL Immature Gran % (Auto) 0.4 (0.0-0.4) % Neut % (Auto) 61.4 (45-73) % Lymph % (Auto) 31.7 (20-40) % Bowie % (Auto) 6.2 (2-11) % Eos % (Auto) 0.2 (0-4) % Baso % (Auto) 0.1 (0-2) % Lymph # (Auto) 2.7 (1.2-4.9) X10*3/uL Bowie # (Auto) 0.5 (0.1-1.2) X10*3/uL Eos # (Auto) 0.0 (0.0-0.4) X10*3/uL Baso # (Auto) 0.0 (0.0-0.2) X10*3/uL Abs Immat Gran (auto) 0.03 (0.00-0.03) X10*3/uL Absolute Neuts (auto) 5.2 (2.0-8.3) x10*3/uL Absolute Nucleated RBC 0.000 (0.0-0.012) X10*3/uL Nucleated RBC % (auto) 0.0 (0.0-0.2) /100WBC Sodium 141 (135-145) mmol/L Potassium 4.5 (3.3-5.1) mmol/L Chloride 109 H (96-108) mmol/L Carbon Dioxide 20 L (22-29) mmol/L Anion Gap 17 (12-20) BUN 16 (9-16) mg/dL Creatinine 0.90 (0.5-1.4) mg/dL Estim Creat Clear Calc 78.9 Estimated GFR > 60 Random Glucose 130 H (60-115) mg/dL Calcium 9.5 D (8.4-10.2) mg/dL Magnesium 1.6 (1.6-2.6) mg/dL Total Bilirubin 0.5 (0.0-1.0) mg/dL Direct Bilirubin 0.2 (0.0-0.5) mg/dL AST 24 (5-31) U/L ALT 24 (0-31) U/L Alkaline Phosphatase 148 H (39-117) U/L Total Protein 7.9 (6.5-8.0) g/dL Albumin 4.4 (3.5-5.0) g/dL Urine Opiates Screen Not Detected (Not Detect) Ur Buprenorphine Scrn Not Detected (Not Detect) ng/mL Ur Oxycodone Screen Not Detected (Not Detect) ng/mL Urine Methadone Screen Not Detected (Not Detect) ng/mL Urine Fentanyl Screen Not Detected (Not Detect) Ur Barbiturates Screen Not Detected (Not Detect) Ur Phencyclidine Scrn Not Detected (Not Detect) Ur Amphetamines Screen Not Detected (Not Detect) U Benzodiazepines Scrn Not Detected (Not Detect) Urine Cocaine Screen Not Detected (Not Detect) U Marijuana (THC) Screen POSITIVE H (Not Detect) Ethyl Alcohol < 10 mg/dL Critical Care Time Critical Care Time Critical Care Time: Yes Total Critical Care Time: 45 Attestation: I have personally provided critical care time. Time includes review of lab data, radiology results, discussion with consultants, and monitoring for potential decompensation. Intervention performed as documented. Discharge Plan Discharge Clinical Impression: Muscle spasm Patient Disposition: Home, Self-Care Instructions: Muscle Spasm (ED) Additional Instructions: Please follow-up with your primary care physician tomorrow. If you have any worsening or new symptoms, please return to the emergency room or call 911 Prescriptions: New gabapentin 600 mg tablet 600 mg PO TID 20 Days Qty: 60 0RF No Action aspirin 81 mg tablet,chewable 1 tab PO DAILY ipratropium-albuterol 0.5 mg-3 mg(2.5 mg base)/3 mL solution for nebulization 3 ml inhalation Q4H PRN (Reason: Shortness Of Breath) metoprolol succinate 50 mg tablet extended release 24 hr 50 mg PO DAILY albuterol sulfate [Ventolin HFA] 90 mcg/actuation HFA aerosol inhaler 2 puff inhalation Q4H multivitamin with folic acid [Tab-A-Alanis] 400 mcg tablet 1 tab PO DAILY lisinopril 20 mg tablet 20 mg PO DAILY rosuvastatin 40 mg tablet 40 mg PO DAILY diclofenac sodium 1 % gel 1 ea topical QID PRN (Reason: Pain (Scale Score 1-3)) clonazepam 1 mg tablet 1 mg PO BID Qty: 60 0RF mirtazapine 30 mg tablet 30 mg PO BEDTIME Qty: 30 0RF duloxetine 20 mg capsule,delayed release(DR/EC) 40 mg PO DAILY Qty: 60 0RF ondansetron 4 mg tablet,disintegrating 4 mg PO Q8H PRN (Reason: nausea and vomiting) Qty: 20 0RF trazodone 50 mg Tablet 50 mg PO BEDTIME 30 Days Qty: 30 0RF gabapentin 300 mg Capsule 600 mg PO TID 30 Days Qty: 180 0RF quetiapine 50 mg Tablet 50 mg PO BEDTIME 30 Days Qty: 30 0RF sucralfate 1 gram tablet 1 g PO QID simethicone 80 mg tablet,chewable 2 mg PO BID bumetanide 0.5 mg tablet 0.5 mg PO DAILY esomeprazole magnesium 40 mg capsule,delayed release(DR/EC) 40 mg PO BID metformin 1,000 mg tablet 1,000 mg PO BID Print Language: Micronesian
[2024-03-08 17:47] LABS: MANUAL DIFF FLAG NO
[2024-03-08] MEDS: diphenhydrAMINE HCL 50 MG/ML VIAL IM (18:02)
[2024-03-08] MEDS: LORazepam 2 MG/ML VIAL IM (18:02)
[2024-03-08 18:03] LABS: Ethanol < 10 mg/dL
[2024-03-08 18:05] LABS: Alanine Aminotransferase 24 U/L (0-31); Albumin Level 4.4 g/dL (3.5-5.0); Alkaline Phosphatase 148 U/L (39-117); Anion Gap 17 (12-20); Aspartate Amino Transferase 24 U/L (5-31); Bilirubin Direct 0.2 mg/dL (0.0-0.5); Bilirubin Total 0.5 mg/dL (0.0-1.0); Blood Urea Nitrogen 16 mg/dL (9-16); Calcium 9.5 mg/dL (8.4-10.2); Carbon Dioxide 20 mmol/L (22-29); Chloride 109 mmol/L (96-108); Creatinine Clr Calc Pharmacy 78.9; Estimated Glomerular Filt Rate > 60; Glucose Random 130 mg/dL (60-115); Magnesium 1.6 mg/dL (1.6-2.6); Potassium 4.5 mmol/L (3.3-5.1); Sodium 141 mmol/L (135-145); Total Protein 7.9 g/dL (6.5-8.0)
[2024-03-08 18:12] LABS: Basophils Percent Auto 0.1 % (0-2); Eosinophils Percent Auto 0.2 % (0-4); Hematocrit 41.8 % (37.0-47.0); Imm Gran Abs Auto 0.03 X10*3/uL (0.00-0.03); Imm Gran Pct Auto 0.4 % (0.0-0.4); Lymphocytes Absolute Auto 2.7 X10*3/uL (1.2-4.9); Lymphocytes Percent Auto 31.7 % (20-40); Mean Corpuscular HGB Conc 33.5 g/dl (31.0-35.0); Mean Corpuscular Hemoglobin 25.4 pg (27.0-33.0); Mean Corpuscular Volume 75.9 fL (80.0-98.0); Mean Platelet Volume 11.2 fL (9.4-12.3); Monocytes Absolute Auto 0.5 X10*3/uL (0.1-1.2); Monocytes Percent Auto 6.2 % (2-11); Neutrophils Absolute Auto 5.2 x10*3/uL (2.0-8.3); Neutrophils Percent Auto 61.4 % (45-73); Platelet Count 251 X10*3/uL (160-400); Red Blood Count 5.51 X10*6/uL (4.20-5.50); Red Cell Distribution Width 14.4 % (11.0-16.0); White Blood Count 8.5 X10*3/uL (4.8-10.8)
[2024-03-08 18:17] LABS: Amphetamine Screen Urine Not Detected (Not Detect); Barbiturates, Urine Not Detected (Not Detect); Benzodiazepines Screen Urine Not Detected (Not Detect); Buprenorphine Scr Not Detected (Not Detect); Cannabinoid Screen Urine POSITIVE (Not Detect); Cocaine Screen Urine Not Detected (Not Detect); Fentanyl, urine Not Detected (Not Detect); Methadone Screen, Urine Not Detected (Not Detect); Opiate Screen Urine Not Detected (Not Detect); Oxycodone Screen Urine Not Detected (Not Detect); Phencyclidine Screen Urine Not Detected (Not Detect)
--- NOTE | 2024-03-08 18:58 | MHC.CM.ED ---
CM met with patient at the request of Dr. Kelly. Pt is A&Ox3. Lives with her . Uses a cane and a walker. States has a RN TELEHEALTH that comes 5 days/week and he cares for her. Cannot remember the agency. Tells CM that her meds are delivered from [facility] on [address] in [facility], a nurse fills her med-minder and locks up her meds. She takes her medications. States her nerve pill was not delivered and she hasn't had it for 3 days. Pt states she has not been able to sleep and she has been shaking uncontrollably for 3 days, worse today. Sweating. Cannot remember her PCP. States her doctors change. She does remember Pavithra Simmons pediatric psychiatrist. Pt has a strong psychiatric hx (PTSD, MDD, dissociative identity disorder, bipolar and anxiety) and she has been recently hospitalized at [facility] for psych in 09/27-10/02 and 11/23-12/02 23. Pt admits to multiple suicide attempts. Pt states her , Yoel is her HCP. It is not on file. Pt gave CM permission to call her , Yoel ([phone]). CM spoke with Yoel. He had little information regarding pt pharmacy, providers and medications. Yoel did tell CM that a nurse comes every Tuesday to fill her med-minder and lock her other meds, but he does not know what agency she comes from.. He believes that her anxiety medication was not delivered from the pharmacy. She has been without it for 3 days. Pt also verifies this. CM called [facility] on in [facility], but it was closed. Yoel tells CM that his has many telehealth visits. Dr. Kelly and Primary RN aware of above conversation. CM will follow for any discharge needs.
[2024-03-08] MEDS: Gabapentin 600 MG TABLET PO (20:59)
[2024-03-08 21:02] VITALS: BP 119/68; PULSE 89; RESP 16; TEMP 36.2; O2SAT 95
--- NOTE | 2024-03-08 21:16 | PHA.MEDREC ---
Addendum entered by Angus Kennedy 03/08/24 21:17: Spoke with patient earlier to ask about Parkinson medications she might be taking and she stated to me there is one I take but I dont know the name and it looks like a little green pill . I asked if her might now and she said yes, I contacted him at [phone] but was not successful and left a voicemail. Original Note: Pharmacy Consult ? Medication Reconciliation Pharmacy has completed the medication reconciliation, utilized list from [facility].
[2024-03-08 23:56] VITALS: BP 119/68; PULSE 89; RESP 16; TEMP 36.2; O2SAT 95
== END 2024-03-08 23:56 | disposition home or self-care (01) ==
PROVIDERS: Emergency Provider Emergency Medicine
DX: M62.838 Other muscle spasm (principal); E11.9 Type 2 diabetes mellitus without complications; I10 Essential (primary) hypertension; E78.5 Hyperlipidemia, unspecified; F12.90 Cannabis use, unspecified, uncomplicated; Z79.84 Long term (current) use of oral hypoglycemic drugs; Z79.899 Other long term (current) drug therapy
CPT/HCPCS: 36415; 80048; 80076; 80307; 83735; 85025; 96372; 99283; 99284; J1200; J2060

== ENCOUNTER 2024-06-27 13:44 | Outpatient (REF) | payer OTHER, SELFPAY ==
--- OUTSIDE RECORDS SUMMARY | 2024-06-27 16:28 | XMS_ITS | Referral Summary ---
Author Organization [facility] Address [address] [place] [address] Care Team Providers Care Coil Shaper Name Role Phone Flory Rizzo MD Primary Care Provider [phone] Encounters Date Type Department Care Team Description 06/01/2024 Orders Only [facility] [address] [place] [address] [phone] Provider, MD Kj from Last 3 Months Allergies Active Allergy Reactions Criticality Noted Date Comments Fentanyl Itching,Rash 12/15/2015 erythematous swollen itchy skin in area where patch was applied Latex, Natural Rubber Other (see comments) 11/26 Penicillins Rash 02/17/2005 Medications Ventolin HFA 90 mcg/actuation inhaler 4 Active aspirin chewable tablet 81 mg 4 Active atorvastatin (LIPITOR) 40 mg tablet 4 Active benztropine (COGENTIN) 1 mg tablet 4 Active OneTouch Verio test strips 4 Active OneTouch Verio Flex meter misc 4 Active bumetanide (BUMEX) 0.5 mg tablet 4 Active clonazePAM (KlonoPIN) 1 mg tablet 4 Active AntifungaL, clotrimazole, 1 % cream 3 Active diclofenac (VOLTAREN) 1% gel [address] (CYMBALTA) 60 mg capsule 4 Active esomeprazole (NexIUM) 40 mg capsule 4 Active gabapentin (NEURONTIN) 300 mg capsule 4 Active gabapentin (NEURONTIN) 800 mg tablet 4 Active ipratropium-albuter oL (DUO-NEB) 0.5-2.5 mg/3 mL nebulizer solution 4 Active OneTouch Delica Plus Lancet lancet 33 gauge 4 Active lidocaine (LIDODERM) 5% patch APPLY 1 PATCH onto THE SKIN ONCE DAILY NEEDED FOR moderate PAIN (scale 4-6) 4 Active lisinopriL (PRINIVIL,ZESTRIL) 20 mg tablet 4 Active metFORMIN (GLUCOPHAGE) 1,000 mg tablet 4 Active methocarbamoL (ROBAXIN) 750 mg tablet TAKE 1 TABLET BY MOUTH EVERY 6 HOURS NEEDED FOR MUSCLE SPASM 4 Active metoprolol succinate XL (TOPROL XL) 50 mg tablet 4 Active mirtazapine (REMERON) 30 mg tablet 4 Active Tab-A-Alanis tablet 4 Active nystatin (MYCOSTATIN) 100,000 unit/gram powder 4 Active ondansetron (ZOFRAN ODT) 4 mg disintegrating tablet [address] (PROTONIX) 40 mg tablet Take 40 mg by mouth once a day. Active QUEtiapine (SEROquel) 100 mg tablet 4 Active rosuvastatin (CRESTOR) 40 mg tablet 4 Active Ozempic 2 mg/dose (8 mg/3 mL) pen injector 4 Active Gas Relief 80, simethicone, 80 mg chewable tablet 4 Active sucralfate (CARAFATE) 1 gram tablet 4 Active traMADoL (ULTRAM) 50 mg tablet TAKE 1 TABLET BY MOUTH EVERY 6 HOURS NEEDED FOR PAIN FOR 3 DAYS 4 Active traZODone (DESYREL) 50 mg tablet 4 Active Social History Tobacco Use Types Packs/Day Years Used Date Smoking Tobacco: Never Smokeless Tobacco: Never Tobacco Cessation:Counseling Given: Not Answered Alcohol Use Standard Drinks/Week Comments Never 0 (1 standard drink = 0.6 oz pur e alcohol) Comments Unknown Sex and Gender Information Value Date Recorded Sex Assigned at Female 02/09/2024 1:08 PM EST Legal Sex Female 3:08 PM EDT Gender Identity Not on file Sexual Orientation Not on file Last Filed Vital Signs Vital Sign Reading Time Taken Comments Blood Pressure 119/90 02/09/2024 1:35 PM EST Pulse 72 02/09/2024 1:35 PM EST Temperature 36 ??C (96.8 ??F) 02/09/2024 1:16 PM EST Respiratory Rate 18 02/09/2024 1:16 PM EST Oxygen Saturation - - Inhaled Oxygen Concentration - - Weight 104.8 kg (231 lb) 02/09/2024 1:16 PM EST Height - - Body Mass Index - - Plan of Treatment Upcoming Encounters Date Type Department Care Team (Late st Contact Info) Description 07/19/2024 2:30 PM EDT Office Visit [facility] [address] [place] [address] [phone] Flory Blackman MD [address] [place] [address] [phone] Procedures * Due to [place] state law, this organization might not be sharing negative HIV tests. Procedure Name Priority Date/Time Associated Diagnosis Comments LAB - SCANNED Routine 06/01/2024 2:29 PM EST from Last 3 Months Results * Due to [facility] [place] law, this organization might not be sharing negative HIV tests. * LAB - SCANNED (06/01/2024 2:29 PM EST) us Unknown Provider LAB HISTORICAL RESULTS Final Result from Last 3 Months Insurance [facility] Care Teams Coil Shaper Relationship Specialty Start Date End Date Flory Rizzo MD [address] [place] [address] PCP - General 09/15/23
--- OUTSIDE RECORDS SUMMARY | 2024-06-27 16:28 | XMS_ITS | Clinical Summary ---
Author Organization [facility] [place] [address] Care Team Providers Care Package Winder Name Role Phone Unavailable Primary Care Provider Unavailabl e Social History Tobacco Use Types Packs/Day Years Used Date Smoking Tobacco: Never Assessed Comments Unknown Sex and Gender Information Value Date Recorded Sex Assigned at Not on file Legal Sex Female 11:10 AM EST Gender Identity Not on file Sexual Orientation Not on file Plan of Treatment Health Maintenance Due Date Last Done Comments DTaP,Tdap,and Td Vaccines (1 - Tdap) 07/31/1978 Cervical Cancer Screening: P ap Smear 07/31/1980 Pneumococcal Vaccine: 50+ Years (1 of 1 - PCV) 07/31/2009 Zoster Vaccines (1 of 2) 07/31/2009 Colorectal Cancer Screening: Colonoscopy 02/23/2022 Depression Screening 02/23/2022 HIV Screening 02/23/2022 Hepatitis C Screening 02/23/2022 Social Influencers of Health Screening 02/23/2022 COVID-19 Vaccine ( - 2023-2 5 season) 2023 Influenza Vaccine (#1) 2023 Breast Cancer Screening 12/28/2025 12/29/19 24, 09/29/2022 RSV Immunization Adult Patients (1 - 1-dose 75+ series) 07/31/2034 HIB Vaccines Aged Out No longer eligi ble based on patient's age to complete this topic HPV Vaccines Aged Out No longer eligi ble based on patient's age to complete this topic Hepatitis A Vaccines Aged Out No long er eligible based on patient's age to complete this topic Hepatitis B Vaccines Aged Out No long er eligible based on patient's age to complete this topic IPV Vaccines Aged Out No longer eligi ble based on patient's age to complete this topic MMR Vaccines Aged Out No longer eligi ble based on patient's age to complete this topic Meningococcal ACWY Vaccine Aged Out N o longer eligible based on patient's age to complete this topic Meningococcal B Vacine Aged Out No lo nger eligible based on patient's age to complete this topic Pneumococcal Vaccine: Pediatrics (0 to 5 Years) and At-Risk Patients (6 to 64 Years) Aged Out No longer eligible b ased on patient's age to complete this topic RSV Immunization Patients Under 20 months Aged Out No longer eligible b ased on patient's age to complete this topic Varicella Vaccines Aged Out No longer eligible based on patient's age to complete this topic Procedures Procedure Name Priority Date/Time Associated Diagnosis Comments [facility] SCREENING DIGITAL Routine 12/29/2023 8:06 AM EDT Encounter for screening mammogram for malignant neoplasm of breast from Last 3 Months or Most Recently Relevant to Health Maintenance Results * [facility] SCREENING DIGITAL (12/29/2023 8:06 AM EDT) Anatomical Region Laterality Modality Mammography 12/28/2023 8:38 AM EDT Narrative 12/29/2023 8:06 AM EDT [facility] Diagnostic Imaging Department [address] [place] [address] Patient: ??VALE CHE ?/Age/Sex: 1960 - F Unit#: ??[id number] ? Location/Status: ??SPDIMAM/REG CLI ? Mnemonic/Ordering Site: ??DIGSC/SPMAM Ordering Physician: ??PAULINO CARLOS [facility] Screening Digital - 12/28/23 - 0855 Report Status:Signed EXAM: [facility] Screening Digital EXAM DATE AND TIME: 12/28/2023 8:56 AM HISTORY: ??Screening. Personal history of endometrial carcinoma. COMPARISON: ??09/29/22, 12/09/20, 02/27/19 TECHNIQUE: Bilateral digital breast tomosynthesis was performed in the CC and MLO projections. Computer aided detection with [employer] 3D 3.1 was employed. TISSUE DENSITY: b. There are scattered areas of fibroglandular density. FINDINGS: No suspicious masses, grouped microcalcifications, or areas of architectural distortion are seen. Vascular calcification is present. The skin is unremarkable. IMPRESSION: Stable mammographic appearance of the breasts. ??No evidence of malignancy is seen. A negative mammogram in the presence of a clinically suspicious palpable abnormality does not preclude the possibility of malignancy or alter the indications for biopsy. BI-RADS: ??Category 2: Benign RECOMMENDATION(S): 1: Routine screening mammogram BILATERAL in 1 year. [facility] at [facility] [address] [place] [address] Dictating Physician: ??KIMBERLEE HUYNH MD Electronically Signed by: ??KIMBERLEE HUYNH MD Dic Date/Time: ??12/29/23804 Sign date/Time: ??12/29/23 08 Procedure Note Kimberlee Huynh MD - 01/24/2024 [facility] Diagnostic Imaging Department [address] [place] [address] Patient: VALE CHE/Age/Sex: 1960 - 63 - F Unit#: [id number] Location/Status: SPDIMAM/REG CLI Mnemonic/Ordering Site: [facility] Ordering Physician: PAULINO CARLOS [facility] Screening Digital - 12/28/23 - 55 Report Status:Signed EXAM: [facility] Screening Digital EXAM DATE AND TIME: 12/28/2023 8:56 AM HISTORY: Screening. Personal history of endometrial carcinoma. COMPARISON: 09/29/22, 12/09/20, 02/27/19 TECHNIQUE: Bilateral digital breast tomosynthesis was performed in the CCand MLO projections. Computer aided detection with [employer] 3D 3.1was employed. TISSUE DENSITY: b. There are scattered areas of fibroglandular density. FINDINGS: No suspicious masses, grouped microcalcifications, or areas ofarchitectural distortion are seen. Vascular calcification is present. The skin is unremarkable. IMPRESSION: Stable mammographic appearance of the breasts. No evidence of malignancyis seen. A negative mammogram in the presence of a clinically suspicious palpable abnormality does not preclude the possibility of malignancy or alter the indications for biopsy. BI-RADS: Category 2: Benign RECOMMENDATION(S): 1: Routine screening mammogram BILATERAL in 1 year. Mammogram performed at [facility] [place] [address] Dictating Physician: KIMBERLEE HUYNH MD Electronically Signed by: KIMBERLEE HUYNH MD Dic Date/Time: 12/29/23804 Sign date/Time: 12/29/23805 us Paulino Carlos NP IMG BI PROCEDURES Final Result from Last 3 Months or Most Recently Relevant to Health Maintenance
--- OUTSIDE RECORDS SUMMARY | 2024-06-27 16:28 | XMS_ITS | Clinical Summary ---
Author Organization [facility] Address [address] [place] [id number] Care Team Providers Care Ventilator Specialist Name Role Phone Flory Rizzo MD Primary Care Provider [phone] Allergies Active Allergy Reactions Criticality Noted Date [...] traZODone (DESYREL) 50 mg tablet 4 Active Encounters Date Type Department Care Team Description 06/01/2024 Orders Only [facility] [address] [place] [phone] Provider, MD Kj from Last 3 Months Family History Medical History Relation Name Comments Stomach cancer Father Parkinsonism Maternal Grandfather Myocardial Infarction Maternal Grandmother Pancreatic cancer Mother Relation Name Status Comments Father Maternal Grandfather Maternal Grandmother Mother Social History Tobacco Use Types Packs/Day Years [...] Description 07/19/2024 2:30 PM EDT Office Visit [facility] [address] [place] [address] Flory Blackman MD [address] [place], [place] [id number] Health Maintenance Due Date Last Done Comments Cervical Cancer Screening 1960 Cologuard 1960 Colon Cancer Screening 1960 Colonoscopy 1960 FOBT / Fit Test 1960 HIV Screening 1960 HPV and Pap Smear 1960 Hepatitis C Screening 1960 Pap Smear 1960 Sigmoidoscopy 1960 Mammogram 1999 Alcohol/Substance Use Screening 03/28/2024 Depression Screening and Follow-Up 03/28/2024 Social Drivers of Health Perla ual Screening 03/28/2024 DTaP,Tdap,and Td Vaccines (3 - Td or Tdap) 05/23/2029 05/23/2019, 09/15/2009 RSV Vaccine (60+ years old a nd patients) (1 - 1-dose 75+ series) 07/31/2034 Hepatitis B Vaccines Completed 01/17/2013, 09/15/2009, 02/03/2007 Pneumococcal Vaccine: 50+ Years Completed 01/14/2017, 03/01/2016, 12/09/2014, Additional history exists COVID-19 Vaccine Completed 12/30/2023, 12/2022, 02/09/2021, Additional history exists Influenza Vaccine Completed 12/30/2023, , 06/04/2022, Additional history exists Zoster Vaccines Completed 12/30/2023, 08/2021, 06/18/2021 Procedures * Due to [place] [employer] law, this organization might not be sharing negative HIV tests. Procedure Name Priority Date/Time Associated Diagnosis Comments LAB - SCANNED Routine 06/01/2024 2:29 PM EST from Last 3 Months Results * Due to [place] [employer] law, this organization might not be sharing negative HIV tests. * LAB - SCANNED (06/01/2024 2:29 PM EST) us Unknown Provider LAB HISTORICAL RESULTS Final Result from Last 3 Months Insurance [employer] [place]IE [place]N [id number] Care Teams Ventilator Specialist Relationship Specialty Start Date End Date Flory Rizzo MD [address] [place] [address] PCP - General 09/15/23
--- OUTSIDE RECORDS SUMMARY | 2024-06-27 16:28 | XMS_ITS | Data Portability ---
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 I provided real-time medical direction via phone for this encounter, and was available for additional phone based assistance as needed. Patient seen for report of URI sxs recently now improving. Requesting COVID swab. Home swab performed prior to visit was interpreted as negative by our band cutter. Repeat swab also negative. Counseled on red [...] for imaging [email or web address] Not available 02/20/2024 18:04:46 04/08/2024 04/08/2024 I provided real -time medical direction via phone for this encounter and was available for additional phone-based assistance as needed. I have reviewed and agree with the Assessment and Plan as documented by the Home Health Registered Nurse. Patient given the opportunity to ask questions. Our service contacted for an assessment of: Nausea and vomiting As per above, patient with approximately several days nausea vomiting and intermittent diarrhea. Patient denies any contacts with norovirus. Also denies eating or drinking any contaminated foods or liquids. Has some mild upper airway tract symptoms. Per band cutter on the scene, vital signs are stable and patient is afebrile. Nontoxic on exam afebrile. Impression implant: Viral URI symptoms with negative COVID and positive influenza. Also with GI symptoms consistent with norovirus but also with atypical influenza A. Hydration given with IV fluids, 1 time dose of Zofran given. Tamsulosin started in the field. Allergies: Reviewed PCP f/u: We discussed the diagnostic uncertainty of home visits and the risk associated with this. In this case, the patient and I felt this to be an acceptable and reasonable amount of risk given the benefit of avoiding an ED visit. We discussed the need to seek care urgently/emergentl y in the setting of any new or worsening serious symptoms Not available 04/08/2024 23:25:09 04/09/2024 04/09/2024 I provided real -time medical direction via phone for this encounter and was available for additional phone-based assistance as needed. I have reviewed and agree with the Assessment and Plan as documented by the Home Health Registered Nurse. Patient given the opportunity to ask questions. Our service contacted for an assessment of: Diarrhea As per above, patient with a diagnosis of influenza a that was made yesterday. She has predominant GI symptoms. She was started on Tamiflu and pick that up today. She calls this service for an assessment after having continuous GI symptoms. She has nausea and diarrhea. She was given a L of fluid yesterday and seemed to respond well to that. She denies any abdominal pain per se. She denies chest pain or shortness of breath. She is not having any adverse side effects from the Tamiflu thus far. Per band cutter on the scene, vital signs stable patient is afebrile. Please see uploaded BNP. Impression: Influenza a with GI symptoms Plan: 1 L of fluid given, Zofran 4 mg IV x1. I called in a prescription for oral disintegrating tablets sublingual of Zofran for the next several days. Encouraged to have a BRAT diet. Avoid spicy foods. Hydrate with Gatorade and or Pedialyte. Recall this service as needed. Red flags discussed. Allergies: Reviewed PCP f/u: We discussed the diagnostic uncertainty of home visits and the risk associated with this. In this case, the patient and I felt this to be an acceptable and reasonable amount of risk given the benefit of avoiding an ED visit. We discussed the need to seek care urgently/emergentl y in the setting of any new or worsening serious symptoms, particularly fever chills Not available 04/09/2024 20:59:23 Plan of Treatment Reminders Order Date Submit Date Provider Last Modified By Organization Details Last Modified Time Details Appointments None recorded. Lab cmp, whole blood + katerina 2024 025 [facility], [address] [place] [address], [id number], 5 08:11:25 rapid SARS CoV 2 Ag, QL IA, respiratory specimen [email or web address], [address] [place] [address], [id number], 5 23:24:52 rapid flu (A+B) [email or web address], [address] [place] [address], [address], 5 23:23:26 BMP, serum or plasma 2023 024 [facility] [address] [place] [address], [address], 4 20:00:12 BMP, serum or plasma 2022 023 [email or web address] [facility], [address] [place] [address], [address], 3 17:33:48 Referral None recorded. Procedures None recorded. Surgeries None recorded. Imaging electrocard iogram 2023 024 AMEYA [address] [facility], [address] [place] [address], [address], 4 16:14:50 Medication Orders ondansetron HCl (PF) 4 mg/2 mL injection solution [address] - [id number], [address], [place], [address], 5 20:55:08 sodium chloride 0.9 % intravenous solution [address] - [id number], [address], [place], [address], 5 20:55:08 ondansetron 4 mg disintegrat ing tablet 2024 025 [place], [place] - [id number], [address], [place], [address], 5 12:22:34 sodium chloride 0.9 % intravenous solution [address] - [id number], [address], [place], [address], 5 22:13:10 ondansetron HCl (PF) 4 mg/2 mL injection solution [address] - [id number], [address], [place], [address], 5 22:13:10 Tamiflu 75 mg capsule [address] - [id number], [address], [place], [address], 5 23:24:00 Tamiflu 75 mg capsule 2024 025 AMEYA [place], [place] - [id number], [address] [place], [address], 5 12:24:28 ondansetron HCl (PF) 4 mg/2 mL injection solution 2023 024 [place], [place] - [id number], [address] [place], [address], 4 18:04:36 sodium chloride 0.9 % intravenous solution 2023 024 [place] - [id number], [address] [place], [address], 4 18:04:36 Patient TargetsNo targets recorded. Patient InstructionsNo instructions recorded. Reason for Referral None Reported. Results Created Date Observation Date Name Description Value Unit Range Abnormal Flag Note LastModifiedBy Organization Detail LastModifiedTime 02/25/2002/24/2023 BMP, serum or plasm a BUN 12 Not Available [facility] - [facility] [address], [address], 02/24/2023 13:48:29 02/25/20 23 02/24/2023 BMP, serum or plasm a Ca Ionize d-1.09 Not Available [facility] - [facility] [address], [address], 02/24/2023 13:48:29 02/25/20 23 02/24/2023 BMP, serum or plasm a CI- 108 Not Available Main - [facility] [address], [address], 02/24/2023 13:48:29 02/25/20 23 02/24/2023 BMP, serum or plasm a CRE 0.7 Not Available [facility] - [facility] [address], [address], 02/24/2023 13:48:29 02/25/20 23 02/24/2023 BMP, serum or plasm a GLU 139 Not Available [facility] - [facility] [address], [address], 02/24/2023 13:48:29 02/25/20 23 02/24/2023 BMP, serum or plasm a K+ 4.2 Not Available [facility] - [facility] [address], [address], 02/24/2023 13:48:29 02/25/20 23 02/24/2023 BMP, serum or plasm a Na+ 140 Not Available [facility] - [facility] [address], [address], 02/24/2023 13:48:29 02/25/20 23 02/24/2023 BMP, serum or plasm a tCO2 21.7 Not Available [facility] - [facility] [address], [address], 02/24/2023 13:48:29 02/25/20 23 02/24/2023 gluco se, finge rstic k, blood Blood Glucose: mg/dl 139 Not Available [facility] - [facility] [address] [place] [address], [address], 02/24/2023 13:31:46 02/25/20 23 02/24/2023 rapid SARS CoV 2 Ag, QL IA, respi rator y speci men rapid SARS CoV 2 Ag, QL IA, respiratory specimen negati ve Not Available [facility] - [facility] ed [address] [place] [address], [address], 02/24/2023 13:31:36 02/25/20 23 02/24/2023 rapid flu (A+B) Flu negati ve Not Available [facility] - [facility] ed [address] [place] [address], [address], 02/24/2023 13:31:34 03/16/20 23 03/16/2023 BMP, serum or plasm a BUN 16 Not Available [facility] - [facility] [address], [address], 03/16/2023 17:32:21 03/16/20 23 03/16/2023 BMP, serum or plasm a Ca 0.91 Not Available Main - [facility] [address], [address], 03/16/2023 17:32:21 03/16/20 23 03/16/2023 BMP, serum or plasm a CI- 100 Not Available Main - [facility] [address], [address], 03/16/2023 17:32:21 03/16/20 23 03/16/2023 BMP, serum or plasm a CRE 0.66 Not Available Main - [facility] [address], [address], 03/16/2023 17:32:21 03/16/20 23 03/16/2023 BMP, serum or plasm a GLU 134 Not Available [facility] - [facility] [address], [address], 03/16/2023 17:32:21 03/16/20 23 03/16/2023 BMP, serum or plasm a K+ 4.3 Not Available Main - [facility] [address], [address], 03/16/2023 17:32:21 03/16/20 23 03/16/2023 BMP, serum or plasm a Na+ 138 Not Available [facility] - [facility] [address], [address], 03/16/2023 17:32:21 03/16/20 23 03/16/2023 BMP, serum or plasm a tCO2 24 Not Available Main - [facility] [address], [address], 03/16/2023 17:32:21 04/08/19 25 04/08/2024 rapid SARS CoV 2 Ag, QL IA, respi rator y speci men rapid SARS CoV 2 Ag, QL IA, respiratory specimen negati ve Not Available [facility] [address] [place] [address], [address], 04/08/2024 23:24:37 04/08/19 25 04/08/2024 rapid flu (A+B) Flu positi ve Not Available [facility] [address] [place] [address], [address], 04/08/2024 22:12:19 02/20/20 24 02/20/2024 elect aria fernandez am No observ ation record ed. [email or web address] [address], [address], 02/20/2024 19:59:52 Result Notes None recorded. Procedures Surgical History None recorded. Imaging Results Imaging Date Name Status LastModified by Organization Details LastModified Time 02/20/2024 [facility] [address] [place] [address], [address], 02/20/2024 19:59:52 Procedure Notes None recorded. Medical Equipment None Reported. Allergies Allergen ID Allergen Name Allergen Category Reaction Reaction Severity Criticality Documentation Date Start Date Code Code System Note Provider Name and Address Organization Details Recorded Time 33707 Reglan medicatio n Not available Not available Not available 02/20/2024 9230 RxNorm Not Available [facility] 4 15:54:42 3933 Product containin g penicilli n (product) medicatio n Not available Not available Not available 02/24/2023 42294 8001 SNOMED Not Available [facility] 4 03:33:03 3934 latex environme nt,medica tion Not available Not available Not available 02/24/2023 11020 91 RxNorm Not Available [facility] 4 03:33:03 3935 Iodinated contrast media (substanc e) medicatio n Not available Not available Not available 02/24/2023 43529 2003 SNOMED Dedra Davis MD [address] [place] [address],[address], [place], [address], [facility] 3 13:27:42 Medications Name Sig Start Date Stop Date Status Note LastModified by Organization Details LastModified Time mm-neb/kit a7005 active Not Available Not Available Not Available multivitami n tablet active Not Available Not Available Not Available quetiapine 25 mg tablet active Not Available Not Available Not Available atorvastati n 40 mg tablet active Not Available Not Available Not Available gabapentin 600 mg tablet active Not Available Not Available Not Available ipratropium 0.5 mg-albutero l 3 mg (2.5 mg base)/3 mL nebulizatio n soln active Not Available Not Available Not Available trazodone 50 mg tablet TAKE 1 TABLET BY MOUTH ONCE DAILY AT BEDTIME active Not Available Not Available No t Available fluconazole 150 mg tablet active Not Available Not Available Not Available metoprolol succinate ER 50 mg tablet,exte nded release 24 hr active Not Available Not Available Not Available sucralfate 1 gram tablet active Not Available Not Available Not [...] mg tablet TAKE 1 TABLET BY MOUTH two (2) times a day FOR 7 DAYS active Not Available Not Available No t Available tramadol 50 mg tablet TAKE 1 TABLET BY MOUTH EVERY 6 HOURS NEEDED FOR PAIN FOR 3 DAYS active Not Available Not Available No t Available quetiapine 100 mg tablet active Not Available Not Available Not Available Zofran 4 mg tablet 1 tablet x 2-was still nauseated after first dose 2022 active Not Available Not Available Not Avai lable methocarbam ol 750 mg tablet TAKE 1 TABLET BY MOUTH EVERY 6 HOURS NEEDED FOR MUSCLE SPASM active Not Available Not Available No t Available gabapentin 800 mg tablet active Not Available Not Available Not Available diazepam 2 mg tablet active Not Available Not Available No t Available pantoprazol e 40 mg tablet,lynne yed release TAKE 1 TABLET BY MOUTH ONCE DAILY active Not Available Not Available No t Available mirtazapine 30 mg tablet TAKE 1 TABLET BY MOUTH AT BEDTIME active Not Available Not Available No t Available oseltamivir 75 mg capsule Take 1 capsule twice a day by oral route for 5 days. active Not Available Not Available No t [...] active Not Available Not Available Not Available lidocaine 5 % topical patch APPLY 1 PATCH onto THE SKIN ONCE DAILY NEEDED FOR moderate PAIN (scale 4-6) active Not Available Not Available No t Available benztropine 1 mg tablet active Not Available Not Available Not Available Ear Drops (carbamide peroxide) 6.5 % INSTILL 5 DROPS IN THE AFFECTED EAR two (2) times a day FOR 4 DAYS active Not Available Not Available No t Available gabapentin 300 mg capsule TAKE 1 CAPSULE BY MOUTH two (2) times a day FOR PAIN active Not Available Not Available No t Available aspirin 81 mg chewable tablet active Not Available Not Available Not Available sodium chloride 0.9 % intravenous solution Inject 1000 mL by intraveno us route. 2023 active Not Available Not Available Not Avai lable metoprolol succinate ER 25 mg tablet,exte nded release 24 hr active Not Available Not Available Not Available nystatin 100,000 unit/gram topical powder active Not Available Not Available Not Available lisinopril 40 mg tablet active Not Available Not Available Not Available ondansetron 4 mg disintegrat ing tablet 1 tablets sublingua lly(ODT) every 8 hours as needed for nausea vomiting active Not Available Not Available No t Available olanzapine 20 mg tablet active Not Available Not Available Not Available metoclopram lucian 10 mg tablet TAKE 1 TABLET BY MOUTH 3 (THREE) TIMES A DAY NEEDED FOR NAUSEA AND FOR VOMITING active Not Available Not Available No t Available Ventolin HFA 90 mcg/actuati on aerosol inhaler active Not Available Not Available Not Available simethicone 80 mg chewable tablet active Not Available Not Available Not Available cholecalcif marco a (vitamin D3) 25 mcg (1,000 unit) capsule active Not Available Not Available Not Available rosuvastati n 40 mg tablet active Not Available Not Available Not Available nitrofurant oin monohydrate /macrocryst als 100 mg capsule TAKE 1 CAPSULE BY MOUTH EVERY TWELVE HOURS FOR 5 DAYS active Not Available Not Available No t Available duloxetine 20 mg capsule,del ayed release TAKE TWO CAPSULES BY MOUTH ONCE DAILY active Not Available Not Available No t Available duloxetine 30 mg capsule,del ayed release active Not Available Not Available Not Available duloxetine 60 mg capsule,del ayed release active Not Available Not Available Not Available Antifungal (clotrimazo le) 1 % topical cream active Not Available Not Available Not Available quetiapine 50 mg tablet TAKE 1 TABLET BY MOUTH ONCE DAILY AT BEDTIME active Not Available Not Available No t Available ondansetron HCl (PF) 4 mg/2 mL injection solution Take 4 mg by injection route. 2023 active Not Available Not Available Not Avai lable Lantus Solostar U-100 Insulin 100 unit/mL (3 mL) subcutaneou s pen active Not Available Not Available Not Available diclofenac 1 % topical gel active Not Available Not Available Not Available GaviLyte-G 236 gram-22.74 gram-6.74 gram-5.86 gram oral solution TAKE 240ml BY MOUTH EVERY 10 MINUTES active Not Available Not Available No t Available OneTouch Verio test strips USE TO TEST FINGER STICK BLOOD SUGAR UP TO 5 TIMES DAILY active Not Available Not Available No t Available OneTouch Verio Flex Meter active Not Available Not Available Not Available OneTouch Delica Plus Lancet 33 gauge active Not Available Not Available Not Available Tab-A-Alanis 400 mcg tablet active Not Available Not Available Not Available Ozempic 1 mg/dose (4 mg/3 mL) subcutaneou s pen injector 02/19 completed Not Available Not Available Not Available Flowflex COVID-19 Antigen Home Test kit active Not Available Not Available Not Available Ozempic 2 mg/dose (8 mg/3 mL) subcutaneou s pen injector 02/19 completed Not Available Not Available Not Available Vitals Date Recorded Body temperature Body weight Oxygen saturation Oxygen saturation in Arterial blood by Pulse oximetry Heart rate Respiratory rate Systolic blood pressure Diastolic blood pressure Provider Name and Address Organization Details Last Updated DateTime 3 98.3 [degF] 57705.3 2 g 98 % 98 % 94 /min 18 /min 168 mm[Hg] 53 mm[Hg] Not Available [facility] 3 17:15:24 Date Recorded Body mass index (BMI) Body height Provider Name and Address Organization Details Last Updated DateTime 03/16/2023 30.1 kg/m2 177.8 cm HARISH ALEX MD [address] [facility],[address], [place], [address], [place] - [employer] 03/16/2023 19:17:38 Date Recorded Respiratory rate Body temperature Oxygen saturation Oxygen saturation in Arterial blood by Pulse oximetry Body weight Heart rate Systolic blood pressure Diastolic blood pressure Provider Name and Address Organization Details Last Updated DateTime 4 18 /min 98.2 [degF] 99 % 99 % 34849.3 2 g 122 /min 142 mm[Hg] 80 mm[Hg] Not Available [facility] 4 14:23:45 Date Recorded Heart rate Respiratory rate Body temperature Oxygen saturation Oxygen saturation in Arterial blood by Pulse oximetry Systolic blood pressure Diastolic blood pressure Provider Name and Address Organization Details Last Updated DateTime 4 70 /min 18 /min 97.9 [degF] 97 % 97 % 110 mm[Hg] 69 mm[Hg] Not Available [facility] [facility] 4 17:01:13 Date Recorded Respiratory rate Heart rate Body height Oxygen saturation Oxygen saturation in Arterial blood by Pulse oximetry Body weight Body temperature Systolic blood pressure Diastolic blood pressure Provider Name and Address Organization Details Last Updated DateTime 5 20 /min 98 /min 170.18 cm 94 % 94 % 16064.2 4 g 99.3 [degF] 149 mm[Hg] 100 mm[Hg] Not Available [facility] [facility] 5 22:03:43 Date Recorded Heart rate Body temperature Oxygen saturation Oxygen saturation in Arterial blood by Pulse oximetry Respiratory rate Systolic blood pressure Diastolic blood pressure Provider Name and Address Organization Details Last Updated DateTime 5 101 /min 99.6 [degF] 98 % 98 % 18 /min 127 mm[Hg] 81 mm[Hg] Not Available [employer] 5 20:41:57 Social History None recorded. Functional Status None recorded. Mental Status None recorded. Family History Nothing Reported. Medical History No medical history recorded. Gynecological HistoryNo gynecological history recorded. Obstetrics History GPAL:G 0 P 0 0 0 0 Past Encounters Encounter ID Performer Location Encounter Start Date Encounter Closed Date Diagnosis/Indication Diagnosis SNOMED-CT Code Diagnosis ICD10 Code Diagnosis Note [id number] Murphy Bishop MD Main - [address] [address] 06/14/2022 10:54:26 06/16/2022 09:10:40 Acute abdominal pain 040405789 R10.9 This 61-year-ol d female with a previous cholecyste ctomy called [facility] anmol hong of severe right upper quadrant pain since last night. Based on her history and exam I suspect she has an acute abdomen, and I recommende d that she go to the ER for further evaluation . The patient agreed with this plan. [id number] Corby Ventura MD Main - [address] [address] 07/13/2022 10:13:12 07/15/2022 09:59:54 Right upper quadrant pain [id number] R10.11 [id number] Dread Agustin MD Main - [address] [address] 08/27/2022 12:09:52 08/31/2022 13:13:46 Chest pain [id number] R07.9 62yo woman presents with exertional chest pain and shortness of breath that is not reproducib le to palpatatio n. Presentati on concerning for ACS. She was given a full aspirin and referred to the ED by 911. [id number] Mina Freed MD Main - [address] [address] 11/08/2022 15:25:35 02/07/2023 14:49:13 Nausea and vomiting [id number] R11.2 [id number] Helen Cortez MD Main - [facility] [address] [place] [phone] 11/24/2022 18:45:03 11/24/2022 23:49:04 Epigastric pain [id number] R10.13 62 year old female with Crohn's and GERD, being evaluated for worsening epigastric pain over the last few weeks. Patient reports difficulty eating due to pain, despite being on her PPI daily. Patient denies vomiting or black stools. Pain is only with eating. Exam notable for normal vital signs, POC CMP unremarkab le. Presentati on consistent with poorly controlled GERD, impacting ability to tolerate PO, without evidence of dehydratio n or electrolyt e derangemen ts today. Trial maalox in addition to PPI, ultimately urged patient to seek additional work up through outpatient team. I have reviewed and agree with the assessment and plan as documented by the band cutter. I provided real-time medical direction for this encounter and was immediatel y available to provide additional phone-base d assistance as needed. [id number] Mina Freed MD Main - [facility] [address] [place] [phone] 12/28/2022 16:05:13 12/28/2022 23:40:19 Tremor [id number] R25.1 [id number] Dedra Davis MD Main - [facility] [address] [place] [phone] 02/24/2023 13:23:32 02/26/2023 11:37:42 Nausea and vomiting [id number] R11.2 Patient has no peripheral IV access per the medic. Patient reports they always have to use an ultrasound to get IVs-howeve r she is not orthostati c and electrolyt es good, H&H stable and BUN/creati nine revealed no dehydratio n/her blood sugar is stable thus she does not need insulin at this time-attem pted to verbally reassure the patient.- To her care team:-If she continues to have frequent bouts of nausea and vomiting, consider stopping the Ozempic as this could be exacerbati ng the symptoms. After medication she feels safe staying at home, she states that her boyfriend can go berry picker her prescripti on. Will trial frequent small amounts of clear liquids-ad vised if not tolerating clears with medication or feeling worse she is always able to go to the ER if needed. She verbalized understand ing [id number] HARISH ALEX MD Main - [facility] [address] [place] [phone] 03/16/2023 17:15:21 03/16/2023 22:50:57 Nausea and vomiting [id number] R11.2 As noted, we were called to see this patient regarding concerns of nausea, vomiting, inability to tolerate PO. Evaluation in the field was performed by my band cutter colleague, as noted above, I provided real-time direction and supervisio n for this visit. The evaluation revealed 62 yo female with PMH of Diabetes, Hypertensi on, CHF who had a positive home Covid test ~ 1.5 weeks ago and continues to feel weak, has intermitte nt nausea/ vomiting, inability to take her meds . Has Zofran at home -sublingua l formulatio n but has been trying to swallow it can not keep it down. Has been tolerating fluids . Has been taking her Ozempic .Denies fever.VS stable.BMP with stable stable electrolyt es. Bun/ Cre 16/ 0.66 ( baseline creat 0.8 ) Impression :Nausea/ vomiting Plan:Payam edic not able to establish an IV ( pt reports that an US is used to place IV's on her ) .Advised to use the Zofran sublingual every 8 hrsStop Ozempic for at least 1 week, until symptoms subside. If symptoms return , after restarting , will need to stop it for good since N/V can be due to OzempicAdv ised to drink pedia lyte that is much easier in the stomach Primary care, consider: Please asses if N/V due to Ozempic if ongoing problem . Dispositio n: We discussed the diagnostic uncertaint y of home visits and the risk associated with this. In this case, the patient and I felt this to be an acceptable and reasonable amount of risk given the benefit of avoiding an ED visit. We discussed the need to seek care urgently/e mergently in the setting of any new or worsening serious symptoms, particular ly if she starts feeling Dizzy, palpitatio n, CP, SOB, unable to keep any fluid down , or any other concerns. [id number] Mina Freed MD [facility] - [facility] [address] [place] [address] [phone] 03/30/2023 14:23:43 03/31/2023 10:33:32 Upper respiratory infection [id number] J06.9 [id number] Mayo Cortez MD [facility] - [facility] [address] [place] [address] [phone] 02/20/2024 17:00:58 02/20/2024 23:27:33 Nausea and vomiting [id number] R11.2 [id number] Melissa Patterson MD Main - [facility] [address] [place] [address] [phone] 04/08/2024 22:03:39 04/09/2024 14:03:22 Influenza A virus present [id number] 08 J09.X2 Nausea and vomiting 1692 1999 R11.2 [id number] Melissa Patterson MD [facility] - [facility] [address] [place] [address] [phone] 04/09/2024 20:41:56 04/10/2024 01:15:20 Influenza A virus present [id number] 08 J09.X2 Diarrhea [id number] R19.7 Health Concerns Section Related Observation LastModified by Organization Detai ls LastModified Time None Recorded Concern Status LastModified by Organization Details LastModified Time None Recorded Advance Directives Directive None Recorded Payers Encounter Date Sequence Insurance Name Policy Number Policy Bustillo Covered Member ID Bustillo Member ID Guarantor Name 03/16/2023 1 [employer] - DOS ON OR AFTER 2022 - DUAL ELIGIBLE - SHELTER OPTIONS AND ONE CARE (MEDICARE REPLACEMENT/AD VANTAGE - HMO) Vale Berberena [id number] Vale Y Berberena 03/30/2023 1 [employer] - DOS ON OR AFTER 2022 - DUAL ELIGIBLE - SHELTER OPTIONS AND ONE CARE (MEDICARE REPLACEMENT/AD VANTAGE - HMO) Vale Berberena [id number] Vale Y Berberena 02/20/2024 1 [employer] - DOS ON OR AFTER 2022 - DUAL ELIGIBLE - SHELTER OPTIONS AND ONE CARE (MEDICARE REPLACEMENT/AD VANTAGE - HMO) Vale Berberena [id number] Vale Y Berberena 04/08/2024 1 [employer] - DOS ON OR AFTER 2022 - DUAL ELIGIBLE - SHELTER OPTIONS AND ONE CARE (MEDICARE REPLACEMENT/AD VANTAGE - HMO) Vale Berberena [id number] Vale Y Berberena 04/09/2024 1 [employer] - DOS ON OR AFTER 2022 - DUAL ELIGIBLE - SHELTER OPTIONS AND ONE CARE (MEDICARE REPLACEMENT/AD VANTAGE - HMO) Vale Berberena [id number] Vale Y Berberena Notes Date Note Type Note Provider Name and Address Organization Details Recorded Time 03/16/2023 text/html HPI: Home COVID test positive [...] ....................... ....................... ....................... ....................... ....................... ....................... ... Home Health Registered Nurse Note From Demond Boles: Pt co fatigue and chills with diarrhea and vomiting. Pt has chrones. Pt tested positive for Covid week and half an ago and hasn? t fully recovered. Cough has subsided but still feels tired. Baseline vitals assessed. Lungs clear. BS 168. [facility] contacted and BMP/POC bloodwork unremarkable. Or advised to to stop ozentic and take zofran SL up to 6x per day as needed. Also hydrate recommended pedialite. Pt education on signs indicating the ER. Home Health Registered Nurse Allergies: Latex, Penicillin ....................... ....................... ....................... ....................... ....................... ....................... ... Disposition: Leoncio ALEX MD [address] [facility],[address], [place], [phone], [employer] 03/16/2023 19:19:59 03/30/2023 text/html HPI: 62 y/o [...] ....................... ....................... ....................... ....................... ....................... ....................... ... Home Health Registered Nurse Note From Demond Boles: Pt co runny nose and chills yesterday. Pt sts tried doing her own Covid test but wasn? t sure she was reading it correctly. Pt wanted retest. Baseline vital? s assessed. Pt afebrile. Clear lungs. Pt denies nausea vomiting diarrhea. Covid swab negative. [facility] contacted and pt education on self care and monitor symptoms. Home Health Registered Nurse Allergies: Latex, Penicillin ....................... ....................... ....................... ....................... ....................... ....................... ... Disposition: Fulfilled Mina Freed MD [address] [place] [address],[address], [place], [phone], [employer] 03/30/2023 22:15:07 02/20/2024 text/html HPI: 63 y/o femalePMH- T2DM, MDD, [place], PTSD, Insomnia, HTNGERD, FibroPatient called to PCP to report 4 days of worsening sore throat, fever, chills, SOB and cough. Patient denies CP at this time. Patient reports has been sick. Patient hoarse due to sore throat. ....................... ....................... ....................... ....................... ....................... ....................... ... [facility] Nurse Triage Notes (Bob Calero): Chief Complaints: Breathing problems, Common cold symptoms, Fever/chills, Sore throat PMH: Severe Persistent Mental Illness (SPMI), Hypertension, Congestive Heart Failure Comments: HPI reviewed by this RN, no further information needed to process visit -Matthew Calero RN Home Health Registered Nurse Organization Information for [employer] Legal Name: [facility] Address: [address] [place] [address], Machine Setter: Kemal Mcdaniel MD CLIA No.: [id number] Home Health Registered Nurse POC Test Results from [facility] (16:51:40) pH: 7.47 pH units pCO2: 35.9 [...] ....................... ....................... ....................... ....................... ....................... ....................... ... Home Health Registered Nurse Note From Chaka Mendoza: This 63-year-old female [...] of breath. Patient states she sees a media clerk and he told her that ? m y stomach doesn't digest food properly and I need an endoscopy.? The patient states she's also supposed to be tested for [place]'s disease soon.Patient presents awake and alert, in moderate distress. Her vital signs are reasonably stable and she is afebrile. Neurological exams at baseline. Normal gait. Lungs are clear throughout auscultation. Significant epigastric tenderness, abdomen otherwise benign. No lower extremity edema. EKG uploaded. Mazht-ve-wrrb labs uploaded. Rapid COVID and flu are both negative.I treated this patient with normal saline 1 L IV and ondansetron 4 mg IVP. She received no relief from Zofran or fluids. Because of the patient's concurrent medications our antiemetic treatments were limited. After a lengthy discussion with myself and the [facility] the patient agreed to ambulance transport to [facility] emergency department. 911 was initiated and a verbal SBAR was given to [facility] BLS crew. ....................... ....................... ....................... ....................... ....................... ....................... ... [facility] Consulted: Mayo Cortez ....................... ....................... ....................... ....................... ....................... ....................... ... Disposition: Fulfilled Mayo Cortez MD [address] [facility],[address], [place], [phone], [employer] 02/20/2024 22:21:01 04/08/2024 text/html HPI: Member calling in with c/o nausea and diarrhea that started last night. Member states she was unable to sleep due to symptoms and constantly being up to the bathroom. Member states BS have been abnormal BS was 320 this morning. Member also states her lips and mouth are very dry. ....................... ....................... ....................... ....................... ....................... ....................... ... [facility] Nurse Triage Notes (Yusuf Dalal - RN): Chief Complaints: Dehydration, Diarrhea, Vomiting PMH: Severe Persistent Mental Illness (SPMI), Hypertension, Congestive Heart Failure, Inflammatory Bowel Disease (Crohn's Disease, Ulcerative Colitis) PMH Reviewed at 04/08/2024:47 Allergies Reviewed at 04/08/2024:47 Comments: Assess s/s and treat as indicated Home Health Registered Nurse Organization Information for Selena [facility] Business Legal Name: [employer]? Address: [address] [place], [place] [address] [address], Machine Setter: Praneeth CAMPO No.: [id number] Home Health Registered Nurse POC Test Results from [facility] Blood Glucose Measurement (17:52:19) Blood Glucose: 154 mg/dL Rapid COVID antigen (17:52:21) COVID: - Rapid influenza antigen (17:52:21) Flu: - Attachments uploaded as part of this test result can be found under Documents section. ....................... ....................... ....................... ....................... ....................... ....................... ... Home Health Registered Nurse Note From Selena Bullard: SANDY makes pt contact when she opens the front door to her home. She is dressed in her nightgown and tells [facility] she was just in the bathroom w/ another bout of diarrhea. She is not in acute respiratory distress, she has no facial droop or one-sided weakness and she is not bleeding anywhere. Her face is pale and she appears disheveled, but she is able to answer all questions using a linear and logical thought pattern. She is fidgety at baseline due to tardive dyskinesia. Pt endorses N/V x2 days w/ cold-like symptoms x3 days. She describes herself as leaking water everywhere! and she has even been incontinent of her bowels, which is not normal for her. Pt also endorses feeling feverish the past couple days as well. She is denying acute cp, sob, sore throat, or cough and does not report any sick contacts. Pt also says this does not feel like her gastroparesis nor her UC. Pt is amendable to evaluation and treatment today. [facility] obtains vital signs and pt is assessed. She is found to have a very low-grade fever and she continues to have rhinitis and sneeze throughout. Lung sounds are clear and remaining physical exam is unremarkable. Pt consents to COVID/flu swab and is found to be positive for Flu A. [facility] contacts [facility] to discuss the above. [facility] is agreeable to IV fluids and antiemetics and orders 75mg tamiflu PO and 4mg ondansetron IV along w/ 1L LR. A 20ga IV is attempted in the L AC and is unsuccessful. A second 20ga IV is attempted in the R forearm and is also unsuccessful. An 18 ga IV is established in the R forearm and locked w/ a saline lock. Pt is administered 75mg Tamiflu PO and 4mg ondansetron SIVP. Pt is then seated comfortably in her recliner and receives 1 L LR IV. Lung sounds are continually reassessed throughout. Pt endorses and improvement of the congestion in her R ear and generally feels better post fluid administration. IV is removed at the end and pt thanks [facility] for coming. [facility] is clear. Report completed by FIONA Bullard [id number]. ....................... ....................... ....................... ....................... ....................... ....................... ... [facility] Consulted: Melissa Patterson ....................... ....................... ....................... ....................... ....................... ....................... ... Disposition: Fulfilled Melissa Patterson MD [address] [facility],[address], [place], [phone], [employer] 04/08/2024 23:26:58 04/09/2024 text/html HPI: 63 y/o femalePatient last seen by kolton on 04/08 and dx with Flu A. Patient called office today with reports of worsening nausea and diarrhea. Patient is tearful during call and states that any time she attempts to consume fluids she immediately has a loose bowel movement. Patient confirms that she just received tamiflu. ....................... ....................... ....................... ....................... ....................... ....................... ... [facility] Nurse Triage Notes (Bridgett Mungiua - RN): Chief Complaints: Dehydration, Diarrhea, Nausea PMH: Severe Persistent Mental Illness (SPMI), Hypertension, Congestive Heart Failure, Inflammatory Bowel Disease (Crohn's Disease, Ulcerative Colitis) PMH Reviewed at 04/09/2024 - 16:23 Allergies Reviewed at 04/09/2024 - 16:23 Comments: HPI reviewed- [place] Home Health Registered Nurse Organization Information for [employer] Business Legal Name: [facility] Address: [address] [place] [address], [place] [address], Machine Setter: Kemal Mcdaniel MD CLIA No.: [id number] Home Health Registered Nurse POC Test Results from [facility] (18:14:59) pH: 7.43 pH units pCO2: 37.2 mmHg pO2: 44.2 mmHg Na: 138 mmol/L K: 4.4 mmol/L iCa: 1.08 mmol/L Cl: 106 mmol/L TCO2: 23.8 mEq/L Hct: 39 % Hb: 13.3 g/dL Glu: 127 mg/dL Lac: 1.24 mmol/L Cr: 0.72 mg/dL BUN: 16 mg/dL A ....................... ....................... ....................... ....................... ....................... ....................... ... Home Health Registered Nurse Note From Chaka Mendoza: This 63-year-old female with a history including but not limited to bipolar disorder, HLD, anxiety, depression, neuropathy, HTN, DM type II, asthma, intestinal cancer requested a visit today to address ongoing nausea, vomiting, diarrhea. Patient states she was diagnosed with influenza A yesterday and was prescribed Tamiflu which she began today. Patient states in the last 24 hours she has had two to three episodes of vomiting and eight to ten episodes of watery diarrhea. Patient denies any chest pain, shortness of breath, headaches. Patient presents awake and alert, in no acute distress. She has mild tachycardia, vital signs are otherwise stable, temp is 99.6. Baseline neurological exam. Lungs are clear throughout auscultation. Mild epigastric tenderness on palpation, abdomen is otherwise benign. No lower extremity edema. Unremarkable POC labs are uploaded. I treated this patient with normal saline 1 L IV, which resolved the tachycardia, and ondansetron 4 mg IVP. I provided education on the patient's prescriptions and the importance of staying well hydrated. I recommend she follows up with her primary care physician tomorrow and present to the emergency department for any new or worsening severe symptoms such as chest pain, severe shortness of breath, high fever, altered mental status. The patient and her were given the opportunity to ask questions and are agreeable to this plan. ....................... ....................... ....................... ....................... ....................... ....................... ... [facility] Consulted: Melissa Patterson ....................... ....................... ....................... ....................... ....................... ....................... ... Disposition: Fulfilled Melissa Patterson MD [address] [place] [address],[address], [place], [phone], [employer] 04/09/2024 20:59:59 OBGyn Episode No OBEpisode recorded.
== END 2024-06-27 13:45 | disposition home or self-care (01) ==
LOC: HO.MAMMO 13:44
PROVIDERS: Visit Provider Nurse Practitioner Primary Care
DX: Z12.31 Encounter for screening mammogram for malignant neoplasm of breast (principal)
CPT/HCPCS: 77063; 77067

== ENCOUNTER → 2024-06-27 13:45 | Outpatient (BNV) | payer OTHER, SELFPAY | PROVIDERS: Visit Provider Internal Medicine | DX: Z12.31 Encounter for screening mammogram for malignant neoplasm of breast (principal) | CPT/HCPCS: 77063; 77067 ==

== ENCOUNTER 2024-08-15 11:41 | Emergency (ER) | payer OTHER, SELFPAY ==
[2024-08-15] VITALS (7 sets, daily range): BP systolic 103–157; BP diastolic 69–131; PULSE 72–84; RESP 18–24; TEMP 36–36.8; O2SAT 95–100; BMI 35.6
--- NOTE | ~2024-08-15 | XR_ITS ---
EXAMINATION: XR CHEST 1 VIEW HISTORY: sob, chest pressure COMPARISON: Comparison is made with the prior examination dated 02/20/2024. FINDINGS: A single AP portable view of the chest performed at 1:22 PM is submitted. The lungs are expanded and clear. There is no pleural effusion, pneumothorax, or pulmonary vascular congestion. The heart is normal in size. The aorta is calcified. There is degenerative disc disease of the spine. XR/XR chest 1V IMPRESSION: No acute cardiopulmonary abnormality. Electronically signed by: Fred Burks MD 08/15/2024 01:35 PM EDT
--- NOTE | 2024-08-15 11:45 | ECG_ITS ---
Test Reason : CP/SOB Blood Pressure : */* mmHG Vent. Rate : 79 BPM Atrial Rate : * BPM P-R Int : * ms QRS Dur : 80 ms QT Int : 380 ms P-R-T Axes : * 9 28 degrees QTcB Int : 435 ms Poor data quality Likely sinus rhtyhm Septal infarct , age undetermined Abnormal ECG When compared with ECG of 20-Feb-2024 22:54, No significant changes seen Referred By: Generic ED Physician Electronically Signed By: Zack Dunn
--- NOTE | 2024-08-15 12:03 | ED_ITS ---
HPI - Chest Pain General Chief Complaint: Chest Pain Stated Complaint: Chest pressure, dizzy, nausea, diff breathing x3d Time Seen by Provider: 08/15/24 12:02 Source: patient, EMS, RN notes reviewed and old records reviewed Mode of arrival: EMS Limitations: no limitations History of Present Illness ED Provider: Isamar Rosas PA-C HPI narrative: 64 yo female with history of depression, anxiety, bipolar, dyskinesia, dissociated identity disorder, HTN, HLD, DON, DM 2 who presents to the ER from home for evaluation of sudden onset left-sided chest pain that started today. Patient reports that she has been having elevated blood pressures at home for the last 3 days. She reports today it was as high as 196 30. She reports being compliant with her blood pressure medications, she does not remember the names of them. She states the pain in her left side of the chest radiates to the left arm. She reports associated shortness of breath and dizziness. She reports similar episode of chest pain last year. She arrives to the ER tearful. She states she has seen a missing persons investigator in the past, is unsure if she has any coronary disease. She called her PCP who told her to come to the ER for further evaluation and treatment. MD complaint: chest pain Pertinent past history: asthma and other (Diabetes, history of noncardiac chest pain) Onset (ago): hour(s) Timing of current episode: constant Prior episodes: Yes Onset: during rest Pain location: left chest Pain radiation: left arm Severity: severe Quality: sharp Relieving factors: nothing Exacerbating factors: palpation, movement and stress Associated symptoms: diaphoresis and dyspnea Treatment prior to arrival: aspirin (Patient took 4 aspirin prior to calling EMS) Risk Factors Coronary artery disease risk factors: diabetes, hyperlipidemia and hypertension Thoracic aortic dissection risk factors: none Related Data Home Medications ?Medication ?Instructions ?Recorded ?Confirmed bumetanide 0.5 mg tablet 0.5 mg PO DAILY 05/06/21 03/08/24 esomeprazole magnesium 40 mg 40 mg PO BID@0630,1630 05/06/21 03/08/24 capsule,delayed release metformin 1,000 mg tablet 1,000 mg PO BID 05/06/21 03/08/24 albuterol sulfate 90 mcg/actuation 2 puff inhalation Q4H PRN SOB 09/29/23 03/08/24 aerosol inhaler (Ventolin HFA) aspirin 81 mg chewable tablet 1 tab PO DAILY 09/29/23 03/08/24 ipratropium 0.5 mg-albuterol 3 mg 3 ml inhalation Q4H PRN Shortness 09/29/23 03/08/24 (2.5 mg base)/3 mL nebulization Of Breath/wheezing soln metoprolol succinate 50 mg 50 mg PO DAILY 09/29/23 03/08/24 tablet,extended release 24 hr multivitamin with folic acid 400 1 tab PO DAILY 09/29/23 03/08/24 mcg tablet (Tab-A-Alanis) diclofenac sodium 1 % topical gel 1 ea topical TID PRN Pain (Scale 10/03/23 03/08/24 Score 1-3) lisinopril 20 mg tablet 20 mg PO DAILY 10/03/23 03/08/24 rosuvastatin 40 mg tablet 40 mg PO DAILY 10/03/23 03/08/24 duloxetine 20 mg capsule,delayed 60 mg PO DAILY 03/08/24 03/08/24 release gabapentin 400 mg capsule 400 mg PO TID 03/08/24 03/08/24 simethicone 80 mg chewable tablet 80 mg PO QID PRN Dyspepsia 03/08/24 03/08/24 sucralfate 1 gram tablet 1 g PO QID PRN Dyspepsia 03/08/24 03/08/24 Previous Rx's ?Medication ?Instructions ?Recorded clonazepam 1 mg tablet 1 mg PO BID #60 tabs 10/13/23 mirtazapine 30 mg tablet 30 mg PO BEDTIME #30 tabs 10/13/23 quetiapine 50 mg tablet 50 mg PO BEDTIME 30 days #30 tabs 12/01/23 trazodone 50 mg tablet 50 mg PO BEDTIME Insomnia 30 days 12/01/23 #30 tabs Allergies Allergy/AdvReac Type Severity Reaction Status Date / Time adhesive tape [TAPE,ADHESIVE] Allergy Severe ANAPHYLAXIS Verified 08/15/24 12:13 latex [LATEX] Allergy Severe ANAPHYLAXIS Verified 08/15/24 12:13 Penicillins [PCN] Allergy Severe ANAPHYLAXIS Verified 08/15/24 12:13 Review of Systems 2 Review of Systems: Yes all other systems are reviewed and are negative PMFSH Past Medical History Medical History Medical clearance for psychiatric admission Parkinsons disease PTSD (post-traumatic stress disorder) MDD (major depressive disorder), recurrent, severe, with psychosis Insomnia Dyskinesia, drug-induced Dissociative identity disorder Bipolar 1 disorder Anxiety Depression Colon cancer Surgical History History of carpal tunnel surgery Hx of bariatric surgery Hx of hysterectomy History of partial colectomy Hx of cholecystectomy Hx of appendectomy Hx of knee surgery Family History Family History Mother Diabetes Hypertension Father No problems noted. Sister No problems noted. Brother No problems noted. Social History Social History Household Members: Spouse Housing: House Do you presently have visiting nurse or other home services: Yes (Home health aide and visiting nurse) Alcohol intake: never Patient Tobacco Use Status: Never used Tobacco Smoked in Last 30 Days: No e-Cigarette/Vaping Use: Never Used Second Hand Smoke Exposure: No Use of substances other than those prescribed or required for medical reasons: Yes Substance Use Type: Marijuana Substance Use Frequency: Occasionally Advance Directives: No Advance Directives Information Provided: Yes Do you have a plan to hurt others: No Plan service: No Sexual orientation: Straight/Heterosexual Physical Exam 2 Vital Signs: Vital Signs: Last Vital Signs Temp 97.6 F 08/15/24 18:20 Pulse 72 08/15/24 18:20 Resp 20 08/15/24 18:20 BP 105/69 08/15/24 18:20 Pulse Ox 95 08/15/24 18:20 O2 Del Method Room Air 08/15/24 18:20 BMI result Body Mass Index 35.6 Appearance: Alert. Oriented X3. Restless, tearful, anxious Head: normocephalic, atraumatic. Eyes: Pupils equal, round and reactive to light. ENT: Pharynx normal. No tonsillar swelling or exudate. Neck: Normal inspection. Neck supple. CVS: Normal heart rate and rhythm. Pulses normal. Left anterior chest wall tenderness Respiratory: No respiratory distress. Breath sounds normal. Abdomen: Soft and nontender. +BS x4 Skin: Skin warm and dry. Normal skin color. Normal skin turgor. No rashes. Extremities: No lower extremity edema. No joint swelling. Neuro/psych: Oriented X 3. No motor deficit. No sensory deficit. CN II-XII intact. Normal speech and cognition. Abnormal movements Medications Administered Discontinued Medications Generic Name Dose Route Start Last Admin Trade Name Alonso PRN Reason Stop Dose Admin Acetaminophen 975 mg 08/15/24 13:46 08/15/24 14:04 Acetaminophen 325 Mg Tablet PO 08/15/24 13:47 975 mg ONCE ONE Administration Diazepam 2.5 mg 08/15/24 13:46 08/15/24 14:04 Diazepam 10 Mg/2 Ml Cartridge IVPUSH 08/15/24 13:47 2.5 mg STAT STA Administration Ketorolac Tromethamine 15 mg 08/15/24 13:46 08/15/24 14:03 Ketorolac Tromethamine 15 Mg/Ml Vial IVPUSH 08/15/24 13:47 15 mg ONCE ONE Administration Morphine Sulfate 4 mg 08/15/24 12:32 08/15/24 12:37 Morphine Sulfate 4 Mg/Ml Cartridge IVPUSH 08/15/24 12:33 4 mg ONCE ONE Administration Protocol Ondansetron HCl 4 mg 08/15/24 12:32 08/15/24 12:38 Ondansetron Hcl 4 Mg/2 Ml Vial IVPUSH 08/15/24 12:33 4 mg ONCE ONE Administration Medical Decision Making Medical Decision Making MDM Narrative: 64 yo female with history of depression, anxiety, bipolar, dyskinesia, dissociated identity disorder, HTN, HLD, DON, DM 2 who presents to the ER from home for evaluation of sudden onset left-sided chest pain that started today. Patient reports that she has been having elevated blood pressures at home for the last 3 days. Blood pressure here is 136/116. EKG without ischemic changes, required repeat as patient was very anxious, restless, had a lot of artifact on the 1st EKG. She was given IV morphine and Zofran with improvement. She continued to be restless and anxious, IV Valium and Tylenol ordered. Troponin is negative x2, chest x-ray is normal, CBC is normal. She has similar presentation in the past when she was on the psych unit. She was seen by Cardiology and had an echocardiogram that showed no regional wall motion abnormalities. There is low suspicion for acute coronary syndrome today. She is improved with medications and has reassuring workup. She is complaining of a headache due to the fact she has not eaten all day, given a sandwich. She is tolerating p.o. and feeling better. This time comfortable discharge home with outpatient follow-up. Differential Diagnosis Differential Diagnoses: The differential diagnosis associated with the presentation includes ACS, PE, hypertensive urgency, anxiety, noncardiac chest pain, musculoskeletal pain, panic attack Admission/Observation Consideration of admission/observation: Escalation of care including admission/observation considered Lab Data MDM Lab Attestation statement: I reviewed the patient's lab results. No leukocytosis, negative troponin, normal renal function, no major metabolic derangement 08/15/24 12:50 08/15/24 13:15 Labs: Lab Results 08/15/24 08/15/24 08/15/24 Range/Units 12:27 12:28 12:50 WBC 7.0 (4.8-10.8) X10*3/uL RBC 5.05 (4.20-5.50) X10*6/uL Hgb 12.6 (12.0-16.0) g/dl Hct 39.0 (37.0-47.0) % MCV 77.2 L (80.0-98.0) fL MCH 25.0 L (27.0-33.0) pg MCHC 32.3 (31.0-35.0) g/dl RDW 14.0 (11.0-16.0) % Plt Count 194 (160-400) X10*3/uL MPV 10.7 (9.4-12.3) fL Immature Gran % (Auto) 0.1 (0.0-0.4) % Neut % (Auto) 61.5 (45-73) % Lymph % (Auto) 31.9 (20-40) % Moca % (Auto) 6.4 (2-11) % Eos % (Auto) 0.0 (0-4) % Baso % (Auto) 0.1 (0-2) % Lymph # (Auto) 2.2 (1.2-4.9) X10*3/uL Moca # (Auto) 0.5 (0.1-1.2) X10*3/uL Eos # (Auto) 0.0 (0.0-0.4) X10*3/uL Baso # (Auto) 0.0 (0.0-0.2) X10*3/uL Abs Immat Gran (auto) 0.01 (0.00-0.03) X10*3/uL Absolute Neuts (auto) 4.3 (2.0-8.3) x10*3/uL Absolute Nucleated RBC 0.000 (0.0-0.012) X10*3/uL Nucleated RBC % (auto) 0.0 (0.0-0.2) /100WBC Sodium (135-145) mmol/L Potassium (3.3-5.1) mmol/L Chloride (96-108) mmol/L Carbon Dioxide (22-29) mmol/L Anion Gap (12-20) BUN (9-16) mg/dL Creatinine (0.5-1.4) mg/dL Estim Creat Clear Calc Estimated GFR Random Glucose (60-115) mg/dL Calcium (8.4-10.2) mg/dL Magnesium (1.6-2.6) mg/dL Total Bilirubin (0.0-1.0) mg/dL Direct Bilirubin (0.0-0.5) mg/dL AST (5-31) U/L ALT (0-31) U/L Alkaline Phosphatase (39-117) U/L Troponin I High Sens < 2.7 (<3.5-17.0) ng/L B-Natriuretic Peptide 11 (<100) pg/mL Total Protein (6.5-8.0) g/dL Albumin (3.5-5.0) g/dL Urine Color Urine Appearance Urine pH (5.0-9.0) Ur Specific [employer] (1.005-1.025) Urine Protein (Neg-Trace) mg/dL Urine Glucose (UA) (Negative) mg/dL Urine Ketones (Negative) mg/dL Urine Blood (Negative) Urine Nitrite (Negative) Ur Leukocyte Esterase (Negative) Urine RBC (0-2) /HPF Urine WBC (0-5) /HPF Ur Squamous Epith Cells (0-2) /HPF Urine Bacteria (None Seen) Hyaline Casts (0-2) /LPF Influenza Type A (PCR) NEGATIVE (Negative) Influenza Type B (PCR) NEGATIVE (Negative) RSV RNA Qual (PCR) NEGATIVE (Negative) SARS-CoV-2 RNA (RT-PCR) NEGATIVE (Negative) 08/15/24 08/15/24 08/15/24 Range/Units 13:15 14:40 15:30 WBC (4.8-10.8) X10*3/uL RBC (4.20-5.50) X10*6/uL Hgb (12.0-16.0) g/dl Hct (37.0-47.0) % MCV (80.0-98.0) fL MCH (27.0-33.0) pg MCHC (31.0-35.0) g/dl RDW (11.0-16.0) % Plt Count (160-400) X10*3/uL MPV (9.4-12.3) fL Immature Gran % (Auto) (0.0-0.4) % Neut % (Auto) (45-73) % Lymph % (Auto) (20-40) % Moca % (Auto) (2-11) % Eos % (Auto) (0-4) % Baso % (Auto) (0-2) % Lymph # (Auto) (1.2-4.9) X10*3/uL Moca # (Auto) (0.1-1.2) X10*3/uL Eos # (Auto) (0.0-0.4) X10*3/uL Baso # (Auto) (0.0-0.2) X10*3/uL Abs Immat Gran (auto) (0.00-0.03) X10*3/uL Absolute Neuts (auto) (2.0-8.3) x10*3/uL Absolute Nucleated RBC (0.0-0.012) X10*3/uL Nucleated RBC % (auto) (0.0-0.2) /100WBC Sodium 138 (135-145) mmol/L Potassium 4.8 (3.3-5.1) mmol/L Chloride 106 (96-108) mmol/L Carbon Dioxide 21 L (22-29) mmol/L Anion Gap 16 (12-20) BUN 17 H (9-16) mg/dL Creatinine 0.94 (0.5-1.4) mg/dL Estim Creat Clear Calc 81.1 Estimated GFR 60 Random Glucose 122 H (60-115) mg/dL Calcium 9.2 (8.4-10.2) mg/dL Magnesium 1.8 (1.6-2.6) mg/dL Total Bilirubin 0.9 (0.0-1.0) mg/dL Direct Bilirubin 0.2 (0.0-0.5) mg/dL AST 28 (5-31) U/L ALT 22 (0-31) U/L Alkaline Phosphatase 112 (39-117) U/L Troponin I High Sens < 2.7 (<3.5-17.0) ng/L B-Natriuretic Peptide (<100) pg/mL Total Protein 6.9 (6.5-8.0) g/dL Albumin 4.3 (3.5-5.0) g/dL Urine Color Yellow Urine Appearance Clear Urine pH 6.0 (5.0-9.0) Ur Specific [employer] 1.020 (1.005-1.025) Urine Protein Negative (Neg-Trace) mg/dL Urine Glucose (UA) >=1000 H (Negative) mg/dL Urine Ketones Negative (Negative) mg/dL Urine Blood Negative (Negative) Urine Nitrite Negative (Negative) Ur Leukocyte Esterase Trace H (Negative) Urine RBC 0-2 (0-2) /HPF Urine WBC 0-5 (0-5) /HPF Ur Squamous Epith Cells 0-2 (0-2) /HPF Urine Bacteria None Seen (None Seen) Hyaline Casts 0-2 (0-2) /LPF Influenza Type A (PCR) (Negative) Influenza Type B (PCR) (Negative) RSV RNA Qual (PCR) (Negative) SARS-CoV-2 RNA (RT-PCR) (Negative) Independent Interpretation I performed an independent interpretation of an: EKG and Plain X-Ray Interpretation: EKG 1. Done at 1201, terrible quality, likely sinus rhythm, ventricular rate 79 beats per minute, nondiagnostic EKG 2. Done at 1258 with junctional rhythm, artifact present, ventricular rate 80 beats per minute, no ST segment elevations or depressions Chest x-ray is clear without focal infiltrate or effusion, slightly increased vascular markings without pulmonary edema Radiology Impression Discussion of test interpretation with radiology: I have reviewed the radiologist's reading. Radiologist Impression: Chest x-ray is clear without any focal infiltrate or effusion Independent Historian Clinical information obtained from an independent historian. History obtained from or confirmed by: EMS External Record Review External record reviewed: Inpatient record, Office record, Outpatient record and Prior outpatient labs Prescription Management I considered prescription management with: Pain Medication and Other (Narcotic, anxiolytic, nitroglycerin) Chronic Conditions Patient?s care impacted by: Diabetes and Hypertension Critical Care Time Critical Care Time Critical Care Time: Yes Total Critical Care Time: 36 Attestation: I have personally provided critical care time exclusive of time spent on separately billable procedures. Time includes review of lab data, radiology results, discussion with consultants, and monitoring for potential decompensation. Intervention performed as documented. Discharge Plan Discharge Clinical Impression: Chest pain Qualifiers: Chest pain type: unspecified Qualified Code(s): R07.9 - Chest pain, unspecified Patient Disposition: Home, Self-Care Instructions: Noncardiac Chest Pain (ED) Additional Instructions: Your lab workup today was reassuring with negative heart enzymes twice. Your EKG did not show any changes consistent with a heart attack. Your chest x-ray was normal. You tested negative for COVID, flu, RSV. Your blood pressure was slightly elevated here in the ER, recommend following up with the primary care doctor. If you develop new or worsening symptoms call 911 or come back to the ER for further evaluation. Prescriptions: No Action aspirin 81 mg tablet,chewable 1 tab PO DAILY ipratropium-albuterol 0.5 mg-3 mg(2.5 mg base)/3 mL solution for nebulization 3 ml inhalation Q4H PRN (Reason: Shortness Of Breath/wheezing) metoprolol succinate 50 mg tablet extended release 24 hr 50 mg PO DAILY albuterol sulfate [Ventolin HFA] 90 mcg/actuation HFA aerosol inhaler 2 puff inhalation Q4H PRN (Reason: SOB) multivitamin with folic acid [Tab-A-Alanis] 400 mcg tablet 1 tab PO DAILY lisinopril 20 mg tablet 20 mg PO DAILY rosuvastatin 40 mg tablet 40 mg PO DAILY diclofenac sodium 1 % gel 1 ea topical TID PRN (Reason: Pain (Scale Score 1-3)) clonazepam 1 mg tablet 1 mg PO BID Qty: 60 0RF mirtazapine 30 mg tablet 30 mg PO BEDTIME Qty: 30 0RF trazodone 50 mg Tablet 50 mg PO BEDTIME 30 Days Qty: 30 0RF quetiapine 50 mg Tablet 50 mg PO BEDTIME 30 Days Qty: 30 0RF sucralfate 1 gram tablet 1 g PO QID PRN (Reason: Dyspepsia) simethicone 80 mg tablet,chewable 80 mg PO QID PRN (Reason: Dyspepsia) gabapentin 400 mg capsule 400 mg PO TID duloxetine 20 mg capsule,delayed release(DR/EC) 60 mg PO DAILY bumetanide 0.5 mg tablet 0.5 mg PO DAILY esomeprazole magnesium 40 mg capsule,delayed release(DR/EC) 40 mg PO BID@0630,1630 metformin 1,000 mg tablet 1,000 mg PO BID Interventions: ED Discharge Assessment Last Done: 08/15/24 18:20 Discharge Date/Time: 08/15/24 19:37 Print Language: Kazakh
--- NOTE | 2024-08-15 12:33 | ECG_ITS ---
Test Reason : CHEAST PAIN Blood Pressure : */* mmHG Vent. Rate : 80 BPM Atrial Rate : * BPM P-R Int : * ms QRS Dur : 82 ms QT Int : 386 ms P-R-T Axes : * 31 21 degrees QTcB Int : 445 ms Normal sinus rhythm Anteroseptal infarct (cited on or before 15-Aug-2024) Abnormal ECG When compared with ECG of 15-Aug-2024 12:01, No significant changes seen Referred By: Deanne Rosas Electronically Signed By: Zack Dunn
[2024-08-15] MEDS: Morphine Sulfate 4 MG/ML CARTRIDGE IVPUSH (12:37)
[2024-08-15] MEDS: ondansetron HCL 4 MG/2 ML VIAL IVPUSH (12:38)
[2024-08-15 12:55] LABS: Basophils Percent Auto 0.1 % (0-2); Hemoglobin 12.6 g/dl (12.0-16.0); Imm Gran Abs Auto 0.01 X10*3/uL (0.00-0.03); Imm Gran Pct Auto 0.1 % (0.0-0.4); Lymphocytes Absolute Auto 2.2 X10*3/uL (1.2-4.9); Lymphocytes Percent Auto 31.9 % (20-40); Mean Corpuscular HGB Conc 32.3 g/dl (31.0-35.0); Mean Corpuscular Volume 77.2 fL (80.0-98.0); Mean Platelet Volume 10.7 fL (9.4-12.3); Monocytes Absolute Auto 0.5 X10*3/uL (0.1-1.2); Monocytes Percent Auto 6.4 % (2-11); Neutrophils Absolute Auto 4.3 x10*3/uL (2.0-8.3); Neutrophils Percent Auto 61.5 % (45-73); Platelet Count 194 X10*3/uL (160-400); Red Blood Count 5.05 X10*6/uL (4.20-5.50)
[2024-08-15 12:59] LABS: Troponin-I High Sensitivity < 2.7 ng/L (<3.5-17.0)
[2024-08-15 13:00] LABS: B Type Natriuretic Peptide 11 pg/mL (<100)
[2024-08-15 13:10] LABS: Influenza A PCR NEGATIVE (Negative); Influenza B PCR NEGATIVE (Negative); Resp Syncy Virus RNA Qual PCR NEGATIVE (Negative); SARS COV2 PCR INHOUSE NEGATIVE (Negative)
--- OUTSIDE RECORDS SUMMARY | 2024-08-15 13:24 | XMS_ITS | Clinical Summary ---
Author Organization [facility] Address [address] [place] [id number] Care Team Providers Care Bell Maker Name Role Phone Flory Rizzo MD Primary Care Provider [phone]- [phone] Allergies Active Allergy Reactions Criticality Noted Date [...] Department Care Team Description 06/01/2024 Orders Only [facility] [address] [place] [phone] Provider, MD Kj from Last 3 [...] Care Team (Late st Contact Info) Description 10/05/2024 2:30 PM EDT Office Visit [facility] [address] [place] [address] Flory Blackman MD [address] [place] [address] Health Maintenance Due Date Last Done Comments Cervical Cancer Screening 1959 Cologuard 1959 Colon Cancer Screening 1959 Colonoscopy 1959 FOBT / Fit Test 1959 HIV Screening 1959 HPV and Pap Smear 1959 Hepatitis C Screening 1959 Pap Smear 1959 Sigmoidoscopy 1959 Mammogram 1999 Osteoporosis Screening 07/31/2009 Alcohol/Substance Use Screening 03/28/2024 Depression Screening and Follow-Up 03/28/2024 Health Care Proxy Review 03/28/2024 Social Drivers of Health Perla ual Screening 03/28/2024 COVID-19 Vaccine (6 - 4-2 5 season) 2024 12/30/2023, 06/04/2022, 02/09/2021, Additional history exists DTaP,Tdap,and Td Vaccines (3 - Td or Tdap) 05/23/2029 05/23/2019, 09/15/2009 RSV Vaccine (60+ years old a nd patients) (1 - 1-dose 75+ series) 07/31/2034 Hepatitis B Vaccines Completed 01/17/2013, 09/15/2009, 02/03/2007 Pneumococcal Vaccine: 50+ Years Completed 01/14/2017, 03/01/2016, 12/09/2014, Additional history exists Influenza Vaccine Completed 12/30/2023, , 06/04/2022, Additional history exists Zoster Vaccines Completed 12/30/2023, 08/2021, 06/18/2021 Procedures * Due to [place] [employer] law, this organization might not be sharing negative HIV tests. Procedure Name Priority Date/Time Associated Diagnosis Comments LAB - SCANNED Routine 06/01/2024 2:29 PM EST from Last 3 Months Results * Due to [place] [employer] law, this organization might not be sharing negative HIV tests. * LAB - SCANNED (06/01/2024 2:29 PM EST) us Unknown Provider LAB HISTORICAL RESULTS Final Result from Last 3 Months Insurance [facility] [employer] Care Teams Bell Maker Relationship Specialty Start Date End Date Flory Rizzo MD [address] [place] [address] PCP - General 09/15/23
--- OUTSIDE RECORDS SUMMARY | 2024-08-15 13:24 | XMS_ITS | Referral Summary ---
Author Organization [facility] Address [address] [place] [address] Care Team Providers Care Rabies Inspector Name Role Phone Flory Rizzo MD Primary Care Provider [phone]- [phone] Encounters Date Type Department Care Team Description 06/01/2024 Orders Only [facility] [address] [place] [address] [phone] Provider, MD Kj from Last 3 Months [...] Description 10/05/2024 2:30 PM EDT Office Visit [facility] [address] [place] [address] [phone] Flory Blackman MD [address] [place] [phone] Procedures * Due to [place] state law, this organization might not be sharing negative HIV tests. Procedure Name Priority Date/Time Associated Diagnosis Comments LAB - SCANNED Routine 06/01/2024 2:29 PM EST from Last 3 Months Results * Due to [facility] law, this organization might not be sharing negative HIV tests. * LAB - SCANNED (06/01/2024 2:29 PM EST) us Unknown Provider LAB HISTORICAL RESULTS Final Result from Last 3 Months Insurance [facility] [employer] Care Teams Rabies Inspector Relationship Specialty Start Date End Date Flory Rizzo MD [address] [place] [address] PCP - General 09/15/23
--- OUTSIDE RECORDS SUMMARY | 2024-08-15 13:25 | XMS_ITS | Data Portability ---
Author Organization [employer] [place] in - [employer] Address [address] [place] [address] Care Team Providers Care Research Nutritionist Name Role Phone SHERRIE AMEE Primary Care Provider HIM CCA OTHER Assessment Encounter Date Assessment Date Assessment LastModified by Organization Details LastModified Time 03/30/2023 03/30/2023 I have reviewed and agree with the Assessment and Plan as documented by the Cricket Coach. I provided real-time medical direction via phone for this encounter, and was available for additional phone based assistance as needed. Patient seen for report of URI sxs recently now improving. Requesting COVID swab. Home swab performed prior to visit was interpreted as negative by our melt down furnace operator. Repeat swab also negative. Counseled on red [...] Assessment and Plan as documented by the Cricket Coach. Patient given the opportunity to ask questions. Our service contacted for an assessment of: Nausea and vomiting As per above, patient with approximately several days nausea vomiting and intermittent diarrhea. Patient denies any contacts with norovirus. Also denies eating or drinking any contaminated foods or liquids. Has some mild upper airway tract symptoms. Per melt down furnace operator on the scene, vital signs are stable [...] of any new or worsening serious symptoms [email or web address] Not available 04/08/2024 23:25:09 04/09/2024 04/09/2024 I provided real -time medical direction via phone for this encounter and was available for additional phone-based assistance as needed. I have reviewed and agree with the Assessment and Plan as documented by the Cricket Coach. Patient given the opportunity to ask questions. [...] effects from the Tamiflu thus far. Per melt down furnace operator on the scene, vital signs stable patient [...] or worsening serious symptoms, particularly fever [place]ills [email or web address] [id number] Not available 04/09/2024 20:59:23 Plan of Treatment Reminders Order Date Submit Date Provider Last Modified By Organization Details Last Modified Time Details Appointments None recorded. Lab cmp, whole blood + katerina [address], [address] 5 08:11:25 rapid SARS CoV 2 Ag, QL IA, respiratory specimen [address], [address] 5 23:24:52 rapid flu (A+B) [address], [address] 5 23:23:26 BMP, serum or plasma [address], [address] 4 20:00:12 BMP, serum or plasma [address], [address] 3 17:33:48 Referral None recorded. Procedures None recorded. Surgeries None recorded. Imaging electrocard iogram [address], [address] 4 16:14:50 Medication Orders ondansetron HCl (PF) 4 mg/2 mL injection solution [address] - [id number], [address], [place], [address], 5 20:55:08 sodium chloride 0.9 % intravenous solution [address] - [id number], [address], [place], [address], 5 20:55:08 ondansetron 4 mg disintegrat ing tablet 2024 025 [place], [place] - [id number], [address], [place], [address], 5 12:22:34 sodium chloride 0.9 % intravenous solution [address] - [id number], [address], [place], [address], 5 22:13:10 ondansetron HCl (PF) 4 mg/2 mL injection solution [address] - [id number], [address], [place], [address], 5 22:13:10 Tamiflu 75 mg capsule [address] - [id number], [address], [place], [address], 5 23:24:00 Tamiflu 75 mg capsule 2024 025 [place], [place] - [id number], [address], [place], [address], 5 12:24:28 ondansetron HCl (PF) 4 mg/2 mL injection solution 2023 024 [place], [place] - [id number], [address] [place], [address], 18:04:36 sodium chloride 0.9 % intravenous solution 2023 024 [place] - [id number], [address] [place], [address], 4 18:04:36 Patient TargetsNo targets recorded. Patient InstructionsNo instructions recorded. Reason for Referral None Reported. Results Created Date Observation Date Name Description Value Unit Range Abnormal Flag Note LastModifiedBy Organization Detail LastModifiedTime 02/25/2002/24/2023 BMP, serum or plasm a BUN 12 Not Available Main - Ins [address], [address] 02/24/2023 13:48:29 02/25/2002/24/2023 BMP, serum or plasm a Ca Ionize d-1.09 Not Available [facility] - [address], [address] 02/24/2023 13:48:29 02/25/2002/24/2023 BMP, serum or plasm a CI- 108 Not Available Main - [facility] [address], [address] 02/24/2023 13:48:29 02/25/2002/24/2023 BMP, serum or plasm a CRE 0.7 Not Available Main - [facility] [address], [address] 02/24/2023 13:48:29 02/25/2002/24/2023 BMP, serum or plasm a GLU 139 Not Available Main - [facility] [address], [address] 02/24/2023 13:48:29 02/25/20 23 02/24/2023 BMP, serum or plasm a K+ 4.2 Not Available Main - [facility] [address], [address] 02/24/2023 13:48:29 02/25/20 23 02/24/2023 BMP, serum or plasm a Na+ 140 Not Available Main - [facility] [address], [address] 02/24/2023 13:48:29 02/25/20 23 02/24/2023 BMP, serum or plasm a tCO2 21.7 Not Available Main - [facility] [address], [address] 02/24/2023 13:48:29 02/25/20 23 02/24/2023 gluco se, finge rstic k, blood Blood Glucose: mg/dl 139 Not Available Main - [facility] [address] [place] [address], [address] 02/24/2023 13:31:46 02/25/20 23 02/24/2023 rapid SARS CoV 2 Ag, QL IA, respi rator y speci men rapid SARS CoV 2 Ag, QL IA, respiratory specimen negati ve Not Available Main - Inst [facility] [address] [place] [address], [address] 02/24/2023 13:31:36 02/25/20 23 02/24/2023 rapid flu (A+B) Flu negati ve Not Available Main - Inst [facility] [address] [place] [address], [address] 02/24/2023 13:31:34 03/16/20 23 03/16/2023 BMP, serum or plasm a BUN 16 Not Available Main - [facility] [address], [address] 03/16/2023 17:32:21 03/16/20 23 03/16/2023 BMP, serum or plasm a Ca 0.91 Not Available Main - [facility] [address], [address] 03/16/2023 17:32:21 03/16/20 23 03/16/2023 BMP, serum or plasm a CI- 100 Not Available Main - [facility] [address], [address] 03/16/2023 17:32:21 03/16/20 23 03/16/2023 BMP, serum or plasm a CRE 0.66 Not Available Main - [facility] [address], [address] 03/16/2023 17:32:21 03/16/20 23 03/16/2023 BMP, serum or plasm a GLU 134 Not Available Main - [facility] [address], [address] 03/16/2023 17:32:21 03/16/20 23 03/16/2023 BMP, serum or plasm a K+ 4.3 Not Available Main - [facility] [address], [address] 03/16/2023 17:32:21 03/16/20 23 03/16/2023 BMP, serum or plasm a Na+ 138 Not Available Main - [facility] [address], [address] 03/16/2023 17:32:21 03/16/20 23 03/16/2023 BMP, serum or plasm a tCO2 24 Not Available Main - [facility] [address], [address] 03/16/2023 17:32:21 04/08/19 25 04/08/2024 rapid SARS CoV 2 Ag, QL IA, respi rator y speci men rapid SARS CoV 2 Ag, QL IA, respiratory specimen negati ve Not Available Main - [facility] ed [address] [place] [address], [address] 04/08/2024 23:24:37 04/08/19 25 04/08/2024 rapid flu (A+B) Flu positi ve Not Available [facility] ed [address] [place] [address], [address] 04/08/2024 22:12:19 02/20/20 24 02/20/2024 elect aria lantiguagr am No observ ation record ed. [facility] [address], [address] 02/20/2024 19:59:52 Result Notes None recorded. Procedures Surgical History None recorded. Imaging Results Imaging Date Name Status LastModified by Organization Details LastModified Time 02/20/2024 electrocardiogram completed [facility] [address], [address] 02/20/2024 19:59:52 Procedure Notes None recorded. Medical Equipment None Reported. Allergies Allergen ID Allergen Name Allergen Category Reaction Reaction Severity Criticality Documentation Date Start Date Code Code System Note Provider Name and Address Organization Details Recorded Time 43077 Reglan medicatio n Not available Not available Not available 02/20/2024 9230 RxNorm Not Available [facility] - production 4 15:54:42 3933 Product containin g penicilli n (product) medicatio n Not available Not available Not available 02/24/2023 49725 8001 SNOMED Not Available [facility] - production 4 03:33:03 3934 latex environme nt,medica tion Not available Not available Not available 02/24/2023 25365 91 RxNorm Not Available [facility] - production 4 03:33:03 3935 Iodinated contrast media (substanc e) medicatio n Not available Not available Not available 02/24/2023 40208 2004 SNOMED Dedra Davis MD [address] [facility],[address], [place], [address], [employer] [facility] [employer] 3 13:27:42 Medications Name Sig Start Date [...] Details Last Updated DateTime 3 98.3 [degF] 28114.3 2 g 98 % 98 % 94 /min 18 /min 168 mm[Hg] 53 mm[Hg] Not Available [facility] - production 3 17:15:24 Date Recorded Body mass index (BMI) Body height Provider Name and Address Organization Details Last Updated DateTime 03/16/2023 30.1 kg/m2 177.8 cm HARISH ALEX MD [address] [place] [address],[address], [address], [place] - [employer] 03/16/2023 19:17:38 Date Recorded Respiratory rate Body temperature Oxygen saturation Oxygen saturation in Arterial blood by Pulse oximetry Body weight Heart rate Systolic blood pressure Diastolic blood pressure Provider Name and Address Organization Details Last Updated DateTime 4 18 /min 98.2 [degF] 99 % 99 % 15177.3 2 g 122 /min 142 mm[Hg] 80 mm[Hg] Not Available [facility] - [facility] 4 14:23:45 Date Recorded Heart rate Respiratory rate Body temperature Oxygen saturation Oxygen saturation in Arterial blood by Pulse oximetry Systolic blood pressure Diastolic blood pressure Provider Name and Address Organization Details Last Updated DateTime 4 70 /min 18 /min 97.9 [degF] 97 % 97 % 110 mm[Hg] 69 mm[Hg] Not Available [facility] 4 17:01:13 Date Recorded Respiratory rate Heart rate Body height Oxygen saturation Oxygen saturation in Arterial blood by Pulse oximetry Body weight Body temperature Systolic blood pressure Diastolic blood pressure Provider Name and Address Organization Details Last Updated DateTime 5 20 /min 98 /min 170.18 cm 94 % 94 % 80046.2 4 g 99.3 [degF] 149 mm[Hg] 100 mm[Hg] Not Available [facility] - production 22:03:43 Date Recorded Heart rate Body temperature Oxygen saturation Oxygen saturation in Arterial blood by Pulse oximetry Respiratory rate Systolic blood pressure Diastolic blood pressure Provider Name and Address Organization Details Last Updated DateTime 101 /min 99.6 [degF] 98 % 98 % 18 /min 127 mm[Hg] 81 mm[Hg] Not Available [facility] [employer] - production 20:41:57 Social History None recorded. Functional Status None recorded. Mental Status None recorded. Family History Nothing Reported. Medical History No medical history recorded. Gynecological HistoryNo gynecological history recorded. Obstetrics History GPAL:G 0 P 0 0 0 0 Past Encounters Encounter ID Performer Location Encounter Start Date Encounter Closed Date Diagnosis/Indication Diagnosis SNOMED-CT Code Diagnosis ICD10 Code Diagnosis Note [id number] Murphy Bishop MD [address] [address] 06/14/2022 10:54:26 06/16/2022 09:10:40 Acute abdominal pain 679483394 R10.9 This 61-year-ol d female with a previous [facility]ole[facility] severe right upper quadrant pain since last night. Based on her history and exam I suspect she has an acute abdomen, and I recommende d that she go to the ER for further evaluation . The patient agreed with this plan. [id number] Corby Ventura MD [facility] - [address] [address] 07/13/2022 10:13:12 07/15/2022 09:59:54 Right upper quadrant pain [id number] R10.11 [id number] Dread Agustin MD [facility] - [address] [address] 08/27/2022 12:09:52 08/31/2022 13:13:46 Chest pain 67497435 R07.9 62yo woman presents with exertional chest pain and shortness of breath that is not reproducib le to palpatatio n. Presentati on concerning for ACS. She was given a full aspirin and referred to the ED by 911. [id number] Mina Freed MD [facility] - [address] [address] 11/08/2022 15:25:35 02/07/2023 14:49:13 Nausea and vomiting [id number] R11.2 [id number] Helen Cortez MD [facility] - [address] [address] 11/24/2022 18:45:03 11/24/2022 23:49:04 Epigastric pain [id number] R10.13 62 year old female with Crohn's [...] assessment and plan as documented by the melt down furnace operator. I provided real-time medical direction for this encounter and was immediatel y available to provide additional phone-base d assistance as needed. [id number] Mina Freed MD [facility] - [address] [address] 12/28/2022 16:05:13 12/28/2022 23:40:19 Tremor [id number] R25.1 [id number] Dedra Davis MD [facility] - [address] [address] 02/24/2023 13:23:32 02/26/2023 11:37:42 Nausea and vomiting 89492746 R11.2 Patient has no peripheral IV access [...] she states that her boyfriend can go garbage pick up man her prescripti on. Will trial frequent small amounts of clear liquids-ad vised if not tolerating clears with medication or feeling worse she is always able to go to the ER if needed. She verbalized understand [facility] [id number] HARISH ALEX MD Main - [facility] [address] [place] [address] 03/16/2023 17:15:21 03/16/2023 22:50:57 Nausea and vomiting 04186492 R11.2 As noted, we were called to see this patient regarding concerns of nausea, vomiting, inability to tolerate PO. Evaluation in the field was performed by my melt down furnace operator colleague, as noted above, I provided real-time [...] fluid down , or any other concerns. [id number] Mina Freed MD Main - [facility] [address] [place] [address] 03/30/2023 14:23:43 03/31/2023 10:33:32 Upper respiratory infection [id number] J06.9 [id number] Mayo Cortez MD Main - [facility] [address] [place], [place] [address] 02/20/2024 17:00:58 02/20/2024 23:27:33 Nausea and vomiting [id number] R11.2 [id number] Melissa Patterson MD Main - [facility] [address] [place] [address] 04/08/2024 22:03:39 04/09/2024 14:03:22 Influenza A virus present [id number] 08 J09.X2 Nausea and vomiting 1693 2000 R11.2 [id number] Melissa Patterson MD Main - [facility] [address] [place], [place] [address] 04/09/2024 20:41:56 04/10/2024 01:15:20 Influenza A virus present 1834842452 08 J09.X2 Diarrhea 39237432 R19.7 Health Concerns Section Related Observation LastModified by Organization Detai ls LastModified Time None Recorded Concern Status LastModified by Organization Details LastModified Time None Recorded Advance Directives Directive None Recorded Payers Insurance Date Sequence Insurance Name Policy Number Policy Bustillo Covered Member ID Bustillo Member ID Guarantor Name 02/20/2024 1 [facility] - DOS PRIOR TO 2022 - DUAL ELIGIBLE (MEDICARE REPLACEMENT/AD VANTAGE - HMO) Vale Nieto [id number] Vale Nieto 04/09/2024 1 [facility] - DOS ON OR AFTER 2022 - DUAL ELIGIBLE - RESIDENTIAL OPTIONS AND ONE CARE (MEDICARE REPLACEMENT/AD VANTAGE - HMO) Vale Nieto [id number] Vale Nieto Notes Date Note Type Note [...] ....................... ....................... ....................... ....................... ....................... ....................... ... Cricket Coach Note From Demond Boles: Pt co fatigue [...] Pt education on signs indicating the ER. Cricket Coach Allergies: Latex, Penicillin ....................... ....................... ....................... ....................... ....................... ....................... ... Disposition: Leoncio ALEX MD [address] [facility],[address], [place], [address], [employer] 03/16/2023 19:19:59 03/30/2023 text/html HPI: 62 y/o [...] ....................... ....................... ....................... ....................... ....................... ....................... ... Cricket Coach Note From Demond Boles: Pt co runny nose and chills yesterday. Pt sts tried doing her own Covid test but wasn? t sure she was reading it correctly. Pt wanted retest. Baseline vital? s assessed. Pt afebrile. Clear lungs. Pt denies nausea vomiting diarrhea. Covid swab negative. [facility] contacted and pt education on self care and monitor symptoms. Cricket Coach Allergies: Latex, Penicillin ....................... ....................... ....................... ....................... ....................... ....................... ... Disposition: Fulfilled Mina Freed MD [address] [place] [address],[address], [place], [address], [facility] 03/30/2023 22:15:07 02/20/2024 text/html HPI: 63 y/o femalePMH- T2DM, MDD, [place], PTSD, Insomnia, HTNGERD, FibroPatient called to PCP to report 4 days of worsening sore throat, fever, chills, SOB and cough. Patient denies CP at this time. Patient reports has been sick. Patient hoarse due to sore throat. ....................... ....................... ....................... ....................... ....................... ....................... ... [facility] Nurse Triage Notes (Bob Calero): Chief Complaints: Breathing problems, Common cold symptoms, Fever/chills, Sore throat PMH: Severe Persistent Mental Illness (SPMI), Hypertension, Congestive Heart Failure Comments: HPI reviewed by this RN, no further information needed to process visit -Matthew Calero RN Cricket Coach Organization Information for [employer] Legal Name: [facility] Address: [address] [place] [address], [place] [address], Engineering Consultant: Kemal Mcdaniel MD CLIA No.: [id number] Cricket Coach POC Test Results from [facility] epoc (16:51:40) pH: 7.47 pH units pCO2: [...] ....................... ....................... ....................... ....................... ....................... ....................... ... Cricket Coach Note From Chaka Mendoza: This 63-year-old female [...] of breath. Patient states she sees a delimber operator and he told her that ? m y stomach doesn't digest food properly and I need an endoscopy.? The patient states she's also supposed to be tested for [place]'s disease soon.Patient presents awake and alert, in moderate distress. Her vital signs are reasonably stable and she is afebrile. Neurological exams at baseline. Normal gait. Lungs are clear throughout auscultation. Significant epigastric tenderness, abdomen otherwise benign. No lower extremity edema. EKG uploaded. Jbhsr-ga-pppi labs uploaded. Rapid COVID and flu are both negative.I treated this patient with normal saline 1 L IV and ondansetron 4 mg IVP. She received no relief from Zofran or fluids. Because of the patient's concurrent medications our antiemetic treatments were limited. After a lengthy discussion with myself and the [facility] the patient agreed to ambulance transport to [facility] emergency department. 911 was initiated and a verbal SBAR was given to [facility] BLS crew. ....................... ....................... ....................... ....................... ....................... ....................... ... [facility] Consulted: Mayo Cortez ....................... ....................... ....................... ....................... ....................... ....................... ... Disposition: Leoncio Mayo Cortez MD [address] [facility],[address], [place], [address], [facility] 02/20/2024 22:21:01 04/08/2024 text/html HPI: Member calling [...] [facility] Nurse Triage Notes (Yusuf Dalal - YAYO): Chief Complaints: Dehydration, Diarrhea, Vomiting PMH: Severe Persistent Mental Illness (SPMI), Hypertension, Congestive Heart Failure, Inflammatory Bowel Disease (Crohn's Disease, Ulcerative Colitis) PMH Reviewed at 04/08/2024:47 Allergies Reviewed at 04/08/2024:47 Comments: Assess s/s and treat as indicated Cricket Coach Organization Information for Selena Bullard Business Legal Name: [employer]? Address: [address] [place] [address], [place] [address], Engineering Consultant: Praneeth CAMPO No.: [id number] Cricket Coach POC Test Results from [facility] - [facility] Blood Glucose Measurement (17:52:19) Blood Glucose: 154 mg/dL Rapid COVID antigen (17:52:21) COVID: - Rapid influenza antigen (17:52:21) Flu: - Attachments uploaded as part of this test result can be found under Documents section. ....................... ....................... ....................... ....................... ....................... ....................... ... Cricket Coach Note From Lester Bullardvesta: SANDY makes pt contact when she opens the front door to her home. She is dressed in her nightgown and tells [facility] she was just in the bathroom w/ [...] is amendable to evaluation and treatment today. [facility] obtains vital signs and pt is assessed. She is found to have a very low-grade fever and she continues to have rhinitis and sneeze throughout. Lung sounds are clear and remaining physical exam is unremarkable. Pt consents to COVID/flu swab and is found to be positive for Flu A. [facility] contacts [facility] to discuss the above. [facility] is agreeable to IV fluids and antiemetics [...] removed at the end and pt thanks [facility] for coming. [facility] is clear. Report completed by FIONA Bullard [id number]. ....................... ....................... ....................... ....................... ....................... ....................... ... [facility] Consulted: Melissa Patterson ....................... ....................... ....................... ....................... ....................... ....................... ... Disposition: Fulfilled Melissa Patterson MD [address] [facility],[address], [place], [address], [employer] [employer] 04/08/2024 23:26:58 04/09/2024 text/html HPI: 63 y/o femalePatient last seen by heide on 04/08 and dx with Flu A. Patient called office today with reports of worsening nausea and diarrhea. Patient is tearful during call and states that any time she attempts to consume fluids she immediately has a loose bowel movement. Patient confirms that she just received tamiflu. ....................... ....................... ....................... ....................... ....................... ....................... ... [facility] Nurse Triage Notes (Bridgett Munguia - RN): Chief Complaints: Dehydration, Diarrhea, Nausea PMH: Severe Persistent Mental Illness (SPMI), Hypertension, Congestive Heart Failure, Inflammatory Bowel Disease (Crohn's Disease, Ulcerative Colitis) PMH Reviewed at 04/09/2024 - 16:23 Allergies Reviewed at 04/09/2024 - 16:23 Comments: HPI reviewed- [place] Cricket Coach Organization Information for [employer] Legal Name: [facility] Address: [address] [place] [address], [place] [address], Engineering Consultant: Kemal Mcdaniel MD CLIA No.: [id number] Cricket Coach POC Test Results from [facility] [employer] [facility] (18:14:59) pH: 7.43 pH units pCO2: 37.2 mmHg pO2: 44.2 mmHg Na: 138 mmol/L K: 4.4 mmol/L iCa: 1.08 mmol/L Cl: 106 mmol/L TCO2: 23.8 mEq/L Hct: 39 % Hb: 13.3 g/dL Glu: 127 mg/dL Lac: 1.24 mmol/L Cr: 0.72 mg/dL BUN: 16 mg/dL A ....................... ....................... ....................... ....................... ....................... ....................... ... Cricket Coach Note From Chaka Mendoza: This 63-year-old female [...] ....................... ....................... ....................... ....................... ....................... ....................... ... [facility] Consulted: Melissa Patterson ....................... ....................... ....................... ....................... ....................... ....................... ... Disposition: Fulfilled Melissa Patterson MD [facility] [facility],[address] [facility], [place], [phone], [employer]BR[employer] 04/09/2024 20:59:59 OBGyn Episode No OBEpisode recorded.
--- OUTSIDE RECORDS SUMMARY | 2024-08-15 13:25 | XMS_ITS | Encounter Summary ---
Author Organization [facility] Address [address] [place] [phone] Care Team Providers Care A And P Technician Name Role Phone Flory Rizzo MD Primary Care Provider + Reason for Referral * Consultation (Routine) - Pending Review Specialty Diagnoses / Procedures Referred By Karel agustin Referred To Contact Occupational Therapy Diagnoses Arthritis of right hand Maria Guadalupe Chavez PA 174 [facility] [address] [place] [address] Phone: tel: fax: [facility] Occupational Therapy [address] [address] Phone: tel: fax: Referral ID Status Reason Start Date Expiration Date Visits Requested Visits Authorized [id number] Pending Review Specialty Services Required 08/14/2024 08/14/2025 1 1 Reason for Visit * Reason Comments Trigger Finger Trigger middle finge r, injection 07/27/2024, 2w4d c/o stiffness Encounter Details Date Type Department Care Team (Late st Contact Info) Description 08/14/2024 10:30 AM EDT Office Visit Orthopedic Surgery - [place] 175 [facility] [address] [place] [address] Maria Guadalupe Chavez PA 174 [facility] [address] [place] [address] Arthritis of right hand (Primary Dx) Social History Tobacco Use Types Packs/Day Years Used Date Smoking Tobacco: Never Assessed Comments Unknown Sex and Gender Information Value Date Recorded Sex Assigned at Female 08/14/2024 1:39 PM EDT Legal Sex Female 11:10 AM EST Gender Identity Female 08/14/2024 1:39 PM EDT Sexual Orientation Choose not to disclose 2024 1:39 PM EDT documented as of this encounter Progress Notes * DONNIE Slater - 08/14/2024 10:30 AM EDT Referring MD:No ref. provider found Ms. Nieto is a 64 y.o. year old female who presents for consultation regarding Chief Complaint Patient presents with Right Middle Finger - Trigger Finger Trigger middle finger, injection 07/27/2024, 2w4d c/o stiffness . HPI: 63-year-old [id number] female here for follow-up of right hand pain mainly in the right long finger. She was having trouble bending that finger but no benito triggering. No numbness tingling.She did have bilateral carpal tunnel surgeries 30 years ago. She will take Tylenol for pain. She jinny diabetic and she states her blood sugars can fluctuate sometimes in the 200s and sometimes higher. She is on medication. When I initially saw her pain was localized most to the right long finger [id number]. Cortisone injection was performed. She states it did help some but she still having pain and stiffness in the long and index finger on the right as well as some wrist pain. She cannot take NSAIDs it causes GI upset. PAST MEDICAL HISTORY: No past medical history on file. PAST SURGICAL HISTORY: No past surgical history on file. SOCIAL HISTORY: Social History Occupational History Not on file Tobacco Use Smoking status: Not on file Smokeless tobacco: Not on file Substance and Sexual Activity Alcohol use: Not on file Drug use: Not on file Sexual activity: Not on file FAMILY HISTORY: No family history on file. No family status information on file. ACTIVE PROBLEMS LIST: There is no problem list on file for this patient. ACTIVE MEDICATIONS: Current Outpatient Medications on File Prior to Visit Medication Sig Dispense Refill aspirin 81 mg chewable tablet blood sugar diagnostic (OneTouch Verio test strips) test strip Breo Ellipta 100-25 mcg/dose inhaler bumetanide (BUMEX) 0.5 mg tablet clonazePAM (KlonoPIN) 1 mg tablet diclofenac (VOLTAREN) 1 % topical gel DULoxetine (CYMBALTA) [address] capsule esomeprazole (NexIUM) [address] capsule gabapentin (NEURONTIN) 400 mg capsule Take 1 capsule (400 mg total) by mouth. ipratropium (ATROVENT) 21 mcg (0.03 %) nasal spray ipratropium-albuteroL (DUONEB) 0.5-2.5 mg/3 mL nebulizer solution lancets ([employer] Delica Plus Lancet) 33 gauge lisinopriL (PRINIVIL,ZESTRIL) 20 mg tablet metFORMIN (GLUCOPHAGE) 1,000 mg tablet methocarbamoL (ROBAXIN) 750 mg tablet TAKE 1 TABLET BY MOUTH EVERY 6 HOURS NEEDED FOR MUSCLE SPASM metoprolol succinate (TOPROL-XL) 50 mg 24 hr tablet mirtazapine (REMERON) 30 mg tablet nystatin (MYCOSTATIN) 100,000 unit/gram powder ondansetron ODT (ZOFRAN-ODT) 4 mg disintegrating tablet [employer] Verio Flex meter misc pantoprazole (PROTONIX) 40 mg EC tablet Take 1 tablet (40 mg total) by mouth. QUEtiapine (SEROquel) 50 mg tablet rosuvastatin (CRESTOR) 40 mg tablet simethicone (MYLICON) 80 mg chewable tablet sucralfate (CARAFATE) 1 gram tablet Symbicort 160-4.5 mcg/actuation inhaler Tab-A-Alanis 400 mcg tablet traZODone (DESYREL) 50 mg tablet Ventolin HFA 90 mcg/actuation inhaler No current facility-administered medications on file prior to visit. ALLERGIES: Allergies Allergen Reactions Fentanyl Itching and Rash erythematous swollen itchy skin in area where patch was applied Latex, Natural Rubber Other Other Reaction(s): Skin Peels Penicillins Rash PHYSICAL EXAM: There were no vitals taken for this visit. APPEARANCE: Alert and in no acute distress EXTREMITIES: Extremities warm and well perfused without clubbing, cyanosis, or edema right hand there is no significant swelling. There is no Dupuytren's nodules or cords seen. She can flex the ring and small finger down plane ofpalm. She lacks flexion with the right long and index finger by about 3 cm. Pain and stiffness withflexion of index and long fingers on the right. No triggering. Diffuse tenderness over A1 pulleys of index and long finger on the right as well as PIP joints. Full wrist flexion extension but she does have some pain over radiocarpal joint. No swelling. Hand is warm well-perfused. LABS: None IMAGING: XR Hand 3+ Views Right Date of Visit: 08/14/2024 Reason for visit: Right hand pain Views: AP, lateral, oblique right hand Comparison: None Findings: No fracture, dislocation or lytic lesions. She has diffuse arthritic changes at PIP and DIP joints of all fingers with joint space narrowing and subchondral bone cyst. Also moderate right thumb basal joint arthritis. Impression: Diffuse osteoarthritis right hand no acute findings ASSESSMENT AND PLAN: 1. Arthritis of right hand Right hand pain related to tendinitis and osteoarthritis. Cortisone injection helped some but she still has pain and stiffness particularly the index and long finger on the right. Recommended heat, topical creams Tylenol and occupational therapy. And she will follow-up with me in 6-8 weeks time forclinical recheck. I did state if she was having significant joint tenderness over the PIP joints we could consider a small amount of dexamethasone injection but going to hold off on this currently and see how she does with the occupational therapy. The details of the visit were reviewed with the patient. Pertinent history, and objective findings were reviewed, along with the diagnoses: Vale Nieto acknowledges understanding of the above plan and agrees to follow recommendations and/or take medications as prescribed. DONNIE Slater cc: No ref. provider found documented in this encounter Plan of Treatment Upcoming Encounters Date Type Department Care Team (Late st Contact Info) Description 10/09/2024 11:00 AM EDT Office Visit Orthopedic Surgery - [place] 175 [facility] [address] [place] [address] Maria Guadalupe Chavez PA 174 [facility] [address] [place] [address] Scheduled Referrals Name Type Priority Associated Diagnoses Order Schedule Ambulatory referral to Occupational Therapy Outpatient Referral Routine Arthritis of right hand 1 Occurrences starting 08/14/2024 until 08/14/2025 documented as of this encounter Visit Diagnoses Diagnosis Arthritis of right hand- Primary documented in this encounter Care Teams A And P Technician Relationship Specialty Start Date End Date Flory Rizzo MD [facility] [address] [place] [address] PCP - General Internal Medicine 07/16/24 documented as of this encounter
--- OUTSIDE RECORDS SUMMARY | 2024-08-15 13:25 | XMS_ITS | Clinical Summary ---
Author Organization 175 [facility] Address 175 [place] [address] Phone Care Team Providers Care Software Licensing Analyst Name Role Phone Flory Rizzo MD Primary Care Provider + Allergies Active Allergy Reactions Criticality Noted Date Comments Fentanyl Itching,Rash 12/15/2015 erythematous swollen itchy skin in area where patch was applied Latex, Natural Rubber Other 12/15/2015 Other Reaction(s): Skin Peels Penicillins Rash 02/17/2005 Medications Ventolin HFA 90 mcg/actuation inhaler 4 Active aspirin 81 mg chewable tablet 4 Active blood sugar diagnostic (OneTouch Verio test strips) test strip 4 Active OneTouch Verio Flex meter misc 4 Active Symbicort 160-4.5 mcg/actuation inhaler 5 Active bumetanide (BUMEX) 0.5 mg tablet 9 Active clonazePAM (KlonoPIN) 1 mg tablet 4 Active diclofenac (VOLTAREN) 1 % topical gel 4 Active DULoxetine (CYMBALTA) [address] capsule 4 Active esomeprazole (NexIUM) [address] capsule 3 Active Breo Ellipta 100-25 mcg/dose inhaler 5 Active gabapentin (NEURONTIN) 400 mg capsule Take 1 capsule (400 mg total) by mouth. 2 Active ipratropium (ATROVENT) 21 mcg (0.03 %) nasal spray 5 Active ipratropium-albuter oL (DUONEB) 0.5-2.5 mg/3 mL nebulizer solution 2 Active lancets (OneTouch Delica Plus Lancet) 33 gauge 4 Active lisinopriL (PRINIVIL,ZESTRIL) 20 mg tablet 3 Active metFORMIN (GLUCOPHAGE) 1,000 mg tablet 4 Active traZODone (DESYREL) 50 mg tablet 4 Active sucralfate (CARAFATE) 1 gram tablet 4 Active simethicone (MYLICON) 80 mg chewable tablet 4 Active rosuvastatin (CRESTOR) 40 mg tablet 4 Active QUEtiapine (SEROquel) 50 mg tablet 5 Active pantoprazole (PROTONIX) 40 mg EC tablet Take 1 tablet (40 mg total) by mouth. 4 Active ondansetron ODT (ZOFRAN-ODT) 4 mg disintegrating tablet 4 Active nystatin (MYCOSTATIN) 100,000 unit/gram powder 4 Active Tab-A-Alanis 400 mcg tablet 4 Active mirtazapine (REMERON) 30 mg tablet 2 Active metoprolol succinate (TOPROL-XL) 50 mg 24 hr tablet 4 Active methocarbamoL (ROBAXIN) 750 mg tablet TAKE 1 TABLET BY MOUTH EVERY 6 HOURS NEEDED FOR MUSCLE SPASM 4 Active Hospital, Clinic, or Other Facility Administered Medication Ordered Dose Route Frequency Start Date End Date Status lidocaine (XYLOCAINE) 1 % injection 0.5 mLIndications:Trigge r middle finger of right hand .5 mL inj Once PRN Procedure 07/27/2024 07/27/2024 Ended triamcinolone acetonide (KENALOG-40) 40 mg/mL injection 20 mgIndications:Trigge r middle finger of right hand 20 mg IAtc Once PRN Procedure 07/27/2024 07/27/2024 Ended Encounters Date Type Department Care Team Description 08/14/2024 10:30 AM EDT Office Visit Orthopedic Surgery - [place] [address] [phone] Maria Guadalupe Chavez PA Arthritis of right hand (Primary Dx) 07/27/2024 11:00 AM EDT Consult Orthopedic [facility] [address] [phone] Maria Guadalupe Chavez PA Trigger middle finger of right hand from Last 3 Months Social History Tobacco Use Types Packs/Day Years Used Date Smoking Tobacco: Never Assessed Comments Unknown Sex and Gender Information Value Date Recorded Sex Assigned at Female 08/14/2024 1:39 PM EDT Legal Sex Female 11:10 AM EST Gender Identity Female 08/14/2024 1:39 PM EDT Sexual Orientation Choose not to disclose 2024 1:39 PM EDT Last Filed Vital Signs Vital Sign Reading Time Taken Comments Blood Pressure - - Pulse - - Temperature - - Respiratory Rate - - Oxygen Saturation - - Inhaled Oxygen Concentration - - Weight 109 kg (240 lb) 07/27/2024 11:22 AM EDT Height 170.2 cm (5' 7 ) 07/27/2024 11:22 AM EDT Body Mass Index 37.59 07/27/2024 11:22 AM EDT Plan of Treatment Upcoming Encounters Date Type Department Care Team ([facility] st Contact Info) Description 10/09/2024 11:00 AM EDT Office Visit Orthopedic [facility] [address] [phone] Maria Guadalupe Chavez PA [address] [phone] Health Maintenance Due Date Last Done Comments Diabetes: Annual GFR (Glomerular Filtration Rate) 1960 Diabetes: Annual Foot Exam 07/31/1969 Diabetes: Annual Retina Eye Exam 07/31/1969 Cervical Cancer Screening: Pap Smear 07/31/1980 RSV Immunization Adult Patients (1 - Risk 60-74 years 1-dose series) 2019 Cholesterol Screening (Lipid Panel) 02/23/2022 Colorectal Cancer Screening: Colonoscopy 02/23/2022 Depression Screening 02/23/2022 Hepatitis C Screening 02/23/2022 Medicare Annual Wellness Visit 02/23/2022 Osteoporosis Screening (Bone Density Screening) 02/23/2022 Social Influencers of Health Screening 02/23/2022 Diabetes: Annual Urine Albumin-Creatinine Ratio (uACR) 07/27/2024 Diabetes: Blood Sugar Control Test (HGBA1C) 07/27/2024 Hypertension/CHF/CAD Annual BMP Blood Test 07/27/2024 COVID-19 Vaccine ( season) 2024 12/30/2023, 06/04/2022, 02/09/2021, Additional history exists Falls Risk Assessment 07/31/2024 Breast Cancer Screening 12/28/2025 12/29/2023, 09/29 DTaP,Tdap,and Td Vaccines (3 - Td or Tdap) 05/23/2029 05/23/2019, 09/15/2009 Hepatitis A Vaccines Aged Out 09/15/2009, 02/04/20 07 No longer eligible based on patient's age to complete this topic Hepatitis B Vaccines Completed 01/17/2013, 09/15/2009, 02/03/2007 Pneumococcal Vaccine: 50+ Years Completed 01/14/2017, 03/01/2016, 12/09/2014, Additional history exists Pneumococcal Vaccine: Pediatrics (0 to 5 Years) and At-Risk Patients (6 to 64 Years) Aged Out 01/14/2017, 03/01/2016, 12/09/2014, Additional history exists No longer eligible based on patient's age to complete this topic Influenza Vaccine Completed 12/30/2023, , 06/04/2022, Additional history exists Zoster Vaccines Completed 12/30/2023, 0608/2021, 06/18/2021 HIB Vaccines Aged Out No longer eligi [...] age to complete this topic Meningococcal B Vaccine Aged Out No l onger eligible based on patient's age to complete this topic RSV Immunization Patients Under 20 months Aged Out No longer eligible based on patient's age to complete this topic Varicella Vaccines Aged Out No longer eligible based on patient's age to complete this topic Procedures Procedure Name Priority Date/Time Associated Diagnosis Comments XR HAND 3+ VIEWS RIGHT Routine 08/14/2024 10:49 AM EDT Pain NJ INJECTION SINGLE TENDON SHEATH OR LIGAMENT APONEUROSIS Routine 07/27/2024 11:00 AM EDT Trigger middle finger of right hand NURIS SCREENING DIGITAL Routine 12/29/2023 8:06 AM EDT Encounter for screening mammogram for malignant neoplasm of breast from Last 3 Months or Most Recently Relevant to Health Maintenance Results * XR Hand 3+ Views Right (08/14/2024 10:49 AM EDT) Anatomical Region Laterality Modality Upper Extremities, Hand Right Computed Radiography Narrative 08/14/2024 12:01 PM EDT Date of Visit: 08/14/2024 Reason for visit: Right hand pain Views: AP, lateral, oblique right hand Comparison: None Findings: No fracture, dislocation or lytic lesions. ??She has diffuse arthritic changes at PIP and DIP joints of all fingers with joint space narrowing and subchondral bone cyst. ??Also moderate right thumb basal joint arthritis. Impression: Diffuse osteoarthritis right hand no acute findings us Maria Guadalupe FIELDS IMG XR PROCEDURES Final Resul t * NJ INJECTION SINGLE TENDON SHEATH OR LIGAMENT APONEUROSIS (07/27/2024 11:00 AM EDT) Narrative Maria Guadalupe Chavez PA - 07/27/2024 11:00 AM EDT DONNIE Slater ? 07/27/2024 12:48 PM Hand / UE Inj/Asp: R long A1 for trigger finger Indications: pain Details: 25 G needle, volar approach Medications: 0.5 mL lidocaine 1 %; 20 mg triamcinolone acetonide 40 mg/mL Informed Consent: ??Laterality: ??Right ??Relevant images/test results available and reviewed: yes ?Health status cleared: ??Yes ??Procedure/treatment, purpose, treatment alternatives, risks/potential complications and benefits explained: yes ?Risk/complications/benefits details: ??Risks of infection, thinning of the skin and temporary skin discoloration discussed. ??Discussed risks of temporary increased pain after injection and swelling and mild redness at injection site for couple days. ??Explained occasionally cortisone injection can cause facial flushing temporarily. ??Benefits pain management. ??For postop injection pain ice, Tylenol and/or NSAIDs if patient can take ??Patient questions answered: yes ?Patient agrees, verbalizes understanding, and wants to proceed: yes ?Consent given by: ??Patient ??Informed consent discussion completed by Physician/ELIF with patient: ?? Verbal ??Pre-procedure timeout performed: yes ?? us Maria Guadalupe FIELDS IN CLINIC/BEDSIDE ORDERABLES Final Result * NURIS SCREENING DIGITAL (12/29/2023 8:06 AM EDT) Anatomical Region Laterality Modality Mammography 12/28/2023 8:38 AM EDT Narrative 12/29/2023 8:06 AM EDT [facility] Diagnostic Imaging Department [address] [place], [place] [phone] Patient: ??VALE NIETO ?/Age/Sex: 1960 - 63 - F Unit#: ??[id number] ? Location/Status: ??SPDIMAM/REG CLI ? Mnemonic/Ordering Site: ??DIGSC/SPMAM Ordering Physician: ??PAULINO CARLOS [facility] Screening Digital - 12/28/23 - 08 Report Status:Signed EXAM: [facility] Screening Digital EXAM DATE AND TIME: 12/28/2023 8:56 AM HISTORY: ??Screening. Personal history of endometrial carcinoma. COMPARISON: ??09/29/22, 12/09/20, 02/27/19 TECHNIQUE: Bilateral digital breast tomosynthesis was performed in the CC and MLO projections. Computer aided detection with Picsean 3D 3.1 was employed. TISSUE DENSITY: b. [...] Mammogram performed at [facility] [address] [place] [address] Dictating Physician: ??KIMBERLEE HUYNH MD Electronically Signed by: ??KIMBERLEE HUYNH MD Dic Date/Time: ??12/29/23804 Sign date/Time: ??12/29/23 08 Procedure Note Kimberlee Huynh MD - 01/24/2024 [facility] Diagnostic Imaging Department [address] [place] [address] Patient: VALE NIETO D.O.B./Age/Sex: 1960 - - F Unit#: [id number] Location/Status: SPDIMAM/REG CLI Mnemonic/Ordering Site: [facility] Ordering Physician: PAULINO CARLOS [facility] Screening Digital - 12/28/23 - 0855 Report Status:Signed EXAM: [facility] Screening Digital EXAM DATE AND TIME: 12/28/2023 8:56 AM HISTORY: Screening. Personal history of endometrial carcinoma. COMPARISON: 09/29/22, 12/09/20, 02/27/19 TECHNIQUE: Bilateral digital breast tomosynthesis was performed in the CCand MLO projections. Computer aided detection with Picsean 3D 3.1was employed. TISSUE DENSITY: b. There [...] Mammogram performed at [place] [address] Dictating Physician: KIMBERLEE HUYNH MD Electronically Signed by: KIMBERLEE HUYNH MD Dic Date/Time: 12/29/23804 Sign date/Time: 12/29/23805 Paulino Carlos NP IMG BI PROCEDURES Final Result from Last 3 Months or Most Recently Relevant to Health Maintenance Insurance [facility] MEDICARE Member Subscriber Plan / Payer (Ef fective 2017-Present) Name:VALE NIETO Relation to Subscriber:Self Name:Vale Nieto Payer ID:[id number] Group ID:[id number] Type:Not on file Address: [place] [address] [address] [phone] Care Teams Software Licensing Analyst Relationship Specialty Start Date End Date Flory Rizzo MD [facility] [address] [place] [address] PCP - General Internal Medicine 07/16/24
[2024-08-15 13:59] LABS: Alanine Aminotransferase 22 U/L (0-31); Anion Gap 16 (12-20); Aspartate Amino Transferase 28 U/L (5-31); Bilirubin Direct 0.2 mg/dL (0.0-0.5); Blood Urea Nitrogen 17 mg/dL (9-16); Calcium 9.2 mg/dL (8.4-10.2); Carbon Dioxide 21 mmol/L (22-29); Chloride 106 mmol/L (96-108); Glucose Random 122 mg/dL (60-115); Magnesium 1.8 mg/dL (1.6-2.6); Potassium 4.8 mmol/L (3.3-5.1); Sodium 138 mmol/L (135-145); Total Protein 6.9 g/dL (6.5-8.0)
[2024-08-15] MEDS: Ketorolac Tromethamine 15 MG/ML VIAL IVPUSH (14:03)
[2024-08-15] MEDS: diazePAM 10 MG/2 ML CARTRIDGE 2.5 MG IVPUSH (14:04)
[2024-08-15] MEDS: Acetaminophen 325 MG TABLET 975 MG PO (14:04)
[2024-08-15 14:22] LABS: Albumin Level 4.3 g/dL (3.5-5.0); Alkaline Phosphatase 112 U/L (39-117); Bilirubin Total 0.9 mg/dL (0.0-1.0); Creatinine Clr Calc Pharmacy 81.1; Estimated Glomerular Filt Rate 60
[2024-08-15 15:06] LABS: Troponin-I High Sensitivity < 2.7 ng/L (<3.5-17.0)
[2024-08-15 15:41] LABS: Appearance Urine Clear; Color Urine Yellow; Glucose Urine UA >=1000 mg/dL (Negative); Leukocyte Esterase Urine Trace (Negative); Nitrite Urine Negative (Negative); UMIC TRIGGER UACC YES; Urine Blood Negative (Negative); Urine Ketones Negative (Negative); Urine Protein Negative (Neg-Trace)
[2024-08-15 15:43] LABS: Bacteria Urine None Seen (None Seen); Hyaline Casts Urine 0-2 /LPF (0-2); RBC Urine 0-2 /HPF (0-2); Squamous Epithelial Cell Urine 0-2 /HPF (0-2); WBC Urine 0-5 /HPF (0-5)
== END 2024-08-15 19:37 | disposition home or self-care (01) ==
PROVIDERS: Physician Assistant; Emergency Provider Emergency Medicine
DX: R07.89 Other chest pain (principal); R06.02 Shortness of breath; R42 Dizziness and giddiness; R11.2 Nausea with vomiting, unspecified; R94.31 Abnormal electrocardiogram [ECG] [EKG]; Z03.818 Encounter for observation for suspected exposure to other biological agents ruled out; Z79.899 Other long term (current) drug therapy
CPT/HCPCS: 0241U; 36415; 71045; 80048; 80076; 81001; 83735; 83880; 84484; 85025; 93005; 96374; 96375; 99284; 99285; J1885; J2270; J2405; J3360

== ENCOUNTER → 2024-08-15 11:45 | Outpatient (BNV) | payer OTHER, SELFPAY | PROVIDERS: Emergency Provider Emergency Medicine; Visit Provider Internal Medicine Cardiovascular Disease | DX: I25.2 Old myocardial infarction (principal) | CPT/HCPCS: 93010 ==

== ENCOUNTER → 2024-08-15 12:03 | Outpatient (BNV) | payer OTHER, SELFPAY | PROVIDERS: Emergency Provider Emergency Medicine; Visit Provider Radiology Diagnostic Radiology | DX: M51.369 Other intervertebral disc degeneration, lumbar region without mention of lumbar back pain or lower extremity pain (principal) | CPT/HCPCS: 71045 ==

== ENCOUNTER 2024-10-17 17:04 | Inpatient (IN) | payer OTHER, SELFPAY ==
[2024-10-17 17:21] VITALS: BP 00/00; BP 160/92; PULSE 96; RESP 18; TEMP 36.2; O2SAT 96; O2SAT 97; BMI 34.4
--- NOTE | 2024-10-17 17:30 | ECG_ITS ---
Test Reason : R/O PROLONGED QT Blood Pressure : */* mmHG Vent. Rate : 89 BPM Atrial Rate : 89 BPM P-R Int : 148 ms QRS Dur : 104 ms QT Int : 372 ms P-R-T Axes : -12 28 54 degrees QTcB Int : 452 ms Normal sinus rhythm Normal ECG When compared with ECG of 15-Aug-2024 12:58, No significant changes seen Referred By: Tonja Mayorga Electronically Signed By: Zack Dunn
--- OUTSIDE RECORDS SUMMARY | 2024-10-17 18:04 | XMS_ITS | Clinical Summary ---
Author Organization [address] [facility] Address [address] [place] [address] Phone Care Team Providers Care Maintenance Supervisor Mechanical Name Role Phone Flory Rizzo MD Primary [...] HOURS NEEDED FOR MUSCLE SPASM 4 Active Encounters Date Type Department Care Team Description 08/14/2024 10:30 AM EDT Office Visit Orthopedic Surgery [address] [phone] Maria Guadalupe Chavez PA Arthritis of right hand (Primary Dx) 07/27/2024 11:00 AM EDT Consult Orthopedic Surgery [address] [phone] Maria Guadalupe Chavez PA Trigger middle finger [...] Care Team (Late st Contact Info) Description 10/22/2024 10:30 AM EDT Office Visit Orthopedic Surgery - [place] [address] [facility] [address] [place] [address] Maria Guadalupe Chavez PA [address] [facility] [address] [place] [phone] Health Maintenance Due Date Last Done Comments Diabetes: Annual GFR (Glomerular Filtration Rate) 1960 Diabetes: Annual Foot Exam 07/31/1969 Diabetes: Annual Retina Eye Exam 07/31/1969 Cervical Cancer Screening: Pap Smear 07/31/1980 RSV Immunization Adult Patients (1 - Risk 60-74 years 1-dose series) 2019 Cholesterol Screening (Lipid Panel) 02/23/2022 Colorectal Cancer Screening: Colonoscopy 02/23/2022 Hepatitis C Screening 02/23/2022 Medicare Annual Wellness Visit 02/23/2022 Osteoporosis Screening (Bone Density Screening) 02/23/2022 Social Influencers of Health Screening 02/23/2022 Depression Screening 03/28/2024 Diabetes: Annual Urine Albumin-Creatinine Ratio (uACR) 07/27/2024 Diabetes: Blood Sugar Control Test (HGBA1C) 07/27/2024 Hypertension/CHF/CAD Annual BMP Blood Test 07/27/2024 COVID-19 Vaccine () 07/31/2024 12/30/2023, 06/04/2022, 02/09/2021, Additional history exists Falls Risk Assessment 07/31/2024 Influenza Vaccine (#1) 2024 , 12/29/2022, 06/04/2022, Additional history exists Breast Cancer Screening 12/28/2025 12/29/2023, 09/29 DTaP,Tdap,and Td Vaccines (3 - Td or Tdap) 05/23/2029 05/23/2019, 09/15/2009 Hepatitis A Vaccines Aged Out 09/15/2009, 02/04/20 07 No longer eligible based on patient's age to complete this topic Hepatitis B Vaccines Completed 01/17/2013, 09/15/2009, 02/03/2007 Pneumococcal Vaccine: 50+ Years Completed 01/14/2017, 03/01/2016, 12/09/2014, Additional history exists Zoster Vaccines Completed 12/30/2023, 08/2021, 06/18/2021 HIB Vaccines Aged Out No longer [...] RIGHT Routine 08/14/2024 10:49 AM EDT Pain MN INJECTION SINGLE TENDON SHEATH OR LIGAMENT APONEUROSIS [...] IMG XR PROCEDURES Final Resul t * MN INJECTION SINGLE TENDON SHEATH OR LIGAMENT APONEUROSIS (07/27/2024 11:00 AM EDT) Narrative Maria Guadalupe Chavez PA - 07/27/2024 11:00 AM EDT DONNIE Slater 07/27/2024 12:48 PM Hand / UE Inj/Asp: R long A1 for trigger finger Indications: pain Details: 25 G needle, volar approach Medications: 0.5 mL lidocaine 1 %; 20 mg triamcinolone acetonide 40 mg/mL Informed Consent: Laterality: Right Relevant images/test results available and reviewed: yes Health status cleared: Yes Procedure/treatment, purpose, treatment alternatives, risks/potential complications and benefits explained: yes Risk/complications/benefits details: Risks of infection, thinning of the skin and temporary skin discoloration discussed. Discussed risks of temporary increased pain after injection and swelling and mild redness at injection site for couple days. Explained occasionally cortisone injection can cause facial flushing temporarily. Benefits pain management. For postop injection pain ice, Tylenol and/or NSAIDs if patient can take Patient questions answered: yes Patient agrees, verbalizes understanding, and wants to proceed: yes Consent given by: Patient Informed consent discussion completed by Physician/ELIF with patient: Verbal Pre-procedure timeout performed: yes us Maria Guadalupe FIELDS IN CLINIC/BEDSIDE ORDERABLES Final Result * NURIS SCREENING DIGITAL (12/29/2023 8:06 AM EDT) Anatomical Region Laterality Modality Mammography 12/28/2023 8:38 AM EDT Narrative 12/29/2023 8:06 AM EDT [facility] Diagnostic Imaging Department [address] [place] [id number] Patient: VALE NIETO /Age/Sex: 1960 63 - F Unit#: [id number] Location/Status: SPDIMAM/REG CLI Mnemonic/Ordering Site: [facility] Ordering Physician: PAULINO CARLOS [facility] Screening Digital - 12/28/23 - 55 Report Status:Signed EXAM: [facility] Screening Digital EXAM DATE AND TIME: 12/28/2023 8:56 AM HISTORY: Screening. Personal history of endometrial carcinoma. COMPARISON: 09/29/22, 12/09/20, 02/27/19 TECHNIQUE: Bilateral digital breast tomosynthesis was performed in the CC and MLO projections. Computer aided detection with Covario 3D 3.1 was employed. TISSUE DENSITY: b. There are scattered areas of fibroglandular density. FINDINGS: No suspicious masses, grouped microcalcifications, or areas of architectural distortion are seen. Vascular calcification is present. The skin is unremarkable. IMPRESSION: Stable mammographic appearance of the breasts. No evidence of malignancy is seen. A negative mammogram in the presence of a clinically suspicious palpable abnormality does not preclude the possibility of malignancy or alter the indications for biopsy. BI-RADS: Category 2: Benign RECOMMENDATION(S): 1: Routine screening mammogram BILATERAL in 1 year. Mamm[facility] performed at [facility] [address] [place] [address] Dictating Physician: KIMBERLEE HUYNH MD Electronically Signed by: KIMBERLEE HUYNH MD Dic Date/Time: 12/29/23804 Sign date/Time: 12/29/23805 Procedure Note Kimberlee Huynh MD - 01/24/2024 [facility] Diagnostic Imaging Department [address] [place] [address] Patient: VALE NIETO /Age/Sex: 1960 - 63 - F Unit#: [id number] [facility]Ordering Site: [facility] Ordering Physician: PAULINO CARLOS [facility] Screening Digital - 12/28/23 - 0855 Report Status:Signed EXAM: [facility] Screening Digital EXAM DATE AND TIME: 12/28/2023 8:56 AM HISTORY: Screening. Personal history of endometrial carcinoma. COMPARISON: 09/29/22, 12/09/20, 02/27/19 TECHNIQUE: Bilateral digital breast tomosynthesis was performed in the CCand MLO projections. Computer aided detection with iCAD RVX AI 3D 3.1was employed. TISSUE DENSITY: b. There [...] Mammogram performed at [facility] [place] [address] Dictating Physician: KIMBERLEE HUYNH MD Electronically Signed by: KIMBERLEE HUYNH MD Dic Date/Time: 12/29/23804 Sign date/Time: 12/29/23805 Paulino Carlos NP IM BI PROCEDURES Final Result from Last 3 Months or Most Recently Relevant to Health Maintenance Insurance MEDICARE Member Subscriber Plan / Payer (Ef fective 2017-Present) Name:VALE NIETO Relation to Subscriber:Self Name:Vale Nieto Payer ID:[id number] Group ID:[id number] Type:Not on file Address: [place] [address] [address] [phone] Care Teams Maintenance Supervisor Mechanical Relationship Specialty Start Date End Date Flory Rizzo MD PCP - General Internal Medicine 07/16/24
--- OUTSIDE RECORDS SUMMARY | 2024-10-17 18:05 | XMS_ITS | Data Portability ---
Author Organization [employer] [facility], [email or web address] Address [address] [place] [address] Care Team Providers Care Bioanalyst Name Role Phone AMEE BALDERAS Primary Care Provider HIM CCA OTHER Assessment Encounter Date Assessment Date Assessment LastModified by Organization Details LastModified Time 03/30/2023 03/30/2023 I have reviewed and agree with the Assessment and Plan as documented by the Tree Girdler. I provided real-time medical direction via phone for this encounter, and was available for additional phone based assistance as needed. Patient seen for report of URI sxs recently now improving. Requesting COVID swab. Home swab performed prior to visit was interpreted as negative by our dental equipment mechanic. Repeat swab also negative. Counseled on red [...] Assessment and Plan as documented by the Tree Girdler. Patient given the opportunity to ask questions. Our service contacted for an assessment of: Nausea and vomiting As per above, patient with approximately several days nausea vomiting and intermittent diarrhea. Patient denies any contacts with norovirus. Also denies eating or drinking any contaminated foods or liquids. Has some mild upper airway tract symptoms. Per dental equipment mechanic on the scene, vital signs are stable [...] Assessment and Plan as documented by the Tree Girdler. Patient given the opportunity to ask questions. [...] effects from the Tamiflu thus far. Per dental equipment mechanic on the scene, vital signs stable patient [...] or worsening serious symptoms, particularly fever [place]ills [place] [id number] Not available 04/09/2024 20:59:23 Plan of Treatment Reminders Order Date Submit Date Provider Last Modified By Organization Details Last Modified Time Details Appointments None recorded. Lab BMP, serum or plasma [address], [id number] 5 11:06:33 cmp, whole blood + katerina [address], [address] 5 08:11:25 rapid SARS CoV 2 Ag, QL IA, respiratory specimen [address], [id number] 5 23:24:52 rapid flu (A+B) [address], [address] 5 23:23:26 BMP, serum or plasma [address], [id number] 4 20:00:12 Referral None recorded. Procedures None recorded. Surgeries None recorded. Imaging electrocard iogram [address], [id number] 4 16:14:50 Medication Orders ondansetron HCl (PF) 4 mg/2 mL injection solution [address] - [id number], [address], [place], [address], 5 20:55:08 sodium chloride 0.9 % intravenous solution [address] [id number], [address], [place], [address], 5 20:55:08 ondansetron 4 mg disintegrat ing tablet 2024 025 [place] - [id number], [address], [place], [address], 5 12:22:34 sodium chloride 0.9 % intravenous solution [address] - [id number], [address], [place], [address], 5 22:13:10 ondansetron HCl (PF) 4 mg/2 mL injection solution [address] - [id number], [address], [place], [address], 5 22:13:10 Tamiflu 75 mg capsule [address] [id number], [address], [place], [address], 5 23:24:00 Tamiflu 75 mg capsule 2024 025 [facility] [id number], [address], [place], [address], 5 12:24:28 ondansetron HCl (PF) 4 mg/2 mL injection solution 2023 024 [place] - [id number], [address] [place], [address], 4 18:04:36 sodium chloride 0.9 % intravenous solution 2023 024 [place] - [id number], [address] [place], [address], 4 18:04:36 Patient TargetsNo targets recorded. Patient InstructionsNo instructions recorded. Reason for Referral None Reported. Results Created Date Observation Date Name Description Value Unit Range Abnormal Flag Note LastModifiedBy Organization Detail LastModifiedTime 03/16/2003/16/2023 BMP, serum or plasm a BUN 16 Not Available Main - Ins [address], [address] [place] [address] 03/16/2023 17:32:21 03/16/20 23 03/16/2023 BMP, serum or plasm a Ca 0.91 Not Available Main - [facility] [address], [address] [place] [address] 03/16/2023 17:32:21 03/16/20 23 03/16/2023 BMP, serum or plasm a CI- 100 Not Available Main - [facility] [address], [address] [place] [address] 03/16/2023 17:32:21 03/16/20 23 03/16/2023 BMP, serum or plasm a CRE 0.66 Not Available Main - [facility] [address], [address] [place] [address] 03/16/2023 17:32:21 03/16/20 23 03/16/2023 BMP, serum or plasm a GLU 134 Not Available Main - [facility] [address], [address] [place] [address] 03/16/2023 17:32:21 03/16/20 23 03/16/2023 BMP, serum or plasm a K+ 4.3 Not Available Main - [facility] [address], [address] [place] [address] 03/16/2023 17:32:21 03/16/20 23 03/16/2023 BMP, serum or plasm a Na+ 138 Not Available Main - [facility] [address], [address] 03/16/2023 17:32:21 03/16/20 23 03/16/2023 BMP, serum or plasm a tCO2 24 Not Available Main - Ins [address], [address] 03/16/2023 17:32:21 04/08/19 25 04/08/2024 rapid SARS CoV 2 Ag, QL IA, respi rator y speci men rapid SARS CoV 2 Ag, QL IA, respiratory specimen negati ve Not Available Main - [facility] ed [address] [place] [address], [address] [place] [address] 04/08/2024 23:24:37 04/08/19 25 04/08/2024 rapid flu (A+B) Flu positi ve Not Available [facility] - [facility] ed [address] [place] [address], [address] [place] [address] 04/08/2024 22:12:19 02/20/20 24 02/20/2024 elect aria lantiguagr am No observ ation record ed. acalthorpe [address], [address] 02/20/2024 19:59:52 Result Notes None recorded. Medical Equipment None Reported. Allergies Allergen ID Allergen Name Allergen Category Reaction Reaction Severity Criticality Documentation Date Start Date Code Code System Note Provider Name and Address Organization Details Recorded Time 26817 Reglan medicatio n Not available Not available Not available 02/20/2024 9230 RxNorm Not Available [facility] - production 4 15:54:42 3933 Product containin g penicilli n (product) medicatio n Not available Not available Not available 02/24/2023 86490 8001 SNOMED Not Available [facility] - production 4 03:33:03 3934 latex environme nt,medica tion Not available Not available Not available 02/24/2023 39888 91 RxNorm Not Available [facility] - production 4 03:33:03 3935 Iodinated contrast media (substanc e) medicatio n Not available Not available Not available 02/24/2023 88940 2003 SNOMED Dedra Davis MD [address] [facility],[address], [place], [address], [facility] 3 13:27:42 Medications Name Sig Start Date [...] Not Available Not Available Vitals Date Recorded Respiratory rate Body temperature Oxygen saturation Oxygen saturation in Arterial blood by Pulse oximetry Body weight Heart rate Systolic And Diastolic Provider Name and Address Organization Details Last Updated DateTime 4 18 /min 98.2 [degF] 99 % 99 % 85902.3 2 g 122 /min 142/80 mm[Hg] Not Available [facility] - production 4 14:23:45 Date Recorded Respiratory rate Heart rate Body height Oxygen saturation Oxygen saturation in Arterial blood by Pulse oximetry Body weight Body temperature Systolic And Diastolic Provider Name and Address Organization Details Last Updated DateTime 5 20 /min 98 /min 170.18 cm 94 % 94 % 91304.2 4 g 99.3 [degF] 149/100 mm[Hg] Not Available [facility] production 5 22:03:43 Date Recorded Heart rate Body temperature Oxygen saturation Oxygen saturation in Arterial blood by Pulse oximetry Respiratory rate Systolic And Diastolic Provider Name and Address Organization Details Last Updated DateTime 5 101 /min 99.6 [degF] 98 % 98 % 18 /min 127/81 mm[Hg] Not Available [employer] production 5 20:41:57 Date Recorded Heart rate Respiratory rate Oxygen saturation Oxygen saturation in Arterial blood by Pulse oximetry Body temperature Systolic And Diastolic Provider Name and Address Organization Details Last Updated DateTime 5 86 /min 24 /min 97 % 97 % 98.8 [degF] 131/74 mm[Hg] Not Available [facility] 5 14:34:45 Date Recorded Heart rate Respiratory rate Body temperature Oxygen saturation Oxygen saturation in Arterial blood by Pulse oximetry Systolic And Diastolic Provider Name and Address Organization Details Last Updated DateTime 4 70 /min 18 /min 97.9 [degF] 97 % 97 % 110/69 mm[Hg] Not Available [facility] 4 17:01:13 Social History None recorded. Functional [...] Note 8660 Murphy Bishop MD Main - [facility] [address] [place] [address] 06/14/2022 10:54:26 06/16/2022 09:10:40 Acute abdominal pain [id number] R10.9 This 61-year-ol d female with a previous cholecyste ctomy called instED complainin g of severe right upper quadrant pain since last night. Based on her history and exam I suspect she has an acute abdomen, and I recommende d that she go to the ER for further evaluation . The patient agreed with this plan. 9531 Corby Ventura MD Main - [facility] [address] [place] [address] 07/13/2022 10:13:12 07/15/2022 09:59:54 Right upper quadrant pain [id number] R10.11 01431 Dread Agustin MD Main - [facility] [address] [place] [address] 08/27/2022 12:09:52 08/31/2022 13:13:46 Chest pain [id number] R07.9 62yo woman presents with exertional chest pain and shortness of breath that is not reproducib le to palpatatio n. Presentati on concerning for ACS. She was given a full aspirin and referred to the ED by 911. [id number] Mina Freed MD Main - [facility] [address] [place] [address] 11/08/2022 15:25:35 02/07/2023 14:49:13 Nausea and vomiting [id number] R11.2 31911 Helen Coretz MD Main - [facility] [address] [place] [address] 11/24/2022 18:45:03 11/24/2022 23:49:04 Epigastric pain [id number] R10.13 62 year old female with Crohn's [...] assessment and plan as documented by the dental equipment mechanic. I provided real-time medical direction for this encounter and was immediatel y available to provide additional phone-base d assistance as needed. 10929 Mina Freed MD Main - [address] [address] 12/28/2022 16:05:13 12/28/2022 23:40:19 Tremor [id number] R25.1 82060 Dedra Davis MD [facility] - [address] [address] 02/24/2023 13:23:32 02/26/2023 11:37:42 Nausea and vomiting [id number] R11.2 Patient has no peripheral IV access [...] she states that her boyfriend can go pickling machine operator her prescripti on. Will trial frequent small amounts of clear liquids-ad vised if not tolerating clears with medication or feeling worse she is always able to go to the ER if needed. She verbalized understand [facility] [address] HARISH ALEX MD [facility] - [address] [address] 03/16/2023 17:15:21 03/16/2023 22:50:57 Nausea and vomiting [id number] R11.2 As noted, we were called to see this patient regarding concerns of nausea, vomiting, inability to tolerate PO. Evaluation in the field was performed by my dental equipment mechanic colleague, as noted above, I provided real-time [...] fluid down , or any other concerns. [id number] Mina Freed MD Main - [facility] [address] [place], [place] [address] 0 03/30/2023 14:23:43 03/31/2023 10:33:32 Upper respiratory infection [id number] J06.9 71884 Mayo Cortez MD Main - [facility] [address] [place] [address] 0 02/20/2024 17:00:58 02/20/2024 23:27:33 Nausea and vomiting [id number] R11.2 54171 Melissa Patterson MD Main - [facility] [address] [place], [place] [address] 04/08/2024 22:03:39 04/09/2024 14:03:22 Influenza A virus present [id number] 08 J09.X2 Nausea and vomiting 1693 1999 R11.2 06370 Melissa Patterson MD Main - [facility] [address] [place], [place] [address] 04/09/2024 20:41:56 04/10/2024 01:15:20 Influenza A virus present [id number] 08 J09.X2 Diarrhea [id number] R19.7 35483 Corby Tafoya MD Main - [facility] [address] [place] [address] 08/16/2024 14:23:53 08/17/2024 10:52:20 Acute upper gastrointestinal hemorrhage [id number] K92.2 As noted, we were called to see this patient regarding concerns of HTN, gastroente ritis sx, dizziness. Evaluation in the field was performed by my dental equipment mechanic colleague, as noted above, I provided real-time direction and supervisio n for this visit. The evaluation revealed normal VS and a worrisome story for recent diarrhea with black tarry stools. During visit, pt became pale and diaphoreti c, and BP was in 70s over 50s. H/H was normal prior to this, but is not accurate in setting of acute blood loss. Impression :Concernin g story suggestive of acute upper GI bleeding or mesenteric ischemia, with concern for shock. Plan:ED referral by EMS Primary care, considerch sangita in call Dispositio n: We discussed the situation and I recommende d referral to the emergency department . This was based on severe hypotensio n concerning for hemorrhagi c shock. Health Concerns Section Related Observation LastModified by Organization Detai ls LastModified Time None Recorded Concern Status LastModified by Organization Details LastModified Time None Recorded Advance Directives Directive None Recorded Payers Insurance Date Sequence Insurance Name Policy Number Policy Bustillo Covered Member ID Bustillo Member ID Guarantor Name 02/20/2024 1 [facility] - DOS PRIOR TO 2022 - DUAL ELIGIBLE (MEDICARE REPLACEMENT/AD VANTAGE - HMO) Vale Nieto [id number] Vale Nieto 08/16/2024 1 [facility] - DOS ON OR AFTER 2022 - DUAL ELIGIBLE - GROUP HOME OPTIONS AND ONE CARE (MEDICARE REPLACEMENT/AD VANTAGE - HMO) Vale Nieto [id number] Vale Nieto Notes Date Note Type Note Provider Name and Address Organization Details Recorded Time 03/30/2023 text/html HPI: 62 y/o female PMH [...] ....................... ....................... ....................... ....................... ....................... ....................... ... [facility] Nurse Triage Notes (Bridgett Munguia): Comments: No further information needed to process visit. ....................... ....................... ....................... ....................... ....................... ....................... ... Tree Girdler Note From Demond Boles: Pt co runny nose and chills yesterday. Pt sts tried doing her own Covid test but wasn t sure she was reading it correctly. Pt wanted retest. Baseline vital s assessed. Pt afebrile. Clear lungs. Pt denies nausea vomiting diarrhea. Covid swab negative. [facility] contacted and pt education on self care and monitor symptoms. Tree Girdler Allergies: Latex, Penicillin ....................... ....................... ....................... ....................... ....................... ....................... ... Disposition: Fulfilled Mina Freed MD [address] [facility],[address], [place], [address], [employer] 03/30/2023 22:15:07 02/20/2024 text/html HPI: 63 y/o [...] needed to process visit -Matthew Calero RN Tree Girdler Organization Information for Paradise CornerChaka sullivan [employer] Legal Name: [facility] [employer] Address: [address] [place] [address] [place] [address], Joiner: Kemal Mcdaniel MD CLIA No.: [id number] Tree Girdler POC Test Results from [facility] (16:51:40) pH: 7.47 pH units pCO2: 35.9 [...] ....................... ....................... ....................... ....................... ....................... ....................... ... Tree Girdler Note From Chaka Mendoza: This 63-year-old female [...] of breath. Patient states she sees a post closer and he told her that my stomach doesn't digest food properly and I need an endoscopy. The patient states she's also supposed to be tested for Peyton's disease soon.Patient presents awake and alert, in moderate distress. Her vital signs are reasonably stable and she is afebrile. Neurological exams at baseline. Normal gait. Lungs are clear throughout auscultation. Significant epigastric tenderness, abdomen otherwise benign. No lower extremity edema. EKG uploaded. [id number] labs uploaded. Rapid COVID and flu are both negative.I treated this patient with normal saline 1 L IV and ondansetron 4 mg IVP. She received no relief from Zofran or fluids. Because of the patient's concurrent medications our antiemetic treatments were limited. After a lengthy discussion with myself and the [facility] the patient agreed to ambulance transport to [facility] emergency department. 911 was initiated and a verbal SBAR was given to [facility] BLS crew. ....................... ....................... ....................... ....................... ....................... ....................... ... [facility] Consulted: Mayo Cortez ....................... ....................... ....................... ....................... ....................... ....................... ... Disposition: Fulfilled Mayo Cortez MD [address] [facility],[address], [place], [address], [employer] 02/20/2024 22:21:01 04/08/2024 text/html HPI: Member calling [...] Comments: Assess s/s and treat as indicated Tree Girdler Organization Information for Selena Bullard [employer] Legal Name: [employer]. Address: [address] [place] [address], Joiner: Praneeth Alcala MD CLIA No.: [id number] Tree Girdler POC Test Results from [email or web address] Blood Glucose Measurement (17:52:19) Blood Glucose: 154 mg/dL Rapid COVID antigen (17:52:21) COVID: - Rapid influenza antigen (17:52:21) Flu: - Attachments uploaded as part of this test result can be found under Documents section. ....................... ....................... ....................... ....................... ....................... ....................... ... Tree Girdler Note From Selena Bullard: SANDY makes pt contact when she opens the front door to her home. She is dressed in her nightgown and tells NJFrancis she was just in the bathroom w/ [...] is amendable to evaluation and treatment today. [facility] obtains vital signs and pt is assessed. She is found to have a very low-grade fever and she continues to have rhinitis and sneeze throughout. Lung sounds are clear and remaining physical exam is unremarkable. Pt consents to COVID/flu swab and is found to be positive for Flu A. [facility] contacts [facility] to discuss the above. [facility] is agreeable to IV fluids and antiemetics [...] removed at the end and pt thanks [facility] for coming. [facility] is clear. Report completed by FIONA Bullard [id number]. ....................... ....................... ....................... ....................... ....................... ....................... ... [facility] Consulted: Melissa Patterson ....................... ....................... ....................... ....................... ....................... ....................... ... Disposition: Fulfilled Melissa Patterson MD [address] [place] [address],[address] [facility], [place], [address], [facility] - [email or web address] [facility] 04/08/2024 23:26:58 04/09/2024 text/html HPI: 63 y/o femalePatient [facility] and dx with Flu A. [...] Disease, Ulcerative Colitis) PMH Reviewed at 04/09/2024 Allergies Reviewed at 04/09/2024: Comments: HPI reviewed- [place] Tree Girdler Organization Information for Chaka Mendoza [employer] Legal Name: [facility] Address: [address] [place] [address], [place] [address], Joiner: Kemal Mcdaniel MD CLIA No.: [id number] Tree Girdler POC Test Results from [facility] (18:14:59) pH: 7.43 pH units pCO2: 37.2 mmHg pO2: 44.2 mmHg Na: 138 mmol/L K: 4.4 mmol/L iCa: 1.08 mmol/L Cl: 106 mmol/L TCO2: 23.8 mEq/L Hct: 39 % Hb: 13.3 g/dL Glu: 127 mg/dL Lac: 1.24 mmol/L Cr: 0.72 mg/dL BUN: 16 mg/dL A ....................... ....................... ....................... ....................... ....................... ....................... ... Tree Girdler Note From Juan ClaurieChaka: This 63-year-old female with a history including [...] ....................... ....................... ....................... ....................... ....................... ....................... ... [facility] Consulted: Melissa Patterson ....................... ....................... ....................... ....................... ....................... ....................... ... Disposition: Fulfilled Melissa Patterson MD [address] [facility],[address], [place], [address], [employer] 04/09/2024 20:59:59 08/16/2024 text/html HPI: 64 y/o femalePatient presented to ED yesterday due to elevated BP's, patient was assessed and cleared for d/c home. Patient called today with abdominal pain, vomiting and diarrhea. Patient would benefit from evaluation and possible IV hydration and antiemetic. ....................... ....................... ....................... ....................... ....................... ....................... ... [facility] Nurse Triage Notes (Jennifer Alamo): Reason For Request: abd pain Chief Complaints: Abdominal Pain, Nausea / Vomiting, Diarrhea PMH: Severe Persistent Mental Illness (SPMI), Hypertension, Congestive Heart Failure, Inflammatory Bowel Disease (Crohn's Disease, Ulcerative Colitis) PMH Reviewed at 08/16/2024 13:54 Allergies Reviewed at 08/16/2024 13:54 Comments: HPI reviewed Tree Girdler Organization Information for Luís Blankenship [employer] Legal Name: [employer]. Address: [address] [place] [id number], Joiner: Praneeth Alcala MD CLIA No.: [id number] Tree Girdler POC Test Results from Luís Blankenship [employer] Chem8+ (14:35:43) Na: 137 mEq/L K: 4.6 mEq/L Cl: 106 mEq/L iCa: 1.21 mmol/L TCO2: 21 mmol/L Glu: 126 mg/dL BUN: 19 mg/dL Crea: 1.0 mg/dL Hct: 43 % Hb: 14.6 g/dL A mmol/L Cartridge Number: [id number] Attachments uploaded as part of this test result can be found under Documents section. ....................... ....................... ....................... ....................... ....................... ....................... ... Tree Girdler Note From Luís Blankenship: Dispatched to above address for nausea vomiting diarrhea. On arrival patient 64 y/o F, met SC8 at the door, unsteady on her feet, AOX4, airway patent, speaking in full sentences, pale, anxious. Patient reports she was seen at the ER for hypertension, states she does not believe anything was done for her and discharged home, today has had severe abdominal pain, nausea vomiting and diarrhea, reports she is dizzy and very tired, unable to hold anything down, states she tried to nap and woke up covered in feces, states stool is very black and tarry. Patients vital signs checked. Secondary assessment, pupils PERRL, airway patent, no JVD, trachea midline, equal chest rise and fall, lungs clear all mosley, abdomen soft tender to palpation in all quadrants, no signs of trauma, good radial pulse, skin pale cool clammy. [facility] contacted, spoke with Dr. Tafoya, advised of patient complaints and exam findings. [facility] ordered Chem 8 checked. Iv access established, 18g R forearm. Lab draw preformed. Chem 8 checked, results uploaded. Patient became diaphoretic reports worsening of dizziness, BP now 77/46, confirmed with manual BP. [facility] contacted, advised of patient status change. [facility] recommends patient go to ER by ambulance. Patient agrees with this plan. 911 contacted. [facility] responded. Verbal report given to [facility] Tree Girdler, took over patient care, will transport to [facility]. SC8 clear. EOR. ....................... ....................... ....................... ....................... ....................... ....................... ... [facility] Consulted: Timothy Tafoya ....................... ....................... ....................... ....................... ....................... ....................... ... Disposition: Fulfilled Corby Tafoya MD [address], [place], [address], F[place] - [place] 08/17/2024 10:43:47 OBGyn Episode No OBEpisode recorded.
--- OUTSIDE RECORDS SUMMARY | 2024-10-17 18:05 | XMS_ITS | Clinical Summary ---
Author Organization [facility] Address [address] [facility] [address] [place] [phone] Phone Care Team Providers Care Machine Operator Assistant Name Role Phone Maylin Weller MD Primary Care Provider Allergies Active Allergy Reactions Criticality Noted Date Comments Fentanyl 12/15/2015 Latex, Natural Rubber 12/15/2015 Penicillins Rash 02/17/2005 Medications CELECOXIB ORAL Take by mouth. Active ZOLPIDEM TARTRATE (ZOLPIDEM ORAL) Take by mouth. Active ASPIRIN ORAL Take by mouth. Active METOPROLOL SUCCINATE ORAL Take by mouth. Active ENALAPRIL MALEATE ORAL Take by mouth. Active BENZTROPINE MESYLATE (BENZTROPINE ORAL) Take by mouth. Active SERTRALINE HCL (SERTRALINE ORAL) Take by mouth. Active ESOMEPRAZOLE MAGNESIUM ORAL Take by mouth. Active DULOXETINE HCL (DULOXETINE ORAL) Take by mouth. Active ATORVASTATIN CALCIUM (ATORVASTATIN ORAL) Take by mouth. Active GABAPENTIN ORAL Take by mouth. Active FUROSEMIDE ORAL Take by mouth. Active OLANZAPINE ORAL Take by mouth. Active LOPERAMIDE HCL (LOPERAMIDE ORAL) Take by mouth. Active SENNOSIDES (SENNA ORAL) Take by mouth. Active DIAZEPAM ORAL Take by mouth. Active Active Problems Problem Noted Date Diagnosed Date Osteoarthritis of knee 12/28/2012 Overview (05/17/2014): OA - Osteoarthritis of knee Immunizations Immunization Administration Dates Next Due Influenza, Unspecified Formulation 01/02/2009,,02/19/2005 Pneumococcal polysaccharide PPSV23 02/18/2005(De ferred: Other) Social History Tobacco Use Types Packs/Day Years Used Date Smoking Tobacco: Never Education Answer Date Recorded Are you interested in more education? Not on yenny e 07/22/2022 Are you concerned about learning? Not on file 07/22/2022 No 07/22/2022 No 07/22/2022 Digital Access Answer Date Recorded No 08/22/2022 No 08/22/2022 No 08/22/2022 Reliable internet access at home? Not on file 08/22/2022 Device with a working camera? Not on file Comments Unknown Sex and Gender Information Value Date Recorded Sex Assigned at Not on file Legal Sex Female 7:31 PM EST Gender Identity Not on file Sexual Orientation Not on file Last Filed Vital Signs Vital Sign Reading Time Taken Comments Blood Pressure - - Pulse - - Temperature 36.4 C (97.5 F) 12/15/2015 1:16 PM EDT Respiratory Rate - - Oxygen Saturation - - Inhaled Oxygen Concentration - - Weight 107 kg (236 lb) 05/27/2014 11:41 AM EST Height 169.5 cm (5' 6.75 ) 05/27/2014 11:[address] Body Mass Index 37.24 05/27/2014 11:41 AM EST Plan of Treatment Health Maintenance Due Date Last Done Comments CREATININE LEVEL 1959 LIPID PANEL 1959 POTASSIUM LEVEL 1959 DEPRESSION SCREENING 1971 HEPATITIS C SCREENING 07/31/1977 HIV ONE-TIME SCREENING (18-6 5 YEARS) 07/31/1977 MAMMOGRAM 1999 COLOGUARD 07/31/2004 COLONOSCOPY 07/31/2004 COLORECTAL CANCER SCREENING 07/31/2004 FIT TEST 07/31/2004 FOBT 07/31/2004 SIGMOIDOSCOPY 07/31/2004 VIRTUAL COLONOSCOPY 07/31/2004 ZOSTER VACCINES (1 of 2) 07/31/2009 PNEUMOCOCCAL VACCINES (50+ years) (2 of 2 - PCV) 01/14/2018 01/14/2017, 03/14/2014 COVID-19 VACCINE (3 - 2023-2 5 season) 2023 07/03/2020, 06/05/2020 OSTEOPOROSIS SCREENING INITI AL (ONE-TIME) 07/31/2024 Adult Td,Tdap Booster 05/23/2029 05/23/2019 RSV VACCINE (1 - 1-dose 75+ series) 07/31/2034 SMOKING STATUS SCREENING (On ce After 26 Yrs) Completed 12/15/2015 HEPATITIS A VACCINES Aged Out No long er eligible based on patient's age to complete this topic HIB VACCINES Aged Out No longer eligi ble based on patient's age to complete this topic MENINGOCOCCAL VACCINES (ACWY) Aged Out No longer eligible based on patient's age to complete this topic MENINGOCOCCAL VACCINES (B) Aged Out N o longer eligible based on patient's age to complete this topic Medical Devices Not on file Insurance MEDICARE REPLACEMENT MEDICARE REPLACEMENT MEDICARE REPLACEMENT [id number] MEDICARE REPLACEMENT Member Subscriber Plan / [facility] Name:Vale Nieto Y Relation to Subscriber:Self Name:VALE NIETO Y Payer ID:[id number] (NAIC) Group ID:Not on file Type:Medicare Address: [address] [place] [address] MEDICARE REPLACEMENT Member Subscriber Plan / Payer [facility]Present) Name:Vale Nieto Y Relation to Subscriber:Self Name:VALE NIETO Y Payer ID:[id number] (NAIC) Group ID:Not on file Type:Medicare Address: [address] [place] [address] CARE MEDICARE REPLACEMENT DONNIE HERRMANN [id number] Care Teams Machine Operator Assistant Relationship Specialty Start Date End Date Maylin Weller MD [address] [place] [phone] PCP - General 08/01/14 Additional Source Comments The information contained in this document represents components of the legal health record. It is not the complete legal health record.[facility]
[2024-10-17 18:20] VITALS: BP 129/82; PULSE 94; RESP 16; TEMP 36.6; O2SAT 97
--- NOTE | 2024-10-17 18:20 | MHC.EDTECH ---
Dinner tray given
--- NOTE | 2024-10-17 18:27 | ED.PSYCH ---
HPI - Psych General Chief Complaint: Psychiatric Symptoms Stated Complaint: SI X3 days w/ plan to OD Time Seen by Provider: 10/17/24 18:02 Source: patient Mode of arrival: EMS Limitations: no limitations History of Present Illness ED Provider: HPI Narrative: Patient is 64 years old with history of depression PTSD anxiety movement disorder diabetes hypotension was seen by in and PCP in community for increasing depression and SI feeling with plan to overdose on her medication patient's seems to very anxious no specific reason for been feeling so suicidal Related Data Home Medications ?Medication ?Instructions ?Recorded ?Confirmed diclofenac sodium 1 % topical gel 1 ea topical TID PRN Pain (Scale 10/03/23 10/18/24 Score 1-3) Previous Rx's ?Medication ?Instructions ?Recorded acetaminophen 325 mg tablet 650 mg (2 x 325 mg) PO Q6H PRN 10/23/24 Headache/Pain, Scale 1-10 #0 tabs albuterol sulfate 90 mcg/actuation 2 puff inhalation Q4H PRN SOB #1 10/23/24 aerosol inhaler (Ventolin HFA) inhaler aspirin 81 mg chewable tablet 1 tab PO DAILY #30 tabs 10/23/24 budesonide-formoterol HFA 160 1 puff inhalation DAILY #1 inhaler 10/23/24 mcg-4.5 mcg/actuation aerosol inhaler (Breyna) bumetanide 0.5 mg tablet 0.5 mg PO DAILY #30 tabs 10/23/24 clonazepam 0.5 mg tablet 0.5 mg PO 1300 #7 tabs 10/23/24 clonazepam 1 mg tablet 1 mg PO BID #14 tabs 10/23/24 duloxetine 20 mg capsule,delayed 60 mg (3 x 20 mg) PO DAILY #90 caps 10/23/24 release empagliflozin 10 mg tablet 10 mg PO DAILY #30 tabs 10/23/24 (Jardiance) esomeprazole magnesium 40 mg 40 mg PO BID@0630,1630 #60 caps 10/23/24 capsule,delayed release gabapentin 400 mg capsule 400 mg PO TID #90 caps 10/23/24 ipratropium 0.5 mg-albuterol 3 mg 3 ml inhalation Q4H PRN Shortness 10/23/24 (2.5 mg base)/3 mL nebulization Of Breath/wheezing #1 inhaler soln lisinopril 20 mg tablet 20 mg PO DAILY #30 tabs 10/23/24 metformin 1,000 mg tablet 1,000 mg PO BID #60 tabs 10/23/24 metoprolol succinate 50 mg 50 mg PO DAILY #30 tabs 10/23/24 tablet,extended release 24 hr mirtazapine 30 mg tablet 30 mg PO BEDTIME #30 tabs 10/23/24 montelukast 10 mg tablet 10 mg PO DAILY #30 tabs 10/23/24 multivitamin with folic acid 400 1 tab PO DAILY #30 tabs 10/23/24 mcg tablet (Tab-A-Alanis) prazosin 1 mg capsule 1 mg PO BEDTIME #30 caps 10/23/24 quetiapine 50 mg tablet 50 mg PO BEDTIME 30 days #30 tabs 10/23/24 rosuvastatin 40 mg tablet 40 mg PO DAILY #30 tabs 10/23/24 sucralfate 1 gram tablet 1 g PO QID PRN Dyspepsia #120 tabs 10/23/24 trazodone 50 mg tablet 50 mg PO BEDTIME Insomnia 30 days 10/23/24 #30 tabs Allergies Allergy/AdvReac Type Severity Reaction Status Date / Time adhesive tape (TAPE,ADHESIVE) Allergy Severe ANAPHYLAXIS Verified 10/17/24 17:26 latex (LATEX) Allergy Severe ANAPHYLAXIS Verified 10/17/24 17:26 Penicillins (PCN) Allergy Severe ANAPHYLAXIS Verified 10/17/24 17:26 Review of Systems Review of Systems: Yes all other systems are reviewed and are negative PMFSH Past Medical History Medical History Medical clearance for psychiatric admission Parkinsons disease PTSD (post-traumatic stress disorder) MDD (major depressive disorder), recurrent, severe, with psychosis Insomnia Dyskinesia, drug-induced Dissociative identity disorder Bipolar 1 disorder Anxiety Depression Colon cancer Surgical History History of carpal tunnel surgery Hx of bariatric surgery Hx of hysterectomy History of partial colectomy Hx of cholecystectomy Hx of appendectomy Hx of knee surgery Family History Family History Mother Diabetes Hypertension Father No problems noted. Sister No problems noted. Brother No problems noted. Social History Social History Household Members: Significant Other Housing: House Do you presently have visiting nurse or other home services: No Alcohol intake: never Comment: walker Patient Tobacco Use Status: Never used Tobacco e-Cigarette/Vaping Use: Never Used Second Hand Smoke Exposure: No Substance Use Type: Marijuana service: No Sexual orientation: Straight/Heterosexual Physical Exam Vital Signs: Vital Signs: Last Vital Signs Temp 97.4 F 10/24/24 09:09 Pulse 93 10/24/24 09:11 Resp 16 10/23/24 20:00 BP 121/76 10/24/24 09:12 Pulse Ox 96 10/24/24 09:09 O2 Del Method Room Air 10/24/24 09:09 BMI result Body Mass Index 34.4 Appearance: Alert. Oriented X3. No acute distress. Eyes: PERRLA, No Nystagmus ENT: Pharynx normal. Oral Mucosa moist Neck: Normal inspection. Neck supple. CVS: Normal heart rate and rhythm. Pulses normal. Respiratory: No respiratory distress. Equal air entry bilateral, no wheezing/rales/rhonchi Abdomen: Soft and nontender. Bowel sounds are present, no mass palpable, no CVA tenderness Skin: Skin warm and dry. Normal skin color. Normal skin turgor. Extremities: No lower extremity edema. No calf tenderness Psych: Very anxious shaky feel depressed with no plan at this time Neuro: Oriented X 3. No motor deficit. No sensory deficit.No cerebellar signs , cranial nerves II-XII intact Course Reevaluation(s) Reevaluation #1: I, Dr. Bella have take over the care of this patient, I reviewed pertinent blood work and imaging, re-evaluated the patient when appropriate. Time: 08:12 Reevaluation #2: Time: 06:51 Date: 10/19/24 Provider: Shakeel Damico MD Patient in physician observation for psychiatric evaluation.? Patient has been in the emergency department for 37 hours. Patient was seen by care team yesterday and based on their evaluation felt that the patient continues to meet criteria for inpatient level of care. The patient is on a Section 12. No acute events reported overnight. No current complaints. VS stable.. Will continue to monitor. Time: 12:00 hours Date: 10/19/24 Provider: Shakeel Damico MD Physician observation ended at 12:00 hours. Patient to be admitted as inpatient to psychiatry. Medications Administered Discontinued Medications Generic Name Dose Route Start Last Admin Trade Name Freq PRN Reason Stop Dose Admin Acetaminophen 650 mg 10/19/24 12:03 10/22/24 20:46 Acetaminophen 325 Mg Tablet PO 650 mg Q6H PRN Administration Headache/Pain, Scale 1-10 Aspirin 81 mg 10/20/24 09:00 10/24/24 08:28 Aspirin 81 Mg Tab.Chew PO 81 mg DAILY MARIAH Administration Atorvastatin Calcium 80 mg 10/18/24 09:00 10/24/24 08:26 Atorvastatin Calcium 80 Mg Tablet PO 80 mg DAILY MARIAH Administration Bumetanide 0.5 mg 10/18/24 09:00 10/24/24 09:12 Bumetanide 1 Mg Tablet PO 0.5 mg DAILY MARIAH Administration Protocol Clonazepam 1 mg 10/18/24 09:00 10/24/24 08:27 Clonazepam 1 Mg Tablet PO 1 mg BID MARIAH Administration Clonazepam 0.5 mg 10/22/24 13:00 10/24/24 13:29 Clonazepam 0.5 Mg Tablet PO 0.5 mg 1300 MARIAH Administration Duloxetine HCl 60 mg 10/18/24 09:00 10/24/24 08:26 Duloxetine Hcl 60 Mg Capsule.Dr PO 60 mg DAILY MARIAH Administration Empagliflozin 10 mg 10/20/24 09:00 10/24/24 08:28 Empagliflozin 10 Mg Tablet PO 10 mg DAILY MARIAH Administration Fluticasone/Vilanterol 1 puff 10/20/24 08:00 10/24/24 08:47 Fluticasone/Vilanterol 200/25 Blst.W.Dev INHALE 1 puff RDAILY MARIAH Administration Gabapentin 400 mg 10/18/24 09:00 10/24/24 08:27 Gabapentin 400 Mg Capsule PO 400 mg TID MARIAH Administration Hydroxyzine HCl 25 mg 10/19/24 12:03 10/24/24 11:25 Hydroxyzine Hcl 25 Mg Tablet PO 25 mg Q6H PRN Administration mild anxiety Lisinopril 20 mg 10/18/24 09:00 10/24/24 09:11 Lisinopril 20 Mg Tablet PO 20 mg DAILY MARIAH Administration Protocol Lorazepam 2 mg 10/17/24 18:28 10/17/24 18:37 Lorazepam 1 Mg Tablet PO 10/17/24 18:29 2 mg ONCE ONE Administration Metformin HCl 1,000 mg 10/18/24 09:00 10/24/24 08:25 Metformin Hcl 1,000 Mg Tablet PO 1,000 mg BID MARIAH Administration Metoprolol Succinate 50 mg 10/18/24 09:00 10/24/24 09:11 Metoprolol Succinate Er 50 Mg Tab.Er.24h PO 50 mg DAILY MARIAH Administration Protocol Mirtazapine 30 mg 10/18/24 21:00 10/23/24 22:45 Mirtazapine 30 Mg Tablet PO 30 mg BEDTIME MARIAH Administration Montelukast Sodium 10 mg 10/20/24 09:00 10/24/24 08:28 Montelukast Sodium 10 Mg Tablet PO 10 mg DAILY MARIAH Administration Multivitamins/Vitamin C 1 tab 10/20/24 09:00 10/24/24 08:28 Multivitamin Tablet PO 1 tab DAILY MARIAH Administration Omeprazole 20 mg 10/19/24 16:30 10/24/24 07:42 Omeprazole 20 Mg Capsule. PO 20 mg BID@30,5420 MARIAH Administration Prazosin HCl 1 mg 10/22/24 21:00 10/23/24 22:44 Prazosin Hcl 1 Mg Capsule PO 1 mg BEDTIME MARIAH Administration Protocol Quetiapine Fumarate 50 mg 10/18/24 21:00 10/21/24 20:43 Quetiapine Fumarate 50 Mg Tablet PO 50 mg BEDTIME MARIAH Administration Quetiapine Fumarate 50 mg 10/22/24 21:00 10/23/24 22:46 Quetiapine Fumarate 50 Mg Tablet PO 50 mg BEDTIME MARIAH Administration Trazodone HCl 50 mg 10/18/24 00:01 10/18/24 00:09 Trazodone Hcl 50 Mg Tablet PO 10/18/24 00:02 50 mg ONCE ONE Administration Trazodone HCl 50 mg 10/18/24 21:00 10/23/24 22:45 Trazodone Hcl 50 Mg Tablet PO 50 mg BEDTIME MARIAH Administration Medical Decision Making Medical Decision Making MDM Narrative: Patient has severe depression with suicidal ideation seen by crisis in community plan for bed search. Medically cleared 0030 am patient is placed on physician observation pending bed available Lab Data MDM Lab Attestation statement: I reviewed the patient's lab results. 10/17/24 19:38 10/24/24 07:52 Labs: Lab Results 10/17/24 10/17/24 10/18/24 Range/Units 19:37 19:38 09:52 WBC 6.6 (4.8-10.8) X10*3/uL RBC 5.13 (4.20-5.50) X10*6/uL Hgb 12.9 (12.0-16.0) g/dl Hct 39.2 (37.0-47.0) % MCV 76.4 L (80.0-98.0) fL MCH 25.1 L (27.0-33.0) pg MCHC 32.9 (31.0-35.0) g/dl RDW 14.4 (11.0-16.0) % Plt Count 213 (160-400) X10*3/uL MPV 11.3 (9.4-12.3) fL Immature Gran % (Auto) 0.2 (0.0-0.4) % Neut % (Auto) 58.2 (45-73) % Lymph % (Auto) 32.6 (20-40) % [place] % (Auto) 8.6 (2-11) % Eos % (Auto) 0.2 (0-4) % Baso % (Auto) 0.2 (0-2) % Lymph # (Auto) 2.2 (1.2-4.9) X10*3/uL [place] # (Auto) 0.6 (0.1-1.2) X10*3/uL Eos # (Auto) 0.0 (0.0-0.4) X10*3/uL Baso # (Auto) 0.0 (0.0-0.2) X10*3/uL Abs Immat Gran (auto) 0.01 (0.00-0.03) X10*3/uL Absolute Neuts (auto) 3.9 (2.0-8.3) x10*3/uL Absolute Nucleated RBC 0.000 (0.0-0.012) X10*3/uL Nucleated RBC % (auto) 0.0 (0.0-0.2) /100WBC Sodium 138 (135-145) mmol/L Potassium 4.3 (3.3-5.1) mmol/L Chloride 107 (96-108) mmol/L Carbon Dioxide 22 (22-29) mmol/L Anion Gap 13 (12-20) BUN 22 H (9-16) mg/dL Creatinine 1.08 (0.5-1.4) mg/dL Estim Creat Clear Calc 69.4 Estimated GFR 51 POC Glucose 188 H (60-115) mg/dL Random Glucose 162 H (60-115) mg/dL Calcium 9.3 (8.4-10.2) mg/dL Total Bilirubin 0.6 (0.0-1.0) mg/dL AST 27 (5-31) U/L ALT 27 (0-31) U/L Alkaline Phosphatase 137 H (39-117) U/L Total Protein 7.4 (6.5-8.0) g/dL Albumin 4.5 (3.5-5.0) g/dL Urine Color Yellow Urine Appearance Clear Urine pH 6.0 (5.0-9.0) Ur Specific [place] >= 1.030 H (1.005-1.025) Urine Protein Negative (Neg-Trace) mg/dL Urine Glucose (UA) >=1000 H (Negative) mg/dL Urine Ketones Negative (Negative) mg/dL Urine Blood Negative (Negative) Urine Nitrite Negative (Negative) Ur Leukocyte Esterase Negative (Negative) Urine RBC 0-2 (0-2) /HPF Urine WBC 0-5 (0-5) /HPF Ur Squamous Epith Cells 0-2 (0-2) /HPF Urine Bacteria None Seen (None Seen) Hyaline Casts 0-2 (0-2) /LPF Salicylates < 5.0 L (15-30) mg/dL Urine Opiates Screen Not Detected (Not Detect) Ur Buprenorphine Scrn Not Detected (Not Detect) ng/mL Ur Oxycodone Screen Not Detected (Not Detect) ng/mL Urine Methadone Screen Not Detected (Not Detect) ng/mL Urine Fentanyl Screen Not Detected (Not Detect) Acetaminophen < 3 (<30) mcg/mL Ur Barbiturates Screen Not Detected (Not Detect) Ur Phencyclidine Scrn Not Detected (Not Detect) Ur Amphetamines Screen Not Detected (Not Detect) U Benzodiazepines Scrn Not Detected (Not Detect) Urine Cocaine Screen Not Detected (Not Detect) U Marijuana (THC) Screen Not Detected (Not Detect) Ethyl Alcohol < 10 mg/dL COVID-19 ([facility]) Negative (Negative) COVID-19 Clin Com See Note Discharge Plan Discharge Clinical Impression: Anxiety, Depression, Feeling suicidal Patient Disposition: Admitted As Inpatient Discharge Date/Time: 10/19/24 13:59
[2024-10-17 19:46] LABS: MANUAL DIFF FLAG NO
[2024-10-17 19:48] LABS: Hematocrit 39.2 % (37.0-47.0); Hemoglobin 12.9 g/dl (12.0-16.0); Imm Gran Abs Auto 0.01 X10*3/uL (0.00-0.03); Imm Gran Pct Auto 0.2 % (0.0-0.4); Lymphocytes Absolute Auto 2.2 X10*3/uL (1.2-4.9); Mean Corpuscular HGB Conc 32.9 g/dl (31.0-35.0); Mean Corpuscular Hemoglobin 25.1 pg (27.0-33.0); Mean Corpuscular Volume 76.4 fL (80.0-98.0); NRBC Abs Auto 0.000 X10*3/uL (0.0-0.012); NRBC Pct Auto 0.0 /100WBC (0.0-0.2); Platelet Count 213 X10*3/uL (160-400); Red Blood Count 5.13 X10*6/uL (4.20-5.50); White Blood Count 6.6 X10*3/uL (4.8-10.8)
[2024-10-17 19:50] LABS: Appearance Urine Clear; Glucose Urine UA >=1000 mg/dL (Negative); PH 6.0 (5.0-9.0); Specific Gravity - Urine >= 1.030 (1.005-1.025); UMIC TRIGGER UA YES
[2024-10-17 19:59] LABS: Cannabinoid Screen Urine Not Detected (Not Detect)
[2024-10-17 19:59] LABS: COVID-19 Test Negative (Negative); IDNOW Serial# 58CA691E
[2024-10-17 20:02] LABS: Alanine Aminotransferase 27 U/L (0-31); Albumin Level 4.5 g/dL (3.5-5.0); Alkaline Phosphatase 137 U/L (39-117); Anion Gap 13 (12-20); Aspartate Amino Transferase 27 U/L (5-31); Blood Urea Nitrogen 22 mg/dL (9-16); Calcium 9.3 mg/dL (8.4-10.2); Carbon Dioxide 22 mmol/L (22-29); Chloride 107 mmol/L (96-108); Creatinine Clr Calc Pharmacy 69.4; Estimated Glomerular Filt Rate 51; Potassium 4.3 mmol/L (3.3-5.1); Sodium 138 mmol/L (135-145); Total Protein 7.4 g/dL (6.5-8.0)
[2024-10-17 20:07] LABS: Acetaminophen LAB < 3 mcg/mL (<30); Salicylate < 5.0 mg/dL (15-30)
--- NOTE | 2024-10-17 23:28 | PC.NURSE ---
Assumed care of this Pt at 2315.
[2024-10-17 23:58] VITALS: BP 140/59; PULSE 78; RESP 18; TEMP 37.1; O2SAT 97
--- NOTE | 2024-10-18 01:04 | PC.NURSE ---
Med rec: Med rec complete, Pt able to verify home meds with guidance of recent pharmacy fill.
[2024-10-18 08:41] VITALS: BP 124/63; PULSE 81; RESP 16; TEMP 36.7; O2SAT 96
[2024-10-18 09:37] VITALS: BP 124/63; PULSE 81
[2024-10-18] MEDS: Metoprolol Succinate ER 50 MG TAB.ER.24H PO (09:37)
[2024-10-18 09:38] VITALS: BP 124/63
[2024-10-18 09:56] LABS: Glucose, Whole Blood 188 mg/dL (60-115)
[2024-10-18 14:37] VITALS: BP 106/60; PULSE 77; RESP 14; TEMP 36.1; O2SAT 96
[2024-10-18 22:10] VITALS: BP 107/47; PULSE 78; RESP 18; TEMP 36.6; O2SAT 97
[2024-10-18 22:13] VITALS: BP 123/76; PULSE 75
--- NOTE | 2024-10-18 22:14 | PHA.MEDREC ---
Addendum entered by Lorenzo Boyd [facility] 10/18/24 22:41: MED REC CHECKED BY [facility] Original Note: Pharmacy Consult ? Medication Reconciliation Pharmacy has reviewed the medication reconciliation completed by nurse. Pharmacy spoke with patient to confirm her medications.
[2024-10-19 06:26] VITALS: BP 126/76; PULSE 76; RESP 16; TEMP 36.2; O2SAT 98
--- NOTE | 2024-10-19 06:33 | PC.NURSE ---
calm, polite, cooperative overnight. ambulated ad christiano to bathroom. ate dinner. accepted meds
[2024-10-19 12:18] VITALS: BP 126/76
[2024-10-19 12:19] VITALS: BP 126/76; PULSE 76
[2024-10-19] MEDS: Metoprolol Succinate ER 50 MG TAB.ER.24H PO (12:19)
[2024-10-19 14:23] VITALS: BP 128/86; PULSE 94; RESP 16; TEMP 36.8; O2SAT 96
[2024-10-19 14:24] VITALS: BMI 35.2
--- NOTE | 2024-10-19 14:45 | PC.ADMIT ---
Pt arrived on the unit at 1400 from [facility]. She is here on a CV and was admitted for SI, increased depression. Pt states that she feels safe on the unit and will alert staff should she start to have SI thoughts. Sometimes I lock myself in my bedroom at home because I need space and quiet. My gets nervous that I am going to take too much medication in order to hurt myself, and he comes into the room where I don't want him. A&Ox4. Pt was admitted to this unit on 09/2023 with similar complaints. Pt has PTSD and speaks about her trauma hx with ex- during admission. She also endorses AH: I can hear my mother sometimes, she speaks to me . Pt is pleasant, calm, cooperative, hyperverbal, and superficially bright during admission. Pt has Parkinson's disease and utilizes a walker-placed on 5 minute checks because of DME. Referral placed to respiratory d/t pt needing CPAP. She uses one at home, and states that there isn't anyone that can bring it to her here. VSS.
[2024-10-19 20:00] VITALS: BP 143/71; PULSE 73; RESP 16; TEMP 36.8; O2SAT 97
[2024-10-20 00:30] VITALS: PULSE 72; RESP 16; O2SAT 97
[2024-10-20 08:15] VITALS: BP 129/58; PULSE 75; TEMP 36.3; O2SAT 97
[2024-10-20] MEDS: Metoprolol Succinate ER 50 MG TAB.ER.24H PO (08:15)
[2024-10-20 08:40] LABS: Hemoglobin A1C 207.0282 umol/L; Total Hemoglobin (HGBA1C) 3384.9820 umol/L
[2024-10-20 08:45] LABS: Cholesterol 134 mg/dL (<200); HDL Cholesterol 48 mg/dL (>40); Magnesium 1.9 mg/dL (1.6-2.6); Triglycerides 116 mg/dL (<150)
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
[2024-10-20 09:01] LABS: Free T4 (Free Thyroxine) 0.90 ng/dL (0.71-1.85); Thyroid Stimulating Hormone 2.07 uIU/mL (0.32-4.0)
[2024-10-20 09:17] LABS: Folate 14.6 ng/mL (> or = 4.0)
[2024-10-20 09:34] LABS: Vitamin B12 438 pg/mL (200-900)
[2024-10-20 20:00] VITALS: BP 119/57; PULSE 89; RESP 16; TEMP 36.2; O2SAT 97
[2024-10-21 08:00] VITALS: BP 114/62; PULSE 96; TEMP 35.9; O2SAT 95
[2024-10-21] MEDS: Metoprolol Succinate ER 50 MG TAB.ER.24H PO (08:39)
[2024-10-21] MEDS: Fluticasone/Vilanterol 200/25 BLST.W.DEV 1 PUFF INHALE (11:28)
[2024-10-21 19:53] VITALS: BP 99/67; PULSE 92; RESP 15; TEMP 36.2; O2SAT 91
--- NOTE | 2024-10-21 20:01 | HO.PSYCHPN ---
Subjective Subjective Date of Service: 10/21/24 Reason For Visit: PTSD Bipolar Disorder Subjective Notes: 3 Day Interim History: Active on unit. social with peers. watching tv in common area. Pt reports sleeping well last night. She reports some anxiety. denies SI/HI/VH/AH. Medication Compliance: Yes Side effects from medications: No Attending Groups: Yes Mental Status Exam Mental Status Exam Patient Appearance: Well Grooomed Patient Orientation: Person, Place, Time and Situation Level of Consciousness: Awake and Alert Patient Behavior: Appropriate, Cooperative and Good Eye Contact Mood Description: Anxious Affect Description: Constricted Ability to Follow Directions: Good Speech Pattern: Clear Memory Description: Intact Hallucinations: None Delusions: Not Present Thought Process: Intact Thought Content: positive for Intact Diagnostics Vital Signs (24Hr): Vital Signs - 24 hr 10/21/24 08:00 10/21/24 19:53 Temperature 96.6 F L 97.2 F Pulse Rate 96 92 Respiratory Rate 15 Blood Pressure 114/62 99/67 Pulse Oximetry 95 91 L Oxygen Delivery Method Room Air BMI result Body Mass Index 35.2 Labs 10/17/24 19:38 10/17/24 19:38 Labs: Laboratory Results - last 48 hr 10/20/24 08:06 Estimat Average Glucose 174 Hemoglobin A1c % 7.7 H Magnesium 1.9 Triglycerides 116 Cholesterol 134 LDL Cholesterol, Calc 63 HDL Cholesterol 48 Vitamin B12 438 Folate 14.6 TSH 2.07 Free T4 0.90 Medications Medications Current Medications Acetaminophen (Acetaminophen 325 Mg Tablet) 650 mg PO Q6H PRN PRN Reason: Headache/Pain, Scale 1-10 Al Hydroxide/Mg Hydroxide (Magnesium Hydrox/Alum Hydrox 30 Ml Oral.Susp) 30 ml PO Q6H PRN PRN Reason: Heartburn/Nausea Albuterol Sulfate (Albuterol Sulfate 90 Mcg 8 Gm Inhaler) 2 puff INHALE Q4H PRN PRN Reason: Shortness of Breath Albuterol/Ipratropium (Albuterol/Iprat 2.5/0.5mg 3 Ml Ampul.Neb) 3 ml INHALE Q4H PRN PRN Reason: Shortness of Breath/Wheezing Aspirin (Aspirin 81 Mg Tab.Chew) 81 mg PO DAILY [facility] Last Admin: 10/21/24 08:40 Dose: 81 mg Atorvastatin Calcium (Atorvastatin Calcium 80 Mg Tablet) 80 mg PO DAILY [facility] Last Admin: 10/21/24 08:39 Dose: 80 mg Bumetanide (Bumetanide 1 Mg Tablet) 0.5 mg PO DAILY [facility]; Protocol Last Admin: 10/21/24 08:39 Dose: 0.5 mg Clonazepam (Clonazepam 1 Mg Tablet) 1 mg PO BID [facility] Last Admin: 10/21/24 07:30 Dose: 1 mg Duloxetine HCl (Duloxetine Hcl 60 Mg Capsule.Dr) 60 mg PO DAILY [facility] Last Admin: 10/21/24 08:39 Dose: 60 mg Empagliflozin (Empagliflozin 10 Mg Tablet) 10 mg PO DAILY [facility] Last Admin: 10/21/24 08:39 Dose: 10 mg Fluticasone/Vilanterol (Fluticasone/Vilanterol 200/25 Blst.W.Dev) 1 puff INHALE RDAILY [facility] Last Admin: 10/21/24 11:28 Dose: 1 puff Gabapentin (Gabapentin 400 Mg Capsule) 400 mg PO TID [facility] Last Admin: 10/21/24 15:57 Dose: 400 mg Hydroxyzine HCl (Hydroxyzine Hcl 25 Mg Tablet) 25 mg PO Q6H PRN PRN Reason: mild anxiety Last Admin: 10/21/24 13:39 Dose: 25 mg Lisinopril (Lisinopril 20 Mg Tablet) 20 mg PO DAILY [facility]; Protocol Last Admin: 10/21/24 08:39 Dose: 20 mg Magnesium Hydroxide (Milk Of Magnesia 30 Ml Oral.Susp) 30 ml PO DAILY PRN PRN Reason: Constipation Metformin HCl (Metformin Hcl 1,000 Mg Tablet) 1,000 mg PO BID [facility] Last Admin: 10/21/24 08:38 Dose: 1,000 mg Metoprolol Succinate (Metoprolol Succinate Er 50 Mg Tab.Er.24h) 50 mg PO DAILY [facility]; Protocol Last Admin: 10/21/24 08:39 Dose: 50 mg Mirtazapine (Mirtazapine 30 Mg Tablet) 30 mg PO BEDTIME [facility] Last Admin: 10/20/24 20:09 Dose: 30 mg Montelukast Sodium (Montelukast Sodium 10 Mg Tablet) 10 mg PO DAILY [facility] Last Admin: 10/21/24 08:39 Dose: 10 mg Multivitamins/Vitamin C (Multivitamin Tablet) 1 tab PO DAILY [facility] Last Admin: 10/21/24 08:38 Dose: 1 tab Nicotine Polacrilex (Nicotine Polacrilex 2 Mg Gum) 4 mg BUCCAL Q2H PRN PRN Reason: Nicotine Cravings Omeprazole (Omeprazole 20 Mg Capsule.) 20 mg PO BID@0630,1630 [facility] Last Admin: 10/21/24 15:57 Dose: 20 mg Quetiapine Fumarate (Quetiapine Fumarate 50 Mg Tablet) 50 mg PO BEDTIME [facility] Last Admin: 10/20/24 20:09 Dose: 50 mg Sucralfate (Sucralfate 1 Gm Tablet) 1 gm PO QID PRN PRN Reason: Dyspepsia Trazodone HCl (Trazodone Hcl 50 Mg Tablet) 50 mg PO BEDTIME [facility] Last Admin: 10/20/24 20:09 Dose: 50 mg Allergies Allergies Allergy/AdvReac Type Severity Reaction Status Date / Time adhesive tape (TAPE,ADHESIVE) Allergy Severe ANAPHYLAXIS Verified 10/17/24 17:26 latex (LATEX) Allergy Severe ANAPHYLAXIS Verified 10/17/24 17:26 Penicillins (PCN) Allergy Severe ANAPHYLAXIS Verified 10/17/24 17:26 Assessment & Plan Assessment & Plan (1) MDD (major depressive disorder), recurrent, severe, with psychosis: Status: Acute Code(s): F33.3 - Major depressive disorder, recurrent, severe with psychotic symptoms (2) PTSD (post-traumatic stress disorder): Status: Acute Code(s): F43.10 - Post-traumatic stress disorder, unspecified Plan Patient is a 64-year-old female with history of MDD with psychosis and PTSD who was brought in by ambulance to ER due to suicidal ideation secondary to increased depression and racing thoughts. Plan: CV 5 minute safety checks Continue home medications Obtain collateral Encourage groups Referral to outpatient psychiatric prescriber Discharge planning 10/21: continue current tx plan. Patient educated on: diagnosis and medication risk/benefits Reason for continued inpatient stay Substantial Risk for: med/psych decompensation Time Spent With Patient Time: Total time managing care of this patient today _20___ minutes.
[2024-10-22 07:54] VITALS: BP 125/62; PULSE 75; RESP 16; TEMP 36.2; O2SAT 95
[2024-10-22] MEDS: Metoprolol Succinate ER 50 MG TAB.ER.24H PO (09:07)
[2024-10-22] MEDS: Fluticasone/Vilanterol 200/25 BLST.W.DEV 1 PUFF INHALE (09:07)
--- NOTE | 2024-10-22 10:12 | P.PNPSI_ITS ---
Subjective Subjective Date of Service: 10/22/24 Reason For Visit: PTSD Bipolar Disorder Subjective Notes: Conditional Voluntary and 3 Day Healthcare Proxy: No Guardianship: No Medical Problems Affecting Mental Status: No Interim History: Review of stressors and precipitants to admission. Denies SI,HI. Wanting to return to home, , family. Reports AH,VH, when she dreams about parents. Discussed her children and concerns for them, I love my , but I love the children more, as a mother should . Discussed being on current regime for a long while- would like to make some changes. Asks to add a mid-day klonopin dose and manage dreaming/sleep better. Medication Compliance: Yes Side effects from medications: No Attending Groups: Intermittent Review of Systems Acute medical concerns: No Medical Review of Systems: unchanged Review of Systems Review of Systems Asks for referral to rheumatology for mgt of Arthritis Mental Status Exam Mental Status Exam Patient Appearance: Appropriate Patient Orientation: Person, Place, Time and Situation Level of Consciousness: Alert Patient Behavior: Talkative and Good Eye Contact Mood Description: Depressed and Anxious Affect Description: Flat Patient Cognition Impaired: No Ability to Follow Directions: Good Speech Pattern: Spontaneous Speech Memory Description: Episodic Impaired Hallucinations: Auditory (when dreaming/sleeping) and Visual (when dreaming/sleeping) Perceptual Disturbances: Depersonalization Thought Process: Rumination Thought Content: positive for Circumstantial, positive for Perseveration and positive for Suicidal Ideation (denies) Judgement: Fair Diagnostics Vital Signs (24Hr): Vital Signs - 24 hr 10/21/24 19:53 10/22/24 07:54 Temperature 97.2 F 97.2 F Pulse Rate 92 75 Respiratory Rate 15 16 Blood Pressure 99/67 125/62 Pulse Oximetry 91 L 95 BMI result Body Mass Index 35.2 Labs 10/17/24 19:38 10/17/24 19:38 Medications Medications Current Medications Acetaminophen (Acetaminophen 325 Mg Tablet) 650 mg PO Q6H PRN PRN Reason: Headache/Pain, Scale 1-10 Last Admin: 10/22/24 09:15 Dose: 650 mg Al Hydroxide/Mg Hydroxide (Magnesium Hydrox/Alum Hydrox 30 Ml Oral.Susp) 30 ml PO Q6H PRN PRN Reason: Heartburn/Nausea Albuterol Sulfate (Albuterol Sulfate 90 Mcg 8 Gm Inhaler) 2 puff INHALE Q4H PRN PRN Reason: Shortness of Breath Albuterol/Ipratropium (Albuterol/Iprat 2.5/0.5mg 3 Ml Ampul.Neb) 3 ml INHALE Q4H PRN PRN Reason: Shortness of Breath/Wheezing Aspirin (Aspirin 81 Mg Tab.Chew) 81 mg PO DAILY [facility] Last Admin: 10/22/24 09:07 Dose: 81 mg Atorvastatin Calcium (Atorvastatin Calcium 80 Mg Tablet) 80 mg PO DAILY [facility] Last Admin: 10/22/24 09:08 Dose: 80 mg Bumetanide (Bumetanide 1 Mg Tablet) 0.5 mg PO DAILY [facility]; Protocol Last Admin: 10/22/24 09:08 Dose: 0.5 mg Clonazepam (Clonazepam 1 Mg Tablet) 1 mg PO BID [facility] Last Admin: 10/22/24 09:07 Dose: 1 mg Duloxetine HCl (Duloxetine Hcl 60 Mg Capsule.Dr) 60 mg PO DAILY [facility] Last Admin: 10/22/24 09:07 Dose: 60 mg Empagliflozin (Empagliflozin 10 Mg Tablet) 10 mg PO DAILY [facility] Last Admin: 10/22/24 09:08 Dose: 10 mg Fluticasone/Vilanterol (Fluticasone/Vilanterol 200/25 Blst.W.Dev) 1 puff INHALE RDAILY [facility] Last Admin: 10/22/24 09:07 Dose: 1 puff Gabapentin (Gabapentin 400 Mg Capsule) 400 mg PO TID [facility] Last Admin: 10/22/24 09:08 Dose: 400 mg Hydroxyzine HCl (Hydroxyzine Hcl 25 Mg Tablet) 25 mg PO Q6H PRN PRN Reason: mild anxiety Last Admin: 10/22/24 09:12 Dose: 25 mg Lisinopril (Lisinopril 20 Mg Tablet) 20 mg PO DAILY [facility]; Protocol Last Admin: 10/22/24 09:08 Dose: 20 mg Magnesium Hydroxide (Milk Of Magnesia 30 Ml Oral.Susp) 30 ml PO DAILY PRN PRN Reason: Constipation Metformin HCl (Metformin Hcl 1,000 Mg Tablet) 1,000 mg PO BID [facility] Last Admin: 10/22/24 09:16 Dose: 1,000 mg Metoprolol Succinate (Metoprolol Succinate Er 50 Mg Tab.Er.24h) 50 mg PO DAILY [facility]; Protocol Last Admin: 10/22/24 09:07 Dose: 50 mg Mirtazapine (Mirtazapine 30 Mg Tablet) 30 mg PO BEDTIME [facility] Last Admin: 10/21/24 20:44 Dose: 30 mg Montelukast Sodium (Montelukast Sodium 10 Mg Tablet) 10 mg PO DAILY [facility] Last Admin: 10/22/24 09:16 Dose: 10 mg Multivitamins/Vitamin C (Multivitamin Tablet) 1 tab PO DAILY [facility] Last Admin: 10/22/24 09:08 Dose: 1 tab Nicotine Polacrilex (Nicotine Polacrilex 2 Mg Gum) 4 mg BUCCAL Q2H PRN PRN Reason: Nicotine Cravings Omeprazole (Omeprazole 20 Mg Capsule.Dr) 20 mg PO BID@0630,1630 [facility] Last Admin: 10/22/24 07:01 Dose: 20 mg Quetiapine Fumarate (Quetiapine Fumarate 50 Mg Tablet) 50 mg PO BEDTIME [facility] Last Admin: 10/21/24 20:43 Dose: 50 mg Sucralfate (Sucralfate 1 Gm Tablet) 1 gm PO QID PRN PRN Reason: Dyspepsia Trazodone HCl (Trazodone Hcl 50 Mg Tablet) 50 mg PO BEDTIME [facility] Last Admin: 10/21/24 20:44 Dose: 50 mg Allergies Allergies Allergy/AdvReac Type Severity Reaction Status Date / Time adhesive tape (TAPE,ADHESIVE) Allergy Severe ANAPHYLAXIS Verified 10/17/24 17:26 latex (LATEX) Allergy Severe ANAPHYLAXIS Verified 10/17/24 17:26 Penicillins (PCN) Allergy Severe ANAPHYLAXIS Verified 10/17/24 17:26 Assessment & Plan Assessment & Plan (1) MDD (major depressive disorder), recurrent, severe, with psychosis: Status: Acute Code(s): F33.3 - Major depressive disorder, recurrent, severe with psychotic symptoms (2) PTSD (post-traumatic stress disorder): Status: Acute Code(s): F43.10 - Post-traumatic stress disorder, unspecified Plan Patient is a 64-year-old female with history of MDD with psychosis and PTSD who was brought in by ambulance to ER due to suicidal ideation secondary to increased depression and racing thoughts. Plan: CV 5 minute safety checks Continue home medications Obtain collateral Encourage groups Referral to outpatient psychiatric prescriber Discharge planning 10/21: continue current tx plan. 10/22: continue tx Reason for continued inpatient stay Substantial Risk for: rapid decompensation and med/psych decompensation Time Spent With Patient Time: Total time managing care of this patient today ____ minutes.
[2024-10-22 20:00] VITALS: BP 108/63; PULSE 84; RESP 16; TEMP 36.7; O2SAT 95
[2024-10-22 20:37] VITALS: BP 140/62
[2024-10-22 22:40] LABS: Glucose, Whole Blood 159 mg/dL (60-115)
[2024-10-23 07:57] VITALS: BP 108/65; PULSE 85; TEMP 36.1; O2SAT 92
[2024-10-23] MEDS: Metoprolol Succinate ER 50 MG TAB.ER.24H PO (08:02)
[2024-10-23] MEDS: Fluticasone/Vilanterol 200/25 BLST.W.DEV 1 PUFF INHALE (08:17)
[2024-10-23 08:41] LABS: Glucose, Whole Blood 174 mg/dL (60-115)
--- NOTE | 2024-10-23 17:34 | P.PNPSI_ITS ---
Subjective Subjective Date of Service: 10/23/24 Reason For Visit: PTSD Bipolar Disorder Subjective Notes: Conditional Voluntary and 3 Day Healthcare Proxy: No Guardianship: No Medical Problems Affecting Mental Status: No Interim History: Vale denies SI, HI, AH,VH She has no sx of acute psychosis, luis She is feeling ready to return to her home and family. She denies medication side effects She today is engaged with peers and milieu, denies medical sx of concern and reports feeling pleased to return to her home and family. Medication Compliance: Yes Side effects from medications: No Attending Groups: Intermittent Review of Systems Acute medical concerns: No Review of Systems Review of Systems Denies Mental Status Exam Mental Status Exam Patient Appearance: Appropriate Patient Orientation: Person, Place, Time and Situation Level of Consciousness: Alert Patient Behavior: Talkative and Good Eye Contact Mood Description: Apprehensive Affect Description: Apprehensive Patient Cognition Impaired: No Ability to Follow Directions: Good Speech Pattern: Spontaneous Speech Memory Description: Episodic Impaired Hallucinations: None (denies today) Delusions: Not Present Thought Process: Goal Oriented Thought Content: positive for Circumstantial, positive for Goal Oriented and positive for Suicidal Ideation (denies) Judgement: Good Diagnostics Vital Signs (24Hr): Vital Signs - 24 hr 10/22/24 20:00 10/22/24 20:37 10/23/24 07:57 Temperature 98.1 F 96.9 F Pulse Rate 84 85 Respiratory Rate 16 Blood Pressure 108/63 140/62 H 108/65 Pulse Oximetry 95 92 Oxygen Delivery Method Room Air Room Air BMI result Body Mass Index 35.2 Labs 10/17/24 19:38 10/17/24 19:38 Labs: Laboratory Results - last 48 hr 10/22/24 10/23/24 20:55 08:10 POC Glucose 159 H 174 H Medications Medications Current Medications Acetaminophen (Acetaminophen 325 Mg Tablet) 650 mg PO Q6H PRN PRN Reason: Headache/Pain, Scale 1-10 Last Admin: 10/22/24 20:46 Dose: 650 mg Al Hydroxide/Mg Hydroxide (Magnesium Hydrox/Alum Hydrox 30 Ml Oral.Susp) 30 ml PO Q6H PRN PRN Reason: Heartburn/Nausea Albuterol Sulfate (Albuterol Sulfate 90 Mcg 8 Gm Inhaler) 2 puff INHALE Q4H PRN PRN Reason: Shortness of Breath Albuterol/Ipratropium (Albuterol/Iprat 2.5/0.5mg 3 Ml Ampul.Neb) 3 ml INHALE Q4H PRN PRN Reason: Shortness of Breath/Wheezing Aspirin (Aspirin 81 Mg Tab.Chew) 81 mg PO DAILY [facility] Last Admin: 10/23/24 07:58 Dose: 81 mg Atorvastatin Calcium (Atorvastatin Calcium 80 Mg Tablet) 80 mg PO DAILY [facility] Last Admin: 10/23/24 08:03 Dose: 80 mg Bumetanide (Bumetanide 1 Mg Tablet) 0.5 mg PO DAILY [facility]; Protocol Last Admin: 10/23/24 08:02 Dose: 0.5 mg Clonazepam (Clonazepam 1 Mg Tablet) 1 mg PO BID [facility] Last Admin: 10/23/24 08:03 Dose: 1 mg Clonazepam (Clonazepam 0.5 Mg Tablet) 0.5 mg PO 1300 [facility] Last Admin: 10/23/24 12:23 Dose: 0.5 mg Duloxetine HCl (Duloxetine Hcl 60 Mg Capsule.Dr) 60 mg PO DAILY [facility] Last Admin: 10/23/24 07:58 Dose: 60 mg Empagliflozin (Empagliflozin 10 Mg Tablet) 10 mg PO DAILY [facility] Last Admin: 10/23/24 08:03 Dose: 10 mg Fluticasone/Vilanterol (Fluticasone/Vilanterol 200/25 Blst.W.Dev) 1 puff INHALE RDAILY [facility] Last Admin: 10/23/24 08:17 Dose: 1 puff Gabapentin (Gabapentin 400 Mg Capsule) 400 mg PO TID [facility] Last Admin: 10/23/24 15:08 Dose: 400 mg Hydroxyzine HCl (Hydroxyzine Hcl 25 Mg Tablet) 25 mg PO Q6H PRN PRN Reason: mild anxiety Last Admin: 10/23/24 15:44 Dose: 25 mg Lisinopril (Lisinopril 20 Mg Tablet) 20 mg PO DAILY [facility]; Protocol Last Admin: 10/23/24 07:58 Dose: 20 mg Magnesium Hydroxide (Milk Of Magnesia 30 Ml Oral.Susp) 30 ml PO DAILY PRN PRN Reason: Constipation Metformin HCl (Metformin Hcl 1,000 Mg Tablet) 1,000 mg PO BID [facility] Last Admin: 10/23/24 08:02 Dose: 1,000 mg Metoprolol Succinate (Metoprolol Succinate Er 50 Mg Tab.Er.24h) 50 mg PO DAILY [facility]; Protocol Last Admin: 10/23/24 08:02 Dose: 50 mg Mirtazapine (Mirtazapine 30 Mg Tablet) 30 mg PO BEDTIME MARIAH Last Admin: 10/22/24 20:36 Dose: 30 mg Montelukast Sodium (Montelukast Sodium 10 Mg Tablet) 10 mg PO DAILY MARIAH Last Admin: 10/23/24 08:03 Dose: 10 mg Multivitamins/Vitamin C (Multivitamin Tablet) 1 tab PO DAILY MARIAH Last Admin: 10/23/24 08:03 Dose: 1 tab Nicotine Polacrilex (Nicotine Polacrilex 2 Mg Gum) 4 mg BUCCAL Q2H PRN PRN Reason: Nicotine Cravings Omeprazole (Omeprazole 20 Mg Capsule.Dr) 20 mg PO BID@0630,1630 [facility] Last Admin: 10/23/24 15:44 Dose: 20 mg Prazosin HCl (Prazosin Hcl 1 Mg Capsule) 1 mg PO BEDTIME MARIAH; Protocol Last Admin: 10/22/24 20:37 Dose: 1 mg Quetiapine Fumarate (Quetiapine Fumarate 50 Mg Tablet) 50 mg PO BEDTIME MARIAH Last Admin: 10/22/24 20:37 Dose: 50 mg Sucralfate (Sucralfate 1 Gm Tablet) 1 gm PO QID PRN PRN Reason: Dyspepsia Trazodone HCl (Trazodone Hcl 50 Mg Tablet) 50 mg PO BEDTIME [facility] Last Admin: 10/22/24 20:37 Dose: 50 mg Allergies Allergies Allergy/AdvReac Type Severity Reaction Status Date / Time adhesive tape (TAPE,ADHESIVE) Allergy Severe ANAPHYLAXIS Verified 10/17/24 17:26 latex (LATEX) Allergy Severe ANAPHYLAXIS Verified 10/17/24 17:26 Penicillins (PCN) Allergy Severe ANAPHYLAXIS Verified 10/17/24 17:26 Assessment & Plan Assessment & Plan (1) MDD (major depressive disorder), recurrent, severe, with psychosis: Status: Acute Code(s): F33.3 - Major depressive disorder, recurrent, severe with psychotic symptoms (2) PTSD (post-traumatic stress disorder): Status: Acute Code(s): F43.10 - Post-traumatic stress disorder, unspecified Plan Patient is a 64-year-old female with history of MDD with psychosis and PTSD who was brought in by ambulance to ER due to suicidal ideation secondary to increased depression and racing thoughts. Plan: CV 5 minute safety checks Continue home medications Obtain collateral Encourage groups Referral to outpatient psychiatric prescriber Discharge planning 10/21: continue current tx plan. 10/22: continue tx 10/23: DC 10/24 Reason for continued inpatient stay Substantial Risk for: stable for discharge Time Spent With Patient Time: Total time managing care of this patient today ____ minutes.
[2024-10-23 20:00] VITALS: BP 131/88; PULSE 83; RESP 16; TEMP 36.6; O2SAT 98
[2024-10-23 20:51] LABS: Glucose, Whole Blood 140 mg/dL (60-115)
[2024-10-23 22:44] VITALS: BP 138/71
[2024-10-24 08:03] LABS: Glucose, Whole Blood 191 mg/dL (60-115)
[2024-10-24] MEDS: Fluticasone/Vilanterol 200/25 BLST.W.DEV 1 PUFF INHALE (08:47)
[2024-10-24 08:52] LABS: Creatinine Clr Calc Pharmacy 84.2; Estimated Glomerular Filt Rate > 60
[2024-10-24 09:09] VITALS: BP 121/76; PULSE 93; TEMP 36.3; O2SAT 96
[2024-10-24 09:11] VITALS: BP 121/76; PULSE 93
[2024-10-24] MEDS: Metoprolol Succinate ER 50 MG TAB.ER.24H PO (09:11)
[2024-10-24 09:12] VITALS: BP 121/76
--- NOTE | 2024-10-24 12:17 | PM.PSYDC ---
DS: Providers Provider Date of Service: 10/24/24 Date of admission: 10/19/24 12:03 Date of discharge: 10/24/24 Primary care physician: Unknown Physician Admitting clinician: Vanessa Quinones Attending physician on admission: Arvin Hooper Attending physician on discharge: Arvin Hooper Discharging clinician: Maranda Martínez DS: Diagnosis Discharge Diagnosis (1) MDD (major depressive disorder), recurrent, severe, with psychosis: Status: Acute (2) PTSD (post-traumatic stress disorder): Status: Acute DS: Medications Discharge Medications Home Medications: Home Medications ?Medication ?Instructions ?Recorded ?Confirmed diclofenac sodium 1 % topical gel 1 ea topical TID PRN Pain (Scale 10/03/23 10/18/24 Score 1-3) Previous Rx's ?Medication ?Instructions ?Recorded acetaminophen 325 mg tablet 650 mg (2 x 325 mg) PO Q6H PRN 10/23/24 Headache/Pain, Scale 1-10 #0 tabs albuterol sulfate 90 mcg/actuation 2 puff inhalation Q4H PRN SOB #1 10/23/24 aerosol inhaler (Ventolin HFA) inhaler aspirin 81 mg chewable tablet 1 tab PO DAILY #30 tabs 10/23/24 budesonide-formoterol HFA 160 1 puff inhalation DAILY #1 inhaler 10/23/24 mcg-4.5 mcg/actuation aerosol inhaler (Breyna) bumetanide 0.5 mg tablet 0.5 mg PO DAILY #30 tabs 10/23/24 clonazepam 0.5 mg tablet 0.5 mg PO 1300 #7 tabs 10/23/24 clonazepam 1 mg tablet 1 mg PO BID #14 tabs 10/23/24 duloxetine 20 mg capsule,delayed 60 mg (3 x 20 mg) PO DAILY #90 caps 10/23/24 release empagliflozin 10 mg tablet 10 mg PO DAILY #30 tabs 10/23/24 (Jardiance) esomeprazole magnesium 40 mg 40 mg PO BID@0630,1630 #60 caps 10/23/24 capsule,delayed release gabapentin 400 mg capsule 400 mg PO TID #90 caps 10/23/24 ipratropium 0.5 mg-albuterol 3 mg 3 ml inhalation Q4H PRN Shortness 10/23/24 (2.5 mg base)/3 mL nebulization Of Breath/wheezing #1 inhaler soln lisinopril 20 mg tablet 20 mg PO DAILY #30 tabs 10/23/24 metformin 1,000 mg tablet 1,000 mg PO BID #60 tabs 10/23/24 metoprolol succinate 50 mg 50 mg PO DAILY #30 tabs 10/23/24 tablet,extended release 24 hr mirtazapine 30 mg tablet 30 mg PO BEDTIME #30 tabs 10/23/24 montelukast 10 mg tablet 10 mg PO DAILY #30 tabs 10/23/24 multivitamin with folic acid 400 1 tab PO DAILY #30 tabs 10/23/24 mcg tablet (Tab-A-Alanis) prazosin 1 mg capsule 1 mg PO BEDTIME #30 caps 10/23/24 quetiapine 50 mg tablet 50 mg PO BEDTIME 30 days #30 tabs 10/23/24 rosuvastatin 40 mg tablet 40 mg PO DAILY #30 tabs 10/23/24 sucralfate 1 gram tablet 1 g PO QID PRN Dyspepsia #120 tabs 10/23/24 trazodone 50 mg tablet 50 mg PO BEDTIME Insomnia 30 days 10/23/24 #30 tabs Mental Status Exam Mental Status Exam Patient Appearance: Appropriate Patient Orientation: Person, Place, Time and Situation Level of Consciousness: Alert Patient Behavior: Talkative and Good Eye Contact Mood Description: Apprehensive Affect Description: Apprehensive Patient Cognition Impaired: No Ability to Follow Directions: Good Speech Pattern: Spontaneous Speech Memory Description: Episodic Impaired Hallucinations: None (denies today) Delusions: Not Present Thought Process: Goal Oriented Thought Content: positive for Circumstantial, positive for Goal Oriented and positive for Suicidal Ideation (denies) Judgement: Good Data Data Completed and Pending Completed studies during hospitalization [Text1]: 10/17/24 10/17/24 10/18/24 19:37 19:38 09:52 WBC 6.6 RBC 5.13 Hgb 12.9 Hct 39.2 MCV 76.4 L MCH 25.1 L MCHC 32.9 RDW 14.4 Plt Count 213 MPV 11.3 Immature Gran % (Auto) 0.2 Neut % (Auto) 58.2 Lymph % (Auto) 32.6 Iron % (Auto) 8.6 Eos % (Auto) 0.2 Baso % (Auto) 0.2 Lymph # (Auto) 2.2 Iron # (Auto) 0.6 Eos # (Auto) 0.0 Baso # (Auto) 0.0 Abs Immat Gran (auto) 0.01 Absolute Neuts (auto) 3.9 Absolute Nucleated RBC 0.000 Nucleated RBC % (auto) 0.0 Sodium 138 Potassium 4.3 Chloride 107 Carbon Dioxide 22 Anion Gap 13 BUN 22 H Creatinine 1.08 Estim Creat Clear Calc 69.4 Estimated GFR 51 POC Glucose 188 H Random Glucose 162 H Estimat Average Glucose Hemoglobin A1c % Calcium 9.3 Magnesium Total Bilirubin 0.6 AST 27 ALT 27 Alkaline Phosphatase 137 H Total Protein 7.4 Albumin 4.5 Triglycerides Cholesterol LDL Cholesterol, Calc HDL Cholesterol Vitamin B12 Folate TSH Free T4 Urine Color Yellow Urine Appearance Clear Urine pH 6.0 Ur Specific [place] >= 1.030 H Urine Protein Negative Urine Glucose (UA) >=1000 H Urine Ketones Negative Urine Blood Negative Urine Nitrite Negative Ur Leukocyte Esterase Negative Urine RBC 0-2 Urine WBC 0-5 Ur Squamous Epith Cells 0-2 Urine Bacteria None Seen Hyaline Casts 0-2 Salicylates < 5.0 L Urine Opiates Screen Not Detected Ur Buprenorphine Scrn Not Detected Ur Oxycodone Screen Not Detected Urine Methadone Screen Not Detected Urine Fentanyl Screen Not Detected Acetaminophen < 3 Ur Barbiturates Screen Not Detected Ur Phencyclidine Scrn Not Detected Ur Amphetamines Screen Not Detected U Benzodiazepines Scrn Not Detected Urine Cocaine Screen Not Detected U Marijuana (THC) Screen Not Detected Ethyl Alcohol < 10 COVID-19 ([facility]) Negative COVID-19 Clin Com See Note 10/20/24 10/22/24 10/23/24 08:06 20:55 08:10 WBC RBC Hgb Hct MCV MCH MCHC RDW Plt Count MPV Immature Gran % (Auto) Neut % (Auto) Lymph % (Auto) Iron % (Auto) Eos % (Auto) Baso % (Auto) Lymph # (Auto) Iron # (Auto) Eos # (Auto) Baso # (Auto) Abs Immat Gran (auto) Absolute Neuts (auto) Absolute Nucleated RBC Nucleated RBC % (auto) Sodium Potassium Chloride Carbon Dioxide Anion Gap BUN Creatinine Estim Creat Clear Calc Estimated GFR POC Glucose 159 H 174 H Random Glucose Estimat Average Glucose 174 Hemoglobin A1c % 7.7 H Calcium Magnesium 1.9 Total Bilirubin AST ALT Alkaline Phosphatase Total Protein Albumin Triglycerides 116 Cholesterol 134 LDL Cholesterol, Calc 63 HDL Cholesterol 48 Vitamin B12 438 Folate 14.6 TSH 2.07 Free T4 0.90 Urine Color Urine Appearance Urine pH Ur Specific Alto Urine Protein Urine Glucose (UA) Urine Ketones Urine Blood Urine Nitrite Ur Leukocyte Esterase Urine RBC Urine WBC Ur Squamous Epith Cells Urine Bacteria Hyaline Casts Salicylates Urine Opiates Screen Ur Buprenorphine Scrn Ur Oxycodone Screen Urine Methadone Screen Urine Fentanyl Screen Acetaminophen Ur Barbiturates Screen Ur Phencyclidine Scrn Ur Amphetamines Screen U Benzodiazepines Scrn Urine Cocaine Screen U Marijuana (THC) Screen Ethyl Alcohol COVID-19 ([facility]) COVID-19 [facility] Com 10/23/24 10/24/24 10/24/24 20:47 07:47 07:52 WBC RBC Hgb Hct MCV MCH MCHC RDW Plt Count MPV Immature Gran % (Auto) Neut % (Auto) Lymph % (Auto) Iron % (Auto) Eos % (Auto) Baso % (Auto) Lymph # (Auto) Iron # (Auto) Eos # (Auto) Baso # (Auto) Abs Immat Gran (auto) Absolute Neuts (auto) Absolute Nucleated RBC Nucleated RBC % (auto) Sodium Potassium Chloride Carbon Dioxide Anion Gap BUN Creatinine 0.90 Estim Creat Clear Calc 84.2 Estimated GFR > 60 POC Glucose 140 H 191 H Random Glucose Estimat Average Glucose Hemoglobin A1c % Calcium Magnesium Total Bilirubin AST ALT Alkaline Phosphatase Total Protein Albumin Triglycerides Cholesterol LDL Cholesterol, Calc HDL Cholesterol Vitamin B12 Folate TSH Free T4 Urine Color Urine Appearance Urine pH Ur Specific Alto Urine Protein Urine Glucose (UA) Urine Ketones Urine Blood Urine Nitrite Ur Leukocyte Esterase Urine RBC Urine WBC Ur Squamous Epith Cells Urine Bacteria Hyaline Casts Salicylates Urine Opiates Screen Ur Buprenorphine Scrn Ur Oxycodone Screen Urine Methadone Screen Urine Fentanyl Screen Acetaminophen Ur Barbiturates Screen Ur Phencyclidine Scrn Ur Amphetamines Screen U Benzodiazepines Scrn Urine Cocaine Screen U Marijuana (THC) Screen Ethyl Alcohol COVID-19 ([facility]) COVID-19 Clin Com DS: Summary Hospital Course Hospital Course: Admission to adult psychiatry for exacerbation of PTSD and recurrent major depression with psychosis. Pt with SI, reporting attempts at home including holding a knife to her nect and thoughts of overdosing. Medications were evaluated and adjusted. Pt was able to participate in the milieu and increase her coping skills. Pt discharged on a three day notice of intent. She will return to her home and family and will return to her therapist. She will trial [facility] for prescribing. Status at Discharge Functional status at discharge: independent ambulation Overall status at discharge: patient is progressing back to baseline Time Spent with Patient Time attestation: Total time managing care of this patient today ____ minutes. Time spent: Less than 30 minutes Discharge Plan Discharge Anticipated Discharge Date/Time: 10/24/24 12:00 Patient Disposition: Home, Self-Care Discharge Diagnosis: PTSD Recurrent major depression with psychotic features Referrals: Minerva Aj LM: [facility] [Other] - 1 Week Referral Note: Patient reports she will follow-up with outpatient therapist to schedule appointment after discharge [facility] [Other] - 11/22/24 11:00 am Referral Note: Patient referred to [facility] for outpatient psychiatric medication management Physician,Unknown J [Primary Care Provider, Medical] - 1 Week Discharge Medications: New acetaminophen 325 mg Tablet 650 mg PO Q6H PRN (Reason: Headache/Pain, Scale 1-10) Qty: 0 0RF prazosin 1 mg Capsule 1 mg PO BEDTIME Qty: 30 0RF Protocol: Hold for SBP< HOLD for SBP < : 90 clonazepam 0.5 mg Tablet 0.5 mg PO 1300 Qty: 7 4RF Continued diclofenac sodium 1 % gel 1 ea topical TID PRN (Reason: Pain (Scale Score 1-3)) ipratropium-albuterol 0.5 mg-3 mg(2.5 mg base)/3 mL solution for nebulization 3 ml inhalation Q4H PRN (Reason: Shortness Of Breath/wheezing) Qty: 1 0RF trazodone 50 mg Tablet 50 mg PO BEDTIME 30 Days Qty: 30 0RF metoprolol succinate 50 mg tablet extended release 24 hr 50 mg PO DAILY Qty: 30 0RF sucralfate 1 gram tablet 1 g PO QID PRN (Reason: Dyspepsia) Qty: 120 0RF lisinopril 20 mg tablet 20 mg PO DAILY Qty: 30 0RF gabapentin 400 mg capsule 400 mg PO TID Qty: 90 0RF clonazepam 1 mg tablet 1 mg PO BID Qty: 14 4RF mirtazapine 30 mg tablet 30 mg PO BEDTIME Qty: 30 0RF metformin 1,000 mg tablet 1,000 mg PO BID Qty: 60 0RF esomeprazole magnesium 40 mg capsule,delayed release(DR/EC) 40 mg PO BID@0630,1630 Qty: 60 0RF bumetanide 0.5 mg tablet 0.5 mg PO DAILY Qty: 30 0RF aspirin 81 mg tablet,chewable 1 tab PO DAILY Qty: 30 0RF montelukast 10 mg tablet 10 mg PO DAILY Qty: 30 0RF albuterol sulfate [Ventolin HFA] 90 mcg/actuation HFA aerosol inhaler 2 puff inhalation Q4H PRN (Reason: SOB) Qty: 1 0RF rosuvastatin 40 mg tablet 40 mg PO DAILY Qty: 30 0RF duloxetine 20 mg capsule,delayed release(DR/EC) 60 mg PO DAILY Qty: 90 0RF quetiapine 50 mg Tablet 50 mg PO BEDTIME 30 Days Qty: 30 0RF budesonide-formoterol [Breyna] 160-4.5 mcg/actuation HFA aerosol inhaler 1 puff inhalation DAILY Qty: 1 0RF multivitamin with folic acid [Tab-A-Alanis] 400 mcg tablet 1 tab PO DAILY Qty: 30 0RF Jardiance 10 mg tablet 10 mg PO DAILY Qty: 30 0RF Discharge Orders: Discharge Order (Routine); Ordered 10/24/24 Ordered By: Maranda Martínez Diet: Advance to usual diet Activity on Discharge: As tolerated Stand Alone Forms: Patient Portal Discharge page, Community Support Print Language: Tamazight Care Plan Goals: Mood and Behavioral Stabilization Health Concerns: Mood and Behavioral Stabilization Plan of Treatment: Attend scheduled appointments Take medications as directed Assessment: Discharge on a three day notice of intent. Denies SI,HI,AH,VH No sx of acute luis or psychosis Discharge Date/Time: 10/24/24 14:00
== END 2024-10-24 14:00 | disposition home or self-care (01) | DRG 885 ==
LOC: HO.ED 18:03 → HO.PM5 10-19 12:47
PROVIDERS: Physician Assistant; Physician Assistant Medical; Admitting Provider Clinical Nurse Specialist Psychiatric/Mental Health, Adult; Emergency Provider Internal Medicine; Visit Provider Clinical Nurse Specialist Psychiatric/Mental Health, Adult
DX: F33.3 Major depressive disorder, recurrent, severe with psychotic symptoms (principal); F43.10 Post-traumatic stress disorder, unspecified; Z20.822 Contact with and (suspected) exposure to COVID-19; Z79.82 Long term (current) use of aspirin; Z79.899 Other long term (current) drug therapy
CPT/HCPCS: 36415; 80053; 80061; 80143; 80179; 80307; 81001; 82565; 82607; 82746; 82947; 83036; 83735; 84439; 84443; 85025; 87635; 93005; 94660; 99285; S9485

== ENCOUNTER → 2024-10-17 17:30 | Outpatient (BNV) | payer OTHER, SELFPAY | PROVIDERS: Emergency Provider Internal Medicine; Visit Provider Internal Medicine Cardiovascular Disease | DX: Z13.6 Encounter for screening for cardiovascular disorders (principal) | CPT/HCPCS: 93010 ==

== ENCOUNTER → 2024-10-19 12:03 | Outpatient (BNV) | payer OTHER, SELFPAY | PROVIDERS: Admitting Provider Clinical Nurse Specialist Psychiatric/Mental Health, Adult; Emergency Provider Internal Medicine; Visit Provider Registered Nurse | DX: F33.3 Major depressive disorder, recurrent, severe with psychotic symptoms (principal); F43.10 Post-traumatic stress disorder, unspecified | CPT/HCPCS: 90792 ==

== ENCOUNTER 2025-01-02 13:53 | Observation (INO) | payer OTHER, SELFPAY ==
[2025-01-02] VITALS (8 sets, daily range): BP systolic 96–131; BP diastolic 60–79; PULSE 93–109; RESP 20–28; TEMP 36.6–37.2; O2SAT 93–99; BMI 36.5; BMI 35.9
--- NOTE | ~2025-01-02 | XR_ITS ---
EXAMINATION: XR CHEST CLINICAL INFORMATION: Shortness of breath, wheezing, R/O pneumonia COMPARISON: X-ray 08/15/2024 TECHNIQUE: Frontal view of the chest was obtained. FINDINGS: Devices: Overlying monitoring leads Cardiomediastinal: Cardiac silhouette size is normal. Lungs and pleura: No lung volumes. There is no significant airspace consolidation or pleural fluid. Mild bronchial wall thickening. No pneumothorax is seen. Bones: No acute findings Miscellaneous: Upper abdomen appears unremarkable XR/XR chest 1V IMPRESSION: Bronchial wall thickening can be seen with small airway disease. No confluent consolidation seen. Electronically signed by: Jean Thomas MD 01/02/2025 04:30 PM EDT RP
[2025-01-02] MEDS: Albuterol Sulfate 5 MG, Albuterol/Iprat 2.5/0.5MG 3 ML 3 ML INHALE (14:05)
--- NOTE | 2025-01-02 14:51 | ED.SOB ---
HPI - SOB/Dyspnea General Chief Complaint: Dyspnea Stated Complaint: SOB Time Seen by Provider: 01/02/25 14:51 Source: patient Mode of arrival: EMS Limitations: no limitations and language barrier (Patient's 1st language is Bengali, she speaks Yemeni well, she preferred speaking in Yemeni with me) History of Present Illness ED Provider: Dr. Shakeel Damico HPI Narrative: 64-year-old female with a history of Parkinson's disease, PTSD, asthma, COPD, depression, bipolar who presents emergency department for evaluation of shortness of breath that started last night. She states that she used her nebulizer treatment at least 2-3 times with no relief for symptoms. Patient states that prior to coming to the emergency department she became more short of breath therefore she called an ambulance. In route to the hospital she was given a DuoNeb with no improvement of her symptoms. She states that over the last 2-3 weeks she has lost her voice. She states that 3 weeks prior she was treated for pneumonia and completed her antibiotic course. She denied fever, chills, rhinorrhea, sore throat or cough. She complains of tightness in her chest whenever she breathes, she has shortness of breath at rest and dyspnea on exertion. She denied nausea or vomiting. She states she had 3 episodes of loose diarrheal stool. She denied dark stools or bloody stools. Related Data Home Medications ?Medication ?Instructions ?Recorded ?Confirmed diclofenac sodium 1 % topical gel 1 ea topical TID PRN Pain (Scale 10/03/23 10/18/24 Score 1-3) Previous Rx's ?Medication ?Instructions ?Recorded acetaminophen 325 mg tablet 650 mg (2 x 325 mg) PO Q6H PRN 10/23/24 Headache/Pain, Scale 1-10 #0 tabs albuterol sulfate 90 mcg/actuation 2 puff inhalation Q4H PRN SOB #1 10/23/24 aerosol inhaler (Ventolin HFA) inhaler aspirin 81 mg chewable tablet 1 tab PO DAILY #30 tabs 10/23/24 budesonide-formoterol HFA 160 1 puff inhalation DAILY #1 inhaler 10/23/24 mcg-4.5 mcg/actuation aerosol inhaler (Breyna) bumetanide 0.5 mg tablet 0.5 mg PO DAILY #30 tabs 07/29/25 clonazepam 0.5 mg tablet 0.5 mg PO 1300 #7 tabs 10/23/24 clonazepam 1 mg tablet 1 mg PO BID #14 tabs 10/23/24 duloxetine 20 mg capsule,delayed 60 mg (3 x 20 mg) PO DAILY #90 caps 10/23/24 release empagliflozin 10 mg tablet 10 mg PO DAILY #30 tabs 10/23/24 (Jardiance) esomeprazole magnesium 40 mg 40 mg PO BID@0630,1630 #60 caps 10/23/24 capsule,delayed release gabapentin 400 mg capsule 400 mg PO TID #90 caps 10/23/24 ipratropium 0.5 mg-albuterol 3 mg 3 ml inhalation Q4H PRN Shortness 10/23/24 (2.5 mg base)/3 mL nebulization Of Breath/wheezing #1 inhaler soln lisinopril 20 mg tablet 20 mg PO DAILY #30 tabs 10/23/24 metformin 1,000 mg tablet 1,000 mg PO BID #60 tabs 10/23/24 metoprolol succinate 50 mg 50 mg PO DAILY #30 tabs 10/23/24 tablet,extended release 24 hr mirtazapine 30 mg tablet 30 mg PO BEDTIME #30 tabs 10/23/24 montelukast 10 mg tablet 10 mg PO DAILY #30 tabs 10/23/24 multivitamin with folic acid 400 1 tab PO DAILY #30 tabs 10/23/24 mcg tablet (Tab-A-Alanis) prazosin 1 mg capsule 1 mg PO BEDTIME #30 caps 10/23/24 quetiapine 50 mg tablet 50 mg PO BEDTIME 30 days #30 tabs 10/23/24 rosuvastatin 40 mg tablet 40 mg PO DAILY #30 tabs 10/23/24 sucralfate 1 gram tablet 1 g PO QID PRN Dyspepsia #120 tabs 10/23/24 trazodone 50 mg tablet 50 mg PO BEDTIME Insomnia 30 days 10/23/24 #30 tabs Allergies Allergy/AdvReac Type Severity Reaction Status Date / Time adhesive tape (TAPE,ADHESIVE) Allergy Severe ANAPHYLAXIS Verified 01/02/25 14:36 latex (LATEX) Allergy Severe ANAPHYLAXIS Verified 01/02/25 14:36 Penicillins (PCN) Allergy Severe ANAPHYLAXIS Verified 01/02/25 14:36 Review of Systems Review of Systems: Yes all other systems are reviewed and are negative [facility] Past Medical History [facility] Narrative: Social history: She denies tobacco, alcohol and drug use Medical History Medical clearance for psychiatric admission Parkinsons disease PTSD (post-traumatic stress disorder) MDD (major depressive disorder), recurrent, severe, with psychosis Insomnia Dyskinesia, drug-induced Dissociative identity disorder Bipolar 1 disorder Anxiety Depression Colon cancer Surgical History History of carpal tunnel surgery Hx of bariatric surgery Hx of hysterectomy History of partial colectomy Hx of cholecystectomy Hx of appendectomy Hx of knee surgery Family History Family History Mother Diabetes Hypertension Father No problems noted. Sister No problems noted. Brother No problems noted. Social History Social History Household Members: Significant Other Housing: House Do you presently have visiting nurse or other home services: No Alcohol intake: never Comment: walker Patient Tobacco Use Status: Never used Tobacco e-Cigarette/Vaping Use: Never Used Second Hand Smoke Exposure: No Substance Use Type: Marijuana Advance Directives: No Advance Directives Information Provided: Yes service: No Sexual orientation: Straight/Heterosexual Physical Exam Vital Signs: Vital Signs: Last Vital Signs Temp 98.4 F 01/02/25 15:39 Pulse 95 01/02/25 16:45 Resp 28 H 01/02/25 16:45 BP 98/66 01/02/25 15:39 Pulse Ox 96 01/02/25 15:39 O2 Del Method Room Air 01/02/25 15:39 BMI result Body Mass Index 36.5 Vital signs: Temperature 98.4 degrees orally, heart rate 103, respiratory rate 24, O2 saturation 96% on room air, blood pressure 98/66. Exam: General: Awake, alert in no distress, patient has very soft barely audible voice but it is comprehensible, she appears dyspneic and tachypneic Head: Normocephalic, atraumatic EENT: PERRL, sclera and conjunctiva are normal, mouth with no erythema or exudates Neck: Supple, no adenopathy Lung: breath sounds symmetric, diffuse wheezing, no rales or rhonchi Chest: symmetric movement, nontender Heart: regular rate and rhythm, normal S1, S2 no murmurs or rubs Abdomen: soft, non-tender, nondistended, normal bowel sounds Back: no vertebral tenderness, no CVAT Extremities: no deformities, moves all extremities symmetrically, no edema Neuro: Awake, alert, oriented, normal speech, cranial nerves 2-12 intact, moves all extremities symmetrically Psych: Pleasant, cooperative Medications Administered Discontinued Medications Generic Name Dose Route Start Last Admin Trade Name Geovaniq PRN Reason Stop Dose Admin Albuterol Sulfate 5 mg/ 0 mg 01/02/25 14:02 01/02/25 14:05 Albuterol/Ipratropium 3 ml INHALE 01/02/25 14:03 2.5 each ONCE ONE Administration Albuterol Sulfate 2.5 mg/ 0 mg 01/02/25 16:41 01/02/25 16:44 Albuterol/Ipratropium 3 ml INHALE 01/02/25 16:42 5 dose ONCE ONE Administration Methylprednisolone Sodium Succinate 125 mg 01/02/25 15:02 01/02/25 15:36 Methylprednisolone Sod Succ 125 Mg/2 Ml Vial IVPUSH 01/02/25 15:03 125 mg ONCE ONE Administration Morphine Sulfate 4 mg 01/02/25 15:49 01/02/25 16:04 Morphine Sulfate 4 Mg/Ml Cartridge IVPUSH 01/02/25 15:50 4 mg ONCE STA Administration Protocol Morphine Sulfate 4 mg 01/02/25 16:34 01/02/25 17:09 Morphine Sulfate 4 Mg/Ml Cartridge IVPUSH 01/02/25 16:35 4 mg ONCE STA Administration Protocol Medical Decision Making Medical Decision Making [facility] Narrative: 64-year-old female with a history of Parkinson's disease, PTSD, asthma, COPD, depression, bipolar who presents emergency department for evaluation of shortness of breath that started last night. She states that she used her nebulizer treatment at least 2-3 times with no relief for symptoms. Patient states that prior to coming to the emergency department she became more short of breath therefore she called an ambulance. In route to the hospital she was given a DuoNeb with no improvement of her symptoms. She states that over the last 2-3 weeks she has lost her voice. She states that 3 weeks prior she was treated for pneumonia and completed her antibiotic course. Physical examination revealed that she was dyspneic and tachypneic, lung exam revealed diffuse wheezing. She has a very soft barely audible voice but in his comprehensible. Exam was otherwise unremarkable. 16:49 Differential diagnosis: ?Includes but is not limited to asthma exacerbation, congestive heart failure, pneumonia, myocardial infarction, myocardial ischemia, electrolyte abnormalities, anemia Course: 16:49 My independent interpretation patient's laboratory evaluation is as follows: CBC was normal. BUN elevated 27 with a normal creatinine of 0.84. Glucose elevated 286. AST and ALT elevated 53 and 170-I do not think that this is secondary to end-organ damage. Troponin was below detectable limits. Lactic acid was elevated 3.1 but the patient did receive albuterol prior to coming to the emergency department and did receive an albuterol treatment here in the emergency department-I do not think this is elevated due to infectious process. Venous blood gas revealed a pH of 7.44 pCO2 of 31, bicarb of 22-this is consistent with a respiratory alkalosis due to her tachypnea. Troponin was below detectable limits. Chest x-ray did not reveal any evidence for congestive heart failure pneumonia. Radiologist noted bronchial wall thickening which could be consistent with small airway disease with no confluent consolidation seen. Patient was treated with Solu-Medrol 125 mg IV and albuterol 7.5 mg and ipratropium 0.5 mg nebulizer treatment. Patient was also given morphine 4 mg IV x2 for dyspnea. The patient most likely has an asthma exacerbation and given her persistent dyspnea, patient will need to be admitted for further management. 17:16 I did discuss admission over tiger text with the covering hospitalist, and the patient will be admitted for further treatment. Differential Diagnosis Differential Diagnoses: The differential diagnosis associated with the presentation includes (See above) Admission/Observation Consideration of admission/observation: Escalation of care including admission/observation considered (Yes) Consult Healthcare Provider Management of the patient was discussed with: Hospitalist Lab Data [facility] Lab Attestation statement: I reviewed the patient's lab results. 01/02/25 15:34 01/02/25 15:34 Labs: Lab Results 01/02/25 01/02/25 01/02/25 Range/Units 15:34 15:42 16:05 WBC 8.1 (4.8-10.8) X10*3/uL RBC 5.31 (4.20-5.50) X10*6/uL Hgb 12.8 (12.0-16.0) g/dl Hct 39.0 (37.0-47.0) % MCV 73.4 L (80.0-98.0) fL MCH 24.1 L (27.0-33.0) pg MCHC 32.8 (31.0-35.0) g/dl RDW 14.6 (11.0-16.0) % Plt Count 215 (160-400) X10*3/uL MPV 10.7 (9.4-12.3) fL Immature Gran % (Auto) 0.2 (0.0-0.4) % Neut % (Auto) 58.9 (45-73) % Lymph % (Auto) 34.7 (20-40) % [place] % (Auto) 6.2 (2-11) % Eos % (Auto) 0.0 (0-4) % Baso % (Auto) 0.0 (0-2) % Lymph # (Auto) 2.8 (1.2-4.9) X10*3/uL [place] # (Auto) 0.5 (0.1-1.2) X10*3/uL Eos # (Auto) 0.0 (0.0-0.4) X10*3/uL Baso # (Auto) 0.0 (0.0-0.2) X10*3/uL Abs Immat Gran (auto) 0.02 (0.00-0.03) X10*3/uL Absolute Neuts (auto) 4.8 (2.0-8.3) x10*3/uL Absolute Nucleated RBC 0.000 (0.0-0.012) X10*3/uL Nucleated RBC % (auto) 0.0 (0.0-0.2) /100WBC VBG pH 7.44 H (7.32-7.43) VBG pCO2 31 mmHg VBG pO2 69 mmHg VBG HCO3 22 (22-26) mmol/L VBG O2 Saturation 90.0 % VBG Base Excess -1.0 mmol/L Sodium 137 (135-145) mmol/L Potassium 4.2 (3.3-5.1) mmol/L Chloride 105 (96-108) mmol/L Carbon Dioxide 24 (22-29) mmol/L Anion Gap 12 (12-20) BUN 27 H (9-16) mg/dL Creatinine 0.84 (0.5-1.4) mg/dL Estim Creat Clear Calc 92.0 Estimated GFR > 60 Random Glucose 286 H (60-115) mg/dL Lactic Acid 3.1 H* (0.5-2.0) mmol/L Calcium 9.4 (8.4-10.2) mg/dL Magnesium 1.7 (1.6-2.6) mg/dL Total Bilirubin 0.6 (0.0-1.0) mg/dL AST 27 (5-31) U/L ALT 53 H (0-31) U/L Alkaline Phosphatase 170 H (39-117) U/L Troponin I High Sens < 2.7 (<3.5-17.0) ng/L Total Protein 6.7 (6.5-8.0) g/dL Albumin 4.2 (3.5-5.0) g/dL Lipase 34 (8-78) U/L Urine Color Yellow Urine Appearance Clear Urine pH 5.5 (5.0-9.0) Ur Specific [place] 1.020 (1.005-1.025) Urine Protein Negative (Neg-Trace) mg/dL Urine Glucose (UA) >=1000 H (Negative) mg/dL Urine Ketones Negative (Negative) mg/dL Urine Blood Negative (Negative) Urine Nitrite Negative (Negative) Ur Leukocyte Esterase Moderate (2+) H (Negative) Urine RBC 0-2 (0-2) /HPF Urine WBC 6-10 H (0-5) /HPF Ur Squamous Epith Cells 3-5 (0-2) /HPF Urine Bacteria None Seen (None Seen) Hyaline Casts 0-2 (0-2) /LPF Independent Interpretation I performed an independent interpretation of an: EKG Interpretation: My independent interpretation patient's 12 EKG done on 01/02/2025 at 15:42 hours is as follows: Sinus tachycardia with a rate of 104, normal TX interval, QRS duration QTC interval, Q-waves in leads 3, V1 through V3, no significant T-wave abnormalities, no ST segment elevation, no ST segment depression, no PACs, no PVCs. Compared to EKG dated 10/17/2024 at 18:13 hours, Q-wave in 3 is new, poor R-wave progression is also new Radiology Impression Radiologist Impression: XR chest 1V IMPRESSION: Bronchial wall thickening can be seen with small airway disease. No confluent consolidation seen. Electronically signed by: Jean Thomas MD 01/02/2025 04:30 PM EDT Critical Care Time Critical Care Time Critical Care Time: Yes Total Critical Care Time: 35 Attestation: Critical Care: The patient was critically ill with a high probability of imminent or life threatening deterioration. I spent greater than 30 minutes of discontinuous time evaluating the patient,delivering critical care at the bedside, discussing and evaluating pertinent data with consultants. Critical care time does not include time spent performing separately billable procedures or teaching. Total time spent performing critical care was 35 minutes. Discharge Plan Discharge Clinical Impression: Asthma exacerbation Qualifiers: Asthma severity: severe Asthma persistence: persistent Qualified Code(s): J45.51 - Severe persistent asthma with (acute) exacerbation
--- NOTE | 2025-01-02 15:03 | ECG_ITS ---
Test Reason : CP/SOB Blood Pressure : */* mmHG Vent. Rate : 104 BPM Atrial Rate : 104 BPM P-R Int : 152 ms QRS Dur : 96 ms QT Int : 342 ms P-R-T Axes : 28 -1 44 degrees QTcB Int : 449 ms Sinus tachycardia Cannot rule out Inferior infarct , age undetermined Anterior infarct , age undetermined Abnormal ECG When compared with ECG of 17-Oct-2024 18:13, Anterior infarct is now Present No significant change was found Referred By: Shakeel Damico Electronically Signed By: MELISSA PEREZ MD
[2025-01-02 15:41] LABS: MANUAL DIFF FLAG NO
[2025-01-02 15:45] LABS: Hematocrit 39.0 % (37.0-47.0); Hemoglobin 12.8 g/dl (12.0-16.0); Imm Gran Abs Auto 0.02 X10*3/uL (0.00-0.03); Imm Gran Pct Auto 0.2 % (0.0-0.4); Lymphocytes Absolute Auto 2.8 X10*3/uL (1.2-4.9); Mean Corpuscular HGB Conc 32.8 g/dl (31.0-35.0); Mean Corpuscular Hemoglobin 24.1 pg (27.0-33.0); Mean Corpuscular Volume 73.4 fL (80.0-98.0); NRBC Abs Auto 0.000 X10*3/uL (0.0-0.012); NRBC Pct Auto 0.0 /100WBC (0.0-0.2); Platelet Count 215 X10*3/uL (160-400); Red Blood Count 5.31 X10*6/uL (4.20-5.50); White Blood Count 8.1 X10*3/uL (4.8-10.8)
[2025-01-02 15:45] LABS: VBG HCO3 22 mmol/L (22-26); VBG O2 % Saturation 90.0 %
[2025-01-02 15:45] LABS: Venous Blood Gas Refer to POC result
[2025-01-02 16:07] LABS: Troponin-I High Sensitivity < 2.7 ng/L (<3.5-17.0)
[2025-01-02 16:08] LABS: Alanine Aminotransferase 53 U/L (0-31); Albumin Level 4.2 g/dL (3.5-5.0); Alkaline Phosphatase 170 U/L (39-117); Anion Gap 12 (12-20); Aspartate Amino Transferase 27 U/L (5-31); Blood Urea Nitrogen 27 mg/dL (9-16); Calcium 9.4 mg/dL (8.4-10.2); Carbon Dioxide 24 mmol/L (22-29); Chloride 105 mmol/L (96-108); Creatinine Clr Calc Pharmacy 92.0; Estimated Glomerular Filt Rate > 60; Lipase 34 U/L (8-78); Magnesium 1.7 mg/dL (1.6-2.6); Potassium 4.2 mmol/L (3.3-5.1); Sodium 137 mmol/L (135-145); Total Protein 6.7 g/dL (6.5-8.0)
[2025-01-02 16:30] LABS: Appearance Urine Clear; Glucose Urine UA >=1000 mg/dL (Negative); PH 5.5 (5.0-9.0); Specific Gravity - Urine 1.020 (1.005-1.025); UMIC TRIGGER UACC YES
[2025-01-02 16:35] LABS: UACC Culture Trigger YES
[2025-01-02] MEDS: Albuterol Sulfate 2.5 MG, Albuterol/Iprat 2.5/0.5MG 3 ML 3 ML INHALE (16:44)
--- NOTE | 2025-01-02 17:19 | PM.IMHP ---
History of Present Illness Date of Service: 01/02/25 Chief Complaint: sob 64F PMH COPD/mod persistent asthma, obesity, bipolar, parkinsons, HTN, PTSD, DM, presented with sob. sob began about 3 weeks prior to presentation. associated with wheezing, sore throat, loss of voice. she states she took a prednisone course with no improvement. Denies fever but does feel cold and sweaty. Denies sick contacts. Was feeling worse so came to ED. In ED noted to be tachypneic, dyspneic. Chest x-ray with bronchial airway disease. Review of Systems Review of Systems: Yes all other systems are reviewed and are negative [facility] Medical History Medical clearance for psychiatric admission Parkinsons disease PTSD (post-traumatic stress disorder) MDD (major depressive disorder), recurrent, severe, with psychosis Insomnia Dyskinesia, drug-induced Dissociative identity disorder Bipolar 1 disorder Colon cancer Family History Mother Diabetes Hypertension Father No problems noted. Sister No problems noted. Brother No problems noted. Surgical History History of carpal tunnel surgery Hx of bariatric surgery Hx of hysterectomy History of partial colectomy Hx of cholecystectomy Hx of appendectomy Hx of knee surgery Social History Household Members: Significant Other Housing: House Do you presently have visiting nurse or other home services: No Alcohol intake: never Comment: walker Patient Tobacco Use Status: Never used Tobacco e-Cigarette/Vaping Use: Never Used Second Hand Smoke Exposure: No Substance Use Type: Marijuana Advance Directives: No Advance Directives Information Provided: Yes service: No Sexual orientation: Straight/Heterosexual Meds Allergies Allergy/AdvReac Type Severity Reaction Status Date / Time adhesive tape (TAPE,ADHESIVE) Allergy Severe ANAPHYLAXIS Verified 01/02/25 14:36 latex (LATEX) Allergy Severe ANAPHYLAXIS Verified 01/02/25 14:36 Penicillins (PCN) Allergy Severe ANAPHYLAXIS Verified 01/02/25 14:36 Active Medications: Current Medications Acetaminophen (Acetaminophen 325 Mg Tablet) 650 mg PO Q6H PRN PRN Reason: Pain, Mild 1-3,fever,headache Calcium Carbonate (Calcium Carbonate 750 Mg Tab.Chew) 750 mg PO Q4H PRN PRN Reason: Heartburn Enoxaparin Sodium (Enoxaparin Sodium 40 Mg/0.4 Ml Syringe) 40 mg SUBCUT Q24H MARIAH Magnesium Hydroxide (Milk Of Magnesia 30 Ml Oral.Susp) 30 ml PO DAILY PRN PRN Reason: Constipation Melatonin (Melatonin 3 Mg Tablet) 6 mg PO BEDTIME PRN PRN Reason: Insomnia Sodium Chloride (0.9 % Sodium Chloride Flush 3 Ml Syringe) 3 ml IVFLUSH QSHIFT MARIAH Home Medications ?Medication ?Instructions ?Recorded ?Confirmed ?Last Taken ?Type diclofenac sodium 1 % topical gel 1 ea topical TID PRN Pain (Scale 10/03/23 10/18/24 11/23/23 History Score 1-3) Physical Exam Vital Signs and Narrative: Vital Signs: Last Vital Signs Temp 98.4 F 01/02/25 15:39 Pulse 95 01/02/25 16:45 Resp 28 H 01/02/25 16:45 BP 98/66 01/02/25 15:39 Pulse Ox 96 01/02/25 15:39 O2 Del Method Room Air 01/02/25 15:39 BMI result Body Mass Index 36.5 General: AO X 3, in acute distress Resp: wheezing bilateral, accessory muscles used CVS: S1,S2,RRR GI: soft, non tender, non distended Neuro: motor grossly intact, alert Psych: appropriate affect, appropriate insight Results Labs 01/02/25 15:34 01/02/25 15:34 Labs: Laboratory Results - last 24 hr 01/02/25 01/02/25 01/02/25 15:34 15:42 16:05 MCV 73.4 L MCH 24.1 L MCHC 32.8 RDW 14.6 Plt Count 215 MPV 10.7 Immature Gran % (Auto) 0.2 Neut % (Auto) 58.9 Lymph % (Auto) 34.7 [place] % (Auto) 6.2 Eos % (Auto) 0.0 Baso % (Auto) 0.0 Lymph # (Auto) 2.8 [place] # (Auto) 0.5 Eos # (Auto) 0.0 Baso # (Auto) 0.0 Abs Immat Gran (auto) 0.02 Absolute Neuts (auto) 4.8 Absolute Nucleated RBC 0.000 Nucleated RBC % (auto) 0.0 VBG pH 7.44 H VBG pCO2 31 VBG pO2 69 VBG HCO3 22 VBG O2 Saturation 90.0 VBG Base Excess -1.0 Anion Gap 12 Estim Creat Clear Calc 92.0 Estimated GFR > 60 Random Glucose 286 H Lactic Acid 3.1 H* Calcium 9.4 Magnesium 1.7 Total Bilirubin 0.6 AST 27 ALT 53 H Alkaline Phosphatase 170 H Troponin I High Sens < 2.7 Total Protein 6.7 Albumin 4.2 Lipase 34 Urine Color Yellow Urine Appearance Clear Urine pH 5.5 Ur Specific [place] 1.020 Urine Protein Negative Urine Glucose (UA) >=1000 H Urine Ketones Negative Urine Blood Negative Urine Nitrite Negative Ur Leukocyte Esterase Moderate (2+) H Urine RBC 0-2 Urine WBC 6-10 H Ur Squamous Epith Cells 3-5 Urine Bacteria None Seen Hyaline Casts 0-2 Imaging Radiologist's Impressions: Impressions Chest X-Ray 01/02/25 16:07 IMPRESSION: Bronchial wall thickening can be seen with small airway disease. No confluent consolidation seen. Electronically signed by: Jean Thomas MD 01/02/2025 04:30 PM EDT RP Assessment and Plan (1) Asthma exacerbation: Qualifiers: Asthma persistence: persistent Asthma severity: severe Qualified Code(s): J45.51 - Severe persistent asthma with (acute) exacerbation Status: Acute Plan 64F PMH COPD/mod persistent asthma, obesity, bipolar, parkinsons, HTN, PTSD, DM, presented with sob. sob began about 3 weeks prior to presentation copd/mod persistent asthma with acute decompensation steroids, nebs, doxy dm insulin bipolar mood stabilizers obesity weight loss htn prazosin, amlodipnie, lisinipril dvt prophylaxis - lovenox full code Quality Stroke Does the patient have a stroke diagnosis?: No VTE Prior VTE?: No VTE Risk Level:: Medical - moderate - high VTE Device Contraindication: Treatment Not Indicated VTE Drug Contraindication: N/A - Med Ordered
[2025-01-02 17:20] LABS: NT Pro B Type Natriuretic Pept 41.2 pg/mL (<300)
[2025-01-02 17:39] LABS: Troponin-I High Sensitivity < 2.7 ng/L (<3.5-17.0)
[2025-01-02 17:41] LABS: Reflex Lactate? Lactic Acid Added
[2025-01-02 18:35] LABS: ~Lactic Acid-LAB USE ONLY 2.2 mmol/L (0.5-2.0)
[2025-01-02 18:45] LABS: Cancel Lactic Acid Canceled
--- NOTE | 2025-01-02 18:59 | PHA.MEDREC ---
Addendum entered by Omari Lozada RPh 01/02/25 19:06: Med rec reviewed Addendum entered by Yris Rincon 01/02/25 19:02: Patient states she had all her morning medications today. Original Note: Pharmacy Consult ? Medication Reconciliation Pharmacy has completed the medication reconciliation. Spoke to patient to confirm med list. Patient was having a hard time talking. Patient states she get all her medications mailed to her in a bed box from [facility]. Utilized list from [facility] to confirm med list.
[2025-01-02 19:19] LABS: Glucose, Whole Blood 291 mg/dL (60-115)
--- NOTE | 2025-01-02 19:28 | HO.NURTONUR ---
pt from home [facility] with sob, wheezing, sore throat and difficulty using her voice. Pt was diagnosed with pneumonia 3 weeks ago was on prednisone with no improvement. Upon Ems arrival pt was 97% on RA. Pt denies any n/v/d, sick contacts, fever/chills. While in the ed she's noted to be tachypneic. Pt receieved 2 breathing treatments with some improvement. Pt has 20G IV in left hand and has been medicated per may. Pt being admitted for asthma exacerbation. Pt is caox3, soft spoken and able to make her needs known, has a purwick in place. Pt has left foot brace bedside. Work up in the ED revealed: EKG: sinus tachycardia Labs: BUN- 27 Lactic- 3.1--> 2.2 ALT- 53 Chest xray: IMPRESSION: Bronchial wall thickening can be seen with small airway disease. No confluent consolidation seen.
[2025-01-02 20:10] LABS: Glucose, Whole Blood 359 mg/dL (60-115)
[2025-01-02] MEDS: Flu Vacc TS2025-26(6mo up)/PF 0.5 ML SYRINGE IM (21:29)
[2025-01-02] MEDS: 0.9 % Sodium Chloride Flush 3 ML SYRINGE IVFLUSH (21:32)
[2025-01-03 04:00] VITALS: BP 103/60; PULSE 73; RESP 18; TEMP 36.4; O2SAT 99
[2025-01-03 06:22] LABS: Hematocrit 33.7 % (37.0-47.0); Hemoglobin 10.8 g/dl (12.0-16.0); Mean Corpuscular HGB Conc 32.0 g/dl (31.0-35.0); Mean Corpuscular Hemoglobin 23.7 pg (27.0-33.0); Mean Corpuscular Volume 74.1 fL (80.0-98.0); NRBC Abs Auto 0.000 X10*3/uL (0.0-0.012); NRBC Pct Auto 0.0 /100WBC (0.0-0.2); Platelet Count 194 X10*3/uL (160-400); Red Blood Count 4.55 X10*6/uL (4.20-5.50); White Blood Count 8.2 X10*3/uL (4.8-10.8)
[2025-01-03 07:18] LABS: Anion Gap 13 (12-20); Blood Urea Nitrogen 40 mg/dL (9-16); Carbon Dioxide 22 mmol/L (22-29); Chloride 102 mmol/L (96-108); Creatinine Clr Calc Pharmacy 70.9; Estimated Glomerular Filt Rate 51; Magnesium 1.9 mg/dL (1.6-2.6); Potassium 4.9 mmol/L (3.3-5.1); Sodium 132 mmol/L (135-145)
[2025-01-03 07:19] LABS: Calcium 8.3 mg/dL (8.4-10.2)
[2025-01-03 07:22] LABS: Glucose, Whole Blood 260 mg/dL (60-115)
--- NOTE | 2025-01-03 07:27 | PC.NURSE ---
late entry. 01/[address] Wiley made aware, no new orders.
[2025-01-03 07:38] VITALS: BP 118/58; PULSE 73; RESP 18; TEMP 36.6; O2SAT 93
[2025-01-03] MEDS: 0.9 % Sodium Chloride Flush 3 ML SYRINGE IVFLUSH (08:01)
[2025-01-03 11:14] LABS: Glucose, Whole Blood 222 mg/dL (60-115)
[2025-01-03 11:25] LABS: Resp Syncy Virus RNA Qual PCR NEGATIVE (Negative); SARS COV2 PCR INHOUSE NEGATIVE (Negative)
--- NOTE | 2025-01-03 11:33 | PM.DS ---
DS: Providers Provider Date of Service: 01/03/25 Date of admission: 01/02/25 17:08 Date of discharge: 01/03/25 Primary care physician: Unknown Physician DS: Diagnosis Discharge Diagnosis (1) Asthma exacerbation: Status: Acute DS: Summary Hospital Course Hospital Course: from initial hpi: 64F PMH COPD/mod persistent asthma, obesity, bipolar, parkinsons, HTN, PTSD, DM, presented with sob. sob began about 3 weeks prior to presentation. associated with wheezing, sore throat, loss of voice. she states she took a prednisone course with no improvement. Denies fever but does feel cold and sweaty. Denies sick contacts. Was feeling worse so came to ED. In ED noted to be tachypneic, dyspneic. Chest x-ray with bronchial airway disease. hospital course: Patient was admitted for COPD/moderate persistent asthma with acute decompensation. Was treated with IV Solu-Medrol, DuoNebs, doxycycline. Symptoms significantly improved. Patient is no longer wheezing and is able to talk full sentences though was still hoarse. On discharge we will continue 5 more days of prednisone and doxycycline. For diabetes was continued on insulin. For bipolar disorder was continued on mood stabilizers. For obesity weight loss recommended. Patient is feeling better and will be discharged home. Time Attestation Discharge Coordination Time (in mins): 32 Quality: Safe Use of Opioids Does Pt have an Active Cancer Diagnosis on the Problem List?: No Quality: Stroke Does the patient have a stroke diagnosis?: No Physical Exam Exam: Exam: General: AO X 3, no acute distress Resp: CTA bilateral, no accessory muscles used CVS: S1,S2,RRR GI: soft, non tender, non distended Neuro: motor grossly intact, alert Psych: appropriate affect, appropriate insight Vital Signs: Vital Signs: Last Vital Signs Temp 97.8 F 01/03/25 07:38 Pulse 73 01/03/25 07:38 Resp 18 01/03/25 07:38 BP 118/58 L 01/03/25 07:38 Pulse Ox 93 01/03/25 07:38 O2 Del Method Room Air 01/03/25 07:38 BMI result Body Mass Index 35.9 DS: Data Data Completed and Pending Labs on day of discharge: Laboratory Results - last 24 hr 01/02/25 01/02/25 01/02/25 15:34 15:42 16:05 WBC 8.1 RBC 5.31 Hgb 12.8 Hct 39.0 MCV 73.4 L MCH 24.1 L MCHC 32.8 RDW 14.6 Plt Count 215 MPV 10.7 Immature Gran % (Auto) 0.2 Neut % (Auto) 58.9 Lymph % (Auto) 34.7 [place] % (Auto) 6.2 Eos % (Auto) 0.0 Baso % (Auto) 0.0 Lymph # (Auto) 2.8 [place] # (Auto) 0.5 Eos # (Auto) 0.0 Baso # (Auto) 0.0 Abs Immat Gran (auto) 0.02 Absolute Neuts (auto) 4.8 Absolute Nucleated RBC 0.000 Nucleated RBC % (auto) 0.0 VBG pH 7.44 H VBG pCO2 31 VBG pO2 69 VBG HCO3 22 VBG O2 Saturation 90.0 VBG Base Excess -1.0 Sodium 137 Potassium 4.2 Chloride 105 Carbon Dioxide 24 Anion Gap 12 BUN 27 H Creatinine 0.84 Estim Creat Clear Calc 92.0 Estimated GFR > 60 POC Glucose Random Glucose 286 H Lactic Acid 3.1 H* Lactic Acid F/U @ 2Hr Calcium 9.4 Magnesium 1.7 Total Bilirubin 0.6 AST 27 ALT 53 H Alkaline Phosphatase 170 H Troponin I High Sens < 2.7 NT-Pro-B Natriuret Pep 41.2 Total Protein 6.7 Albumin 4.2 Lipase 34 Urine Color Yellow Urine Appearance Clear Urine pH 5.5 Ur Specific [place] 1.020 Urine Protein Negative Urine Glucose (UA) >=1000 H Urine Ketones Negative Urine Blood Negative Urine Nitrite Negative Ur Leukocyte Esterase Moderate (2+) H Urine RBC 0-2 Urine WBC 6-10 H Ur Squamous Epith Cells 3-5 Urine Bacteria None Seen Hyaline Casts 0-2 Influenza Type A (PCR) Influenza Type B (PCR) RSV RNA Qual (PCR) SARS-CoV-2 RNA (RT-PCR) 01/02/25 01/02/25 01/02/25 17:10 18:12 19:15 WBC RBC Hgb Hct MCV MCH MCHC RDW Plt Count MPV Immature Gran % (Auto) Neut % (Auto) Lymph % (Auto) [place] % (Auto) Eos % (Auto) Baso % (Auto) Lymph # (Auto) [place] # (Auto) Eos # (Auto) Baso # (Auto) Abs Immat Gran (auto) Absolute Neuts (auto) Absolute Nucleated RBC Nucleated RBC % (auto) VBG pH VBG pCO2 VBG pO2 VBG HCO3 VBG O2 Saturation VBG Base Excess Sodium Potassium Chloride Carbon Dioxide Anion Gap BUN Creatinine Estim Creat Clear Calc Estimated GFR POC Glucose 291 H Random Glucose Lactic Acid Lactic Acid F/U @ 2Hr 2.2 H* Calcium Magnesium Total Bilirubin AST ALT Alkaline Phosphatase Troponin I High Sens < 2.7 NT-Pro-B Natriuret Pep Total Protein Albumin Lipase Urine Color Urine Appearance Urine pH Ur Specific [place] Urine Protein Urine Glucose (UA) Urine Ketones Urine Blood Urine Nitrite Ur Leukocyte Esterase Urine RBC Urine WBC Ur Squamous Epith Cells Urine Bacteria Hyaline Casts Influenza Type A (PCR) Influenza Type B (PCR) RSV RNA Qual (PCR) SARS-CoV-2 RNA (RT-PCR) 01/02/25 01/03/25 01/03/25 20:06 05:41 07:18 WBC 8.2 RBC 4.55 Hgb 10.8 L Hct 33.7 L MCV 74.1 L MCH 23.7 L MCHC 32.0 RDW 14.6 Plt Count 194 MPV 11.5 Immature Gran % (Auto) Neut % (Auto) Lymph % (Auto) [place] % (Auto) Eos % (Auto) Baso % (Auto) Lymph # (Auto) [place] # (Auto) Eos # (Auto) Baso # (Auto) Abs Immat Gran (auto) Absolute Neuts (auto) Absolute Nucleated RBC 0.000 Nucleated RBC % (auto) 0.0 VBG pH VBG pCO2 VBG pO2 VBG HCO3 VBG O2 Saturation VBG Base Excess Sodium 132 L Potassium 4.9 Chloride 102 Carbon Dioxide 22 Anion Gap 13 BUN 40 H Creatinine 1.08 Estim Creat Clear Calc 70.9 Estimated GFR 51 POC Glucose 359 H* 260 H Random Glucose 404 H* Lactic Acid Lactic Acid F/U @ 2Hr Calcium 8.3 L D Magnesium 1.9 Total Bilirubin AST ALT Alkaline Phosphatase Troponin I High Sens NT-Pro-B Natriuret Pep Total Protein Albumin Lipase Urine Color Urine Appearance Urine pH Ur Specific [place] Urine Protein Urine Glucose (UA) Urine Ketones Urine Blood Urine Nitrite Ur Leukocyte Esterase Urine RBC Urine WBC Ur Squamous Epith Cells Urine Bacteria Hyaline Casts Influenza Type A (PCR) Influenza Type B (PCR) RSV RNA Qual (PCR) SARS-CoV-2 RNA (RT-PCR) 01/03/25 01/03/25 10:01 11:08 WBC RBC Hgb Hct MCV MCH MCHC RDW Plt Count MPV Immature Gran % (Auto) Neut % (Auto) Lymph % (Auto) [place] % (Auto) Eos % (Auto) Baso % (Auto) Lymph # (Auto) [place] # (Auto) Eos # (Auto) Baso # (Auto) Abs Immat Gran (auto) Absolute Neuts (auto) Absolute Nucleated RBC Nucleated RBC % (auto) VBG pH VBG pCO2 VBG pO2 VBG HCO3 VBG O2 Saturation VBG Base Excess Sodium Potassium Chloride Carbon Dioxide Anion Gap BUN Creatinine Estim Creat Clear Calc Estimated GFR POC Glucose 222 H Random Glucose Lactic Acid Lactic Acid F/U @ 2Hr Calcium Magnesium Total Bilirubin AST ALT Alkaline Phosphatase Troponin I High Sens NT-Pro-B Natriuret Pep Total Protein Albumin Lipase Urine Color Urine Appearance Urine pH Ur Specific [place] Urine Protein Urine Glucose (UA) Urine Ketones Urine Blood Urine Nitrite Ur Leukocyte Esterase Urine RBC Urine WBC Ur Squamous Epith Cells Urine Bacteria Hyaline Casts Influenza Type A (PCR) NEGATIVE Influenza Type B (PCR) NEGATIVE RSV RNA Qual (PCR) NEGATIVE SARS-CoV-2 RNA (RT-PCR) NEGATIVE Preliminary micro results at discharge 01/02/25 Unknown Urine Culture - Preliminary Urine clean catch - Clean Catch Midstream Culture too young to evaluate. Discharge Plan Discharge Anticipated Discharge Date/Time: 01/03/25 11:30 Patient Disposition: Home, Self-Care Discharge Diagnosis: asthma Referrals: Physician,Unknown J [Primary Care Provider, Medical] - 1 Week Discharge Medications: New prednisone 20 mg tablet 40 mg PO DAILY Qty: 10 0RF doxycycline hyclate 100 mg capsule 100 mg PO BID 5 Days Qty: 10 0RF Continued acetaminophen 325 mg Tablet 650 mg PO Q6H PRN (Reason: Headache/Pain, Scale 1-10) Qty: 0 0RF prazosin 1 mg Capsule 1 mg PO BEDTIME Qty: 30 0RF Protocol: Hold for SBP< HOLD for SBP < : 90 trazodone 50 mg Tablet 50 mg PO BEDTIME 30 Days Qty: 30 0RF metoprolol succinate 50 mg tablet extended release 24 hr 50 mg PO DAILY Qty: 30 0RF sucralfate 1 gram tablet 1 g PO QID PRN (Reason: Dyspepsia) Qty: 120 0RF lisinopril 20 mg tablet 20 mg PO DAILY Qty: 30 0RF gabapentin 400 mg capsule 400 mg PO TID Qty: 90 0RF clonazepam 1 mg tablet 1 mg PO BID Qty: 14 4RF mirtazapine 30 mg tablet 30 mg PO BEDTIME Qty: 30 0RF metformin 1,000 mg tablet 1,000 mg PO BID Qty: 60 0RF esomeprazole magnesium 40 mg capsule,delayed release(DR/EC) 40 mg PO BID@0630,1630 Qty: 60 0RF bumetanide 0.5 mg tablet 0.5 mg PO DAILY Qty: 30 0RF montelukast 10 mg tablet 10 mg PO DAILY Qty: 30 0RF albuterol sulfate [Ventolin HFA] 90 mcg/actuation HFA aerosol inhaler 2 puff inhalation Q4H PRN (Reason: SOB) Qty: 1 0RF rosuvastatin 40 mg tablet 40 mg PO DAILY Qty: 30 0RF duloxetine 20 mg capsule,delayed release(DR/EC) 60 mg PO DAILY Qty: 90 0RF multivitamin with folic acid [Tab-A-Alanis] 400 mcg tablet 1 tab PO DAILY Qty: 30 0RF quetiapine 100 mg tablet 100 mg PO BEDTIME nystatin 100,000 unit/gram powder 1 appl topical BID lidocaine 4 % Adhesive Patch,Medicated 1 patch TOPICAL DAILY PRN (Reason: Pain) Rx Instructions: 12 h on and 12 h off Jardiance 25 mg tablet 25 mg PO DAILY ipratropium-albuterol 0.5 mg-3 mg(2.5 mg base)/3 mL solution for nebulization 3 ml inhalation Q6H PRN (Reason: Shortness Of Breath/wheezing) aspirin 81 mg tablet,chewable 81 mg PO DAILY budesonide-formoterol [Breyna] 160-4.5 mcg/actuation HFA aerosol inhaler 1 puff inhalation BID clonazepam 0.5 mg tablet 0.5 mg PO DAILY@1300 Discharge Orders: Discharge Order (Routine); Ordered 01/03/25 Ordered By: Terence Patiño Diet: Advance to usual diet Activity on Discharge: As tolerated Stand Alone Forms: Patient Portal Discharge page Print Language: Turkmen Care Plan Goals: recovery Health Concerns: asthma Plan of Treatment: 5 days prednisone, doxy Assessment: see above
[2025-01-03 11:49] VITALS: BP 105/55; PULSE 87; RESP 18; TEMP 36.2; O2SAT 92
[2025-01-03 13:24] VITALS: BP 146/84; PULSE 99; RESP 18; TEMP 36.1; O2SAT 95
--- NOTE | 2025-01-03 13:43 | MHC.CM.PN ---
Addendum entered by Jenni Aviles 01/03/25 13:46: PCP: AMEE BALDERAS Original Note: PT REPORTS SHE LIVES WITH HER SHE SAYS SHE DID HAVE A AUDIO VISUAL COORDINATOR AND PLANS TO RESUME SERVICES SHE REPORTS BEING ACTIVE WITH [facility] AND A [facility] SHE IS UNSURE WHO HER PCP IS COPY OF HCP REQUESTED OBSERVATION NOTICE DELIVERED DCP: PT WILL DC HOME TODAY WITH RESUMPTION OF SERVICES SHUTTLE TRANSPORT ARRANGED FOR 1415 HOURS
== END 2025-01-03 14:02 | disposition home or self-care (01) ==
LOC: HO.ED 16:01 → HO.EDOVER 17:12 → HO.S3 19:08
PROVIDERS: Admitting Provider Internal Medicine; Emergency Provider Emergency Medicine Emergency Medical Services; PCP Internal Medicine; Visit Provider Internal Medicine
DX: J45.51 Severe persistent asthma with (acute) exacerbation (principal); J44.9 Chronic obstructive pulmonary disease, unspecified; R05.9 Cough, unspecified; R06.02 Shortness of breath; G20.A1 Parkinson's disease without dyskinesia, without mention of fluctuations; F43.10 Post-traumatic stress disorder, unspecified; E11.9 Type 2 diabetes mellitus without complications; I10 Essential (primary) hypertension; F31.9 Bipolar disorder, unspecified; Z23 Encounter for immunization; Z79.4 Long term (current) use of insulin; Z79.899 Other long term (current) drug therapy
CPT/HCPCS: 36415; 71045; 80048; 80053; 81001; 82803; 82947; 83605; 83690; 83735; 83880; 84484; 85025; 85027; 87040; 87086; 87637; 90471; 90656; 93005; 94640; 96365; 96366; 96372; 96375; 96376; 99221; 99285; J1271; J1650; J2270; J2919

== ENCOUNTER → 2025-01-02 15:03 | Outpatient (BNV) | payer OTHER, SELFPAY | PROVIDERS: Emergency Provider Emergency Medicine Emergency Medical Services; Visit Provider Radiology Diagnostic Ultrasound | DX: R06.02 Shortness of breath (principal) | CPT/HCPCS: 71045 ==

== ENCOUNTER → 2025-01-02 15:03 | Outpatient (BNV) | payer OTHER, SELFPAY | PROVIDERS: Emergency Provider Emergency Medicine Emergency Medical Services; Visit Provider Internal Medicine Cardiovascular Disease | DX: I21.09 ST elevation (STEMI) myocardial infarction involving other coronary artery of anterior wall (principal); R00.0 Tachycardia, unspecified | CPT/HCPCS: 93010 ==

== ENCOUNTER → 2025-01-02 17:08 | Outpatient (BNV) | payer OTHER, SELFPAY | PROVIDERS: Admitting Provider Internal Medicine; Emergency Provider Emergency Medicine Emergency Medical Services; Visit Provider Internal Medicine | DX: J45.51 Severe persistent asthma with (acute) exacerbation (principal) | CPT/HCPCS: 99223; 99239 ==

== ENCOUNTER 2025-01-22 12:16 | Emergency (ER) | payer OTHER, SELFPAY ==
[2025-01-22] VITALS (7 sets, daily range): BP systolic 113–180; BP diastolic 65–91; PULSE 94–115; RESP 17–30; TEMP 36.6–36.7; O2SAT 93–98; BMI 37.7
--- NOTE | 2025-01-22 12:29 | ECG_ITS ---
Test Reason : chest pain Blood Pressure : */* mmHG Vent. Rate : 97 BPM Atrial Rate : 97 BPM P-R Int : 144 ms QRS Dur : 84 ms QT Int : 358 ms P-R-T Axes : 74 20 53 degrees QTcB Int : 454 ms Artifact in tracing Normal sinus rhythm Septal infarct (cited on or before 02-Jan-2025) Abnormal ECG When compared with ECG of 02-Jan-2025 15:42, No significant change was found Referred By: Jeffrey Cerda Electronically Signed By: DESHAWN ARCHER
--- NOTE | 2025-01-22 12:33 | ED.ANXIETY ---
HPI - Anxiety General Chief Complaint: Psychiatric Symptoms Stated Complaint: no meds since tue, med withdrawals, anxious Time Seen by Provider: 01/22/25 12:22 Source: patient Mode of arrival: EMS Limitations: no limitations History of Present Illness HPI narrative: This is a 65 years old female presented by ambulance complaining of anxiety depression stating that she had psych meds medication for about 3 days MD complaint: anxiety Onset (ago): day(s) (3) Quality: constant Place: home Related Data Home Medications ?Medication ?Instructions ?Recorded ?Confirmed aspirin 81 mg chewable tablet 81 mg PO DAILY 01/02/25 01/22/25 clonazepam 0.5 mg tablet 0.5 mg PO DAILY@1300 01/02/25 01/22/25 empagliflozin 25 mg tablet 25 mg PO DAILY 01/02/25 01/22/25 (Jardiance) ipratropium 0.5 mg-albuterol 3 mg 3 ml inhalation Q6H PRN Shortness 01/02/25 01/22/25 (2.5 mg base)/3 mL nebulization Of Breath/wheezing soln lidocaine 4 % topical patch 1 patch topical DAILY PRN Pain 01/02/25 01/22/25 nystatin 100,000 unit/gram topical 1 appl topical BID 01/02/25 01/22/25 powder quetiapine 100 mg tablet 100 mg PO BEDTIME 01/02/25 01/22/25 acetaminophen 500 mg tablet 1,000 mg PO BID 01/22/25 01/22/25 duloxetine 60 mg capsule,delayed 60 mg PO DAILY 01/22/25 01/22/25 release insulin glargine-yfgn 100 unit/mL 12 unit subcut BID PRN blood 01/22/25 01/22/25 (3 mL) subcutaneous pen glucose >200 Previous Rx's ?Medication ?Instructions ?Recorded albuterol sulfate 90 mcg/actuation 2 puff inhalation Q4H PRN SOB #1 10/23/24 aerosol inhaler (Ventolin HFA) inhaler bumetanide 0.5 mg tablet 0.5 mg PO DAILY #30 tabs 10/23/24 clonazepam 1 mg tablet 1 mg PO BID #14 tabs 10/23/24 esomeprazole magnesium 40 mg 40 mg PO BID@0630,1630 #60 caps 10/23/24 capsule,delayed release gabapentin 400 mg capsule 400 mg PO TID #90 caps 10/23/24 lisinopril 20 mg tablet 20 mg PO DAILY #30 tabs 10/23/24 metformin 1,000 mg tablet 1,000 mg PO BID #60 tabs 10/23/24 metoprolol succinate 50 mg 50 mg PO DAILY #30 tabs 10/23/24 tablet,extended release 24 hr mirtazapine 30 mg tablet 30 mg PO BEDTIME #30 tabs 10/23/24 montelukast 10 mg tablet 10 mg PO DAILY #30 tabs 10/23/24 multivitamin with folic acid 400 1 tab PO DAILY #30 tabs 10/23/24 mcg tablet (Tab-A-Alanis) prazosin 1 mg capsule 1 mg PO BEDTIME #30 caps 10/23/24 rosuvastatin 40 mg tablet 40 mg PO DAILY #30 tabs 10/23/24 sucralfate 1 gram tablet 1 g PO QID PRN Dyspepsia #120 tabs 10/23/24 trazodone 50 mg tablet 50 mg PO BEDTIME Insomnia 30 days 10/23/24 #30 tabs Allergies Allergy/AdvReac Type Severity Reaction Status Date / Time adhesive tape (TAPE,ADHESIVE) Allergy Severe ANAPHYLAXIS Verified 01/22/25 12:33 latex (LATEX) Allergy Severe ANAPHYLAXIS Verified 01/22/25 12:33 Penicillins (PCN) Allergy Severe ANAPHYLAXIS Verified 01/22/25 12:33 Review of Systems Constitutional: Constitutional: Reports no additional constitutional complaints ENT: Reports system reviewed and no additional complaints, except as documented Cardiovascular: Cardiovascular: Reports no additional cardiovascular complaints Psychiatric: Psychiatric: Reports as per HPI [facility] Past Medical History [facility] Narrative: Diabetes, anxiety, depression, PTSD Medical History Medical clearance for psychiatric admission Parkinsons disease PTSD (post-traumatic stress disorder) MDD (major depressive disorder), recurrent, severe, with psychosis Insomnia Dyskinesia, drug-induced Dissociative identity disorder Bipolar 1 disorder Colon cancer Surgical History History of carpal tunnel surgery Hx of bariatric surgery Hx of hysterectomy History of partial colectomy Hx of cholecystectomy Hx of appendectomy Hx of knee surgery Family History Family History Mother Diabetes Hypertension Father No problems noted. Sister No problems noted. Brother No problems noted. Social History Social History Household Members: Significant Other Housing: House Do you presently have visiting nurse or other home services: No Alcohol intake: never Comment: walker Patient Tobacco Use Status: Never used Tobacco Smoked in Last 30 Days: No e-Cigarette/Vaping Use: Never Used Second Hand Smoke Exposure: No Use of substances other than those prescribed or required for medical reasons: No Substance Use Type: Marijuana Advance Directives: No Advance Directives Information Provided: Yes Do you have a plan to hurt others: No Plan service: No Sexual orientation: Straight/Heterosexual Physical Exam Exam: Exam: No acute disease Vital Signs: Vital Signs: Last Vital Signs Temp 98.3 F 01/23/25 01:07 Pulse 83 01/23/25 08:23 Resp 18 01/23/25 08:23 BP 149/85 H 01/23/25 08:23 Pulse Ox 96 01/23/25 08:23 O2 Del Method Room Air 01/23/25 08:23 BMI result Body Mass Index 37.7 Const: General: cooperative Nutritional Appearance: average body habitus Orientation/consciousness: patient oriented x3 HEENT: Head: Yes normal to inspection General nose exam: Normal external nose present Throat: Yes posterior oropharynx normal Neck: Neck: Yes normal visual inspection Resp: Effort & Inspection: normal respiratory effort Auscultation: clear to auscultation bilaterally Cardio: Jugular venous distension: no JVD Rate: regular rate Rhythm: regular rhythm GI: Inspection: Yes normal to inspection Palpation (GI): Soft to palpation, not firm and nontender Auscultation: normal bowel sounds Skin: General skin exam: no rashes or lesions noted and elasticity normal Neuro: General: patient oriented x3 Course Reevaluation(s) Reevaluation #1: 4 Pm signed out to incoming provider yevgeniy avalos pending Time: 16:10 Reevaluation #2: Nu: The patient is a 64-year-old woman with a history of Parkinson's disease as well as significance psychiatric issues who comes to the emergency room from home. Apparently a visiting nurse went to her home today and discovered that the patient has been without medications for 3 days. Apparently the pharmacy which delivers the patient's medications has been under the impression that the patient was hospitalized and therefore not at home. Therefore there was a delay in the delivery of the patient's medications. Because of the patient's psychiatric history she was seen by the care team. At that point the patient had had a dose of clonazepam and was feeling somewhat better. The care team did not feel that the patient required psychiatric hospitalization. Care team felt that as long as the patient could safely be restarted on her regular medications that the patient could likely go home. I consulted case management to find out how reliably we could tell if the patient has medications would be available at home. The case resource manager felt that the delivery of the patient's medications would likely occur sometime tomorrow. Both the care team and case management felt that until it was certain that the patient's medications would be available when she went home that the patient might be unsafe at home. Therefore the patient will be kept in the emergency room overnight. I have ordered the patient's usual medications. My hope is that tomorrow it can be determined that the patient's medications has been successfully delivered and that she might be able to go home at that point. Apparently she lives with her who is not very helpful. The patient will be placed in physician observation. Time: 23:00 Reevaluation #3: Time: 06:18 Date: 01/23/25 Provider: Jeffrey Cerda MD Patient in physician observation for psychiatric evaluation.? No acute events reported overnight. No current complaints. VS stable.? Patient is in bed search status/pending CARE team evaluation. Will continue to monitor. Additional Reevaluation(s): 01/23/2025 10:48 patient remained stable she is cleared to be discharged home case resource manager was involved medication were delivered. She was cleared by crisis Medications Administered Generic Name Dose Route Start Last Admin Trade Name Freq PRN Reason Stop Dose Admin Clonazepam 1 mg 01/22/25 21:00 01/23/25 08:15 Clonazepam 1 Mg Tablet PO 1 mg BID MARIAH Administration Duloxetine HCl 60 mg 01/23/25 09:00 01/23/25 08:15 Duloxetine Hcl 60 Mg Capsule.Dr PO 60 mg DAILY MARIAH Administration Empagliflozin 25 mg 01/23/25 09:00 01/23/25 08:16 Empagliflozin 25 Mg Tablet PO 25 mg DAILY MARIAH Administration Gabapentin 400 mg 01/22/25 21:00 01/23/25 08:15 Gabapentin 400 Mg Capsule PO 400 mg TID MARIAH Administration Metformin HCl 1,000 mg 01/22/25 21:00 01/23/25 08:16 Metformin Hcl 1,000 Mg Tablet PO 1,000 mg BID MARIAH Administration Mirtazapine 30 mg 01/22/25 21:00 01/22/25 21:04 Mirtazapine 30 Mg Tablet PO 30 mg BEDTIME MARIAH Administration Prazosin HCl 1 mg 01/22/25 21:00 01/22/25 21:15 Prazosin Hcl 1 Mg Capsule PO 1 mg BEDTIME MARIAH Administration Protocol Quetiapine Fumarate 100 mg 01/22/25 21:00 01/22/25 21:04 Quetiapine Fumarate 100 Mg Tablet PO 100 mg BEDTIME MARIAH Administration Trazodone HCl 50 mg 01/22/25 21:00 01/22/25 21:04 Trazodone Hcl 50 Mg Tablet PO 50 mg BEDTIME MARIAH Administration Discontinued Medications Generic Name Dose Route Start Last Admin Trade Name Alonso PRTed Reason Stop Dose Admin Acetaminophen 650 mg 01/23/25 08:18 01/23/25 08:26 Acetaminophen 325 Mg Tablet PO 01/23/25 08:19 650 mg ONCE ONE Administration Clonazepam 1 mg 01/22/25 12:26 01/22/25 12:51 Clonazepam 1 Mg Tablet PO 01/22/25 12:27 1 mg ONCE ONE Administration Clonazepam 1 mg 01/22/25 13:33 01/22/25 13:49 Clonazepam 1 Mg Tablet PO 01/22/25 13:34 1 mg ONCE ONE Administration Lisinopril 20 mg 01/22/25 20:13 01/22/25 21:09 Lisinopril 20 Mg Tablet PO 01/22/25 20:14 20 mg ONCE ONE Administration Protocol Metoprolol Succinate 50 mg 01/22/25 20:13 01/22/25 21:14 Metoprolol Succinate Er 50 Mg Tab.Er.24h PO 01/22/25 20:14 50 mg ONCE ONE Administration Protocol Medical Decision Making Medical Decision Making [facility] Narrative: Patient is here with severe anxiety we will administer benzodiazepine, we will consult crisis, we will check labs Differential Diagnosis Differential Diagnoses: The differential diagnosis associated with the presentation includes Anxiety/depression/PTSD Lab Data 01/22/25 12:57 01/22/25 12:57 Labs: Lab Results 01/22/25 01/22/25 Range/Units 12:57 21:04 WBC 7.1 (4.8-10.8) X10*3/uL RBC 5.11 (4.20-5.50) X10*6/uL Hgb 11.8 L (12.0-16.0) g/dl Hct 38.4 (37.0-47.0) % MCV 75.1 L (80.0-98.0) fL MCH 23.1 L (27.0-33.0) pg MCHC 30.7 L (31.0-35.0) g/dl RDW 15.8 (11.0-16.0) % Plt Count 172 (160-400) X10*3/uL MPV 11.0 (9.4-12.3) fL Immature Gran % (Auto) 0.3 (0.0-0.4) % Neut % (Auto) 69.0 (45-73) % Lymph % (Auto) 23.2 (20-40) % Mcmullen % (Auto) 7.4 (2-11) % Eos % (Auto) 0.1 (0-4) % Baso % (Auto) 0.0 (0-2) % Lymph # (Auto) 1.6 (1.2-4.9) X10*3/uL Mcmullen # (Auto) 0.5 (0.1-1.2) X10*3/uL Eos # (Auto) 0.0 (0.0-0.4) X10*3/uL Baso # (Auto) 0.0 (0.0-0.2) X10*3/uL Abs Immat Gran (auto) 0.02 (0.00-0.03) X10*3/uL Absolute Neuts (auto) 4.9 (2.0-8.3) x10*3/uL Absolute Nucleated RBC 0.000 (0.0-0.012) X10*3/uL Nucleated RBC % (auto) 0.0 (0.0-0.2) /100WBC Sodium 138 (135-145) mmol/L Potassium 4.4 (3.3-5.1) mmol/L Chloride 106 (96-108) mmol/L Carbon Dioxide 24 (22-29) mmol/L Anion Gap 12 (12-20) BUN 18 H (9-16) mg/dL Creatinine 0.83 (0.5-1.4) mg/dL Estim Creat Clear Calc 88.8 Estimated GFR > 60 POC Glucose 176 H (60-115) mg/dL Random Glucose 214 H (60-115) mg/dL Calcium 9.3 D (8.4-10.2) mg/dL Total Bilirubin 0.8 (0.0-1.0) mg/dL AST 23 (5-31) U/L ALT 23 (0-31) U/L Alkaline Phosphatase 121 H (39-117) U/L Total Protein 6.9 (6.5-8.0) g/dL Albumin 4.3 (3.5-5.0) g/dL Discharge Plan Discharge Clinical Impression: Anxiety, Dyskinesia, tardive Depression Qualifiers: Depression Type: major depressive disorder Major depression recurrence: recurrent Active/Remission status: remission status unspecified Qualified Code(s): F33.9 - Major depressive disorder, recurrent, unspecified Patient Disposition: Home, Self-Care Instructions: Anxiety (ED) Prescriptions: No Action prazosin 1 mg Capsule 1 mg PO BEDTIME Qty: 30 0RF Protocol: Hold for SBP< HOLD for SBP < : 90 trazodone 50 mg Tablet 50 mg PO BEDTIME 30 Days Qty: 30 0RF metoprolol succinate 50 mg tablet extended release 24 hr 50 mg PO DAILY Qty: 30 0RF sucralfate 1 gram tablet 1 g PO QID PRN (Reason: Dyspepsia) Qty: 120 0RF lisinopril 20 mg tablet 20 mg PO DAILY Qty: 30 0RF gabapentin 400 mg capsule 400 mg PO TID Qty: 90 0RF clonazepam 1 mg tablet 1 mg PO BID Qty: 14 4RF mirtazapine 30 mg tablet 30 mg PO BEDTIME Qty: 30 0RF metformin 1,000 mg tablet 1,000 mg PO BID Qty: 60 0RF esomeprazole magnesium 40 mg capsule,delayed release(DR/EC) 40 mg PO BID@0630,1630 Qty: 60 0RF bumetanide 0.5 mg tablet 0.5 mg PO DAILY Qty: 30 0RF montelukast 10 mg tablet 10 mg PO DAILY Qty: 30 0RF albuterol sulfate [Ventolin HFA] 90 mcg/actuation HFA aerosol inhaler 2 puff inhalation Q4H PRN (Reason: SOB) Qty: 1 0RF rosuvastatin 40 mg tablet 40 mg PO DAILY Qty: 30 0RF multivitamin with folic acid [Tab-A-Alanis] 400 mcg tablet 1 tab PO DAILY Qty: 30 0RF acetaminophen 500 mg Tablet 1,000 mg PO BID duloxetine 60 mg capsule,delayed release(DR/EC) 60 mg PO DAILY insulin glargine-yfgn 100 unit/mL (3 mL) insulin pen 12 unit subcut BID PRN (Reason: blood glucose >200) quetiapine 100 mg tablet 100 mg PO BEDTIME nystatin 100,000 unit/gram powder 1 appl topical BID Rx Instructions: under abdomen folds lidocaine 4 % Adhesive Patch,Medicated 1 patch TOPICAL DAILY PRN (Reason: Pain) Rx Instructions: 12 h on and 12 h off Jardiance 25 mg tablet 25 mg PO DAILY ipratropium-albuterol 0.5 mg-3 mg(2.5 mg base)/3 mL solution for nebulization 3 ml inhalation Q6H PRN (Reason: Shortness Of Breath/wheezing) aspirin 81 mg tablet,chewable 81 mg PO DAILY clonazepam 0.5 mg tablet 0.5 mg PO DAILY@1300 Referrals: Flory Rizzo MD [Primary Care Provider, Medical] - 01/25/25 Interventions: [place]-Suicide Risk Severity Scale Last Done: 01/22/25 13:52 Print Language: Tuvaluan
--- NOTE | 2025-01-22 12:52 | PC.NURSE ---
pt medicated per order
[2025-01-22 13:00] LABS: MANUAL DIFF FLAG NO
--- NOTE | 2025-01-22 13:01 | PC.NURSE ---
patient a&ox3, labs drawn, ekg performed, pt rr equal/hyperventilating- lungs clear, 1:1 sitter at bedside due to patient stating I want to pt denied any plan, denies HI. pt medicated per order, care team consult placed, call mcnamara within reach, plan of care ongoing.
[2025-01-22 13:05] LABS: Hematocrit 38.4 % (37.0-47.0); Hemoglobin 11.8 g/dl (12.0-16.0); Imm Gran Abs Auto 0.02 X10*3/uL (0.00-0.03); Imm Gran Pct Auto 0.3 % (0.0-0.4); Lymphocytes Absolute Auto 1.6 X10*3/uL (1.2-4.9); Mean Corpuscular HGB Conc 30.7 g/dl (31.0-35.0); Mean Corpuscular Hemoglobin 23.1 pg (27.0-33.0); Mean Corpuscular Volume 75.1 fL (80.0-98.0); NRBC Abs Auto 0.000 X10*3/uL (0.0-0.012); NRBC Pct Auto 0.0 /100WBC (0.0-0.2); Platelet Count 172 X10*3/uL (160-400); Red Blood Count 5.11 X10*6/uL (4.20-5.50); White Blood Count 7.1 X10*3/uL (4.8-10.8)
[2025-01-22 13:16] LABS: Alanine Aminotransferase 23 U/L (0-31); Albumin Level 4.3 g/dL (3.5-5.0); Alkaline Phosphatase 121 U/L (39-117); Anion Gap 12 (12-20); Aspartate Amino Transferase 23 U/L (5-31); Blood Urea Nitrogen 18 mg/dL (9-16); Calcium 9.3 mg/dL (8.4-10.2); Carbon Dioxide 24 mmol/L (22-29); Chloride 106 mmol/L (96-108); Creatinine Clr Calc Pharmacy 88.8; Estimated Glomerular Filt Rate > 60; Potassium 4.4 mmol/L (3.3-5.1); Sodium 138 mmol/L (135-145); Total Protein 6.9 g/dL (6.5-8.0)
--- NOTE | 2025-01-22 16:30 | PC.NURSE ---
provider requested to have pharmacy do med req for patient as pt will be spending the night here as she is out of all medications at home. pharmacy was called and they stated they would work on the med req
--- NOTE | 2025-01-22 16:46 | MHC.CARE ---
Patient evaluated by the CARE Team, she is not in need of an inpatient psychiatric admission at this time. Disposition discussed with ED provider, Dr. Judge.
--- OUTSIDE RECORDS SUMMARY | 2025-01-22 16:53 | XMS_ITS | Data Portability ---
Author Organization [employer] [facility], [facility] Address [address] [place] [id number] Care Team Providers Care Family Services Worker Name Role Phone AMEE BALDERAS Primary Care Provider HIM CCA OTHER Assessment Encounter Date Assessment Date Assessment LastModified by Organization Details LastModified Time 04/08/2024 04/08/2024 I provided real -time medical direction via phone for this encounter and was available for additional phone-based assistance as needed. I have reviewed and agree with the Assessment and Plan as documented by the [facility]. Patient given the opportunity to ask questions. Our service contacted for an assessment of: Nausea and vomiting As per above, patient with approximately several days nausea vomiting and intermittent diarrhea. Patient denies any contacts with norovirus. Also denies eating or drinking any contaminated foods or liquids. Has some mild upper airway tract symptoms. Per ticket collector on the scene, vital signs are stable [...] We discussed the need to seek care urgently/emergent ly in the setting of any new or worsening serious symptoms Not available 04/08/2024 23:25:09 04/09/2024 04/09/2024 I provided real -time medical direction via phone for this encounter and was available for additional phone-based assistance as needed. I have reviewed and agree with the Assessment and Plan as documented by the [facility]. Patient given the opportunity to ask questions. [...] effects from the Tamiflu thus far. Per ticket collector on the scene, vital signs stable patient [...] We discussed the need to seek care urgently/emergent ly in the setting of any new or worsening serious symptoms, particularly fever chills Not available 04/09/2024 20:59:23 12/24/2024 12/24/2024 I provided real -time medical direction via phone for this encounter, and was available for additional phone based assistance as needed. I have reviewed and agree with the Assessment and Plan as documented by the [facility]. We discussed the diagnostic uncertainty of home visits and the risk associated with this. In this case the patient and I felt this to be an acceptable and reasonable amount of risk given the benefit of avoiding an ED visit. The patient given the opportunity to ask questions. Advised if develops CP/severe SOB/turning blue/uncontrolled n/v/d /AMS/ syncope/ hi fever / acute neuro changes like focal weakness/ speech or vision changes to call 911- verbalized understanding of instruction [email or web address] Not available 12/24/2024 15:46:58 Plan of Treatment Reminders Order Date Submit Date Provider Last Modified By Organization Details Last Modified Time Details Appointments None recorded. Lab BMP, serum or plasma 2024 025 [facility], [address] [place] [address], [id number] 5 13:37:25 BMP, serum or plasma 2024 025 [facility], [address] [place] [address], [id number] 5 13:37:25 rapid flu (A+B) 2024 025 [facility], [address] [place] [address], [id number] 5 18:52:52 rapid SARS CoV 2 Ag, QL IA, respiratory specimen 2024 025 [facility], [address] [place] [address], [id number] 5 18:53:12 BMP, serum or plasma 2024 025 [facility], [address] [place] [address], [id number] 5 18:53:30 BMP, serum or plasma [address], [id number] 5 11:06:33 cmp, whole blood + katerina [address], [id number] 5 08:11:25 rapid SARS CoV 2 Ag, QL IA, respiratory specimen [address], [id number] 5 23:24:52 rapid flu (A+B) [address], [id number] 5 23:23:26 Referral None recorded. Procedures None recorded. Surgeries None recorded. Imaging None recorded. Medication Orders sodium chloride 0.9 % intravenous solution 2024 025 [facility] - [id number], [address], [place], [address], 5 10:20:03 ipratropium 0.5 mg-albutero l 3 mg (2.5 mg base)/3 mL nebulizatio n soln 2024 025 [email or web address] 8 [facility] - [id number], [address], [place], [address], 5 14:40:42 doxycycline hyclate 100 mg tablet 2024 025 [place] - [id number], [address], [place], [address], 05:01:26 doxycycline hyclate 100 mg tablet 2024 025 [place] [id number], [address], [place], [address], 05:01:26 albuterol sulfate 2.5 mg/3 mL (0.083 %) solution for nebulizatio n 2024 025 [email or web address] 0 [place] - [id number], [address], [place], [address], 15:45:11 prednisone 20 mg tablet 2024 025 [place] - [id number], [address], [place], [address], 05:01:53 prednisone 20 mg tablet 2024 025 [place] [id number], [address], [place], [address], 5 05:01:53 Mucinex 1,200 mg tablet, extended release 2024 025 [facility] - [id number], [address], [place], [address], 5 16:14:19 ondansetron HCl (PF) 4 mg/2 mL injection solution [address] [id number], [address], [place], [address], 5 20:55:08 sodium chloride 0.9 % intravenous solution [address] [id number], [address] [place], [address], 5 20:55:08 ondansetron 4 mg disintegrat ing tablet 2024 025 [place] - [id number], [address], [place], [address], 5 12:22:34 sodium chloride 0.9 % intravenous solution [address] [place] [address] [id number], [address] [place], [address], 5 22:13:10 ondansetron HCl (PF) 4 mg/2 mL injection solution [address] [id number], [address] [place], [address], 5 22:13:10 Tamiflu 75 mg capsule [address] [id number], [address] [place], [address], 5 23:24:00 Tamiflu 75 mg capsule 2024 025 [place] [id number], [address] [place], [address], 12:24:28 Patient TargetsNo targets recorded. Patient InstructionsNo instructions recorded. Reason for Referral None Reported. Results Created Date Observation Date Name Description Value Unit Range Abnormal Flag Note LastModifiedBy Organization Detail LastModifiedTime 04/08/1904/08/2024 rapid SARS CoV 2 Ag, QL IA, respi rator y speci men rapid SARS CoV 2 Ag, QL IA, respiratory specimen negati ve Not Available [facility] [address] [place] [address], [id number] 04/08/2024 23:24:37 04/08/1904/08/2024 rapid flu (A+B) Flu positi ve Not Available [facility] ed [address] [place] [address], [id number] 04/08/2024 22:12:19 Result Notes None recorded. Medical Equipment None Reported. Allergies Allergen ID Allergen Name Allergen Category Reaction Reaction Severity Criticality Documentation Date Start Date Code Code System Note Provider Name and Address Organization Details Recorded Time 11834 Reglan medicatio n Not available Not available Not available 02/20/2024 9230 RxNorm Not Available [facility] - [facility] 4 15:54:42 3933 Product containin g penicilli n (product) medicatio n Not available Not available Not available 02/24/2023 40268 8001 SNOMED Not Available [facility] - production 4 03:33:03 3934 latex environme nt,medica tion Not available Not available Not available 02/24/2023 16036 91 RxNorm Not Available [facility] - production 4 03:33:03 3935 Iodinated contrast media (substanc e) medicatio n Not available Not available Not available 02/24/2023 70472 2004 SNOMED Dedra Davis MD [address] [place] [address],[address], [place], [address], [facility] - [employer] 3 13:27:42 Medications Name Sig Start Date Stop Date Status Note LastModified by Organization Details LastModified Time mm-neb/kit a7005 active Not Available Not Available Not Available multivitami n tablet active Not Available Not Available Not Available quetiapine 25 mg tablet active Not Available Not Available Not Available atorvastati n 40 mg tablet active Not Available Not Available Not Available acetaminoph en 325 mg tablet TAKE 2 TABLETS BY MOUTH FOUR TIMES A DAY NEEDED FOR MILD PAIN. (LIMIT 4000MG OF TYLENOL/A CETAMINOP HEN PER DAY) active Not Available Not Available No t Available gabapentin 600 mg tablet active Not [...] active Not Available Not Available Not Available prednisone 20 mg tablet Take 1 tablet every day by oral route with meal(s) for 4 days. 01/04 completed Not Available Not Available Not Available Alcohol Pads USE 4 (FOUR) TIMES DAILY DIRECTED active Not Available Not Available No t Available gabapentin 400 mg capsule active Not Available Not Available Not Available clonazepam 1 mg tablet TAKE 1 TABLET BY MOUTH two (2) times a day FOR 7 DAYS active Not Available Not Available No t Available cyanocobala min (vit B-12) 1,000 mcg tablet TAKE 1 TABLET BY MOUTH EVERY DAY. active Not Available Not Available No t [...] Available ondansetron 4 mg disintegrat ing tablet PLACE 1 TABLET UNDER THE TONGUE TO DISSOLVE EVERY 8 HOURS NEEDED FOR NAUSEA OR FOR VOMITING active Not Available Not Available No t Available doxycycline hyclate 100 mg tablet Take 1 tablet every 12 hours by oral route for 10 days, for copd exacerbat ion/possi ble pneumonia . 01/10 completed Not Available Not Available Not Available olanzapine 20 mg tablet active Not [...] active Not Available Not Available Not Available oxycodone 5 mg tablet TAKE 1 TABLET BY MOUTH EVERY 6 HOURS NEEDED FOR SEVERE PAIN. active Not Available Not Available No t Available cholecalcif marco a (vitamin D3) 25 [...] active Not Available Not Available Not Available Mucinex 1,200 mg tablet, extended release Take 1 tablet twice a day by oral route as needed, for couogh congestio n. 2024 active Not Available Not Available Not Avai lable diclofenac 1 % topical gel active Not [...] Not Available Vitals Date Recorded Respiratory rate Heart rate Body height Oxygen saturation Oxygen saturation in Arterial blood by Pulse oximetry Body weight Body temperature Systolic And Diastolic Provider Name and Address Organization Details Last Updated DateTime 5 20 /min 98 /min 170.18 cm 94 % 94 % 85748.2 4 g 99.3 [degF] 149/100 mm[Hg] Not Available [facility] [employer] 5 22:03:43 Date Recorded Heart rate Body temperature Oxygen saturation Oxygen saturation in Arterial blood by Pulse oximetry Respiratory rate Systolic And Diastolic Provider Name and Address Organization Details Last Updated DateTime 5 101 /min 99.6 [degF] 98 % 98 % 18 /min 127/81 mm[Hg] Not Available [facility] 5 20:41:57 Date Recorded Heart rate Respiratory rate Oxygen saturation Oxygen saturation in Arterial blood by Pulse oximetry Body temperature Systolic And Diastolic Provider Name and Address Organization Details Last Updated DateTime 5 86 /min 24 /min 97 % 97 % 98.8 [degF] 131/74 mm[Hg] Not Available [facility] 5 14:34:45 Date Recorded Respiratory rate Oxygen saturation Oxygen saturation in Arterial blood by Pulse oximetry Heart rate Body temperature Systolic And Diastolic Provider Name and Address Organization Details Last Updated DateTime 5 18 /min 97 % 97 % 90 /min 97.4 [degF] 138/84 mm[Hg] Not Available [facility] 5 14:33:33 Date Recorded Oxygen saturation Oxygen saturation in Arterial blood by Pulse oximetry Heart rate Respiratory rate Body temperature Systolic And Diastolic Provider Name and Address Organization Details Last Updated DateTime 97 % 97 % 86 /min 18 /min 98.5 [degF] 122/86 mm[Hg] Not Available [facility] - production 10:05:49 Social History None recorded. Functional Status None recorded. Mental Status None recorded. Family History Nothing Reported. Medical History No medical history recorded. Gynecological HistoryNo gynecological history recorded. Obstetrics History GPAL:G 0 P 0 0 0 0 Past Encounters Encounter ID Performer Location Encounter Start Date Encounter Closed Date Diagnosis/Indication Diagnosis SNOMED-CT Code Diagnosis ICD10 Code Diagnosis IMO Codes Diagnosis Note [id number] [facility] [address] [place] [address] 06/14/2022 10:54:26 06/16/2022 09:10:40 Acute abdominal pain 003515879 R10.9 This 61-year-ol d female with a previous cholecyste ctomy called [facility] anmol hong of severe right upper quadrant pain since last night. Based on her history and exam I suspect she has an acute abdomen, and I recommende d that she go to the ER for further evaluation . The patient agreed with this plan. [id number] Corby Ventura MD Main - [address] [address] 07/13/2022 10:13:12 07/15/2022 09:59:54 Right upper quadrant pain [id number] R10.11 [id number] Dread Agustin MD [facility] [address] [place] [address] 08/27/2022 12:09:52 08/31/2022 13:13:46 Chest pain [id number] R07.9 62yo woman presents with exertional chest pain and shortness of breath that is not reproducib le to palpatatio n. Presentati on concerning for ACS. She was given a full aspirin and referred to the ED by 911. [id number] Mina Freed MD Main - [address] [address] 11/08/2022 15:25:35 02/07/2023 14:49:13 Nausea and vomiting [id number] R11.2 [id number] Helen Cortez MD Main - [address] [address] 11/24/2022 18:45:03 11/24/2022 23:49:04 Epigastric pain 06694348 R10.13 62 year old female with Crohn's [...] assessment and plan as documented by the ticket collector. I provided real-time medical direction for this encounter and was immediatel y available to provide additional phone-base d assistance as needed. [id number] Mina Freed MD Main - [facility] [address] [place] [phone] 12/28/2022 16:05:13 12/28/2022 23:40:19 Tremor [id number] R25.1 [id number] Dedra Davis [facility] [address] [place] [phone] 02/24/2023 13:23:32 02/26/2023 11:37:42 Nausea and vomiting 05351230 R11.2 Patient has no peripheral IV access [...] she states that her boyfriend can go pick pulling machine operator her prescripti on. Will trial frequent small amounts of clear liquids-ad vised if not tolerating clears with medication or feeling worse she is always able to go to the ER if needed. She verbalized understand ing [id number] ELIDA ALEX MD Main - [facility] [address] [place] [phone] 03/16/2023 17:15:21 03/16/2023 22:50:57 Nausea and vomiting 96232500 R11.2 As noted, we were called to see this patient regarding concerns of nausea, vomiting, inability to tolerate PO. Evaluation in the field was performed by my ticket collector colleague, as noted above, I provided real-time [...] fluid down , or any other concerns. [id number] Mina Freed MD Main - [facility] [address] [place] [address] 03/30/2023 14:23:43 03/31/2023 10:33:32 Upper respiratory infection [id number] J06.9 [id number] Mayo Cortez MD Main - [facility] [address] [place] [phone] 02/20/2024 17:00:58 02/20/2024 23:27:33 Nausea and vomiting [id number] R11.2 [id number] Melissa Patterson MD Main - [facility] [address] [place] [phone] 04/08/2024 22:03:39 04/09/2024 14:03:22 Influenza A virus present 5852110952 08 J09.X2 Nausea and vomiting 1693 2000 R11.2 [id number] Melissa Patterson MD Main - [facility] [address] [place], [place] [id number] 0 04/09/2024 20:41:56 04/10/2024 01:15:20 Influenza A virus present [id number] 08 J09.X2 Diarrhea [id number] R19.7 [id number] Corby Tafoya MD Main - [facility] [address] [place] [address] 08/16/2024 14:23:53 08/17/2024 10:52:20 Acute upper gastrointestinal hemorrhage [id number] K92.2 7658 As noted, we were called to see this patient regarding concerns of HTN, gastroente ritis sx, dizziness. Evaluation in the field was performed by my ticket collector colleague, as noted above, I provided real-time [...] hypotensio n concerning for hemorrhagi c shock. [id number] Dedra Davis MD [facility] [address] [address] 12/24/2024 14:33:25 12/25/2024 09:21:38 Acute exacerbation of chronic obstructive pulmonary disease [id number] J44.1 650171 rapid viral testing negative- patient aware-BMP not concerning other than hyperglyce nigel with blood sugar of 278 Allergies reviewed and patient requests her prescripti [facility]. after duoneb:Per the medic -left clear/ right exp wheezes upper and lower/ insp wheezes gone- less work breathing sat 98%/ RR 20/ HR up to 104 w/ neb now 94 at rest- will repeat neb w/ albuterol- marked improvemen t after second neb/some residual wheezing on the right. Given congested cough with green sputum the patient may have pneumonia or at least bronchitis thus will cover with antibiotic s. Advise close follow-up with her PCP. Red flags reviewed states BS was 309 this AM- made aware steroids/p rednisone will raise BS-Will use only a short course of lower dose prednisone . Advised patient to monitor BS before meals every day- show all rx and bs log to pcp at appt later this week use albuterol neb qid and q4 hr prn medic verified she has enough supplymade aware mucinex to loosen congestion may not be covered-sh e [place] [id number] ELIDA ALEX MD [facility] [address] [phone] 01/12/2025 10:04:08 01/12/2025 19:29:33 Hyperglycemia due to type 2 diabetes mellitus [id number] 40322 E11.65 [id number] Evaluation in the field was performed by my ticket collector colleague, as noted above, I provided real-time direction and supervisio n for this visit. The evaluation revealed a 64-year-ol d female with a history of severe persistent mental illness, hypertensi on, congestive heart failure, and inflammato ry bowel disease (Crohn s /ulcerativ e colitis overlap) presenting with concerns for hyperglyce nigel.Lenin agustin was recently hospitaliz ed for asthma exacerbati on, treated with Prednisone 40 mg daily 5 days (last dose 2 days ago) and Doxycyclin e 100 mg PO BID 5 days.She was seen by her primary care RESIDENTIAL SALES REPRESENTATIVE yesterday for a post-disch arge visit, where her blood glucose was 476 mg/dL.She is currently taking Jardiance 25 mg daily and Metformin 1000 mg BID.Lantus 8 units daily was prescribed but not delivered by her pharmacy, so she has not yet started insulin.Yessi hand checks her glucose once daily, with readings in the 400s.She denies dizziness, weakness, increased thirst, polyuria, chest pain, shortness of breath, abdominal pain, nausea, or vomiting. Vital Signs: BP 122/86 , HR 86 , RR 18, Temp 98.5 F, SpO2 97% (room air)Exam: General: Alert, oriented, in no acute distress.L ungs: Clear to auscultati on bilaterall y.Abdomen: Soft, non-tender , non-disten ded.Extrem ities: No lower extremity edema.Labs (initial): Na 131 (corrected 139) K 6.0 (previousl y 4.9 on 01/03) C l 103 T CO 26 i Ca 1.03 G waylon 416 B UN 25 (previousl y 40) C r 0.9 (previousl y 1.06) G ap 9Hgb 13.3 g/dL H ct 39%Repeat labs post 1 L NS:Na 136 K 4.6 C l 103 C O 24 B UN 19 C r 0.9 G lucose 314Allergi es: Reviewed. Impression :Hyperglyc emia likely secondary to recent corticoste roid use and delay in initiating basal insulin.Mi ld hyperkalem ia (K 6.0) resolved with IV fluids. No evidence of DKA or HHS.Renal function stable. Patient clinically well, tolerating oral intake. Plan:1 L normal saline administer ed with improvemen t in glucose and potassium. Patient was notified that Lantus insulin (8 units daily) will be delivered this afternoon; advised to start tonight.Ad vised to continue Metformin and Jardiance as prescribed .Reinforce d low-carboh ydrate diet and adequate oral hydration. Follow-up with PCP early next week for insulin titration and repeat labs.Red flags discussed: persistent glucose >400 mg/dL, vomiting, abdominal pain, confusion, weakness, dizziness, or signs of dehydratio n a dvised to go to ED immediatel y. Primary care, consider__ _ Dispositio n: We discussed the diagnostic uncertaint [...] new or worsening serious symptoms, particular ly persistent glucose >400 mg/dL, vomiting, abdominal pain, confusion, weakness, dizziness, or signs of dehydratio n Health Concerns Section Related Observation LastModified by Organization Detai ls LastModified Time None Recorded Concern Status LastModified by Organization Details LastModified Time None Recorded Advance Directives Directive None Recorded Payers Insurance Date Sequence Insurance Name Policy Number Policy Bustillo Covered Member ID Bustillo Member ID Guarantor Name 02/20/2024 1 [facility] - DOS PRIOR TO 2022 - DUAL ELIGIBLE (MEDICARE REPLACEMENT/AD VANTAGE - HMO) Vale Nieto [id number] Vale Nieto 01/11/2025 1 [facility] - DOS ON OR AFTER 2022 - DUAL ELIGIBLE - RESIDENTIAL OPTIONS AND ONE CARE (MEDICARE REPLACEMENT/AD VANTAGE - HMO) Vale Nieto [id number] Vale Nieto Notes Date Note Type Note Provider Name and Address Organization Details Recorded Time 04/08/2024 text/html HPI: Member calling in with c/o nausea and diarrhea that started last night. Member states she was unable to sleep due to symptoms and constantly being up to the bathroom. Member states BS have been abnormal BS was 320 this morning. Member also states her lips and mouth are very dry. .................... .................... .................... .................... .................... .................... .................... . [facility] Nurse Triage Notes (Yusuf Dalal - YAYO): Chief Complaints: Dehydration, Diarrhea, Vomiting PMH: Severe Persistent Mental Illness (SPMI), Hypertension, Congestive Heart Failure, Inflammatory Bowel Disease (Crohn's Disease, Ulcerative Colitis) PMH Reviewed at 04/08/2024: Allergies Reviewed at 04/08/2024:47 Comments: Assess s/s and treat as indicated [facility] Organization Information for Selena Bullard Business Legal Name: [employer]. Address: [address] [place] [address], Back Stayer: Praneeth Alcala MD JO No.: [id number] [facility] POC Test Results from Selena Bullard Blood Glucose Measurement (17:52:19) Blood Glucose: 154 mg/dL Rapid COVID antigen (17:52:21) COVID: - Rapid influenza antigen (17:52:21) Flu: - Attachments uploaded as part of this test result can be found under Documents section. .................... .................... .................... .................... .................... .................... .................... . [facility] Note From Selena Bullard: SANDY makes pt contact when she opens the front door to her home. She is dressed in her nightgown and tells MI she was just in the bathroom w/ [...] is amendable to evaluation and treatment today. [facility] obtains vital signs and pt is assessed. She is found to have a very low-grade fever and she continues to have rhinitis and sneeze throughout. Lung sounds are clear and remaining physical exam is unremarkable. Pt consents to COVID/flu swab and is found to be positive for Flu A. [facility] contacts [facility] to discuss the above. [facility] is agreeable to IV fluids and antiemetics [...] removed at the end and pt thanks [facility] for coming. [facility] is clear. Report completed by FIONA Bullard [id number]. .................... .................... .................... .................... .................... .................... .................... . [facility] Consulted: Melissa Patterson .................... .................... .................... .................... .................... .................... .................... . Disposition: Fulfilled Melissa Patterson MD [address] [facility], [place], [address], [facility] 04/08/2024 23:26:58 04/09/2024 text/html HPI: 63 y/o femalePatient last seen by heide on 04/08 and dx with Flu A. Patient called office today with reports of worsening nausea and diarrhea. Patient is tearful during call and states that any time she attempts to consume fluids she immediately has a loose bowel movement. Patient confirms that she just received tamiflu. .................... .................... .................... .................... .................... .................... .................... . CRC Nurse Triage Notes (Bridgett Munguia - RN): Chief Complaints: Dehydration, Diarrhea, Nausea PMH: Severe Persistent Mental Illness (SPMI), Hypertension, Congestive Heart Failure, Inflammatory Bowel Disease (Crohn's Disease, Ulcerative Colitis) PMH Reviewed at 04/09/2024 - 16:23 Allergies Reviewed at 04/09/2024 - 16:23 Comments: HPI reviewed- [place] [facility] Organization Information for Reji Chaka [employer] Legal Name: [facility] Transportation Address: [address] [place] [address], [place] [address], Back Stayer: Kemal Mcdaniel MD CLIA No.: [id number] [facility] POC Test Results from Chaka Mendoza - [facility] (18:14:59) pH: 7.43 pH units pCO2: 37.2 mmHg pO2: 44.2 mmHg Na: 138 mmol/L K: 4.4 mmol/L iCa: 1.08 mmol/L Cl: 106 mmol/L TCO2: 23.8 mEq/L Hct: 39 % Hb: 13.3 g/dL Glu: 127 mg/dL Lac: 1.24 mmol/L Cr: 0.72 mg/dL BUN: 16 mg/dL A .................... .................... .................... .................... .................... .................... .................... . [facility] Note From Chaka Mendoza: This 63-year-old female [...] questions and are agreeable to this plan. .................... .................... .................... .................... .................... .................... .................... . [facility] Consulted: Melissa Patterson .................... .................... .................... .................... .................... .................... .................... . Disposition: Fulfilled Melissa Patterson MD [address] [place] [address],[address], [place], [address], [facility] 04/09/2024 20:59:59 08/16/2024 text/html HPI: 64 y/o femalePatient presented to ED yesterday due to elevated BP's, patient was assessed and cleared for d/c home. Patient called today with abdominal pain, vomiting and diarrhea. Patient would benefit from evaluation and possible IV hydration and antiemetic. .................... .................... .................... .................... .................... .................... .................... . CRC Nurse Triage Notes (Jennifer Alamo): Reason For Request: abd pain Chief Complaints: Abdominal Pain, Nausea / Vomiting, Diarrhea PMH: Severe Persistent Mental Illness (SPMI), Hypertension, Congestive Heart Failure, Inflammatory Bowel Disease (Crohn's Disease, Ulcerative Colitis) PMH Reviewed at 08/16/2024 Allergies Reviewed at 08/16/2024:54 Comments: HPI reviewed [facility] Organization Information for Luís Blankenship [employer] Legal Name: [employer]. Address: [address] [place] [address], Back Stayer: Praneeth Alcala MD CLIA No.: [id number] [facility] [facility] POC Test Results from Luís Blankenship iSTAT Chem8+ (14:35:43) Na: 137 mEq/L K: 4.6 mEq/L Cl: 106 mEq/L iCa: 1.21 mmol/L TCO2: 21 mmol/L Glu: 126 mg/dL BUN: 19 mg/dL Crea: 1.0 mg/dL Hct: 43 % Hb: 14.6 g/dL A mmol/L Cartridge Number: [id number] Attachments uploaded as part of this test result can be found under Documents section. .................... .................... .................... .................... .................... .................... .................... . [facility] Note From Luís Blankenship: Dispatched to above [...] good radial pulse, skin pale cool clammy. [facility] contacted, spoke with Dr. Tafoya, advised of patient complaints and exam findings. [facility] ordered Chem 8 checked. Iv access established, 18g R forearm. Lab draw preformed. Chem 8 checked, results uploaded. Patient became diaphoretic reports worsening of dizziness, BP now 77/46, confirmed with manual BP. [facility] contacted, advised of patient status change. [facility] recommends patient go to ER by ambulance. Patient agrees with this plan. 911 contacted. [facility] responded. Verbal report given to [facility], took over patient care, will transport to [facility]. FL8 clear. EOR. .................... .................... .................... .................... .................... .................... .................... . [facility] Consulted: Timothy Tafoya .................... .................... .................... .................... .................... .................... .................... . Disposition: Leoncio Tafoya MD [address] [facility],[address], [place], [address], [employer] - [employer] 08/17/2024 10:43:47 12/24/2024 text/html ROS as noted in the HPI HPI: Michael was admitted to [facility] 12/19/24 and discharged home the same day. [facility] attempted to follow up with mbr for post discharge follow up. Mbr reported she was very ill and asked for a call on 12/24. [facility] observed mbr to have SOB and cough that would flare each time mbr attempted to speak. It was very difficult to understand what mbr was saying. [facility] then called mbr back today and symptoms are the same. CCM unable to understand mbr. She did say YES when CCM asked if she wanted [facility] called. .................... .................... .................... .................... .................... .................... .................... . [facility] Nurse Triage Notes (Leona Cruz): Reason For Request: Breathing, common cold, cough Chief Complaints: Breathing Problems, Common Cold, Cough PMH: Severe Persistent Mental Illness (SPMI), Hypertension, Congestive Heart Failure, Inflammatory Bowel Disease (Crohn's Disease, Ulcerative Colitis) PMH Reviewed at 12/24/2024 - : Allergies Reviewed at 12/24/2024 - :03 Comments: HPI reviewed. [facility] [facility] Organization Information for Troy Nieto Legal Name: [employer]. Address: [address] [place] [address], Back Stayer: Praneeth Alcala MD IA No.: [id number] [facility] [facility] POC Test Results from Troy Nieto Rapid COVID antigen (14:26:26) COVID: - Attachments uploaded as part of this test result can be found under Documents section. Rapid influenza antigen (14:26:26) Flu: - Attachments uploaded as part of this test result can be found under Documents section. iSTAT Chem8+ (14:51:46) Na: 134mEq/LK: 4.1mEq/LCl: 102mEq/LiCa: 1.09mmol/LTCO2: 19mmol/LGlu: 278mg/dLBUN: 24mg/dLCrea: 0.9mg/dLHct: 44%Hb: 15.0g/dLAmmol/LCartridge Number: [id number] Attachments uploaded as part of this test result can be found under Documents section. .................... .................... .................... .................... .................... .................... .................... . [facility] Note From Troy Nieto: Encountered patient conscious, alert and ambulatory with family present. Patient reports approximately one week of shortness of breath accompanied by a productive cough that yields green sputum. Patient denies chest pain, back pain and fevers. POCT COVID and Flu swab performed, both resulted negative; [facility] notified. Skin warm, dry and of appropriate color for ethnicity. Head and neck, free of trauma and edema. -JVD. Breath sounds exhibit both inspiratory and expiratory wheezes in the apexes bilaterally with present and clear bases, also bilaterally. Abdomen is soft, non-tender and non-distended. Upper extremities free of trauma and edema; patient reports multiple bruises on arms are from failed IV attempts while at the hospital last week. Lower extremities exhibit 2+ non-pitting edema bilaterally. Peripheral pulses present throughout. [facility] contacted: BMP performed, values uploaded via instED. 100mg PO Doxycycline administered. One duoneb treatment administered. 40mg PO prednisone administered. One albuterol neb administered. Medications administered after r ights were reconciled with patient. [facility] states they will send a prescription for further treatment to a pharmacy of patients choice but patient still should follow-up with primary care as soon as possible. Patient was encouraged to monitor herself for worsening symptoms, chest pain, fevers, altered mental status or syncope and was urged to seek further medical attention, including 911 if said symptoms were to develop. Patient verbalizes understanding of the plan and states she is comfortable remaining home today. [facility] Lab Orders: rapid flu (A+B): Performed rapid SARS CoV 2 Ag, QL IA, respiratory specimen: Performed BMP, serum or plasma: Performed [facility] Medication Orders: ipratropium 0.5 mg-albuterol 3 mg (2.5 mg base)/3 mL nebulization soln: Performed doxycycline hyclate 100 mg tablet: Performed albuterol sulfate 2.5 mg/3 mL (0.083 %) solution for nebulization: Performed prednisone 20 mg tablet: Performed .................... .................... .................... .................... .................... .................... .................... . [facility] Consulted: Dedra Davis .................... .................... .................... .................... .................... .................... .................... . Disposition: Fulfilled SEGMD: Patient reports she was hospitalized for a day at [facility] on 12/19 for TIA workup and then discharged home. She denies any neuro changes since. She denies headache but does have some sinus pressure but denies postnasal drip. She has been using her albuterol nebulizer MDIs 4 times a day. Patient reports she has a history of both asthma and COPD (not listed above ) chronic edema in lower extremities. Her blood sugar was 309 this morning. Dedra Davis MD [address] [place] [address],[address], [place], [address], [facility] 12/24/2024 23:11:20 01/12/2025 text/html ROS as noted in the HPI HPI: Patient evaluated by primary care RESIDENTIAL SALES REPRESENTATIVE today for a post discharge visit. recently admitted for asthma exacerbation, treated w/ Prednisone 40 mg X 5 days (unsure last dose), Doxycycline 100 mg p.o. twice daily X 5 days.Patient's glucose levels have been in the 400's when assessed once daily, she had not repeated. Today glucose 476, currently on Jardiance 25 mg and Metformin 1000 mg BID. RESIDENTIAL SALES REPRESENTATIVE started Lantus 8 units QD.Noted while inpatient Na 01/02/25 = 137 and 01/03/25 = 132, n symptoms of hyponatremia.Please assess glucose, BMP. Thank you. .................... .................... .................... .................... .................... .................... .................... . CRC Nurse Triage Notes (Leona Cruz): Reason For Request: Diabetes related Chief Complaints: Diabetes Related PMH: Severe Persistent Mental Illness (SPMI), Hypertension, Congestive Heart Failure, Inflammatory Bowel Disease (Crohn's Disease, Ulcerative Colitis) PMH Reviewed at 01/11/2025: Allergies Reviewed at 01/11/2025:44 Comments: HPI reviewed. [facility] Organization Information for Troy Nieto [employer] Legal Name: [employer] Address: [address] [place] [address] Back Stayer: Praneeth Alcala MD CLIA No.: [id number] [facility] POC Test Results from Troy Nieto iSTAT Chem8+ (10:10:05) Na: 131mEq/L K: 6.0mEq/L Cl: 103mEq/L iCa: 1.03mmol/L TCO2: 26mmol/L Glu: 416mg/dL BUN: 25mg/dL Crea: 0.9mg/dL Hct: 39% Hb: 13.3g/dL Ammol/L Cartridge Number: [id number] Attachments uploaded as part of this test result can be found under Documents section. iSTAT Chem8+ (11:21:52) Na: 136mEq/L K: 4.6mEq/L Cl: 103mEq/L iCa: 1.06mmol/L TCO2: 24mmol/L Glu: 314mg/dL BUN: 19mg/dL Crea: 0.9mg/dL Hct: 35% Hb: 11.9g/dL Ammol/L Cartridge Number: [id number] Attachments uploaded as part of this test result can be found under Documents section. .................... .................... .................... .................... .................... .................... .................... . [facility] Note From Troy Nieto: Encountered patient conscious, alert and ambulatory. Patient reports she has been experiencing high blood sugars due to being unable to fill her prescription for insulin; patient utilizes a delivery company that does not operate on weekends. Patient additionally reports experiencing intermittent confusion but answers questions appropriately and follows commands when prompted. Patient denies headaches, changes in vision, chest pain and shortness of breath. Patient expresses she feels her sugars are high due to being treated with prednisone after a COPD flare-up two weeks ago, last dose 01/10/25. IV established, BMP performed; values uploaded via instED. Skin warm, dry and of appropriate color for ethnicity. Head and neck, free of trauma and edema. -JVD. Breath sounds present, clear and equal bilaterally. Abdomen is soft, non-tender and non-distended. Extremities free of trauma and edema. [facility] contacted: 1L normal saline administered via infusion. BMP repeated per physician request, via straight stick; values uploaded via [employer]. [facility] was notified by this property underwriter that patient received a phone call during saline administration, stating that she would have a prescription for new Insulin ready today at a local pharmacy and would not have to wait until Tuesday for medication. [facility] acknowledges the incoming prescription, encourages patient to monitor herself for worsening symptoms as well as increased thirst, urination, nausea, vomiting or dizziness and encouraged patient to seek further medical attention, including 911 if said symptoms were to develop. Patient verbalizes understanding of the plan and states she has an appointment with her RESIDENTIAL SALES REPRESENTATIVE on 01/14/25 she intends to make but is comfortable remaining home in the meantime. IV discontinued prior to end of appointment. [facility] Lab Orders: BMP, serum or plasma: Performed BMP, serum or plasma: Performed [facility] Medication Orders: sodium chloride 0.9 % intravenous solution: Performed .................... .................... .................... .................... .................... .................... .................... . [facility] Consulted: Elida Alex .................... .................... .................... .................... .................... .................... .................... . Disposition: Fulfilled ELIDA ALEX MD [address] [facility],[address] [facility], [place], [address], [facility] 01/12/2025 13:14:59 OBGyn Episode No OBEpisode recorded.
--- NOTE | 2025-01-22 17:00 | PC.NURSE ---
patient was incontinent of large amount of urine, full bed change performed. pt aware we needed a urine. pts sitter has been dc'd as pt was seen by care team now denying SI/HI, charge nurse aware as well. call mcnamara within reach, plan of care ongoing
--- NOTE | 2025-01-22 19:40 | PC.NURSE ---
this nurse noted that the patients med req still has not been completed, upon calling the pharmacy and speaking with Fran, it was stated that the patients med req would only get done after admitted patients were completed. charge nurse was notified of this as well.
--- NOTE | 2025-01-22 20:23 | PHA.MEDREC ---
Pharmacy Consult ? Medication Reconciliation Pharmacy has completed the medication reconciliation. [facility] pharmacy is currently closed. Used claims to confirm medications. Spoke with patient to confirm as well. She reports insuline glargine-yfgn 12 units twice daily if her blood glucose >200 (last taken yesterday). She reports no longer using symbicort at home. She takes tylenol twice daily scheduled. She reports all meds were last taken on Thursday 01/18
--- NOTE | 2025-01-22 20:55 | MHC.CM.ED ---
CM received consult and met with patient. Pt is very tremulous and anxious. Is a fair historian. Pt lives with her . She uses a cane and a rollator. No HOSPICE/HOME HEALTH AIDE. Luis A GREENE and a psychiatrist at [facility]. Pt is active with S[facility] CHAUDHRY. Pt has not had any meds since tuesday. They are delivered to her home and the RN at [facility] fills her Medminder on Tuesdays. Pt was seen by CARE team. SEE CARE team note. Jenni was able to speak with Skyler Villegas, who manages her medications. They thought the patient was still hospitalized. She was at [facility] [place]. She was able to rectify the medications and they are sending to meds to this patient's home [facility] . She suggested CM call in the am to see when delivery is expected ([phone]). Pt will remain overnight in order to received her medications. Expect discharge home in the morning. Sasha contacted via [employer].
[2025-01-22 21:07] LABS: Glucose, Whole Blood 176 mg/dL (60-115)
[2025-01-22] MEDS: Metoprolol Succinate ER 50 MG TAB.ER.24H PO (21:14)
[2025-01-23] VITALS (9 sets, daily range): BP systolic 105–149; BP diastolic 60–85; PULSE 69–83; RESP 11–18; TEMP 36.8; O2SAT 93–97
--- NOTE | 2025-01-23 11:02 | MHC.CM.ED ---
Patient remains in ER. Spoke with Shyanne at [facility]. Medication was delivered to patient's home at 10am. Patient aware. Does not have transportation home. Patient is active with [facility]. CTS contacted via telephone at [phone]. They are working on arranging a medical taxi for 12pm. Patient, Silvia ZEE and Dr Cerda aware. Continue to monitor for d/c needs.
--- NOTE | 2025-01-23 17:16 | MHC.CM.ED ---
[facility] requested discharge summary. No ED D/S summary. Faxed updated ED H&P and CM note
== END 2025-01-23 11:40 | disposition home or self-care (01) ==
PROVIDERS: Emergency Medicine; Emergency Provider Emergency Medicine; PCP Internal Medicine
DX: G24.01 Drug induced subacute dyskinesia (principal); G20.A1 Parkinson's disease without dyskinesia, without mention of fluctuations; F33.1 Major depressive disorder, recurrent, moderate; F41.1 Generalized anxiety disorder; R07.89 Other chest pain; Z79.899 Other long term (current) drug therapy
CPT/HCPCS: 36415; 80053; 82947; 85025; 93005; 99285; S9485

== ENCOUNTER → 2025-01-22 12:29 | Outpatient (BNV) | payer OTHER, SELFPAY | PROVIDERS: Emergency Provider Emergency Medicine; PCP Internal Medicine; Visit Provider Internal Medicine | DX: I25.2 Old myocardial infarction (principal) | CPT/HCPCS: 93010 ==